=== PATIENT | female | born 1980 | race Caucasian/White ===

== ENCOUNTER 2016-11-19 23:00 | Emergency (ER) | payer OTHER ==
[2016-11-19 23:06] VITALS: RESP 18
[2016-11-19] MEDS ORDERED: SODIUM CHLORIDE 0.9% 1,000 ML IV ONE (23:25)
[2016-11-19] MEDS ORDERED: HYDROmorphone 1 MG/ML 1 ML SYRINGE IVP STA ×2 (23:25→23:51)
[2016-11-19 23:37] LABS: Basophils # (A) 0.1 k/uL (0-0.2); Basophils % (A) 1 %; CH 33.2; CHCM 34.2; Eosinophils # (A) 0.2 k/uL (0-0.7); Eosinophils % (A) 2 %; HCT 47.1 % (34.0-46.0); HDW 2.49; HGB 15.7 gm/dL (11.4-16.0); Luc # (Auto) 0.12; Luc % (Auto) 2; Lymphocytes # (A) 1.4 k/uL (1.0-4.8); Lymphocytes % (A) 19 %; MCH 32.5 pg (25.0-35.0); MCHC 33.4 g/dL (31.0-37.0); MCV 97.4 fL (80.0-100.0); Mean Platelet Volume 6.5; Monocytes # (A) 0.3 k/uL (0-1.0); Monocytes % (A) 4 %; Neutrophils # (A) 5.5 k/uL (1.3-7.7); Neutrophils % (A) 72 %; RBC 4.83 m/uL (3.80-5.40); RDW 13.8 % (11.5-15.5); WBC 7.6 k/uL (3.8-10.6); WBC (Perox) 7.41
--- NOTE | 2016-11-19 23:38 | ED ---
General Adult HPI - General Chief complaint: Abdominal Pain Stated complaint: Abd Pain Time Seen by Provider: 11/19/16 23:18 Source: patient, RN notes reviewed Mode of arrival: ambulatory Limitations: no limitations - History of Present Illness Initial comments: This is a 36-year-old female presents with abdominal pain and diarrhea that started last night. Patient states she noticed the pain last night but it went away. Patient states the pain returned this morning and has been constant. Patient states she has taken Percocet for the pain that she has for chronic back pain. Patient denies any nausea or vomiting but admits to some diarrhea that started last night. Patient denies any hematemesis, hematuria, dysuria or hematochezia. Patient denies any fever/chills. Patient states she has a history of cholecystectomy, appendectomy and a small bowel resection. Patient denies any recent travel or recent antibiotic use. Patient denies any recent fever, chills, shortness breath, chest pain, back pain, numbness, tingling, headache, or visual changes, or any other complaints. - Related Data Home Medications Medication Instructions Recorded Confirmed ALPRAZolam [Xanax] 1 mg PO BID PRN 06/17/14 11/19/16 ARIPiprazole [Abilify] 10 mg PO DAILY 06/17/14 11/19/16 Levothyroxine Sodium [Synthroid] 200 mcg PO DAILY 06/17/14 11/19/16 Sertraline [Zoloft] 100 mg PO DAILY 06/17/14 11/19/16 oxyCODONE HCL/ACETAMINOPHEN 1 tab PO QID 01/11/16 11/19/16 [Oxycodone-Acetaminophen 10-325] Previous Rx's Medication Instructions Recorded Ibuprofen [Motrin] 800 mg PO Q6HR PRN #30 tab 01/11/16 Dicyclomine [Bentyl] 20 mg PO QID 3 Days 11/20/16 Allergies Allergy/AdvReac Type Severity Reaction Status Date / Time cephalexin monohydrate Allergy Swelling Verified 11/19/16 23:06 [From Keflex] clindamycin Allergy Swelling Verified 11/19/16 23:06 levofloxacin [From Levaquin] Allergy Swelling Verified 11/19/16 23:06 Penicillins Allergy Itching Verified 11/19/16 23:06 prochlorperazine edisylate Allergy IRRITABLE Verified 11/19/16 23:06 [From Compazine] prochlorperazine maleate Allergy IRRITABLE Verified 11/19/16 23:06 [From Compazine] Review of Systems ROS Statement: Those systems with pertinent positive or pertinent negative responses have been documented in the HPI. ROS Other: All systems not noted in ROS Statement are negative. Past Medical History Past Medical History: Asthma, Thyroid Disorder Additional Past Medical History / Comment(s): crohns ibs anxiety depression, History of Any Multi-Drug Resistant Organisms: MRSA Date of last positivie culture/infection: 2011 MDRO Source:: breast Past Surgical History: Appendectomy, Bowel Resection, Section, Cholecystectomy Additional Past Surgical History / Comment(s): thyroid, cyst removal/abscess, right ovary and fallopian tube Past Psychological History: Anxiety, Depression Smoking Status: Current every day smoker Past Alcohol Use History: None Reported Past Drug Use History: None Reported General Exam - General Exam Comments Initial Comments: General: The patient is awake and alert, in no distress, and does not appear acutely ill. Eye: Pupils are equal, round and reactive to light, extra-ocular movements are intact. No nystagmus. There is normal conjunctiva bilaterally. No signs of icterus. Ears: TMs pink and pearly with intact cone of light bilaterally. Normal external ear canals Nose: Nasal turbinates pink and moist Mouth and throat: There are moist mucous membranes and no oral lesions. Neck: The neck is supple, there is no tenderness or JVD. Cardiovascular: There is a regular rate and rhythm. No murmur, rub or gallop is appreciated. Respiratory: Lungs are clear to auscultation, respirations are non-labored, breath sounds are equal. No wheezes, stridor, rales, or rhonchi. Gastrointestinal: There is mild tenderness to palpation of the patient's right upper quadrant and epigastric area. Abdomen is soft, non-distended without masses or organomegaly noted. There is no rebound or guarding present. No CVA tenderness. Bowel sounds are unremarkable. Musculoskeletal: Normal ROM, no tenderness. Strength 5/5. Sensation intact. Radial pulses equal bilaterally 2+. Neurological: A&O x 3. CN II-XII intact, There are no obvious motor or sensory deficits. Coordination appears grossly intact. Speech is normal. Skin: Skin is warm and dry and no rashes or lesions are noted. Psychiatric: Cooperative, appropriate mood & affect, normal judgment. Limitations: no limitations Course Vital Signs 11/19/16 23:04 Temperature 98.4 F Pulse Rate 120 H Respiratory 18 Rate Blood Pressure 141/89 O2 Sat by Pulse 97 Oximetry Medical Decision Making - Medical Decision Making This is a 36-year-old female who presents with abdominal pain and diarrhea that started yesterday. On physical exam patient is afebrile in the EC. There is mild tenderness to palpation of the patient's right upper quadrant and epigastric area. Abdomen is soft, non-distended without masses or organomegaly noted. There is no rebound or guarding present. No CVA tenderness. Bowel sounds are unremarkable. A KUB was done and reviewed showing: Nonspecific bowel gas pattern. No evidence of bowel obstruction or pneumoperitoneum. Reported by Dr. Baldwin. Basic labs were drawn and reviewed. Small amount of blood noted in the urine and patient admits that she is on her menstrual cycle. Patient was feeling much better after fluids and pain medication and patient is agreeable to discharge. I discussed viral gastroenteritis. Discussed the patient to drink plenty fluids. Patient given a dose of Bentyl before discharge. Patient will be sent home with a prescription for Bentyl. I discussed return parameters. Discussed that patient should follow up with PCP in one to 2 days or return to the EC for any worsening symptoms or for any further concerns. Patient was receptive to this plan and patient will be discharged home. I discussed this case with attending physician Dr. Chin who agrees the plan as stated above. - Lab Data Result diagrams: 11/19/16 23:20 11/19/16 23:20 Lab Results 11/19/16 11/19/16 11/19/16 Range/Units 23:20 23:20 23:20 WBC 7.6 (3.8-10.6) k/uL RBC 4.83 (3.80-5.40) m/uL Hgb 15.7 (11.4-16.0) gm/dL Hct 47.1 H (34.0-46.0) % MCV 97.4 (80.0-100.0) fL MCH 32.5 (25.0-35.0) pg MCHC 33.4 (31.0-37.0) g/dL RDW 13.8 (11.5-15.5) % Plt Count 323 (150-450) k/uL Neutrophils % 72 % Lymphocytes % 19 % Monocytes % 4 % Eosinophils % 2 % Basophils % 1 % Neutrophils # 5.5 (1.3-7.7) k/uL Lymphocytes # 1.4 (1.0-4.8) k/uL Monocytes # 0.3 (0-1.0) k/uL Eosinophils # 0.2 (0-0.7) k/uL Basophils # 0.1 (0-0.2) k/uL PT (9.0-12.0) sec INR (<1.1) APTT (22.0-30.0) sec Sodium 141 (137-145) mmol/L Potassium 4.3 (3.5-5.1) mmol/L Chloride 105 (98-107) mmol/L Carbon Dioxide 23 (22-30) mmol/L Anion Gap 13 mmol/L BUN 12 (7-17) mg/dL Creatinine 1.10 H (0.52-1.04) mg/dL Est GFR (MDRD) Af Amer >60 (>60 ml/min/1.73 sqM) Est GFR (MDRD) Non-Af 57 (>60 ml/min/1.73 sqM) Glucose 117 H (74-99) mg/dL Calcium 8.8 (8.4-10.2) mg/dL Total Bilirubin 0.5 (0.2-1.3) mg/dL AST 42 H (14-36) U/L ALT 87 H (9-52) U/L Alkaline Phosphatase 88 (38-126) U/L Total Protein 8.3 H (6.3-8.2) g/dL Albumin 4.6 (3.5-5.0) g/dL Amylase 62 (30-110) U/L Lipase 240 (23-300) U/L Urine Color Urine Appearance (Clear) Urine pH (5.0-8.0) Ur Specific Yeoman (1.001-1.035) Urine Protein (Negative) Urine Glucose (UA) (Negative) Urine Ketones (Negative) Urine Blood (Negative) Urine Nitrite (Negative) Urine Bilirubin (Negative) Urine Urobilinogen (<2.0) mg/dL Ur Leukocyte Esterase (Negative) Urine RBC (0-5) /hpf Urine WBC (0-5) /hpf Ur Squamous Epith Cells (0-4) /hpf Urine Bacteria (None) /hpf Urine Mucus (None) /hpf 11/19/16 11/19/16 Range/Units 23:20 23:20 WBC (3.8-10.6) k/uL RBC (3.80-5.40) m/uL Hgb (11.4-16.0) gm/dL Hct (34.0-46.0) % MCV (80.0-100.0) fL MCH (25.0-35.0) pg MCHC (31.0-37.0) g/dL RDW (11.5-15.5) % Plt Count (150-450) k/uL Neutrophils % % Lymphocytes % % Monocytes % % Eosinophils % % Basophils % % Neutrophils # (1.3-7.7) k/uL Lymphocytes # (1.0-4.8) k/uL Monocytes # (0-1.0) k/uL Eosinophils # (0-0.7) k/uL Basophils # (0-0.2) k/uL PT 10.1 (9.0-12.0) sec INR 1.0 (<1.1) APTT 26.3 (22.0-30.0) sec Sodium (137-145) mmol/L Potassium (3.5-5.1) mmol/L Chloride (98-107) mmol/L Carbon Dioxide (22-30) mmol/L Anion Gap mmol/L BUN (7-17) mg/dL Creatinine (0.52-1.04) mg/dL Est GFR (MDRD) Af Amer (>60 ml/min/1.73 sqM) Est GFR (MDRD) Non-Af (>60 ml/min/1.73 sqM) Glucose (74-99) mg/dL Calcium (8.4-10.2) mg/dL Total Bilirubin (0.2-1.3) mg/dL AST (14-36) U/L ALT (9-52) U/L Alkaline Phosphatase (38-126) U/L Total Protein (6.3-8.2) g/dL Albumin (3.5-5.0) g/dL Amylase (30-110) U/L Lipase (23-300) U/L Urine Color Yellow Urine Appearance Cloudy H (Clear) Urine pH 6.5 (5.0-8.0) Ur Specific Yeoman 1.012 (1.001-1.035) Urine Protein Negative (Negative) Urine Glucose (UA) Negative (Negative) Urine Ketones Negative (Negative) Urine Blood Moderate H (Negative) Urine Nitrite Negative (Negative) Urine Bilirubin Negative (Negative) Urine Urobilinogen <2.0 (<2.0) mg/dL Ur Leukocyte Esterase Negative (Negative) Urine RBC 2 (0-5) /hpf Urine WBC 7 H (0-5) /hpf Ur Squamous Epith Cells 6 H (0-4) /hpf Urine Bacteria Occasional H (None) /hpf Urine Mucus Rare H (None) /hpf Disposition Clinical Impression: Gastroenteritis, Diarrhea Disposition: HOME SELF-CARE Condition: Good Instructions: Acute Diarrhea (ED) Additional Instructions: Please continue to drink plenty of fluids. Please use Bentyl as prescribed. Please follow-up with your primary care physician tomorrow or return to the EC for any worsening symptoms or for any further concerns. Prescriptions: Dicyclomine [Bentyl] 20 mg PO QID 3 Days Referrals: Reji Diaz MD [Primary Care Provider] - 1-2 days Time of Disposition: 01:18
[2016-11-19 23:45] LABS: Amylase 62 U/L (30-110)
[2016-11-19 23:46] LABS: ALT 87 U/L (9-52); AST 42 U/L (14-36); Alkaline Phosphatase 88 U/L (38-126); Anion Gap 13 mmol/L; Appearance,Urine Cloudy (Clear); Bacteria,Urine Occasional /hpf; Bilirubin,Urine Negative (Negative); Blood Urea Nitrogen 12 mg/dL (7-17); Calcium 8.8 mg/dL (8.4-10.2); Carbon Dioxide 23 mmol/L (22-30); Chloride 105 mmol/L (98-107); Glucose 117 mg/dL (74-99); Glucose,Urine (UA) Negative (Negative); Ketones,Urine Negative (Negative); Leukocyte Esterase,Urine Negative (Negative); Mucus,Urine Rare /hpf; Nitrite,Urine Negative (Negative); Non-African American GFR(MDRD) 57 (>60 ml/min/1.73 sqM); PH, Urine 6.5 (5.0-8.0); Particle Count 6609; Potassium 4.3 mmol/L (3.5-5.1); Protein,Urine Negative (Negative); RBC,Urine 2 /hpf (0-5); Sodium 141 mmol/L (137-145); Specific Gravity,Urine 1.012 (1.001-1.035); Squamous Epithelial Cell,Urine 6 /hpf (0-4); Total Bilirubin 0.5 mg/dL (0.2-1.3); Total Protein 8.3 g/dL (6.3-8.2); UA Billing (MACRO vs. MICRO) MICRO; Urobilinogen,Urine <2.0 mg/dL (<2.0); WBC,Urine 7 /hpf (0-5)
[2016-11-19 23:50] LABS: Partial Thromboplastin Time 26.3 sec (22.0-30.0); Prothrombin Time 10.1 sec (9.0-12.0)
--- NOTE | 2016-11-20 00:32 | XR ---
EXAM: XR Abdomen, 1 View. CLINICAL HISTORY: Reason: Pain TECHNIQUE: Frontal supine view of the abdomen/pelvis. COMPARISON: No relevant prior studies available. FINDINGS: Intraperitoneal space: Bowel gas pattern is nonspecific with scattered fluid levels in nondilated small and large bowel. No evidence of bowel obstruction or pneumoperitoneum. Gastrointestinal tract: Multiple surgical clips identified in the rectal quadrant and right mid abdomen.. There are also surgical clips in the pelvis bilaterally. Bones/joints: Unremarkable. Other findings: No abnormal calcifications identified. IMPRESSION: Nonspecific bowel gas pattern. No evidence of bowel obstruction or pneumoperitoneum.
[2016-11-20] MEDS ORDERED: DICYCLOMINE 10 MG CAP PO STA (01:13)
[2016-11-20 01:27] VITALS: BP 123/61; PULSE 92; TEMP 98.6
== END 2016-11-20 01:27 | disposition home or self-care (01) ==
LOC: EC 23:00
DX: K52.9 Noninfective gastroenteritis and colitis, unspecified (principal); E07.9 Disorder of thyroid, unspecified; F41.9 Anxiety disorder, unspecified; F32.9 Major depressive disorder, single episode, unspecified; F17.200 Nicotine dependence, unspecified, uncomplicated; Z79.891 Long term (current) use of opiate analgesic; Z79.899 Other long term (current) drug therapy; Z88.1 Allergy status to other antibiotic agents; Z88.0 Allergy status to penicillin; Z88.8 Allergy status to other drugs, medicaments and biological substances; Z90.49 Acquired absence of other specified parts of digestive tract; Z98.890 Other specified postprocedural states
CPT/HCPCS: 99284; 96374; 96361; 36415; 80053; 82150; 83690; 85025; 85610; 85730; 81001; 87086; 87077; 87186; 74000; J1170

== ENCOUNTER 2016-11-30 23:46 | Observation (INO) | payer OTHER ==
[2016-12-01] MEDS ORDERED: SODIUM CHLORIDE 0.9% 1,000 ML IV STA (01:07)
[2016-12-01] MEDS ORDERED: MORPHINE SULFATE 4 MG/ML SYRINGE IVP STA (01:33)
[2016-12-01 01:43] LABS: Basophils # (A) 0.1 k/uL (0-0.2); Basophils % (A) 1 %; CH 33.1; CHCM 35.3; Eosinophils # (A) 0.3 k/uL (0-0.7); Eosinophils % (A) 4 %; HCT 40.9 % (34.0-46.0); HDW 2.69; HGB 14.2 gm/dL (11.4-16.0); Luc # (Auto) 0.23; Luc % (Auto) 3; Lymphocytes # (A) 2.2 k/uL (1.0-4.8); Lymphocytes % (A) 31 %; MCH 32.8 pg (25.0-35.0); MCHC 34.8 g/dL (31.0-37.0); MCV 94.3 fL (80.0-100.0); Mean Platelet Volume 7.1; Monocytes # (A) 0.4 k/uL (0-1.0); Monocytes % (A) 5 %; Neutrophils % (A) 56 %; RBC 4.34 m/uL (3.80-5.40); RDW 13.8 % (11.5-15.5); WBC 7.2 k/uL (3.8-10.6); WBC (Perox) 7.16
--- NOTE | 2016-12-01 01:46 | ED ---
Chest Pain HPI - General Source: patient, family, RN notes reviewed Mode of arrival: ambulatory Limitations: no limitations <Barby Borjas - Last Filed: 12/01/16 03:41> <Noam Rahman - Last Filed: 12/01/16 03:55> - General Chief Complaint: Chest Pain Stated Complaint: chest pain,SOB Time Seen by Provider: 12/01/16 01:06 - History of Present Illness Initial Comments: Patient is a 36-year-old female with chief complaint of 4 hours of chest pain and shortness of breath. She reports the chest pain radiates down her left arm. Patient reports that she has no history of heart disease. She has a mild smoker. Patient states that she is increasingly short of breath with exertion. Patient states that she has no cough but did present with fever emergency department. She denies any abdominal pain or vomiting or nausea. She denies any diaphoresis.Patient denies any recent fever, chills, back pain, abdominal pain, nausea vomiting, numbness or tingling, dysuria or hematuria, constipation or diarrhea, headaches or visual changes, or any other current symptoms ( Barby Borjas) - Related Data Home Medications Medication Instructions Recorded Confirmed ALPRAZolam [Xanax] 1 mg PO BID PRN 06/17/14 11/30/16 ARIPiprazole [Abilify] 10 mg PO DAILY 06/17/14 11/30/16 Levothyroxine Sodium [Synthroid] 200 mcg PO DAILY 06/17/14 11/30/16 Sertraline [Zoloft] 100 mg PO DAILY 06/17/14 11/30/16 oxyCODONE HCL/ACETAMINOPHEN 1 tab PO QID 01/11/16 11/30/16 [Oxycodone-Acetaminophen 10-325] Previous Rx's Medication Instructions Recorded Ibuprofen [Motrin] 800 mg PO Q6HR PRN #30 tab 01/11/16 Dicyclomine [Bentyl] 20 mg PO QID 3 Days 11/20/16 Allergies Allergy/AdvReac Type Severity Reaction Status Date / Time cephalexin monohydrate Allergy Swelling Verified 11/30/16 23:54 [From Keflex] clindamycin Allergy Swelling Verified 11/30/16 23:54 levofloxacin [From Levaquin] Allergy Swelling Verified 11/30/16 23:54 Penicillins Allergy Itching Verified 11/30/16 23:54 prochlorperazine edisylate Allergy IRRITABLE Verified 11/30/16 23:54 [From Compazine] prochlorperazine maleate Allergy IRRITABLE Verified 11/30/16 23:54 [From Compazine] Review of Systems ROS Other: All systems not noted in ROS Statement are negative. <Barby Borjas - Last Filed: 12/01/16 03:41> ROS Other: All systems not noted in ROS Statement are negative. <Noam Rahman - Last Filed: 12/01/16 03:55> ROS Statement: Those systems with pertinent positive or pertinent negative responses have been documented in the HPI. EKG Findings - EKG Comments: EKG Findings:: EKG shows normal sinus rhythm. No evidence of ST elevation or T- wave inversion. Ventricular 89 bpm. NC interval 160 ms. QRS duration 90 ms. qt/qtc is 382/464 ms. <Barby Borjas - Last Filed: 12/01/16 03:41> Past Medical History Past Medical History: Asthma, Thyroid Disorder Additional Past Medical History / Comment(s): crohns ibs anxiety depression, History of Any Multi-Drug Resistant Organisms: MRSA Date of last positivie culture/infection: 2011 MDRO Source:: breast Past Surgical History: Appendectomy, Bowel Resection, Section, Cholecystectomy Additional Past Surgical History / Comment(s): thyroid, cyst removal/abscess, right ovary and fallopian tube Past Psychological History: Anxiety, Depression Smoking Status: Current every day smoker Past Alcohol Use History: None Reported Past Drug Use History: None Reported <IndioBarby - Last Filed: 12/01/16 03:41> General Exam Limitations: no limitations General appearance: alert, in no apparent distress Head exam: Present: atraumatic, normocephalic, normal inspection Eye exam: Present: normal appearance, PERRL, EOMI. Absent: scleral icterus, conjunctival injection, periorbital swelling ENT exam: Present: normal exam, mucous membranes moist Neck exam: Present: normal inspection. Absent: tenderness, meningismus, lymphadenopathy Respiratory exam: Present: normal lung sounds bilaterally. Absent: respiratory distress, wheezes, rales, rhonchi, stridor Cardiovascular Exam: Present: regular rate, normal rhythm, normal heart sounds. Absent: systolic murmur, diastolic murmur, rubs, gallop, clicks GI/Abdominal exam: Present: soft, normal bowel sounds. Absent: distended, tenderness, guarding, rebound, rigid Extremities exam: Present: normal inspection, full ROM, normal capillary refill. Absent: tenderness, pedal edema, joint swelling, calf tenderness Back exam: Present: normal inspection Neurological exam: Present: alert, oriented X3, CN II-XII intact Psychiatric exam: Present: normal affect, normal mood Skin exam: Present: warm, dry, intact, normal color. Absent: rash <Barby Borjas - Last Filed: 12/01/16 03:41> General appearance: alert, in no apparent distress Head exam: Present: atraumatic, normocephalic, normal inspection Eye exam: Present: normal appearance, PERRL, EOMI. Absent: scleral icterus, conjunctival injection, periorbital swelling ENT exam: Present: normal exam, mucous membranes moist Neck exam: Present: normal inspection. Absent: tenderness, meningismus, lymphadenopathy Respiratory exam: Present: normal lung sounds bilaterally. Absent: respiratory distress, wheezes, rales, rhonchi, stridor Cardiovascular Exam: Present: regular rate, normal rhythm, normal heart sounds. Absent: systolic murmur, diastolic murmur, rubs, gallop, clicks GI/Abdominal exam: Present: soft, normal bowel sounds. Absent: distended, tenderness, guarding, rebound, rigid Extremities exam: Present: normal inspection, full ROM, normal capillary refill. Absent: tenderness, pedal edema, joint swelling, calf tenderness Back exam: Present: normal inspection Neurological exam: Present: alert, oriented X3, CN II-XII intact Psychiatric exam: Present: normal affect, normal mood Skin exam: Present: warm, dry, intact, normal color. Absent: rash <Noam Rahman - Last Filed: 12/01/16 03:55> - General Exam Comments Initial Comments: Patient is morbidly obese 36-year-old FEMA. No acute distress. (Barby Borjas ) Course <Barby Borjas - Last Filed: 12/01/16 03:41> <Noam Rahman - Last Filed: 12/01/16 03:55> Vital Signs 03/12/01/16 12/01/16 23:51 01:40 03:08 Temperature 100.2 F H 99 F Pulse Rate 97 99 90 Respiratory 20 20 20 Rate Blood Pressure 145/71 151/89 116/63 O2 Sat by Pulse 100 98 99 Oximetry - Reevaluation(s) Reevaluation #1: 12/01/16 03:54 Patient still remaining with sore minimal chest pain (Noam Rahman) Chest Pain MDM <Barby Borjas - Last Filed: 12/01/16 03:41> <Noam Rahman - Last Filed: 12/01/16 03:55> - [facility] Patient is a 36-year-old female 4 hours of chest pain and shortness of breath. Patient does not appear to be in acute distress at this time. Patient currently requesting pain medications, suspicious for drug-seeking. Patient states that she has no known history of heart disease. She states that it feels like a heaviness on her chest. EKG was reviewed and shows no acute changes. Patient's initial troponins are also negative. Patient did have a mildly elevated d-dimer 0.67. CT AGARWAL chest was obtained. CT AGARWAL chest. Very limited contrast opacification of the pulmonary arteries with no evidence of central PE. No evidence for any acute cardio pulmonary disease. Patient will be admitted to observation at this time for serial cardiac enzymes. An IV hydration. (Barby Borjas) 36 female year with significant cardiac risk including morbid obesity and history of smoking. Patient be admitted for cardiac evaluation, EKG and troponin and CTA are negative for PE and acute other acute time. Patient will be placed on anticoagulation, she'll troponins and telemetry (Noam Rahman) Disposition Time of Disposition: 03:30 <Barby Borjas - Last Filed: 12/01/16 03:41> <Noam Rahman - Last Filed: 12/01/16 03:55> Clinical Impression: Chest pain Disposition: ADMITTED IP TO THIS HOSP Condition: Stable Referrals: Reji Diaz MD [Primary Care Provider] - 1-2 days
[2016-12-01 01:56] LABS: ALT 83 U/L (9-52); AST 46 U/L (14-36); Alkaline Phosphatase 74 U/L (38-126); Anion Gap 11 mmol/L; Blood Urea Nitrogen 9 mg/dL (7-17); Calcium 8.9 mg/dL (8.4-10.2); Carbon Dioxide 22 mmol/L (22-30); Chloride 109 mmol/L (98-107); Glucose 123 mg/dL (74-99); Non-African American GFR(MDRD) >60 (>60 ml/min/1.73 sqM); Potassium 3.9 mmol/L (3.5-5.1); Sodium 142 mmol/L (137-145); Total Bilirubin 0.4 mg/dL (0.2-1.3); Total Protein 7.4 g/dL (6.3-8.2)
[2016-12-01 01:57] LABS: Partial Thromboplastin Time 26.6 sec (22.0-30.0)
[2016-12-01 02:09] LABS: Creatine Kinase 292 U/L (30-135)
--- NOTE | 2016-12-01 02:09 | XR ---
EXAM: XR Chest, 2 Views. CLINICAL HISTORY: Reason: Chest Pain TECHNIQUE: Frontal and lateral views of the chest. COMPARISON: No relevant prior studies available. FINDINGS: Lungs: Unremarkable. No consolidation. Pleural space: Unremarkable. No pneumothorax. Heart: Unremarkable. No cardiomegaly. Mediastinum: Unremarkable. Bones/joints: Unremarkable. IMPRESSION: Normal chest
[2016-12-01 02:22] LABS: Creatine Kinase MB 0.7 ng/mL (0.0-2.4); Troponin I <0.012 ng/mL (0.000-0.034)
[2016-12-01] MEDS ORDERED: RX INFO: IV CONTRAST WAS GIVEN 1 EACH MISC MISCELLANE PRN (02:28)
[2016-12-01] MEDS ORDERED: KETOROLAC 30 MG/ML 1 ML VIAL IVP STA (02:53)
--- NOTE | 2016-12-01 03:27 | CT ---
EXAM: CT Chest With Intravenous Contrast. CLINICAL HISTORY: Reason: Pain TECHNIQUE: Axial computed tomography images of the chest with intravenous contrast during the pulmonary arterial phase of enhancement. No immediate complications. Coronal and sagittal reformats were performed. CTDI is 104.10 mGy and DLP is 819.50 mGy-cm This CT exam was performed using one or more of the following dose reduction techniques: automated exposure control, adjustment of the mA and/or kV according to patient size, and/or use of iterative reconstruction technique. COMPARISON: No relevant prior studies available. FINDINGS: Pulmonary arteries: Very limited contrast opacification of the pulmonary arteries. No central PE. The more peripheral pulmonary arteries are difficult to assess for PE. Aorta: No acute findings. No thoracic aortic aneurysm. Lungs: Unremarkable. No mass. No consolidation. Pleural space: Unremarkable. No significant effusion. No pneumothorax. Heart: Unremarkable. No cardiomegaly. No significant pericardial effusion. No evidence of RV dysfunction. Bones/joints: No acute fracture. No dislocation. Soft tissues: Unremarkable. Lymph nodes: Unremarkable. No enlarged lymph nodes. Liver: Hepatic steatosis. Gallbladder and bile ducts: Cholecystectomy. IMPRESSION: Very limited contrast opacification of the pulmonary arteries with no evidence for central PE. No other evidence for acute cardiopulmonary disease.
[2016-12-01] MEDS ORDERED: Acetaminophen-Codeine 300-30mg TAB PO PRN (03:34)
[2016-12-01] MEDS ORDERED: ONDANSETRON 4 MG/2 ML VIAL IVP PRN (03:34)
[2016-12-01] MEDS ORDERED: ACETAMINOPHEN TAB 325 MG TAB PO PRN (03:34)
[2016-12-01] MEDS ORDERED: NALOXONE 0.4 MG/ML 1 ML VIAL IV PRN (03:34)
[2016-12-01] MEDS ORDERED: IBUPROFEN 400 MG TAB PO PRN (03:34)
[2016-12-01] MEDS ORDERED: SODIUM CHLORIDE 0.9% 1,000 ML IV SCH (03:45)
[2016-12-01] MEDS ORDERED: ALPRAZolam 0.5 MG TAB PO PRN (04:06)
[2016-12-01] MEDS ORDERED: ASPIRIN 81 MG CHEW PO STA (04:06)
[2016-12-01 04:17] VITALS: RESP 18
[2016-12-01] MEDS: HYDROmorphone 1 MG/ML 1 ML SYRINGE IV PRN ×2 (05:13→10:04)
[2016-12-01 07:31] LABS: Creatine Kinase 292 U/L (30-135)
[2016-12-01 07:44] LABS: Creatine Kinase MB 0.5 ng/mL (0.0-2.4); Troponin I <0.012 ng/mL (0.000-0.034)
[2016-12-01] MEDS ORDERED: SERTRALINE 100 MG TAB PO SCH (09:00)
[2016-12-01] MEDS ORDERED: DICYCLOMINE 20 MG TAB PO SCH (09:00)
[2016-12-01] MEDS ORDERED: ARIPiprazole 10 MG TAB PO SCH (09:00)
[2016-12-01] MEDS ORDERED: PANTOPRAZOLE 40 MG/10 ML VIAL IV SCH (09:00)
[2016-12-01] MEDS ORDERED: LEVOTHYROXINE 100 MCG TAB PO SCH (09:00)
--- NOTE | 2016-12-01 09:02 | CONS ---
DATE OF CONSULTATION: CHIEF COMPLAINT: Chest pain. Marilee is a 36-year-old lady who comes in to hospital complaining of chest discomfort and shortness of breath. Chest discomfort is mild to moderate intensity, precordial, at times radiated to her left arm. She also had shortness of breath related to it. She does not have any diaphoresis, dizziness, or syncope. She denies abdominal pain. She tells me that she has had similar symptoms and was treated at [facility] a year ago and apparently had cardiac workup that was negative. I do not have these records with me at this time. Her D-dimer was elevated on her initial presentation, went on to have a CTA that was negative for pulmonary embolism. At the time of my evaluation this morning, she is pain free, hemodynamically stable and appears comfortable at rest. She has had 2 sets of cardiac enzymes that are negative. EKG does not reveal ischemic changes. Past medical history is significant for hypertension and hypothyroidism. Current medications include Norvasc 5 q. daily, Zoloft 100 q. daily, Synthroid, Bentyl, Abilify, Motrin and Xanax. She has multiple drug allergies including KEFLEX, CLINDAMYCIN, LEVAQUIN, PENICILLIN, COMPAZINE. Family history is negative for premature coronary artery disease. Social history is negative for current smoking, EtOH abuse, or drug abuse. REVIEW OF SYSTEMS: HEENT: Unremarkable. CARDIAC: As described above. RESPIRATORY: Negative. GI: Negative. GENITOURINARY: Negative. ALLERGY/IMMUNOLOGY: Negative. SKIN: Negative. MUSCULOSKELETAL: Negative. ENDOCRINE: Negative. DERMATOLOGY: Negative. CONSTITUTIONAL: Negative. ONCOLOGICAL: Negative. The rest of the system review is not relevant . On exam, comfortable at rest. Vital signs are stable. There is no jugular venous distention. Chest exam reveals good air entry bilaterally. Heart exam reveals first and second heart sounds. No gallop. No murmur, no rub. Abdomen is soft, nontender. Exam of the extremities did not reveal any edema. Peripheral pulses are felt. QUALITY [employer]OL ASSESSOR exam did not reveal focal neurological deficits. Labs show a hemoglobin of 14.2, platelet count is 260. Creatinine is 0.9. Two sets of tropes are negative. ASSESSMENT: 1. Atypical chest pain. 2. Morbid obesity. 3. History of hypertension. PLAN: I am going to review outpatient records on her from [facility] and see if we need to do another stress test or not at this time. Her symptoms are very atypical. Pulmonary embolism is ruled out.
--- NOTE | 2016-12-01 10:40 | ECHOF ---
Referral Reason:cp/sob MEASUREMENTS -------- HEIGHT: 167.6 cm WEIGHT: 149.7 kg BP: 104/70 RVIDd: 3.3 cm (< 3.3) IVSd: 1.3 cm (0.6 - 1.1) LVIDd: 4.6 cm (3.9 - 5.3) LVPWd: 1.3 cm (0.6 - 1.1) IVSs: 1.7 cm LVIDs: 3.1 cm LVPWs: 1.9 cm LA Diam: 2.9 cm (2.7 - 3.8) Ao Diam: 3.1 cm (2.0 - 3.7) AV Cusp: 2.1 cm (1.5 - 2.6) MV EXCURSION: 17.007 mm (> 18.000) MV EF SLOPE: 85 mm/s (70 - 150) EPSS: 0.7 cm MV E Usman: 1.18 m/s MV DecT: 194 ms MV A Usman: 0.78 m/s MV E/A Ratio: 1.52 FINDINGS -------- Sinus rhythm. This was a technically adequate study. The left ventricular size is normal. There is mild concentric left ventricular hypertrophy. Overall left ventricular systolic function is normal with, an EF between 55 - 60 %. The right ventricle is normal in size. The left atrial size is normal. The right atrium is normal in size. The aortic valve was not well visualized. The mitral valve is normal. The tricuspid valve was not well visualized. The pulmonic valve was not well visualized. The aortic root size is normal. IVC Not well visulized. There is no pericardial effusion. CONCLUSIONS -------- 1. Sinus rhythm. 2. The aortic root size is normal. 3. IVC Not well visulized. 4. There is no pericardial effusion. 5. This was a technically adequate study. 6. There is mild concentric left ventricular hypertrophy. 7. Overall left ventricular systolic function is normal with, an EF between 55 - 60 %. 8. The left atrial size is normal. 9. The aortic valve was not well visualized. 10. The mitral valve is normal. 11. The tricuspid valve was not well visualized. 12. The pulmonic valve was not well visualized. [employer] SAL[employer] PROFESSIONAL: Zoe Avendaño [facility]
[2016-12-01 11:50] VITALS: BP 117/70; PULSE 89; TEMP 98.5
--- NOTE | 2016-12-01 13:16 | P.HPIM ---
History of Present Illness H&P Date: 12/01/16 Chief Complaint: Shortness of breath, chest pain HISTORY AND PHYSICAL AND DISCHARGE SUMMARY: This is a 36-year-old female patient of Dr. Diaz. She has a past medical history for asthma, hypertension, obstructive sleep apnea compliant with CPAP, hypothyroidism, Crohn's disease, irritable bowel syndrome, anxiety, depression. Patient states that she has had shortness of breath for a while and yesterday she developed chest pain when she was going upstairs to bed. She states the chest pain was on the left side of her chest and she had radiation to her left neck and arm. She denies any cough, palpitations. No lightheadedness or dizziness. She states she was weak. No nausea or vomiting. Patient came into [facility] emergency center for evaluation and was subsequently placed on the observation unit. She has been seen in consultation by breast splitter and cleared for discharge home. She had a stress test apparently 2 years ago which was reviewed by cardiology. Troponins have been negative. D-dimer was slightly elevated and CTA of the chest was negative for pulmonary embolism. Liver enzymes are noted be slightly elevated and blood sugar was 123. Influenza testing was negative. Patient time of evaluation states that she is feeling quite a bit better. Patient will be discharged home today in stable condition. Echocardiogram reveals EF 55-60% with mild concentric left ventricular hypertrophy. Review of Systems All systems: negative Constitutional: Reports weakness, Denies anorexia, Denies chills, Denies fever Eyes: denies blurred vision, denies pain Ears, nose, mouth and throat: Denies headache, Denies nasal congestion, Denies sore throat Cardiovascular: Reports chest pain, Reports dyspnea on exertion, Reports shortness of breath, Denies leg edema, Denies lightheadedness, Denies syncope Respiratory: Reports dyspnea, Denies cough, Denies cough with sputum, Denies hemoptysis, Denies home oxygen Gastrointestinal: Denies abdominal pain, Denies diarrhea, Denies nausea, Denies vomiting Genitourinary: Denies dysuria, Denies hematuria Musculoskeletal: Denies myalgias Integumentary: Denies pruritus, Denies rash Neurological: Denies numbness, Denies weakness Psychiatric: Denies anxiety, Denies depression Endocrine: Denies fatigue, Denies weight change Past Medical History Past Medical History: Asthma, Hypertension, Sleep Apnea/CPAP/BIPAP, Thyroid Disorder Additional Past Medical History / Comment(s): crohns ibs, obstructive sleep apnea compliant with CPAP, borderline diabetic History of Any Multi-Drug Resistant Organisms: MRSA Date of last positivie culture/infection: 2011 MDRO Source:: breast Past Surgical History: Appendectomy, Bowel Resection, Section, Cholecystectomy Additional Past Surgical History / Comment(s): thyroid, cyst removal/abscess small intestines, right ovary and fallopian tube cyst removal Past Anesthesia/Blood Transfusion Reactions: No Reported Reaction Past Psychological History: Anxiety, Depression Smoking Status: Current every day smoker Past Alcohol Use History: None Reported Additional Past Alcohol Use History / Comment(s): Patient is a smoker one pack per day for more than 10 years. She denies any medical marijuana, marijuana, street drug or alcohol use. She lives at home with her . She has 4 children with no major medical problems. Past Drug Use History: None Reported - Past Family History Father Family Medical History: Coronary Artery Disease (CAD), Hypertension Additional Family Medical History / Comment(s): Father is alive at age 65 with history of coronary artery disease. Mother Family Medical History: COPD, Coronary Artery Disease (CAD), Hypertension, Sleep Apnea/CPAP/BIPAP Additional Family Medical History / Comment(s): Mother is alive at age 58 with history of coronary artery disease and asthma. Brother(s) Family Medical History: No Reported History Additional Family Medical History / Comment(s): Patient has 1 brother with no major medical problems. Sister(s) Family Medical History: No Reported History Additional Family Medical History / Comment(s): Patient has 1 sister with no major medical problems. Daughter(s) Family Medical History: Asthma, Sleep Apnea/CPAP/BIPAP Son(s) Family Medical History: Asthma, Sleep Apnea/CPAP/BIPAP Medications and Allergies Home Medications Medication Instructions Recorded Confirmed Type ALPRAZolam [Xanax] 1 mg PO BID PRN 06/17/14 12/01/16 History ARIPiprazole [Abilify] 10 mg PO HS 06/17/14 12/01/16 History Levothyroxine Sodium [Synthroid] 200 mcg PO HS 06/17/14 12/01/16 History Sertraline [Zoloft] 100 mg PO HS 06/17/14 12/01/16 History oxyCODONE HCL/ACETAMINOPHEN 1 tab PO QID 01/11/16 12/01/16 History [Oxycodone-Acetaminophen 10-325] amLODIPine [Norvasc] 5 mg PO DAILY 12/01/16 12/01/16 History Allergies Allergy/AdvReac Type Severity Reaction Status Date / Time cephalexin monohydrate Allergy Swelling Verified 12/01/16 07:42 [From Keflex] clindamycin Allergy Swelling Verified 12/01/16 07:42 levofloxacin [From Levaquin] Allergy Swelling Verified 12/01/16 07:42 Penicillins Allergy Itching Verified 12/01/16 07:42 prochlorperazine edisylate Allergy IRRITABLE Verified 12/01/16 07:42 [From Compazine] prochlorperazine maleate Allergy IRRITABLE Verified 12/01/16 07:42 [From Compazine] Physical Exam Vitals: Vital Signs Temp Pulse Pulse Pulse Resp BP BP 12/01/16 11:49 98.5 F 89 18 117/70 12/01/16 07:48 98.1 F 76 18 104/79 12/01/16 04:56 18 12/01/16 04:20 98.7 F 80 16 12/01/16 04:16 89 18 109/59 12/01/16 04:00 98.5 F 72 16 BP Pulse Ox 12/01/16 11:49 98 12/01/16 07:48 97 12/01/16 04:56 12/01/16 04:20 113/82 98 12/01/16 04:16 98 12/01/16 04:00 90/59 95 Intake and Output 11/30/16 12/01/16 12/01/16 22:59 06:59 14:59 Intake Total 200 Balance 200 Intake: IV 200 Sodium Chloride 0.9% 1, 200 000 ml @ 100 mls/hr IV . Q10H GLENYS Rx#:[id number] Oral 0 Other: Voiding Method Toilet Toilet # Voids 1 Gen: This is a morbidly obese 36-year-old female. She is resting in bed and appears to be in no acute distress. HEENT: Head is atraumatic, normocephalic. Pupils equal, round. Sclerae is anicteric. NECK: Supple. No JVD. No lymphadenopathy. No thyromegaly. LUNGS: Clear to auscultation. No wheezes or rhonchi. No intercostal retractions. HEART: Regular rate and rhythm. No murmur. ABDOMEN: Soft. Bowel sounds are present. No masses. No tenderness. EXTREMITIES: No pedal edema. No calf tenderness. Dorsalis pedis +2 bilaterally. NEUROLOGICAL: Patient is awake, alert and oriented x3. Cranial nerves 2 through 12 are grossly intact. Results CBC & Chem 7: 12/01/16 01:20 12/01/16 01:20 Labs: Abnormal Lab Results - Last 24 Hours (Table) 12/01/16 Range/Units 06:49 Total Creatine Kinase 292 H (30-135) U/L Thrombosis Risk Factor Assmnt - Choose All That Apply Any of the Below Risk Factors Present?: Yes Each Factor Represents 1 point: Hx of IBD, Obesity (BMI >25), Varicose veins Other Risk Factors: No Thrombosis Risk Factor Assessment Total Risk Factor Score: 3 Thrombosis Risk Factor Assessment Level: Moderate Risk Assessment and Plan Plan: 1. Atypical chest pain. Patient has been seen by cardiology and cleared for discharge home. Troponins have been negative. Echocardiogram as above. Patient has had a negative stress test done 2 years ago. 2. Borderline diabetic with elevated fasting glucose. Patient to be monitored as an outpatient. 3. History of irritable bowel syndrome. Continue Bentyl 4. Hypothyroidism. Continue levothyroxine. 5. Hypertension. Continue Norvasc. 6. Generalized anxiety disorder and recurrent depression. Continue Xanax, Abilify and Zoloft. 7. History of asthma, not currently on any medication. Patient placed on the observation unit. Discharge plan: Return home Impression and plan of care have been directed as dictated by the signing physician. Roma Ramon nurse practitioner acting as scribe for signing physician. Time with Patient: Greater than 30
== END 2016-12-01 13:16 | disposition home or self-care (01) ==
LOC: EC 23:46 → 3OBS 12-01 03:54
PROVIDERS: ADMIT Internal Medicine Geriatric Medicine; ATTEND Internal Medicine Geriatric Medicine
DX: R07.89 Other chest pain (principal); F17.200 Nicotine dependence, unspecified, uncomplicated; E03.9 Hypothyroidism, unspecified; K50.90 Crohn's disease, unspecified, without complications; K58.9 Irritable bowel syndrome, unspecified; G47.33 Obstructive sleep apnea (adult) (pediatric); Z82.49 Family history of ischemic heart disease and other diseases of the circulatory system; Z82.5 Family history of asthma and other chronic lower respiratory diseases; F33.9 Major depressive disorder, recurrent, unspecified; F41.1 Generalized anxiety disorder; Z88.0 Allergy status to penicillin; Z88.3 Allergy status to other anti-infective agents; Z79.899 Other long term (current) drug therapy; Z88.8 Allergy status to other drugs, medicaments and biological substances; Z86.14 Personal history of Methicillin resistant Staphylococcus aureus infection; I10 Essential (primary) hypertension; R73.03 Prediabetes
CPT/HCPCS: 96374 ×2; 96375 ×2; 96361 ×2; 99285 ×2; 36415; 93005; 93306; 85379; 80053; 82550; 82553; 83735; 84484; 85025; 85610; 85730; 87502; 71020; 71275; G0378; J2270; Q9967; J1885; J1170; C9113

== ENCOUNTER 2017-04-30 20:31 | Emergency (ER) | payer OTHER ==
[2017-04-30] MEDS ORDERED: IPRATROPIUM-ALBUTEROL 3 ML NEB INHALATION STA (20:43)
[2017-04-30] MEDS ORDERED: ASPIRIN 81 MG CHEW PO STA (20:43)
--- NOTE | 2017-04-30 20:46 | ED ---
Chest Pain HPI - General Chief Complaint: Chest Pain Stated Complaint: SOB/Chest pain Time Seen by Provider: 04/30/17 20:40 Source: patient, RN notes reviewed Mode of arrival: wheelchair Limitations: no limitations - History of Present Illness Initial Comments: 37-year-old female presents emergency Department chief complaint of chest pain, shortness of breath. Patient states symptoms started yesterday. She states that symptoms get worse when she is up and moving states that she feels that she has some exertional shortness of breath. Patient has no history of pulmonary embolus or, DVT. Patient states she has no cardiac history though she does have a history of hypertension, hyperlipidemia. She has a daily smoker but denies any history of diabetes. Patient does have asthma but no history of COPD. Patient denies fever, chills, cold like symptoms. She states the pain in her chest seemed to subside yesterday but returned again today. Patient has no pain with deep inspiration denies any nausea, vomiting diarrhea, diaphoretic episodes. - Related Data Home Medications Medication Instructions Recorded Confirmed Levothyroxine Sodium [Synthroid] 200 mcg PO HS 06/17/14 04/30/17 Sertraline [Zoloft] 200 mg PO HS 06/17/14 04/30/17 oxyCODONE HCL/ACETAMINOPHEN 1 tab PO QID 01/11/16 04/30/17 [Oxycodone-Acetaminophen 10-325] amLODIPine [Norvasc] 5 mg PO DAILY 12/01/16 04/30/17 ARIPiprazole [Abilify] 15 mg PO HS 04/30/17 04/30/17 Albuterol Inhaler [Ventolin Hfa 1 - 2 puff INHALATION RT-Q6H PRN 04/30/17 Inhaler] Allergies Allergy/AdvReac Type Severity Reaction Status Date / Time cephalexin monohydrate Allergy Swelling Verified 04/30/17 20:51 [From Keflex] clindamycin Allergy Swelling Verified 04/30/17 20:51 levofloxacin [From Levaquin] Allergy Swelling Verified 04/30/17 20:51 Penicillins Allergy Itching Verified 04/30/17 20:51 prochlorperazine edisylate Allergy IRRITABLE Verified 04/30/17 20:51 [From Compazine] prochlorperazine maleate Allergy IRRITABLE Verified 04/30/17 20:51 [From Compazine] Review of Systems ROS Statement: Those systems with pertinent positive or pertinent negative responses have been documented in the HPI. ROS Other: All systems not noted in ROS Statement are negative. EKG Findings - EKG Comments: EKG Findings:: EKG performed at 20:47 normal sinus rhythm with a rate of 87 AR interval 152 QRS duration 80 QT/QTC 380/457 Past Medical History Past Medical History: Asthma, Hypertension, Sleep Apnea/CPAP/BIPAP, Thyroid Disorder Additional Past Medical History / Comment(s): crohns ibs, obstructive sleep apnea compliant with CPAP, borderline diabetic History of Any Multi-Drug Resistant Organisms: MRSA Date of last positivie culture/infection: 2011 MDRO Source:: breast Past Surgical History: Appendectomy, Bowel Resection, Section, Cholecystectomy Additional Past Surgical History / Comment(s): thyroid, cyst removal/abscess small intestines, right ovary and fallopian tube cyst removal Past Anesthesia/Blood Transfusion Reactions: No Reported Reaction Past Psychological History: Anxiety, Depression Smoking Status: Current every day smoker Past Alcohol Use History: None Reported Past Drug Use History: None Reported - Past Family History Father Family Medical History: Coronary Artery Disease (CAD), Hypertension Additional Family Medical History / Comment(s): Father is alive at age 65 with history of coronary artery disease. Mother Family Medical History: COPD, Coronary Artery Disease (CAD), Hypertension, Sleep Apnea/CPAP/BIPAP Additional Family Medical History / Comment(s): Mother is alive at age 58 with history of coronary artery disease and asthma. Brother(s) Family Medical History: No Reported History Additional Family Medical History / Comment(s): Patient has 1 brother with no major medical problems. Sister(s) Family Medical History: No Reported History Additional Family Medical History / Comment(s): Patient has 1 sister with no major medical problems. Daughter(s) Family Medical History: Asthma, Sleep Apnea/CPAP/BIPAP Son(s) Family Medical History: Asthma, Sleep Apnea/CPAP/BIPAP General Exam Limitations: no limitations General appearance: alert, in no apparent distress Head exam: Present: atraumatic, normocephalic, normal inspection Neck exam: Present: normal inspection. Absent: tenderness, meningismus, lymphadenopathy Respiratory exam: Present: normal lung sounds bilaterally, chest wall tenderness (Moderate anterior lateral left-sided). Absent: respiratory distress , wheezes, rales, rhonchi, stridor Cardiovascular Exam: Present: regular rate, normal rhythm, normal heart sounds. Absent: systolic murmur, diastolic murmur, rubs, gallop, clicks GI/Abdominal exam: Present: soft, normal bowel sounds. Absent: distended, tenderness, guarding, rebound, rigid Neurological exam: Present: alert, oriented X3, CN II-XII intact Skin exam: Present: warm, dry, intact, normal color. Absent: rash Course Vital Signs 04/30/17 04/30/17 04/30/17 20:37 21:07 21:16 Temperature 98.4 F Pulse Rate 105 H 92 92 Respiratory 20 Rate Blood Pressure 144/73 O2 Sat by Pulse 97 Oximetry 04/30/17 04/30/17 21:22 22:26 Temperature Pulse Rate 94 Respiratory 22 20 Rate Blood Pressure 101/52 O2 Sat by Pulse 99 Oximetry Chest Pain MDM - [facility] 37-year-old female presented for chest discomfort. Patient troponin is negative at this time EKG shows no acute changes. Patient chest x-ray shows no acute changes patient's d-dimer is minimally elevated CT was performed showed no large pulmonary wasn't though is a suboptimal study. This a low likelihood that she had a PE has she had a recent study in November. Patient also was kept in the hospital in November for chest pain had evaluation for cardiology diagnosed with atypical chest pain and echocardiogram was reviewed showed no acute abnormality. Patient's pain is very loose but this time was most likely is chest wall pain. Patient has a history of asthma and continues to smoke. Patient's shortness of breath related to her asthma. Patient is advised that she is follow-up tomorrow she was counseled in detail greater than 3 minutes that she needs to stop smoking. Disposition Clinical Impression: Atypical chest pain Disposition: HOME SELF-CARE Condition: Stable Instructions: Costochondritis (ED), Chest Pain (ED) Additional Instructions: Please return to the Emergency Department if symptoms worsen or any other concerns. Referrals: Reji Diaz MD [Primary Care Provider] - 1-2 days
[2017-04-30 21:22] LABS: Basophils # (A) 0.1 k/uL (0-0.2); Basophils % (A) 1 %; CHCM 34.8; Eosinophils # (A) 0.3 k/uL (0-0.7); Eosinophils % (A) 4 %; HGB 14.5 gm/dL (11.4-16.0); Luc % (Auto) 1; Lymphocytes # (A) 1.9 k/uL (1.0-4.8); Lymphocytes % (A) 23 %; MCHC 33.6 g/dL (31.0-37.0); MCV 98.1 fL (80.0-100.0); Mean Platelet Volume 7.4; Monocytes # (A) 0.4 k/uL (0-1.0); Monocytes % (A) 5 %; Neutrophils # (A) 5.7 k/uL (1.3-7.7); Neutrophils % (A) 67 %; RBC 4.38 m/uL (3.80-5.40); RDW 13.9 % (11.5-15.5); WBC 8.4 k/uL (3.8-10.6); WBC (Perox) 8.39
--- NOTE | 2017-04-30 21:31 | XR ---
EXAMINATION TYPE: XR chest 2V DATE OF EXAM: 04/30/2017 COMPARISON: 12/01/2016 HISTORY: Chest pain, asthma, hypertension TECHNIQUE: Frontal and lateral views of the chest are obtained. FINDINGS: There is no focal air space opacity, pleural effusion, or pneumothorax seen. The cardiac silhouette size is within normal limits. The osseous structures are intact. IMPRESSION: No acute cardiopulmonary process, unchanged from the prior.
[2017-04-30 21:33] LABS: ALT 125 U/L (9-52); AST 64 U/L (14-36); Alkaline Phosphatase 85 U/L (38-126); Anion Gap 12 mmol/L; Blood Urea Nitrogen 11 mg/dL (7-17); Calcium 8.5 mg/dL (8.4-10.2); Carbon Dioxide 21 mmol/L (22-30); Chloride 107 mmol/L (98-107); Glucose 134 mg/dL (74-99); Magnesium 1.8 mg/dL (1.6-2.3); Non-African American GFR(MDRD) 57 (>60 ml/min/1.73 sqM); Potassium 4.3 mmol/L (3.5-5.1); Sodium 140 mmol/L (137-145); Total Bilirubin 0.3 mg/dL (0.2-1.3); Total Protein 7.3 g/dL (6.3-8.2)
[2017-04-30 21:48] LABS: Creatine Kinase 252 U/L (30-135)
[2017-04-30] MEDS ORDERED: RX INFO: IV CONTRAST WAS GIVEN 1 EACH MISC MISCELLANE PRN (21:48)
[2017-04-30 22:01] LABS: Creatine Kinase MB 0.7 ng/mL (0.0-2.4); Troponin I <0.012 ng/mL (0.000-0.034)
[2017-04-30] MEDS ORDERED: SODIUM CHLORIDE 0.9% 500 ML IV ONE (22:04)
--- NOTE | 2017-04-30 22:43 | CT ---
EXAM: CT Angiography Chest With Intravenous Contrast CLINICAL HISTORY: Reason: Pain TECHNIQUE: Axial computed tomographic angiography images of the chest with intravenous contrast using pulmonary embolism protocol. DLP is 863.90 mGy-cm. This CT exam was performed using one or more of the following dose reduction techniques: automated exposure control, adjustment of the mA and/or kV according to patient size, and/or use of iterative reconstruction technique. MIP reconstructed images were created and reviewed. CONTRAST: 50 mL of Visi 320 administered intravenously. COMPARISON: No relevant prior studies available. FINDINGS: Pulmonary arteries: Exam limited by suboptimal bolus timing. No evidence of PE in the main and central pulmonary arteries. Distal subsegmental PE cannot be excluded. Aorta: No acute findings. No thoracic aortic aneurysm. Lungs: Unremarkable. No mass. No consolidation. Pleural space: Unremarkable. No significant effusion. No pneumothorax. Heart: Unremarkable. No cardiomegaly. No significant pericardial effusion. No evidence of RV dysfunction. Bones/joints: No acute fracture. No dislocation. Soft tissues: Focal hypodensity in the left hepatic lobe. Lymph nodes: Unremarkable. No enlarged lymph nodes. IMPRESSION: 1. Exam limited by suboptimal bolus timing. No evidence of large PE in the main or central pulmonary arteries. Small distal subsegmental PE not excluded. 2. Incidental focal hypodensity in the left hepatic lobe. This may represent focal fatty infiltration. This may be further characterized by nonemergent ultrasound or dedicated CT abdomen with liver mass protocol.
[2017-04-30] MEDS ORDERED: MORPHINE SULFATE 2 MG/ML SYRINGE IVP ONE (23:01)
[2017-04-30 23:42] VITALS: BP 109/63; PULSE 88; RESP 18; TEMP 98
== END 2017-04-30 23:41 | disposition home or self-care (01) ==
LOC: EC 20:31
DX: R07.89 Other chest pain (principal); R06.02 Shortness of breath; E07.9 Disorder of thyroid, unspecified; I10 Essential (primary) hypertension; K58.9 Irritable bowel syndrome, unspecified; F32.9 Major depressive disorder, single episode, unspecified; F41.9 Anxiety disorder, unspecified; F17.200 Nicotine dependence, unspecified, uncomplicated; Z79.891 Long term (current) use of opiate analgesic; Z79.899 Other long term (current) drug therapy; Z88.0 Allergy status to penicillin; Z88.1 Allergy status to other antibiotic agents; Z88.8 Allergy status to other drugs, medicaments and biological substances
CPT/HCPCS: 36415; 94640; 93005; 85379; 80053; 82550; 82553; 83690; 83735; 84484; 85025; 85610; 85730; 71020; 71275; 99285; 96374; 96361; Q9967; J2270

== ENCOUNTER 2017-05-26 22:31 | Emergency (ER) | payer OTHER ==
--- NOTE | 2017-05-26 22:53 | ED ---
Chest Pain HPI - General Chief Complaint: Chest Pain Stated Complaint: Chest Pain Time Seen by Provider: 05/26/17 22:47 Source: patient Mode of arrival: wheelchair Limitations: no limitations - History of Present Illness Initial Comments: This patient is a 37-year-old woman presenting with left-sided chest pain that she states started about 5-6 hours ago while she was just sitting relaxing. The patient describes it as sharp, constant, severe. She has not noted any worsening or relieving factors. MD Complaint: chest pain Onset/Timin -: hour(s) Onset: during rest Pain Location: left chest Pain Radiation: none Severity: severe Quality: sharp Consistency: constant Improves With: nothing Worsens With: nothing - Related Data Home Medications Medication Instructions Recorded Confirmed Sertraline [Zoloft] 200 mg PO HS 06/17/14 05/26/17 oxyCODONE HCL/ACETAMINOPHEN 1 tab PO QID 01/11/16 05/26/17 [Oxycodone-Acetaminophen 10-325] amLODIPine [Norvasc] 5 mg PO DAILY 12/01/16 05/26/17 ALPRAZolam [Xanax] 1 mg PO TID PRN 05/26/17 05/26/17 ARIPiprazole [Abilify] 15 mg PO DAILY 05/26/17 05/26/17 Levothyroxine Sodium [Synthroid] 200 mcg PO DAILY 05/26/17 05/26/17 Allergies Allergy/AdvReac Type Severity Reaction Status Date / Time cephalexin monohydrate Allergy Swelling Verified 05/26/17 23:05 [From Keflex] clindamycin Allergy Swelling Verified 05/26/17 23:05 levofloxacin [From Levaquin] Allergy Swelling Verified 05/26/17 23:05 Penicillins Allergy Itching Verified 05/26/17 23:05 prochlorperazine edisylate AdvReac IRRITABLE Verified 05/26/17 23:05 [From Compazine] prochlorperazine maleate AdvReac IRRITABLE Verified 05/26/17 23:05 [From Compazine] Review of Systems ROS Statement: Those systems with pertinent positive or pertinent negative responses have been documented in the HPI. ROS Other: All systems not noted in ROS Statement are negative. EKG Findings - EKG Results: EKG: interpreted by SEGUN, WNL, sinus rhythm (Rate approximately 88 bpm), normal axis, normal QRS, normal ST/T, no acute changes - NE, Pacemaker, Normal: Normal tracing: normal tracing Past Medical History Past Medical History: Asthma, Hypertension, Sleep Apnea/CPAP/BIPAP, Thyroid Disorder Additional Past Medical History / Comment(s): crohns ibs, obstructive sleep apnea compliant with CPAP, borderline diabetic History of Any Multi-Drug Resistant Organisms: MRSA Date of last positivie culture/infection: 2011 MDRO Source:: breast Past Surgical History: Appendectomy, Bowel Resection, Section, Cholecystectomy Additional Past Surgical History / Comment(s): thyroid, cyst removal/abscess small intestines, right ovary and fallopian tube cyst removal Past Anesthesia/Blood Transfusion Reactions: No Reported Reaction Past Psychological History: Anxiety, Depression Smoking Status: Current every day smoker Past Alcohol Use History: None Reported Past Drug Use History: None Reported - Past Family History Father Family Medical History: Coronary Artery Disease (CAD), Hypertension Additional Family Medical History / Comment(s): Father is alive at age 65 with history of coronary artery disease. Mother Family Medical History: COPD, Coronary Artery Disease (CAD), Hypertension, Sleep Apnea/CPAP/BIPAP Additional Family Medical History / Comment(s): Mother is alive at age 58 with history of coronary artery disease and asthma. Brother(s) Family Medical History: No Reported History Additional Family Medical History / Comment(s): Patient has 1 brother with no major medical problems. Sister(s) Family Medical History: No Reported History Additional Family Medical History / Comment(s): Patient has 1 sister with no major medical problems. Daughter(s) Family Medical History: Asthma, Sleep Apnea/CPAP/BIPAP Son(s) Family Medical History: Asthma, Sleep Apnea/CPAP/BIPAP General Exam Limitations: no limitations General appearance: alert, in no apparent distress, obese Head exam: Present: atraumatic, normocephalic Eye exam: Present: normal appearance. Absent: scleral icterus, conjunctival injection ENT exam: Present: normal oropharynx Respiratory exam: Present: normal lung sounds bilaterally. Absent: respiratory distress, wheezes, rales, rhonchi, stridor, chest wall tenderness Cardiovascular Exam: Present: regular rate, normal rhythm, normal heart sounds. Absent: systolic murmur, diastolic murmur, rubs, gallop GI/Abdominal exam: Present: soft. Absent: distended, tenderness, guarding, rebound, mass Extremities exam: Present: normal inspection, normal capillary refill. Absent: pedal edema, calf tenderness Back exam: Present: normal inspection. Absent: CVA tenderness (R), CVA tenderness (L) Neurological exam: Present: alert Skin exam: Present: warm, dry, intact, normal color. Absent: rash Course Vital Signs 05/26/17 05/26/17 05/27/17 22:33 23:30 00:39 Temperature 98.8 F Pulse Rate 94 84 97 Respiratory 20 18 17 Rate Blood Pressure 167/85 132/65 126/60 O2 Sat by Pulse 96 99 99 Oximetry 05/27/17 05/27/17 01:36 02:44 Temperature 98.8 F Pulse Rate 81 87 Respiratory 16 17 Rate Blood Pressure 110/61 113/68 O2 Sat by Pulse 98 99 Oximetry Disposition Clinical Impression: Atypical chest pain, Elevated transaminase level Disposition: HOME SELF-CARE Condition: Fair Instructions: Chest Pain (ED) Additional Instructions: As we discussed, follow-up with your physician to have the transaminase levels rechecked. Referrals: Reji Diaz MD [Primary Care Provider] - 1-2 days
[2017-05-26] MEDS ORDERED: ASPIRIN 81 MG PO STA (22:58)
[2017-05-26 23:09] LABS: Basophils # (A) 0.1 k/uL (0-0.2); Basophils % (A) 1 %; CHCM 34.3; Eosinophils # (A) 0.4 k/uL (0-0.7); Eosinophils % (A) 4 %; HDW 2.44; HGB 15.1 gm/dL (11.4-16.0); Luc # (Auto) 0.12; Luc % (Auto) 1; Lymphocytes % (A) 33 %; MCH 32.7 pg (25.0-35.0); MCHC 32.9 g/dL (31.0-37.0); MCV 99.6 fL (80.0-100.0); Mean Platelet Volume 7.5; Monocytes # (A) 0.5 k/uL (0-1.0); Monocytes % (A) 5 %; Neutrophils % (A) 55 %; RBC 4.62 m/uL (3.80-5.40); RDW 14.2 % (11.5-15.5); WBC (Perox) 8.74
[2017-05-26 23:17] LABS: ALT 117 U/L (9-52); AST 54 U/L (14-36); Alkaline Phosphatase 82 U/L (38-126); Amylase 61 U/L (30-110); Anion Gap 11 mmol/L; Blood Urea Nitrogen 15 mg/dL (7-17); Calcium 9.1 mg/dL (8.4-10.2); Carbon Dioxide 24 mmol/L (22-30); Chloride 106 mmol/L (98-107); Glucose 97 mg/dL (74-99); Magnesium 2.1 mg/dL (1.6-2.3); Non-African American GFR(MDRD) 57 (>60 ml/min/1.73 sqM); Potassium 4.2 mmol/L (3.5-5.1); Sodium 141 mmol/L (137-145); Total Bilirubin 0.4 mg/dL (0.2-1.3); Total Protein 7.5 g/dL (6.3-8.2)
[2017-05-26 23:22] LABS: Partial Thromboplastin Time 25.7 sec (22.0-30.0)
--- NOTE | 2017-05-26 23:48 | XR ---
EXAM: XR Chest, 1 View CLINICAL HISTORY: Reason: chest pain TECHNIQUE: Frontal view of the chest. COMPARISON: 04/30/2017. FINDINGS: Lungs: No evidence of significant interval change. No consolidation. Pleural space: Unremarkable. No pneumothorax. Heart: Unremarkable. No cardiomegaly. Mediastinum: Unremarkable. Bones/joints: Unchanged. IMPRESSION: No radiographic evidence of acute findings. No significant interval change.
[2017-05-27 00:05] LABS: Creatine Kinase 184 U/L (30-135)
[2017-05-27 00:18] LABS: Creatine Kinase MB 0.5 ng/mL (0.0-2.4); Troponin I <0.012 ng/mL (0.000-0.034)
[2017-05-27] MEDS ORDERED: MORPHINE SULFATE 4 MG/ML SYRINGE IV STA (00:36)
[2017-05-27] MEDS ORDERED: RX INFO: IV CONTRAST WAS GIVEN 1 EACH MISC MISCELLANE PRN (00:47)
--- NOTE | 2017-05-27 02:35 | CT ---
EXAM: CT Angiography Chest With Intravenous Contrast CLINICAL HISTORY: Chest pain TECHNIQUE: Axial computed tomographic angiography images of the chest with intravenous contrast using pulmonary embolism protocol. DLP is 1130.50 mGy-cm. This CT exam was performed using one or more of the following dose reduction techniques: automated exposure control, adjustment of the mA and/or kV according to patient size, and/or use of iterative reconstruction technique. MIP reconstructed images were created and reviewed. COMPARISON: 04/30/2017 FINDINGS: Pulmonary arteries: Suboptimal opacification of the pulmonary vasculature is seen secondary to bolus timing. Within this limitation, no definitive evidence of a central pulmonary embolism. Aorta: No acute findings. No thoracic aortic aneurysm. Lungs: Unremarkable. No mass. No consolidation. Pleural space: Unremarkable. No significant effusion. No pneumothorax. Heart: Unremarkable. No cardiomegaly. No significant pericardial effusion. No evidence of RV dysfunction. Bones/joints: No acute fracture. No dislocation. Soft tissues: Unchanged. Lymph nodes: Unremarkable. No significantly enlarged lymph nodes. Liver: Geographic area of decreased attenuation is again seen in the left hepatic lobe, essentially unchanged. This again may represent focal fatty infiltration. Status post cholecystectomy. IMPRESSION: 1. Exam limited by suboptimal bolus timing. No definitive evidence of a central pulmonary embolism. Small distal subsegmental PE not excluded. 2. Geographic area of decreased attenuation is again seen in the left hepatic lobe, essentially unchanged. This again may represent focal fatty infiltration. Nonemergent ultrasound versus CT liver mass protocol is again recommended for further evaluation.
[2017-05-27 04:02] VITALS: BP 135/73; PULSE 89; RESP 18; TEMP 97.8
== END 2017-05-27 04:01 | disposition home or self-care (01) ==
LOC: EC 22:31
DX: R07.89 Other chest pain (principal); R74.0 Nonspecific elevation of levels of transaminase and lactic acid dehydrogenase [LDH]; I10 Essential (primary) hypertension; E07.9 Disorder of thyroid, unspecified; F32.9 Major depressive disorder, single episode, unspecified; F41.9 Anxiety disorder, unspecified; E66.9 Obesity, unspecified; F17.200 Nicotine dependence, unspecified, uncomplicated; Z79.891 Long term (current) use of opiate analgesic; Z79.899 Other long term (current) drug therapy; Z88.0 Allergy status to penicillin; Z88.1 Allergy status to other antibiotic agents; Z88.8 Allergy status to other drugs, medicaments and biological substances; Z68.43 Body mass index [BMI] 50.0-59.9, adult
CPT/HCPCS: 99285; 96374; 36415 ×2; 93005; 85379; 80053; 82150; 82550; 82553; 83690; 83735; 84484 ×2; 85025; 85610; 85730; 71010; 71275; J2270; Q9967

== ENCOUNTER 2017-07-16 22:36 | Emergency (ER) | payer OTHER ==
[2017-07-16 22:49] VITALS: TEMP 98.9
[2017-07-16] MEDS ORDERED: ONDANSETRON 4 MG/2 ML VIAL IVP STA (23:16)
[2017-07-16] MEDS ORDERED: MAG HYDROX/AL HYDROX/SIMETH 30 ML, HYOSCYAMINE ELIXIR 10 ML, CIMETIDINE HCL 300 MG, LID... PO STA ×4 (23:17)
--- NOTE | 2017-07-16 23:49 | XR ---
EXAM: XR Abdomen, 1 View CLINICAL HISTORY: Reason: abdominal pain TECHNIQUE: Frontal supine view of the abdomen/pelvis. COMPARISON: 11/19/16 FINDINGS: Gastrointestinal tract: 7.5 cm dilatation of the proximal colon in the region of hepatic flexure, suggest focal ileus. Small bowel is poorly visualized. Surgical clips over right upper quadrant Bones/joints: Mild degenerative changes in the visualized osseous structures IMPRESSION: 7.5 cm dilatation of the proximal colon in the region of hepatic flexure, suggest focal ileus.
[2017-07-17 00:17] LABS: Basophils # (A) 0.1 k/uL (0-0.2); Basophils % (A) 1 %; CH 32.2; CHCM 33.2; Eosinophils # (A) 0.2 k/uL (0-0.7); Eosinophils % (A) 3 %; HCT 43.7 % (34.0-46.0); HDW 2.36; HGB 14.3 gm/dL (11.4-16.0); Luc % (Auto) 1; Lymphocytes # (A) 2.2 k/uL (1.0-4.8); Lymphocytes % (A) 23 %; MCH 31.8 pg (25.0-35.0); MCHC 32.7 g/dL (31.0-37.0); MCV 97.4 fL (80.0-100.0); Mean Platelet Volume 7.5; Monocytes # (A) 0.5 k/uL (0-1.0); Monocytes % (A) 5 %; Neutrophils # (A) 6.6 k/uL (1.3-7.7); Neutrophils % (A) 68 %; RBC 4.49 m/uL (3.80-5.40); RDW 14.4 % (11.5-15.5); WBC 9.7 k/uL (3.8-10.6); WBC (Perox) 9.07
[2017-07-17] MEDS ORDERED: KETOROLAC 30 MG/ML 1 ML VIAL IVP STA (00:26)
[2017-07-17 00:27] LABS: ALT 50 U/L (9-52); AST 29 U/L (14-36); Alkaline Phosphatase 72 U/L (38-126); Amylase 46 U/L (30-110); Anion Gap 9 mmol/L; Blood Urea Nitrogen 13 mg/dL (7-17); Calcium 9.2 mg/dL (8.4-10.2); Carbon Dioxide 24 mmol/L (22-30); Chloride 107 mmol/L (98-107); Glucose 126 mg/dL (74-99); Non-African American GFR(MDRD) >60 (>60 ml/min/1.73 sqM); Potassium 4.2 mmol/L (3.5-5.1); Sodium 140 mmol/L (137-145); Total Bilirubin 0.4 mg/dL (0.2-1.3); Total Protein 7.2 g/dL (6.3-8.2)
[2017-07-17 00:41] LABS: Appearance,Urine Cloudy (Clear); Bacteria,Urine Occasional /hpf; Bilirubin,Urine Negative (Negative); Glucose,Urine (UA) Negative (Negative); Ketones,Urine Negative (Negative); Leukocyte Esterase,Urine Small (Negative); Mucus,Urine Rare /hpf; Nitrite,Urine Positive (Negative); Particle Count 24974; Protein,Urine Negative (Negative); Specific Gravity,Urine 1.013 (1.001-1.035); Squamous Epithelial Cell,Urine 2 /hpf (0-4); UA Billing (MACRO vs. MICRO) MICRO; Urobilinogen,Urine <2.0 mg/dL (<2.0); WBC,Urine 13 /hpf (0-5)
[2017-07-17] MEDS ORDERED: HYDROmorphone 1 MG/ML 1 ML SYRINGE IVP STA (00:55)
[2017-07-17] MEDS ORDERED: RX INFO: IV CONTRAST WAS GIVEN 1 EACH MISC MISCELLANE PRN (00:55)
[2017-07-17] MEDS ORDERED: methylPREDNISolone SOD SUCCI 125 MG/2 ML VIAL IV STA (00:56)
[2017-07-17 01:21] VITALS: BP 108/62; PULSE 66; RESP 17
--- NOTE | 2017-07-17 01:37 | CT ---
EXAM: CT Abdomen and Pelvis With Intravenous Contrast CLINICAL HISTORY: Reason: Pain TECHNIQUE: Axial computed tomography images of the abdomen and pelvis with intravenous contrast. CTDI is 88.7 mGy and DLP is 3946.10 mGy-cm. This CT exam was performed using one or more of the following dose reduction techniques: automated exposure control, adjustment of the mA and/or kV according to patient size, and/or use of iterative reconstruction technique. COMPARISON: CT chest from 05/27/17 FINDINGS: Lower thorax: Lungs are clear. Heart is normal. ABDOMEN: Liver: Mild enlarged fatty liver Gallbladder and bile ducts: Cholecystectomy. No duct dilation Pancreas: Pancreas is normal. No duct dilation Spleen: Spleen is normal. Adrenals: Adrenals are normal. Kidneys and ureters: Kidneys enhance and excrete symmetrically. No hydronephrosis or renal calculi Stomach and bowel: No bowel obstruction or inflammation No mucosal thickening. Appendix: Presumed appendectomy due to surgical suture line PELVIS: Bladder: Bladder is noninflamed. Reproductive: Uterus is normal. Tubal ligation clips bilaterally ABDOMEN and PELVIS: Intraperitoneal space: Unremarkable. No free air. No significant fluid collection. Bones/joints: Mild degenerative changes in the visualized osseous structures. Prominent posterior disc bulge/osteophyte complex at L1-2. Soft tissues: No hernia. Vasculature: Unremarkable. No abdominal aortic aneurysm. Lymph nodes: No lymphadenopathy IMPRESSION: No acute or obstructive pathology in the abdomen and pelvis.
[2017-07-17] MEDS ORDERED: NITROFURANTOIN MONOHYD/M-CRYST 100 MG CAP PO STA (01:51)
--- NOTE | 2017-07-17 01:51 | ED ---
Abdominal Pain HPI - General Chief Complaint: Abdominal Pain Stated Complaint: Abd Pain Time Seen by Provider: 07/16/17 23:11 Source: patient Mode of arrival: ambulatory Limitations: no limitations - History of Present Illness Initial Comments: 37-year-old female patient with past medical history significant for irritable bowel syndrome, Crohn's, presents to the emergency department today with complaints of upper abdominal pain. Patient states that symptoms started approximately 7:30 this evening. She states that the pain is constant, but occasionally becomes more sharp and more severe. She states she has been nauseated, but denies any vomiting. States that she was able to eat and drink throughout the day. States that she had spaghetti for dinner just prior to her symptoms starting. She denies any constipation or diarrhea. Denies any hematochezia or melena. Patient denies any recent rash, fever, chills, shortness breath, chest pain, back pain, numbness, tingling, dizziness, weakness , hematuria, dysuria, urinary urgency, urinary frequency, headache, visual changes, or any other complaints. - Related Data Home Medications Medication Instructions Recorded Confirmed Sertraline [Zoloft] 200 mg PO HS 06/17/14 05/26/17 oxyCODONE HCL/ACETAMINOPHEN 1 tab PO QID 01/11/16 05/26/17 [Oxycodone-Acetaminophen 10-325] amLODIPine [Norvasc] 5 mg PO DAILY 12/01/16 05/26/17 ALPRAZolam [Xanax] 1 mg PO TID PRN 05/26/17 05/26/17 ARIPiprazole [Abilify] 15 mg PO DAILY 05/26/17 05/26/17 Levothyroxine Sodium [Synthroid] 200 mcg PO DAILY 05/26/17 05/26/17 Previous Rx's Medication Instructions Recorded Nitrofurantoin Monohyd/M-Cryst 100 mg PO Q12HR #14 cap 07/17/17 [Macrobid] Allergies Allergy/AdvReac Type Severity Reaction Status Date / Time cephalexin monohydrate Allergy Swelling Verified 07/16/17 22:48 [From Keflex] clindamycin Allergy Swelling Verified 07/16/17 22:48 levofloxacin [From Levaquin] Allergy Swelling Verified 07/16/17 22:48 Penicillins Allergy Itching Verified 07/16/17 22:48 prochlorperazine edisylate AdvReac IRRITABLE Verified 07/16/17 22:48 [From Compazine] prochlorperazine maleate AdvReac IRRITABLE Verified 07/16/17 22:48 [From Compazine] Review of Systems ROS Statement: Those systems with pertinent positive or pertinent negative responses have been documented in the HPI. ROS Other: All systems not noted in ROS Statement are negative. Past Medical History Past Medical History: Asthma, Hypertension, Sleep Apnea/CPAP/BIPAP, Thyroid Disorder Additional Past Medical History / Comment(s): crohns ibs, obstructive sleep apnea compliant with CPAP, borderline diabetic History of Any Multi-Drug Resistant Organisms: MRSA Date of last positivie culture/infection: 2011 MDRO Source:: breast Past Surgical History: Appendectomy, Bowel Resection, Section, Cholecystectomy Additional Past Surgical History / Comment(s): thyroid, cyst removal/abscess small intestines, right ovary and fallopian tube cyst removal Past Anesthesia/Blood Transfusion Reactions: No Reported Reaction Past Psychological History: Anxiety, Depression Smoking Status: Current every day smoker Past Alcohol Use History: None Reported Past Drug Use History: None Reported - Past Family History Father Family Medical History: Coronary Artery Disease (CAD), Hypertension Additional Family Medical History / Comment(s): Father is alive at age 65 with history of coronary artery disease. Mother Family Medical History: COPD, Coronary Artery Disease (CAD), Hypertension, Sleep Apnea/CPAP/BIPAP Additional Family Medical History / Comment(s): Mother is alive at age 58 with history of coronary artery disease and asthma. Brother(s) Family Medical History: No Reported History Additional Family Medical History / Comment(s): Patient has 1 brother with no major medical problems. Sister(s) Family Medical History: No Reported History Additional Family Medical History / Comment(s): Patient has 1 sister with no major medical problems. Daughter(s) Family Medical History: Asthma, Sleep Apnea/CPAP/BIPAP Son(s) Family Medical History: Asthma, Sleep Apnea/CPAP/BIPAP General Exam Limitations: no limitations General appearance: alert, in no apparent distress, other (This is a well- developed, well-nourished adult female patient in no acute distress. Vital signs upon presentation were temperature 98.9F, pulse 121, respirations 20, blood pressure 140/76, pulse ox 97% on room air.) Eye exam: Present: normal appearance, PERRL, EOMI. Absent: scleral icterus, conjunctival injection, periorbital swelling ENT exam: Present: normal exam, normal oropharynx, mucous membranes moist Respiratory exam: Present: normal lung sounds bilaterally. Absent: respiratory distress, wheezes, rales, rhonchi, stridor Cardiovascular Exam: Present: regular rate, normal rhythm, normal heart sounds. Absent: systolic murmur, diastolic murmur, rubs, gallop, clicks GI/Abdominal exam: Present: soft, tenderness (Upper abdominal tenderness), normal bowel sounds. Absent: distended, guarding, rebound, rigid Back exam: Present: normal inspection. Absent: CVA tenderness (R), CVA tenderness (L) Neurological exam: Present: alert, oriented X3, CN II-XII intact Psychiatric exam: Present: normal affect, normal mood Skin exam: Present: warm, dry, intact, normal color. Absent: rash Course Vital Signs 07/16/17 07/17/17 07/17/17 22:46 00:05 01:21 Temperature 98.9 F Pulse Rate 121 H 93 66 Respiratory 20 18 17 Rate Blood Pressure 140/76 115/65 108/62 O2 Sat by Pulse 97 100 96 Oximetry Medical Decision Making - Medical Decision Making 37-year-old female patient presented to the emergency department today for evaluation of upper abdominal pain and nausea for the last couple of hours. Patient does have a past medical history significant for Crohn's colitis, bowel obstruction, bowel abscess status post bowel resection. Physical examination did reveal some mild upper abdominal tenderness, but was otherwise unremarkable. Labs are reviewed, white blood cell count within normal range. Electrolytes are stable. Urinalysis did show cloudy appearance with positive nitrates, small leukocyte esterase, 13 white blood cells in the urine, few white blood cell comes, occasional bacteria, and rare urine mucus. This has been sent for culture. The x-ray of the abdomen did show an dilated colonic bowel loop measuring 7.3 cm. With patient's history of Crohn's, bowel abscess, and the distended bowel loop on x-ray we did order a computed tomography scan with contrast which was negative for any acute intra-abdominal process. Vital signs upon arrival did reveal some tachycardia at 121 bpm. With IV fluids and pain medication administration vital signs were improved prior to discharge. Patient will be discharged home at this time to follow-up with her GI specialist as well as her primary care physician. She will be treated for urinary tract infection with Macrobid. Urine has been sent for culture, patient was informed we will inform her of this medication needs to be changed. She is instructed to return here immediately for any new, worsening, or concerning symptoms. She verbalizes understanding and agrees with this plan. - Lab Data Result diagrams: 07/17/17 00:02 07/17/17 00:02 Lab Results 07/17/17 07/17/17 07/17/17 Range/Units 00:02 00:02 00:02 WBC 9.7 (3.8-10.6) k/uL RBC 4.49 (3.80-5.40) m/uL Hgb 14.3 (11.4-16.0) gm/dL Hct 43.7 (34.0-46.0) % MCV 97.4 (80.0-100.0) fL MCH 31.8 (25.0-35.0) pg MCHC 32.7 (31.0-37.0) g/dL RDW 14.4 (11.5-15.5) % Plt Count 301 (150-450) k/uL Neutrophils % 68 % Lymphocytes % 23 % Monocytes % 5 % Eosinophils % 3 % Basophils % 1 % Neutrophils # 6.6 (1.3-7.7) k/uL Lymphocytes # 2.2 (1.0-4.8) k/uL Monocytes # 0.5 (0-1.0) k/uL Eosinophils # 0.2 (0-0.7) k/uL Basophils # 0.1 (0-0.2) k/uL Sodium 140 (137-145) mmol/L Potassium 4.2 (3.5-5.1) mmol/L Chloride 107 (98-107) mmol/L Carbon Dioxide 24 (22-30) mmol/L Anion Gap 9 mmol/L BUN 13 (7-17) mg/dL Creatinine 1.00 (0.52-1.04) mg/dL Est GFR (MDRD) Af Amer >60 (>60 ml/min/1.73 sqM) Est GFR (MDRD) Non-Af >60 (>60 ml/min/1.73 sqM) Glucose 126 H (74-99) mg/dL Calcium 9.2 (8.4-10.2) mg/dL Total Bilirubin 0.4 (0.2-1.3) mg/dL AST 29 (14-36) U/L ALT 50 (9-52) U/L Alkaline Phosphatase 72 (38-126) U/L Total Protein 7.2 (6.3-8.2) g/dL Albumin 4.0 (3.5-5.0) g/dL Amylase 46 (30-110) U/L Lipase 224 (23-300) U/L Urine Color Yellow Urine Appearance Cloudy H (Clear) Urine pH 8.0 (5.0-8.0) Ur Specific [place] 1.013 (1.001-1.035) Urine Protein Negative (Negative) Urine Glucose (UA) Negative (Negative) Urine Ketones Negative (Negative) Urine Blood Negative (Negative) Urine Nitrite Positive H (Negative) Urine Bilirubin Negative (Negative) Urine Urobilinogen <2.0 (<2.0) mg/dL Ur Leukocyte Esterase Small H (Negative) Urine WBC 13 H (0-5) /hpf Urine WBC Clumps Few H (None) /hpf Ur Squamous Epith Cells 2 (0-4) /hpf Urine Bacteria Occasional H (None) /hpf Urine Mucus Rare H (None) /hpf - Radiology Data Radiology results: report reviewed, image reviewed KUB x-ray of the abdomen was obtained and showed a 7.5 cm dilatation of the proximal colon in the region of the hepatic flexure, suggest focal ileus. Small bowel is poorly visualized. Surgical clips over the right upper quadrant are noted. Bones and joints show mild degenerative changes in the visualized osseous structures. By Dr. Trinh shows 7.5 cm dilatation of the proximal: The region of the hepatic flexure, suggest focal ileus. CT of the abdomen and pelvis with contrast was obtained, the report was reviewed in its entirety, impression by shows no acute or obstructive pathology in the abdomen and pelvis. Disposition Clinical Impression: Abdominal pain, Urinary tract infection Disposition: HOME SELF-CARE Condition: Good Instructions: Urinary Tract Infection in Women (ED), Abdominal Pain (ED) Additional Instructions: Increase fluids. Complete antibiotic prescription in full. Continue home pain medications as directed. Follow-up with your primary care physician for recheck in 1-2 days. Follow-up with her GI specialist for further evaluation. Return here immediately for any new, worsening, or concerning symptoms. Prescriptions: Nitrofurantoin Monohyd/M-Cryst [Macrobid] 100 mg PO Q12HR #14 cap Referrals: Reji Diaz MD [Primary Care Provider] - 1-2 days Time of Disposition: 01:51
== END 2017-07-17 02:13 | disposition home or self-care (01) ==
LOC: EC 22:36
DX: N39.0 Urinary tract infection, site not specified (principal); R10.10 Upper abdominal pain, unspecified; R11.0 Nausea; I10 Essential (primary) hypertension; G47.30 Sleep apnea, unspecified; Z99.89 Dependence on other enabling machines and devices; E07.9 Disorder of thyroid, unspecified; Z86.14 Personal history of Methicillin resistant Staphylococcus aureus infection; F32.9 Major depressive disorder, single episode, unspecified; F41.9 Anxiety disorder, unspecified; F17.200 Nicotine dependence, unspecified, uncomplicated; Z87.19 Personal history of other diseases of the digestive system; Z79.899 Other long term (current) drug therapy; Z88.8 Allergy status to other drugs, medicaments and biological substances; Z88.0 Allergy status to penicillin; Z88.1 Allergy status to other antibiotic agents; Z90.49 Acquired absence of other specified parts of digestive tract; Z98.890 Other specified postprocedural states
CPT/HCPCS: 36415; 80053; 82150; 83690; 85025; 81001; 87086; 74000; 74177; 99284; 96374; 96375 ×2; J2930; J2405; J1170; Q9967; 87077; 87186

== ENCOUNTER 2017-09-13 02:34 | Emergency (ER) | payer OTHER ==
[2017-09-13 02:40] VITALS: BP 170/87; PULSE 96; RESP 20; TEMP 97.6
[2017-09-13] MEDS ORDERED: HYDROmorphone 2 MG/ML 1 ML SYRINGE IVP STA (03:05)
[2017-09-13] MEDS ORDERED: ONDANSETRON 4 MG/2 ML VIAL IVP STA (03:05)
[2017-09-13] MEDS ORDERED: SODIUM CHLORIDE 0.9% 1,000 ML IV STA (03:05)
[2017-09-13] MEDS ORDERED: KETOROLAC 30 MG/ML 1 ML VIAL IVP STA (03:05)
[2017-09-13 03:32] LABS: Appearance,Urine Clear (Clear); Bilirubin,Urine Negative (Negative); Blood,Urine Negative (Negative); Color,Urine Light Yellow; Glucose,Urine (UA) Negative (Negative); Ketones,Urine Negative (Negative); Leukocyte Esterase,Urine Negative (Negative); Nitrite,Urine Negative (Negative); PH, Urine 6.5 (5.0-8.0); Protein,Urine Negative (Negative); Specific Gravity,Urine 1.006 (1.001-1.035); Urobilinogen,Urine <2.0 mg/dL (<2.0)
--- NOTE | 2017-09-13 03:48 | ED ---
Abdominal Pain HPI - General Chief Complaint: Abdominal Pain Stated Complaint: back pain Time Seen by Provider: 09/13/17 02:42 Source: patient Mode of arrival: ambulatory Limitations: no limitations - History of Present Illness Initial Comments: 37-year-old female patient presents to the emergency department today for complaints of left flank pain. Patient states that symptoms started yesterday. States this persisted throughout the day today. She states that the pain is sharp and stabbing in nature. States it is constant but does wax and wane. She denies any difficulty urinating. Denies any fever or chills this. States she has been nauseated however has not vomited. She states that she has been taking her usual pain medications at home without any relief of symptoms. She denies ever having similar pain to this. Patient denies any recent rash, shortness breath, chest pain, diarrhea, constipation, numbness, tingling, dizziness, weakness, hematuria, dysuria, urinary urgency, urinary frequency, headache, visual changes, or any other complaints. - Related Data Home Medications Medication Instructions Recorded Confirmed Sertraline [Zoloft] 200 mg PO HS 06/17/14 09/13/17 oxyCODONE HCL/ACETAMINOPHEN 1 tab PO QID 01/11/16 09/13/17 [Oxycodone-Acetaminophen 10-325] amLODIPine [Norvasc] 5 mg PO DAILY 12/01/16 09/13/17 ALPRAZolam [Xanax] 1 mg PO TID PRN 05/26/17 09/13/17 ARIPiprazole [Abilify] 15 mg PO DAILY 05/26/17 09/13/17 Levothyroxine Sodium [Synthroid] 200 mcg PO DAILY 05/26/17 09/13/17 Previous Rx's Medication Instructions Recorded Ibuprofen [Motrin] 600 mg PO Q8HR PRN #30 tab 09/13/17 Allergies Allergy/AdvReac Type Severity Reaction Status Date / Time cephalexin monohydrate Allergy Swelling Verified 07/16/17 22:48 [From Keflex] clindamycin Allergy Swelling Verified 07/16/17 22:48 levofloxacin [From Levaquin] Allergy Swelling Verified 07/16/17 22:48 Penicillins Allergy Itching Verified 07/16/17 22:48 prochlorperazine edisylate AdvReac IRRITABLE Verified 07/16/17 22:48 [From Compazine] prochlorperazine maleate AdvReac IRRITABLE Verified 07/16/17 22:48 [From Compazine] Review of Systems ROS Statement: Those systems with pertinent positive or pertinent negative responses have been documented in the HPI. ROS Other: All systems not noted in ROS Statement are negative. Past Medical History Past Medical History: Asthma, Hypertension, Sleep Apnea/CPAP/BIPAP, Thyroid Disorder Additional Past Medical History / Comment(s): crohns ibs, obstructive sleep apnea compliant with CPAP, borderline diabetic History of Any Multi-Drug Resistant Organisms: MRSA Date of last positivie culture/infection: 2011 MDRO Source:: breast Past Surgical History: Appendectomy, Bowel Resection, Section, Cholecystectomy Additional Past Surgical History / Comment(s): thyroid, cyst removal/abscess small intestines, right ovary and fallopian tube cyst removal Past Anesthesia/Blood Transfusion Reactions: No Reported Reaction Past Psychological History: Anxiety, Depression Smoking Status: Current every day smoker Past Alcohol Use History: None Reported Past Drug Use History: None Reported - Past Family History Father Family Medical History: Coronary Artery Disease (CAD), Hypertension Additional Family Medical History / Comment(s): Father is alive at age 65 with history of coronary artery disease. Mother Family Medical History: COPD, Coronary Artery Disease (CAD), Hypertension, Sleep Apnea/CPAP/BIPAP Additional Family Medical History / Comment(s): Mother is alive at age 58 with history of coronary artery disease and asthma. Brother(s) Family Medical History: No Reported History Additional Family Medical History / Comment(s): Patient has 1 brother with no major medical problems. Sister(s) Family Medical History: No Reported History Additional Family Medical History / Comment(s): Patient has 1 sister with no major medical problems. Daughter(s) Family Medical History: Asthma, Sleep Apnea/CPAP/BIPAP Son(s) Family Medical History: Asthma, Sleep Apnea/CPAP/BIPAP General Exam Limitations: no limitations General appearance: alert, in no apparent distress, other (This is a well- developed, obese female patient in no acute distress. Vital signs upon presentation are temperature 97.6F, pulse 96, respirations 20, blood pressure 170/87, pulse ox 99% on room air.) Eye exam: Present: normal appearance, PERRL, EOMI. Absent: scleral icterus, conjunctival injection, periorbital swelling ENT exam: Present: normal exam, normal oropharynx, mucous membranes moist Respiratory exam: Present: normal lung sounds bilaterally. Absent: respiratory distress, wheezes, rales, rhonchi, stridor Cardiovascular Exam: Present: regular rate, normal rhythm, normal heart sounds. Absent: systolic murmur, diastolic murmur, rubs, gallop, clicks GI/Abdominal exam: Present: soft, normal bowel sounds. Absent: distended, tenderness, guarding, rebound, rigid Back exam: Present: normal inspection, CVA tenderness (L). Absent: CVA tenderness (R) Neurological exam: Present: alert, oriented X3, CN II-XII intact Psychiatric exam: Present: normal affect, normal mood Skin exam: Present: warm, dry, intact, normal color. Absent: rash Course Vital Signs 09/13/17 02:37 Temperature 97.6 F Pulse Rate 96 Respiratory 20 Rate Blood Pressure 170/87 O2 Sat by Pulse 99 Oximetry Medical Decision Making - Medical Decision Making 37-year-old female patient presented to the emergency department today with complaints of left flank pain. Physical examination is unremarkable. She did have some mild left CVA tenderness. Labs reviewed and were unremarkable. Did show very mild elevation in her lipase level but this is not new for the patient. Urinalysis was completely clear. KUB x-ray of the abdomen showed overall nonobstructive bowel gas pattern. I did review computed tomography scan patient had in July did should not show any evidence of renal calculi. The patient does have chronic abdominal pain. She will be discharged home at this time to continue taking her home pain medications per she is instructed to follow-up with her primary care physician if her symptoms continue. She is instructed to return here immediate for any new, worsening, or concerning symptoms. She verbalizes understanding and agrees with this plan. - Lab Data Result diagrams: 09/13/17 03:44 09/13/17 03:44 Lab Results 09/13/17 09/13/17 09/13/17 Range/Units 03:12 03:44 03:44 WBC 7.7 (3.8-10.6) k/uL RBC 4.48 (3.80-5.40) m/uL Hgb 14.5 (11.4-16.0) gm/dL Hct 42.0 (34.0-46.0) % MCV 93.9 (80.0-100.0) fL MCH 32.3 (25.0-35.0) pg MCHC 34.4 (31.0-37.0) g/dL RDW 13.6 (11.5-15.5) % Plt Count 280 (150-450) k/uL Neutrophils % 67 % Lymphocytes % 24 % Monocytes % 5 % Eosinophils % 3 % Basophils % 1 % Neutrophils # 5.2 (1.3-7.7) k/uL Lymphocytes # 1.8 (1.0-4.8) k/uL Monocytes # 0.4 (0-1.0) k/uL Eosinophils # 0.2 (0-0.7) k/uL Basophils # 0.1 (0-0.2) k/uL Sodium 142 (137-145) mmol/L Potassium 4.3 (3.5-5.1) mmol/L Chloride 107 (98-107) mmol/L Carbon Dioxide 25 (22-30) mmol/L Anion Gap 10 mmol/L BUN 12 (7-17) mg/dL Creatinine 1.01 (0.52-1.04) mg/dL Est GFR (MDRD) Af Amer >60 (>60 ml/min/1.73 sqM) Est GFR (MDRD) Non-Af >60 (>60 ml/min/1.73 sqM) Glucose 183 H (74-99) mg/dL Calcium 9.1 (8.4-10.2) mg/dL Total Bilirubin 0.4 (0.2-1.3) mg/dL AST 25 (14-36) U/L ALT 48 (9-52) U/L Alkaline Phosphatase 81 (38-126) U/L Total Protein 7.0 (6.3-8.2) g/dL Albumin 4.0 (3.5-5.0) g/dL Amylase 59 (30-110) U/L Lipase 312 H (23-300) U/L Urine Color Light Yellow Urine Appearance Clear (Clear) Urine pH 6.5 (5.0-8.0) Ur Specific [place] 1.006 (1.001-1.035) Urine Protein Negative (Negative) Urine Glucose (UA) Negative (Negative) Urine Ketones Negative (Negative) Urine Blood Negative (Negative) Urine Nitrite Negative (Negative) Urine Bilirubin Negative (Negative) Urine Urobilinogen <2.0 (<2.0) mg/dL Ur Leukocyte Esterase Negative (Negative) - Radiology Data Radiology results: report reviewed, image reviewed KUB x-ray of the abdomen shows no free air and intraperitoneal space, gastrointestinal tract is unremarkable no dilation. Organs show postsurgical cholecystectomy clips. Bones and joints are unremarkable. Soft tissues a tubal ligation clips. Impression by Dr. Martinez shows nonspecific, nonobstructive bowel gas pattern. Disposition Clinical Impression: Left flank pain Disposition: HOME SELF-CARE Condition: Good Instructions: Abdominal Pain (ED), Flank Pain (ED) Additional Instructions: Take home pain medications as directed. Add ibuprofen to this. Increase fluids. Follow-up with your primary care physician for recheck in 1-2 days. Return here immediately for any new, worsening, or concerning symptoms. Prescriptions: Ibuprofen [Motrin] 600 mg PO Q8HR PRN #30 tab PRN Reason: Pain Referrals: Reji Diaz MD [Primary Care Provider] - 1-2 days Time of Disposition: 04:58
[2017-09-13 04:01] LABS: Basophils # (A) 0.1 k/uL (0-0.2); Basophils % (A) 1 %; Eosinophils # (A) 0.2 k/uL (0-0.7); Eosinophils % (A) 3 %; HGB 14.5 gm/dL (11.4-16.0); Lymphocytes # (A) 1.8 k/uL (1.0-4.8); Lymphocytes % (A) 24 %; MCH 32.3 pg (25.0-35.0); MCHC 34.4 g/dL (31.0-37.0); MCV 93.9 fL (80.0-100.0); Mean Platelet Volume 6.9; Monocytes # (A) 0.4 k/uL (0-1.0); Monocytes % (A) 5 %; Neutrophils # (A) 5.2 k/uL (1.3-7.7); Neutrophils % (A) 67 %; Platelet Count 280 k/uL (150-450); RBC 4.48 m/uL (3.80-5.40); RDW 13.6 % (11.5-15.5); WBC 7.7 k/uL (3.8-10.6)
[2017-09-13 04:16] LABS: ALT 48 U/L (9-52); AST 25 U/L (14-36); Alkaline Phosphatase 81 U/L (38-126); Amylase 59 U/L (30-110); Anion Gap 10 mmol/L; Blood Urea Nitrogen 12 mg/dL (7-17); Calcium 9.1 mg/dL (8.4-10.2); Carbon Dioxide 25 mmol/L (22-30); Chloride 107 mmol/L (98-107); Glucose 183 mg/dL (74-99); Lipase 312 U/L (23-300); Potassium 4.3 mmol/L (3.5-5.1); Sodium 142 mmol/L (137-145); Total Bilirubin 0.4 mg/dL (0.2-1.3)
--- NOTE | 2017-09-13 04:30 | XR ---
EXAM: XR Abdomen, 2 Views CLINICAL HISTORY: Reason: abdominal pain TECHNIQUE: Frontal view of the abdomen/pelvis with upright view of the abdomen. COMPARISON: No relevant prior studies available. FINDINGS: Intraperitoneal space: No free air. Gastrointestinal tract: Unremarkable. No dilation. Organs: Postsurgical cholecystectomy clips. Bones/joints: Unremarkable. Soft tissues: Tubal ligation clips. IMPRESSION: Nonspecific, Nonobstructive bowel gas pattern..
[2017-09-13] MEDS ORDERED: HYDROmorphone 1 MG/ML 1 ML SYRINGE IVP STA (05:02)
== END 2017-09-13 05:55 | disposition home or self-care (01) ==
LOC: EC 02:34
DX: R10.9 Unspecified abdominal pain (principal); G89.29 Other chronic pain; R74.8 Abnormal levels of other serum enzymes; M54.9 Dorsalgia, unspecified; R11.0 Nausea; I10 Essential (primary) hypertension; E07.9 Disorder of thyroid, unspecified; G47.33 Obstructive sleep apnea (adult) (pediatric); F32.9 Major depressive disorder, single episode, unspecified; F41.9 Anxiety disorder, unspecified; F17.200 Nicotine dependence, unspecified, uncomplicated; Z79.891 Long term (current) use of opiate analgesic; Z79.899 Other long term (current) drug therapy; Z88.0 Allergy status to penicillin; Z88.1 Allergy status to other antibiotic agents; Z88.8 Allergy status to other drugs, medicaments and biological substances; Z86.14 Personal history of Methicillin resistant Staphylococcus aureus infection; Z90.49 Acquired absence of other specified parts of digestive tract; Z98.51 Tubal ligation status; Z99.89 Dependence on other enabling machines and devices
CPT/HCPCS: 36415; 80053; 82150; 83690; 85025; 81003; 74018; 99284; 96374; 96375 ×2; 96376; 96361; J1170 ×2; J2405; J1885

== ENCOUNTER 2017-12-11 01:35 | Emergency (ER) | payer OTHER ==
[2017-12-11] MEDS ORDERED: KETOROLAC 30 MG/ML 1 ML VIAL IVP STA (02:13)
[2017-12-11 02:14] LABS: Basophils % (A) 0 %; Eosinophils # (A) 0.3 k/uL (0-0.7); Eosinophils % (A) 2 %; HCT 41.3 % (34.0-46.0); HGB 13.9 gm/dL (11.4-16.0); Lymphocytes # (A) 2.8 k/uL (1.0-4.8); Lymphocytes % (A) 24 %; MCH 31.8 pg (25.0-35.0); MCHC 33.8 g/dL (31.0-37.0); MCV 94.1 fL (80.0-100.0); Mean Platelet Volume 7.4; Monocytes # (A) 0.5 k/uL (0-1.0); Monocytes % (A) 5 %; Neutrophils # (A) 7.9 k/uL (1.3-7.7); Neutrophils % (A) 68 %; Platelet Count 320 k/uL (150-450); RBC 4.39 m/uL (3.80-5.40); RDW 13.1 % (11.5-15.5); WBC 11.6 k/uL (3.8-10.6)
--- NOTE | 2017-12-11 02:20 | ED ---
Chest Pain HPI - General Chief Complaint: Chest Pain Stated Complaint: Chest Pain Source: patient, RN notes reviewed Mode of arrival: ambulatory Limitations: no limitations - History of Present Illness Initial Comments: 37-year-old female presents emergency from chief complaint chest pain. Patient states it's/chest pain with no other associated symptoms. Denies any shortness breath, headache, dizziness, nausea, diaphoresis, vomiting. Patient states she is a daily smoker has a history of hypertension. She has no history of hyperlipidemia. Patient states that she feels workup now because this chest pain. Patient states that she did not try taking anything for this. Denies any acid reflux. Patient had recent hospitalization for chest pain and had echocardiogram. - Related Data Home Medications Medication Instructions Recorded Confirmed Sertraline [Zoloft] 200 mg PO HS 06/17/14 12/11/17 amLODIPine [Norvasc] 5 mg PO DAILY 12/01/16 12/11/17 ALPRAZolam [Xanax] 1 mg PO TID PRN 05/26/17 12/11/17 ARIPiprazole [Abilify] 15 mg PO DAILY 05/26/17 12/11/17 Levothyroxine Sodium [Synthroid] 200 mcg PO DAILY 05/26/17 12/11/17 Previous Rx's Medication Instructions Recorded Ibuprofen [Motrin] 600 mg PO Q8HR PRN #30 tab 09/13/17 Allergies Allergy/AdvReac Type Severity Reaction Status Date / Time cephalexin monohydrate Allergy Swelling Verified 07/16/17 22:48 [From Keflex] clindamycin Allergy Swelling Verified 07/16/17 22:48 levofloxacin [From Levaquin] Allergy Swelling Verified 07/16/17 22:48 Penicillins Allergy Itching Verified 07/16/17 22:48 prochlorperazine edisylate AdvReac IRRITABLE Verified 07/16/17 22:48 [From Compazine] prochlorperazine maleate AdvReac IRRITABLE Verified 07/16/17 22:48 [From Compazine] Review of Systems ROS Statement: Those systems with pertinent positive or pertinent negative responses have been documented in the HPI. ROS Other: All systems not noted in ROS Statement are negative. EKG Findings - EKG Comments: EKG Findings:: EKG performed at 1:48 sinus tachycardia with a rate of 111. pR 150 QRS 82 QT/QTC 346/470 Past Medical History Past Medical History: Asthma, Hypertension, Sleep Apnea/CPAP/BIPAP, Thyroid Disorder Additional Past Medical History / Comment(s): crohns ibs, obstructive sleep apnea compliant with CPAP, borderline diabetic History of Any Multi-Drug Resistant Organisms: MRSA Date of last positivie culture/infection: 2011 MDRO Source:: breast Past Surgical History: Appendectomy, Bowel Resection, Section, Cholecystectomy Additional Past Surgical History / Comment(s): thyroid, cyst removal/abscess small intestines, right ovary and fallopian tube cyst removal Past Anesthesia/Blood Transfusion Reactions: No Reported Reaction Past Psychological History: Anxiety, Depression Smoking Status: Current every day smoker Past Alcohol Use History: None Reported Past Drug Use History: None Reported - Past Family History Father Family Medical History: Coronary Artery Disease (CAD), Hypertension Additional Family Medical History / Comment(s): Father is alive at age 65 with history of coronary artery disease. Mother Family Medical History: COPD, Coronary Artery Disease (CAD), Hypertension, Sleep Apnea/CPAP/BIPAP Additional Family Medical History / Comment(s): Mother is alive at age 58 with history of coronary artery disease and asthma. Brother(s) Family Medical History: No Reported History Additional Family Medical History / Comment(s): Patient has 1 brother with no major medical problems. Sister(s) Family Medical History: No Reported History Additional Family Medical History / Comment(s): Patient has 1 sister with no major medical problems. Daughter(s) Family Medical History: Asthma, Sleep Apnea/CPAP/BIPAP Son(s) Family Medical History: Asthma, Sleep Apnea/CPAP/BIPAP General Exam Limitations: no limitations General appearance: alert, in no apparent distress, anxious, obese Head exam: Present: atraumatic, normocephalic, normal inspection Eye exam: Present: normal appearance, PERRL, EOMI. Absent: scleral icterus, conjunctival injection, periorbital swelling ENT exam: Present: normal exam, normal oropharynx, mucous membranes moist Neck exam: Present: normal inspection, full ROM. Absent: tenderness, meningismus, lymphadenopathy Respiratory exam: Present: normal lung sounds bilaterally. Absent: respiratory distress, wheezes, rales, rhonchi, stridor Cardiovascular Exam: Present: normal rhythm, tachycardia, normal heart sounds. Absent: systolic murmur, diastolic murmur, rubs, gallop, clicks Back exam: Absent: CVA tenderness (R), CVA tenderness (L) Neurological exam: Present: alert, oriented X3, CN II-XII intact Psychiatric exam: Present: anxious Skin exam: Present: warm, dry, intact, normal color. Absent: rash Course Vital Signs 12/11/17 12/11/17 12/11/17 01:37 02:00 02:03 Temperature 99.0 F Pulse Rate 112 H 96 Pulse Rate [ 108 H [employer] ] Respiratory 20 17 Rate Blood Pressure 134/80 161/63 O2 Sat by Pulse 99 98 Oximetry 12/11/17 02:49 Temperature Pulse Rate 99 Pulse Rate [ [employer] ] Respiratory 18 Rate Blood Pressure 141/63 O2 Sat by Pulse 98 Oximetry Chest Pain MDM - MDM 37-year-old female presented with primary for was a chest pain. Patient had prior workup for this. Patient's symptoms started prior arrival while she is trying to sleep but she was worrying about things. Patient was given Ativan symptoms have improved. Patient be discharged at this time return parameters were discussed. Disposition Clinical Impression: Atypical chest pain Disposition: HOME SELF-CARE Condition: Stable Instructions: Chest Pain (ED) Additional Instructions: Please return to the Emergency Department if symptoms worsen or any other concerns. Referrals: Reji Diaz MD [Primary Care Provider] - 1-2 days Time of Disposition: 02:59
[2017-12-11 02:24] LABS: Albumin 3.7 g/dL (3.5-5.0); Calcium 8.6 mg/dL (8.4-10.2); Magnesium 2.2 mg/dL (1.6-2.3); Potassium 3.8 mmol/L (3.5-5.1); Prothrombin Time 9.9 sec (9.0-12.0); Total Bilirubin 0.3 mg/dL (0.2-1.3); Total Protein 6.8 g/dL (6.3-8.2)
[2017-12-11 02:36] LABS: Creatine Kinase 139 U/L (30-135)
[2017-12-11 02:49] VITALS: BP 141/63; PULSE 99; RESP 18
[2017-12-11 02:49] LABS: Creatine Kinase MB 0.4 ng/mL (0.0-2.4); Troponin I <0.012 ng/mL (0.000-0.034)
[2017-12-11] MEDS ORDERED: LORazepam 2 MG/ML INJ IV STA (02:58)
--- NOTE | 2017-12-11 03:01 | XR ---
EXAM: XR Chest, 2 Views CLINICAL HISTORY: ITS.REASON XR Reason: Chest Pain TECHNIQUE: Frontal and lateral views of the chest. COMPARISON: 05/26/17. FINDINGS: Lungs: Mild lower lung opacities may represent atelectasis. Pleural space: Unremarkable. No pneumothorax. Heart: Unremarkable. Mediastinum: Unremarkable. Bones/joints: Unremarkable. IMPRESSION: Mild lower lung opacities may represent atelectasis.
[2017-12-11 03:14] VITALS: TEMP 98.1
== END 2017-12-11 03:14 | disposition home or self-care (01) ==
LOC: EC 01:35
DX: R07.89 Other chest pain (principal); I10 Essential (primary) hypertension; E07.9 Disorder of thyroid, unspecified; G47.33 Obstructive sleep apnea (adult) (pediatric); Z99.89 Dependence on other enabling machines and devices; F32.9 Major depressive disorder, single episode, unspecified; F41.9 Anxiety disorder, unspecified; F17.200 Nicotine dependence, unspecified, uncomplicated; Z86.14 Personal history of Methicillin resistant Staphylococcus aureus infection; Z79.899 Other long term (current) drug therapy; Z88.0 Allergy status to penicillin; Z88.1 Allergy status to other antibiotic agents; Z88.8 Allergy status to other drugs, medicaments and biological substances
CPT/HCPCS: 36415; 93005; 80053; 82550; 82553; 83690; 83735; 84484; 85025; 85610; 85730; 71046; 99285; 96374; 96375; J2060; J1885

== ENCOUNTER 2017-12-25 20:03 | Emergency (ER) | payer OTHER ==
[2017-12-25] MEDS ORDERED: MORPHINE SULFATE 4 MG/0.8 ML SYRINGE (INJ) IV STA (20:28)
[2017-12-25] MEDS ORDERED: KETOROLAC 30 MG/ML 1 ML VIAL IVP STA (20:28)
[2017-12-25] MEDS ORDERED: ONDANSETRON 4 MG/2 ML VIAL IVP STA (20:28)
[2017-12-25] MEDS ORDERED: SODIUM CHLORIDE 0.9% 1,000 ML IV STA ×2 (20:28)
[2017-12-25 20:58] LABS: Basophils % (A) 1 %; Eosinophils # (A) 0.2 k/uL (0-0.7); Eosinophils % (A) 2 %; HCT 45.6 % (34.0-46.0); HGB 15.3 gm/dL (11.4-16.0); Lymphocytes # (A) 1.2 k/uL (1.0-4.8); Lymphocytes % (A) 18 %; MCH 31.4 pg (25.0-35.0); MCHC 33.5 g/dL (31.0-37.0); MCV 93.9 fL (80.0-100.0); Mean Platelet Volume 7.7; Monocytes # (A) 0.5 k/uL (0-1.0); Monocytes % (A) 8 %; Neutrophils # (A) 4.5 k/uL (1.3-7.7); Neutrophils % (A) 70 %; Platelet Count 296 k/uL (150-450); RBC 4.86 m/uL (3.80-5.40); RDW 13.2 % (11.5-15.5); WBC 6.5 k/uL (3.8-10.6)
--- NOTE | 2017-12-25 21:04 | ED ---
Abdominal Pain HPI - General Chief Complaint: Abdominal Pain Stated Complaint: rt flank pain Time Seen by Provider: 12/25/17 20:10 Source: patient, RN notes reviewed, old records reviewed Mode of arrival: ambulatory Limitations: no limitations - History of Present Illness Initial Comments: This is a 37-year-old female presents research and plan of right flank pain. She reports that she had an episode yesterday by one way. He returns today and has been persistent for the last 4 hours. She reports her urine and frequent. Denies any nausea or vomiting or abdominal pain. She states the pain radiates down the back. No history of kidney stones. Patient denies any recent fever, chills, shortness of breath, chest pain, nausea vomiting, numbness or tingling , dysuria or hematuria, constipation or diarrhea, headaches or visual changes, or any other current symptoms MD Complaint: abdominal pain - Related Data Home Medications Medication Instructions Recorded Confirmed Sertraline [Zoloft] 200 mg PO HS 06/17/14 12/25/17 amLODIPine [Norvasc] 5 mg PO HS 12/01/16 12/25/17 ALPRAZolam [Xanax] 1 mg PO TID PRN 05/26/17 12/25/17 ARIPiprazole [Abilify] 15 mg PO HS 05/26/17 12/25/17 Levothyroxine Sodium [Synthroid] 200 mcg PO HS 05/26/17 12/25/17 Previous Rx's Medication Instructions Recorded Ibuprofen [Motrin] 600 mg PO Q8HR PRN #30 tab 09/13/17 Allergies Allergy/AdvReac Type Severity Reaction Status Date / Time cephalexin monohydrate Allergy Swelling Verified 12/25/17 20:25 [From Keflex] clindamycin Allergy Swelling Verified 12/25/17 20:25 levofloxacin [From Levaquin] Allergy Swelling Verified 12/25/17 20:25 Penicillins Allergy Itching Verified 12/25/17 20:25 prochlorperazine edisylate AdvReac IRRITABLE Verified 12/25/17 20:25 [From Compazine] prochlorperazine maleate AdvReac IRRITABLE Verified 12/25/17 20:25 [From Compazine] Review of Systems ROS Statement: Those systems with pertinent positive or pertinent negative responses have been documented in the HPI. ROS Other: All systems not noted in ROS Statement are negative. Past Medical History Past Medical History: Asthma, Hypertension, Sleep Apnea/CPAP/BIPAP, Thyroid Disorder Additional Past Medical History / Comment(s): crohns ibs, obstructive sleep apnea compliant with CPAP, borderline diabetic History of Any Multi-Drug Resistant Organisms: MRSA Date of last positivie culture/infection: 2011 MDRO Source:: breast Past Surgical History: Appendectomy, Bowel Resection, Section, Cholecystectomy Additional Past Surgical History / Comment(s): thyroid, cyst removal/abscess small intestines, right ovary and fallopian tube cyst removal Past Anesthesia/Blood Transfusion Reactions: No Reported Reaction Past Psychological History: Anxiety, Depression Smoking Status: Current every day smoker Past Alcohol Use History: None Reported Past Drug Use History: None Reported - Past Family History Father Family Medical History: Coronary Artery Disease (CAD), Hypertension Additional Family Medical History / Comment(s): Father is alive at age 65 with history of coronary artery disease. Mother Family Medical History: COPD, Coronary Artery Disease (CAD), Hypertension, Sleep Apnea/CPAP/BIPAP Additional Family Medical History / Comment(s): Mother is alive at age 58 with history of coronary artery disease and asthma. Brother(s) Family Medical History: No Reported History Additional Family Medical History / Comment(s): Patient has 1 brother with no major medical problems. Sister(s) Family Medical History: No Reported History Additional Family Medical History / Comment(s): Patient has 1 sister with no major medical problems. Daughter(s) Family Medical History: Asthma, Sleep Apnea/CPAP/BIPAP Son(s) Family Medical History: Asthma, Sleep Apnea/CPAP/BIPAP General Exam - General Exam Comments Initial Comments: Morbidly obese 37-year-old female. Does in moderate discomfort. Limitations: no limitations General appearance: alert, in no apparent distress Head exam: Present: atraumatic, normocephalic, normal inspection Eye exam: Present: normal appearance, PERRL, EOMI. Absent: scleral icterus, conjunctival injection, periorbital swelling ENT exam: Present: normal exam, mucous membranes moist Neck exam: Present: normal inspection. Absent: tenderness, meningismus, lymphadenopathy Respiratory exam: Present: normal lung sounds bilaterally. Absent: respiratory distress, wheezes, rales, rhonchi, stridor Cardiovascular Exam: Present: regular rate, normal rhythm, normal heart sounds. Absent: systolic murmur, diastolic murmur, rubs, gallop, clicks GI/Abdominal exam: Present: soft, tenderness (Right CVA tenderness.), normal bowel sounds. Absent: distended, guarding, rebound, rigid Extremities exam: Present: normal inspection, full ROM, normal capillary refill. Absent: tenderness, pedal edema, joint swelling, calf tenderness Back exam: Present: normal inspection Neurological exam: Present: alert, oriented X3, CN II-XII intact Psychiatric exam: Present: normal affect, normal mood Course Vital Signs 12/25/17 12/25/17 20:05 21:35 Temperature 98.3 F Pulse Rate 115 H 92 Respiratory 18 14 Rate Blood Pressure 157/91 108/53 O2 Sat by Pulse 99 96 Oximetry Medical Decision Making - Medical Decision Making 37-year-old female presents with 1 day of right flank pain. Patient reports she 's been feeling somewhat nauseated. Patient labwork was reviewed and unremarkable. No signs of UTI. White count is normal. Chest is her Crohn's. She is no significant abdominal pain noted with this. However with patient continued to play of pain and to do further studies and a CT abdomen and pelvis. CT abdomen and pelvis negative for any acute process. EKG was reviewed and unremarkable as well as a negative troponin. At this time and discussed the patient's pain is like most likely muscle skeletal, and no etiology for the right flank pain at this time. Patient will be discharged and follow-up with PCP. - Lab Data Result diagrams: 12/25/17 20:42 12/25/17 20:42 Lab Results 12/25/17 12/25/17 12/25/17 Range/Units 20:30 20:42 20:42 WBC 6.5 (3.8-10.6) k/uL RBC 4.86 (3.80-5.40) m/uL Hgb 15.3 (11.4-16.0) gm/dL Hct 45.6 (34.0-46.0) % MCV 93.9 (80.0-100.0) fL MCH 31.4 (25.0-35.0) pg MCHC 33.5 (31.0-37.0) g/dL RDW 13.2 (11.5-15.5) % Plt Count 296 (150-450) k/uL Neutrophils % 70 % Lymphocytes % 18 % Monocytes % 8 % Eosinophils % 2 % Basophils % 1 % Neutrophils # 4.5 (1.3-7.7) k/uL Lymphocytes # 1.2 (1.0-4.8) k/uL Monocytes # 0.5 (0-1.0) k/uL Eosinophils # 0.2 (0-0.7) k/uL Basophils # 0.0 (0-0.2) k/uL PT (9.0-12.0) sec INR (<1.2) APTT (22.0-30.0) sec Sodium 143 (137-145) mmol/L Potassium 4.2 (3.5-5.1) mmol/L Chloride 103 (98-107) mmol/L Carbon Dioxide 25 (22-30) mmol/L Anion Gap 15 mmol/L BUN 12 (7-17) mg/dL Creatinine 1.03 (0.52-1.04) mg/dL Est GFR (CKD-EPI)AfAm 81 (>60 ml/min/1.73 sqM) Est GFR (CKD-EPI)NonAf 71 (>60 ml/min/1.73 sqM) Glucose 96 (74-99) mg/dL Calcium 8.9 (8.4-10.2) mg/dL Total Bilirubin 0.5 (0.2-1.3) mg/dL AST 35 (14-36) U/L ALT 56 H (9-52) U/L Alkaline Phosphatase 78 (38-126) U/L Troponin I (0.000-0.034) ng/mL Total Protein 7.8 (6.3-8.2) g/dL Albumin 4.6 (3.5-5.0) g/dL Amylase 58 (30-110) U/L Lipase 256 (23-300) U/L Urine Color Yellow Urine Appearance Cloudy H (Clear) Urine pH 6.5 (5.0-8.0) Ur Specific [place] 1.018 (1.001-1.035) Urine Protein Negative (Negative) Urine Glucose (UA) Negative (Negative) Urine Ketones Negative (Negative) Urine Blood Negative (Negative) Urine Nitrite Negative (Negative) Urine Bilirubin Negative (Negative) Urine Urobilinogen <2.0 (<2.0) mg/dL Ur Leukocyte Esterase Negative (Negative) Urine RBC 1 (0-5) /hpf Urine WBC 3 (0-5) /hpf Ur Squamous Epith Cells 8 H (0-4) /hpf Urine Mucus Rare H (None) /hpf 12/25/17 12/25/17 Range/Units 20:42 20:42 WBC (3.8-10.6) k/uL RBC (3.80-5.40) m/uL Hgb (11.4-16.0) gm/dL Hct (34.0-46.0) % MCV (80.0-100.0) fL MCH (25.0-35.0) pg MCHC (31.0-37.0) g/dL RDW (11.5-15.5) % Plt Count (150-450) k/uL Neutrophils % % Lymphocytes % % Monocytes % % Eosinophils % % Basophils % % Neutrophils # (1.3-7.7) k/uL Lymphocytes # (1.0-4.8) k/uL Monocytes # (0-1.0) k/uL Eosinophils # (0-0.7) k/uL Basophils # (0-0.2) k/uL PT 10.1 (9.0-12.0) sec INR 1.0 (<1.2) APTT 24.3 (22.0-30.0) sec Sodium (137-145) mmol/L Potassium (3.5-5.1) mmol/L Chloride (98-107) mmol/L Carbon Dioxide (22-30) mmol/L Anion Gap mmol/L BUN (7-17) mg/dL Creatinine (0.52-1.04) mg/dL Est GFR (CKD-EPI)AfAm (>60 ml/min/1.73 sqM) Est GFR (CKD-EPI)NonAf (>60 ml/min/1.73 sqM) Glucose (74-99) mg/dL Calcium (8.4-10.2) mg/dL Total Bilirubin (0.2-1.3) mg/dL AST (14-36) U/L ALT (9-52) U/L Alkaline Phosphatase (38-126) U/L Troponin I <0.012 (0.000-0.034) ng/mL Total Protein (6.3-8.2) g/dL Albumin (3.5-5.0) g/dL Amylase (30-110) U/L Lipase (23-300) U/L Urine Color Urine Appearance (Clear) Urine pH (5.0-8.0) Ur Specific [place] (1.001-1.035) Urine Protein (Negative) Urine Glucose (UA) (Negative) Urine Ketones (Negative) Urine Blood (Negative) Urine Nitrite (Negative) Urine Bilirubin (Negative) Urine Urobilinogen (<2.0) mg/dL Ur Leukocyte Esterase (Negative) Urine RBC (0-5) /hpf Urine WBC (0-5) /hpf Ur Squamous Epith Cells (0-4) /hpf Urine Mucus (None) /hpf 12/25/17 21:11 EKG shows sinus tachycardia, ventricular rate of 102 bpm. LA interval is 148 ms. QRS ration 82 ms. QT QTc is 360/469. - Radiology Data Radiology results: report reviewed CT shows previous surgeries. Probably some fatty infiltration of liver. No sign of acute abdomen and pelvis. No sign changes. Old exam. Chest x-ray shows no acute process. KUB is negative for any obstructive bowel gas pattern. Disposition Clinical Impression: Right flank pain Disposition: HOME SELF-CARE Condition: Good Additional Instructions: Patient advised to apply heat and ice to the area of pain. Follow-up with primary care provider. Return to the emergency department if any alarming signs or symptoms occur. Is patient prescribed a controlled substance at d/c from ED?: No If prescribed controlled substance>3 days was MAPS reviewed?: No When asked, does pt state using other controlled substances?: No Referrals: Reji Diaz MD [Primary Care Provider] - 1-2 days Time of Disposition: 23:01
[2017-12-25 21:08] LABS: Albumin 4.6 g/dL (3.5-5.0); Calcium 8.9 mg/dL (8.4-10.2); Total Bilirubin 0.5 mg/dL (0.2-1.3); Total Protein 7.8 g/dL (6.3-8.2)
[2017-12-25 21:09] LABS: Potassium 4.2 mmol/L (3.5-5.1)
[2017-12-25 21:14] LABS: Appearance,Urine Cloudy (Clear); Bilirubin,Urine Negative (Negative); Blood,Urine Negative (Negative); Color,Urine Yellow; Glucose,Urine (UA) Negative (Negative); Ketones,Urine Negative (Negative); Leukocyte Esterase,Urine Negative (Negative); Mucus,Urine Rare /hpf; Nitrite,Urine Negative (Negative); PH, Urine 6.5 (5.0-8.0); Protein,Urine Negative (Negative); RBC,Urine 1 /hpf (0-5); Specific Gravity,Urine 1.018 (1.001-1.035); Squamous Epithelial Cell,Urine 8 /hpf (0-4); Urobilinogen,Urine <2.0 mg/dL (<2.0); WBC,Urine 3 /hpf (0-5)
[2017-12-25 21:21] LABS: Partial Thromboplastin Time 24.3 sec (22.0-30.0); Prothrombin Time 10.1 sec (9.0-12.0)
--- NOTE | 2017-12-25 21:41 | XR ---
EXAMINATION TYPE: XR chest 2V DATE OF EXAM: 12/25/2017 COMPARISON: 05/26/2017 HISTORY: Abdominal pain TECHNIQUE: Frontal and lateral views of the chest are obtained. FINDINGS: Heart and mediastinum are normal. Lungs are clear. Diaphragm is normal. Bony thorax is int act. IMPRESSION: Normal chest. No change.
--- NOTE | 2017-12-25 21:42 | XR ---
EXAMINATION TYPE: XR KUB DATE OF EXAM: 12/25/2017 COMPARISON: 09/13/2017 HISTORY: Left flank pain TECHNIQUE: 2 views FINDINGS: There are clips from cholecystectomy. There is no sign of intestinal obstruction or pneumop eritoneum. Fecal pattern is normal. Lung bases are clear. There are no pathologic calcifications over the kidneys. IMPRESSION: Nonacute abdomen. No change.
[2017-12-25] MEDS ORDERED: RX INFO: IV CONTRAST WAS GIVEN 1 EACH MISC MISCELLANE PRN (21:45)
--- NOTE | 2017-12-25 22:16 | CT ---
EXAMINATION TYPE: CT abdomen pelvis w con DATE OF EXAM: 12/25/2017 COMPARISON: 07/17/2017 HISTORY: Left flank pain. Hx of crohns CT DLP: 3486.6 mGycm Automated exposure control for dose reduction was used. TECHNIQUE: Helical acquisition of images was performed from the lung bases through the pelvis. CONTRAST: Performed without Oral Contrast and with IV Contrast, patient injected with 100 mL of Isovue 300. FINDINGS: The lung bases are clear. There is no pleural effusion. There is no pericardial effusion. Liver shows no focal defect. There is decreased density in the liver consistent with mild fatty infiltration. Sp horacio appears normal. There is no pancreatic mass. There are clips from cholecystectomy. Bile ducts ar e not dilated. There is no adrenal mass. Kidneys show satisfactory contrast opacification. There is no hydronephrosi s. There is no retroperitoneal adenopathy. Bladder distends smoothly. Uterus is anteverted. Lumbar sp ine is intact. There is no ascites. There is no sign of free air. I see no intestinal wall thickening . There are no dilated loops. There is no sign of a bowel obstruction. There are surgical clips in th e right side of the abdomen. IMPRESSION: PREVIOUS SURGERY. THERE IS PROBABLY SOME FATTY INFILTRATION OF THE LIVER. NO SIGN OF ACUTE ABDOMEN AN D PELVIS. NO SIGNIFICANT CHANGE COMPARED TO OLD EXAM.
[2017-12-25] MEDS ORDERED: ORPHENADRINE 30 MG/ML 2 ML VIAL IVP STA (23:05)
[2017-12-25 23:26] VITALS: BP 133/77; PULSE 99; RESP 16; TEMP 97.6
== END 2017-12-25 23:26 | disposition home or self-care (01) ==
LOC: EC 20:03
DX: R10.9 Unspecified abdominal pain (principal); R11.0 Nausea; I10 Essential (primary) hypertension; E07.9 Disorder of thyroid, unspecified; F32.9 Major depressive disorder, single episode, unspecified; F41.9 Anxiety disorder, unspecified; F17.200 Nicotine dependence, unspecified, uncomplicated; Z86.14 Personal history of Methicillin resistant Staphylococcus aureus infection; Z90.49 Acquired absence of other specified parts of digestive tract; Z88.0 Allergy status to penicillin; Z88.1 Allergy status to other antibiotic agents; Z88.8 Allergy status to other drugs, medicaments and biological substances; Z79.899 Other long term (current) drug therapy
CPT/HCPCS: 99285; 96374; 96375 ×3; 96361 ×3; 36415; 93005; 80053; 82150; 83690; 84484; 85025; 85610; 85730; 81001; 87040; 71046; 74018; 74177; J2360; J2405; J1885; Q9967; J2270

== ENCOUNTER → 2018-01-04 | Outpatient (CLI) | payer OTHER ==
[2018-01-03 12:49] VITALS: BMI 54.8
[2018-01-04 11:55] VITALS: BP 119/78; PULSE 104; RESP 16
--- NOTE | 2018-01-04 12:13 | P.PAINPG ---
Subjective Progress Note Date: 01/04/18 This is a pleasant 37-year-old woman who presents today with chief complaint intractable low back pain. She's had this problem for quite some time. She was recently admitted to the emergency room for kidney stones however this was a different pain presentation it has since resolved. She underwent previous diagnostic medial branch nerve blocks greater than 2 years ago with subsequent follow-up radio frequency ablation. She found this to be extremely helpful in reducing her pain. Her symptoms have returned in the previous character and distribution she presents today for help with this problem. She denies bowel or bladder dysfunction. She denies any weakness in her legs. She has previous attended physical therapy and found that this was not helpful. Objective - Vital Signs Vital signs: Intake & Output 01/03/18 01/04/18 01/04/18 18:59 06:59 18:59 Weight 154.221 kg - Exam Physical Examinations : 1-Constitutional : Cooperative , not in acute distress . She is not sedated. She is morbidly obese. 2-HEENT : No obvious masses. Normocephalic. 3- Respiratory : Chest clear to auscultation. 4- Cardiovascular : regular rate and rhythm. 5- Gastrointestinal: abdomen soft no tenderness , bowel sounds positive all four quadrants, no organomegaly . 6- Genitourinary : Deferred . 7-Integumentary : No cellulitis , no ulcers, normal skin turgor, no cyanotic. 8- neurologic : No focal motor deficits no focal sensory deficits 9-psychatric : alert, oriented, appropriate affect , intact judgment and insight . Affect congruent with situation. 10-Lymphatic : no Lymphadenopathy . 11- musculoskeltal: normal gait , facet loading maneuvers are floridly positive bilaterally. Tender to palpation of the Achilles tendons bilaterally. Assessment and Plan Plan: Follow-up plan: * Medications: Patient will continue with her current medications. I would advise against using opiates in this patient. She has significant morbid obesity as well as sleep apnea and I believe it would be dangerous to prescribe them to her. * Procedures: The patient has had a previous bilateral lumbar radio frequency ablation which she reports afforded her substantial relief of her pain. It is been greater than 2 years that she had this procedure done. I believe we could repeat the radio frequency ablation and achieve good pain control for her. * Referrals: None * Additional tests ordered: None * Next follow-up visit: Unilateral radiofrequency ablation. The choice of side will depend on the patient's severity. PQRS Measure Charge Sheet Measure #130: Documentation of Current Meds in Medical Chart: Patient's medications documented in chart Measure #226: Tobacco Use: Screen & Cessation Intervention: Pt screened for tobacco use AND intervention given Measure #111: Pneumonia Vaccination: Pneumococcal vaccine NOT administered or previously given Measure #47: Advance Care Plan: Advance care planning discussed & documented, pt chose/unable to give Measure #412: Opioid Treatment Agreement: No documentation of signed opioid treatment agreement Measure #408: Opioid Therapy Follow-up Evaluation: Patient had NO f/u eval minimum every 3 months during opioid therapy Measure #317: Preventitive Care & Scrn High Bld Press & F/U: Normal blood pressure, f/u not required Measure #128: Body Mass Index (BMI) Screening & Follow-up: BMI documented ABOVE normal parameters - f/u documented Measure #131: Pain Assessment & Follow-up: Pain positive & plan documented Measure #431: Unhealthy Alcohol Use Preventative Care & Scrn: Patient not identified as an unhealthy alcohol user PQRS Narrative: Smoking Status Current every day smoker Home Medications: Ambulatory Orders Sertraline [Zoloft] 200 mg PO HS 06/17/14 amLODIPine [Norvasc] 5 mg PO HS 12/01/16 ALPRAZolam [Xanax] 1 mg PO TID PRN 05/26/17 ARIPiprazole [Abilify] 15 mg PO HS 05/26/17 Levothyroxine Sodium [Synthroid] 200 mcg PO HS 05/26/17 Ibuprofen [Motrin] 600 mg PO Q8HR PRN #30 tab 09/13/17 Losartan [Cozaar] 50 mg PO DAILY 01/03/18 Medroxyprogesterone Acetate [Depo-Provera] 150 mg IM ONCE 01/03/18 Metoprolol Tartrate [Lopressor] 12.5 mg PO BID 01/03/18 Methocarbamol [Robaxin] 1,000 mg PO QID PRN 01/04/18 Controlled Substance Measures - Controlled Substance Measures Is patient prescribed a controlled substance at discharge?: No If prescribed controlled substance>3 days was MAPS reviewed?: No When asked, does pt state using other controlled substances?: No
== END | disposition home or self-care (01) ==
LOC: PNWHC3 11:25
PROVIDERS: ATTEND Pain Medicine Pain Medicine
DX: M54.5 Low back pain (principal); Z79.899 Other long term (current) drug therapy; Z98.890 Other specified postprocedural states
CPT/HCPCS: 99211

== ENCOUNTER 2018-01-25 08:29 | Day surgery (SDC) | payer OTHER ==
[2018-01-16 10:30] VITALS: BMI 54.1
[2018-01-25 09:08] VITALS: RESP 16; TEMP 97.7
[2018-01-25] MEDS ORDERED: LACTATED RINGERS 1,000 ML IV ONE (09:12)
[2018-01-25] MEDS ORDERED: LIDOCAINE 1% 20 ML VIAL (10MG/ML) FOR IV START IV ONE (09:12)
[2018-01-25] MEDS ORDERED: IV FLUID CONTINUATION 1,000 ML IV ONE (10:24)
[2018-01-25 10:41] VITALS: BP 141/71; PULSE 84
--- NOTE | 2018-01-25 12:05 | P.PCN ---
Date of Procedure: 01/25/18 Surgeon: Landen Dubois Description of Procedure: Date of Procedure: 01/25/18 Surgeon: Landen Dubois Description of Procedure: Procedure(s) Performed: PREOPERATIVE DIAGNOSIS: 1. Lumbar Spondylosis with Facet Arthropathy without myelopathy. 2-. Lumber degenerative disc disease POSTOPERATIVE DIAGNOSIS: 1. Lumbar Spondylosis with Facet Arthropathy without myelopathy. 2-. Lumber degenerative disc disease PROCEDURES: Left Radiofrequency thermocoagulation, L4,L5, Sacral Ala medial branch, with fluoroscopic guidance SURGEON: Landen Dubois MD. ANESTHESIA: Moderate sedation with intravenous versed 2 mg and fentanyl 100 mcg and local infiltration with lidocaine 1% 10 mL EBL: Minimal PROCEDURE INDICATION: The patient with low back pain secondary to lumbar facet arthropathy who had more than 50% relief of pain with previous diagnostic lumbar medial branch block with bupivacaine. She has had these procedures performed in the past and reported excellent relief for low back pain from them. PROCEDURE DESCRIPTION / TECHNIQUE: The patient was seen and identified in the preoperative area. Risks, benefits, complications, including but not limited to risk of infection ,bleeding , allergic reactions to the medications and no complete pain releife , and alternatives were discussed with the patient, the patient agreed to proceed with the procedure and signed the consent. IV was started. The operative site was marked. Patient was taken to the OR and time out was completed. The patient was placed in the prone position on the procedure table. The lumber area was prepped and draped in the usual sterile fashion. . Vital signs were closely monitored during the procedure .IV sedation was used during the procedure to decrease patients anxiety. Using AP and then oblique fluoroscopy, the ``eye of the Félix dog corresponding to the connection between the superior and transverse articular processes of the above-mentioned levels were identified, marked, and localized with 1% lidocaine. Subsequently, a [id number] radiofrequency cannula with a 10-mm active tip was advanced guided by fluoroscopy to each of the ``eyes of the Félix dog at each site then underwent sensory testing at 50 Hz and 0 to 1 volt and motor testing at 2.5 Hz and 0 to 3 volt with local stimulation, but no radicular symptoms down the legs. Then the sites underwent radiofrequency thermocoagulation at 80 degrees celsius for 90 seconds after injecting 0.5 ml of PF lidocaine 1%. then After the thermocoagulation done , 1 ml of the block solution containing depomedrol 40 mg and 4 ml of maraine 0.5 % was injected at each levels after negative aspiration of CSF and blood and with no paresthesias. Cannulas were retracted while injecting lidocaine 1% until the needle is out.. At the end of the procedure, the skin was cleansed and bandages were applied.
--- NOTE | 2018-01-25 13:07 | FL ---
Fluoroscopy HISTORY: Pain 5 seconds fluoroscopy time supplied to the referring clinician. 2 intraoperative C-arm images docume nt the procedure. See dictated report from anesthesia.
== END 2018-01-25 10:53 | disposition home or self-care (01) ==
LOC: ORPAIN 08:29
PROVIDERS: ATTEND Pain Medicine Pain Medicine
DX: M47.816 Spondylosis without myelopathy or radiculopathy, lumbar region (principal); M51.36 Other intervertebral disc degeneration, lumbar region; E66.9 Obesity, unspecified; Z68.43 Body mass index [BMI] 50.0-59.9, adult; Z88.1 Allergy status to other antibiotic agents; Z88.0 Allergy status to penicillin; Z88.8 Allergy status to other drugs, medicaments and biological substances
CPT/HCPCS: 81025; 64635; 64636; J2250; J3301; J2001; J3010; 99152

== ENCOUNTER 2018-02-21 09:54 | Day surgery (SDC) | payer OTHER ==
[2018-02-16 14:56] VITALS: BMI 53.2
[~2018-02-21 09:54] MED LIST: LACTATED RINGERS 1,000 ML IV SCH
[2018-02-21 10:17] VITALS: RESP 18; TEMP 98.1
[2018-02-21] MEDS ORDERED: LACTATED RINGERS 1,000 ML IV ONE (10:18)
[2018-02-21] MEDS ORDERED: LIDOCAINE 1% 20 ML VIAL (10MG/ML) FOR IV START INTRADERMA ONE (10:18)
--- NOTE | 2018-02-21 10:46 | P.OP ---
Date of Procedure: 02/21/18 Surgeon: Landen Dubois Description of Procedure: Procedure(s) Performed: PREOPERATIVE DIAGNOSIS: 1. Lumbar Spondylosis with Facet Arthropathy without myelopathy. 2-. Lumber degenerative disc disease POSTOPERATIVE DIAGNOSIS: 1. Lumbar Spondylosis with Facet Arthropathy without myelopathy. 2-. Lumber degenerative disc disease PROCEDURES: Right Radiofrequency thermocoagulation, L4,L5, Sacral Ala medial branch, with fluoroscopic guidance SURGEON: Landen Dubois MD. ANESTHESIA: Moderate sedation with intravenous versed 2 mg and fentanyl 100 mcg and local infiltration with lidocaine 1% 4 ml EBL: Minimal PROCEDURE INDICATION: The patient with low back pain secondary to lumbar facet arthropathy who had more than 50% relief of pain with previous diagnostic lumbar medial branch block with bupivacaine. She has recently undergone radio frequency ablation of the left-sided lumbar medial branch nerves. She reports that this is helped her pain significantly on the left side. She is looking forward obtaining additional relief from the right-sided procedure. PROCEDURE DESCRIPTION / TECHNIQUE: The patient was seen and identified in the preoperative area. Risks, benefits, complications, including but not limited to risk of infection ,bleeding , allergic reactions to the medications and no complete pain releife , and alternatives were discussed with the patient, the patient agreed to proceed with the procedure and signed the consent. IV was started. The operative site was marked. Patient was taken to the OR and time out was completed. The patient was placed in the prone position on the procedure table. The lumber area was prepped and draped in the usual sterile fashion. . Vital signs were closely monitored during the procedure .IV sedation was used during the procedure to decrease patients anxiety. Using AP and then oblique fluoroscopy, the ``eye of the Félix dog corresponding to the connection between the superior and transverse articular processes of the above-mentioned levels were identified, marked, and localized with 1% lidocaine. Subsequently, a 18 -xk radiofrequency cannula with a 10-mm active tip was advanced guided by fluoroscopy to each of the ``eyes of the Félix dog at each site then underwent sensory testing at 50 Hz and 0 to 1 volt and motor testing at 2.5 Hz and 0 to 3 volt with local stimulation, but no radicular symptoms down the legs. Then the sites underwent radiofrequency thermocoagulation at 80 degrees celsius for 90 seconds after injecting 0.5 ml of PF lidocaine 1%. then After the thermocoagulation done , 1 ml of the block solution containing depomedrol 40 mg and 4 ml of maraine 0.5 % was injected at each levels after negative aspiration of CSF and blood and with no paresthesias. Cannulas were retracted while injecting lidocaine 1% until the needle is out. At the end of the procedure, the skin was cleansed and bandages were applied. COMPLICATIONS: No acute complications. DISPOSITION / PLANS: The patient was placed in a supine position and transferred to the recovery area in a stable condition for observation and was discharged from the recovery room after meeting discharge criteria. Home discharge instructions given to the patient by the staff. The patient was reexamined prior to discharge. She will follow-up in the clinic on an as- needed basis..
--- NOTE | 2018-02-21 11:37 | FL ---
EXAMINATION TYPE: FL guided pain mgmt statistic DATE OF EXAM: 02/21/2018 HISTORY: Flouroscopy time 9 seconds of fluoroscopy provided. IMPRESSION: 1. Fluoroscopy time.
[2018-02-21 11:54] VITALS: BP 133/81; PULSE 82
== END 2018-02-21 11:58 | disposition home or self-care (01) ==
LOC: ORPAIN 09:54
PROVIDERS: ATTEND Pain Medicine Pain Medicine
DX: M47.816 Spondylosis without myelopathy or radiculopathy, lumbar region (principal); M51.36 Other intervertebral disc degeneration, lumbar region; Z88.0 Allergy status to penicillin; Z88.1 Allergy status to other antibiotic agents; Z88.8 Allergy status to other drugs, medicaments and biological substances; Z88.3 Allergy status to other anti-infective agents
CPT/HCPCS: 81025; 64635; 64636; J1030; J2001

== ENCOUNTER 2018-02-25 00:34 | Emergency (ER) | payer OTHER ==
[2018-02-25 00:43] VITALS: BP 161/100; PULSE 99; RESP 24; TEMP 98.6
[2018-02-25] MEDS ORDERED: ACETAMINOPHEN TAB 500 MG TAB PO STA (01:23)
--- NOTE | 2018-02-25 01:28 | ED ---
Fall HPI - General Chief Complaint: Fall Stated Complaint: Fall, back and wrist pain Time Seen by Provider: 02/25/18 01:18 Source: patient, RN notes reviewed Mode of arrival: ambulatory - History of Present Illness Initial Comments: This is a 38-year-old female who presents to the emergency department with chief complaint of fall injury. Patient states that at 1:30 this afternoon she was walking down a set of stairs. She states that the last step broke and she fell hitting the left side of her back and landing on an outstretched right hand. Patient complains of pain to the radial aspect of the right wrist. She complains of left sided low back pain. She complains of left knee pain with flexion and when she takes a step. She states she has been bearing weight and ambulating normally. Denies any other injury or trauma. Denies head or neck pain. Denies recent fevers or chills, chest pain or shortness of breath, abdominal pain, nausea or vomiting. Denies saddle paresthesias or loss of bladder or bowel function. Denies numbness or tingling. - Related Data Home Medications Medication Instructions Recorded Confirmed Sertraline [Zoloft] 200 mg PO HS 06/17/14 02/16/18 amLODIPine [Norvasc] 5 mg PO HS 12/01/16 02/16/18 ALPRAZolam [Xanax] 1 mg PO TID PRN 05/26/17 02/16/18 ARIPiprazole [Abilify] 15 mg PO HS 05/26/17 02/16/18 Levothyroxine Sodium [Synthroid] 200 mcg PO HS 05/26/17 02/16/18 Losartan [Cozaar] 50 mg PO DAILY 01/03/18 02/16/18 Medroxyprogesterone Acetate 150 mg IM DIRECTED 01/03/18 02/16/18 [Depo-Provera] Metoprolol Tartrate [Lopressor] 12.5 mg PO BID 01/03/18 02/16/18 Methocarbamol [Robaxin] 1,000 mg PO QID PRN 01/04/18 02/16/18 Previous Rx's Medication Instructions Recorded Ibuprofen [Motrin] 600 mg PO Q8HR PRN #30 tab 09/13/17 Allergies Allergy/AdvReac Type Severity Reaction Status Date / Time cephalexin monohydrate Allergy Swelling Verified 02/25/18 00:43 [From Keflex] clindamycin Allergy Swelling Verified 02/25/18 00:43 levofloxacin [From Levaquin] Allergy Swelling Verified 02/25/18 00:43 Penicillins Allergy Itching Verified 02/25/18 00:43 prochlorperazine edisylate AdvReac IRRITABLE Verified 02/25/18 00:43 [From Compazine] prochlorperazine maleate AdvReac IRRITABLE Verified 02/25/18 00:43 [From Compazine] Review of Systems ROS Statement: Those systems with pertinent positive or pertinent negative responses have been documented in the HPI. ROS Other: All systems not noted in ROS Statement are negative. Past Medical History Past Medical History: Asthma, GERD/Reflux, Hypertension, Pneumonia, Sleep Apnea/ CPAP/BIPAP, Thyroid Disorder Additional Past Medical History / Comment(s): Crohns, IBS, degenerative disc disease, episode of chest pain and rapid heart rate CPAP use. History of Any Multi-Drug Resistant Organisms: MRSA Date of last positivie culture/infection: 2013 MDRO Source:: rt side of chest Past Surgical History: Bowel Resection, Breast Surgery, Section, Cholecystectomy Additional Past Surgical History / Comment(s): LEFT BREAST BENIGN CYST REMOVED. Cyst removal/abscess small intestines, right oophorectomy and salpingectomy Past Anesthesia/Blood Transfusion Reactions: No Reported Reaction Past Psychological History: Anxiety, Bipolar, Depression Smoking Status: Current every day smoker - Past Family History Father Family Medical History: Coronary Artery Disease (CAD), Hypertension Additional Family Medical History / Comment(s): Father is alive at age 65 with history of coronary artery disease. Mother Family Medical History: No Reported History Additional Family Medical History / Comment(s): Mother is alive at age 58 with history of coronary artery disease and asthma. Brother(s) Family Medical History: No Reported History Additional Family Medical History / Comment(s): Patient has 1 brother with no major medical problems. Sister(s) Family Medical History: No Reported History Additional Family Medical History / Comment(s): Patient has 1 sister with no major medical problems. Daughter(s) Family Medical History: Asthma, Sleep Apnea/CPAP/BIPAP Son(s) Family Medical History: Asthma, Sleep Apnea/CPAP/BIPAP General Exam - General Exam Comments Initial Comments: General: Awake and alert, morbidly obese; in no apparent distress. Lying on ED stretcher. HEENT: Head atraumatic, normocephalic. Pupils are equal, round and reactive to light. Extraocular movements intact. Oropharynx moist without erythema or exudate. Neck: Supple. Normal ROM. Cardiovascular: Regular rate and rhythm. No murmurs, rubs or gallops. Chest symmetrical. Respiratory: Lungs clear to auscultation bilaterally. No wheezes, rales or rhonchi. Normal respiratory effort with no use of accessory muscles. Musculoskeletal: Normal range of motion of bilateral upper and lower extremities. There is tenderness on palpation of radial aspect of the right wrist. No swelling or erythema noted. No obvious gross deformities. Tenderness on palpation superior to the left patella. No swelling, erythema or contusions noted. No laxity noted. Sensation is intact. Radial pulses are 2+ equal and palpable bilaterally. Pedal pulses are 2+ equal and palpable bilaterally. Skin: Stiles, warm and dry. Neurological: Alert and oriented x3. CN II-XII grossly intact. Speech is fluent and answers are appropriate. No focal neuro deficits. Psychiatric: Normal mood and affect. No overt signs of depression or anxiety noted. Limitations: no limitations Back exam: Present: normal inspection, full ROM, tenderness (left lumbar region) . Absent: CVA tenderness (R), CVA tenderness (L), vertebral tenderness Course Vital Signs 02/25/18 00:39 Temperature 98.6 F Pulse Rate 99 Respiratory 24 Rate Blood Pressure 161/100 O2 Sat by Pulse 100 Oximetry Medical Decision Making - Medical Decision Making This is a 38-year-old female who presents to the emergency department with chief complaint of fall injury. The last step on the staircase broke as she was descending. Patient states she landed by hitting the left side of her back and on an outstretched right hand. On physical examination, there is mild tenderness to palpation of the radial aspect of the right wrist. Tenderness on palpation superior to the left patella. Tenderness on palpation of left lumbar region. No obvious gross deformities. Neurovascularly intact. X-rays were obtained. X-ray of the lumbar spine reveal no acute abnormalities. X-ray of the right wrist revealed no acute fractures or dislocations. X-ray of the left knee revealed no acute fractures or dislocations. Patient's vital signs are stable and she is in no acute distress. She will be discharged home at this time. All questions answered. Recommend rest, ice and ibuprofen or Tylenol as needed. - Radiology Data Radiology results: report reviewed, image reviewed X-ray right wrist impression: Negative right wrist exam X-ray lumbar spine impression: Negative lumbar spine exam. No change. Stable mild spurring noted at L1 and L2. X-ray left knee impression: Negative left knee exam. Disposition Clinical Impression: Fall, Strain of right wrist, Contusion of lower back Disposition: HOME SELF-CARE Condition: Good Instructions: Wrist Injury (ED), Acute Low Back Pain (ED) Additional Instructions: Please rest, ice and take ibuprofen or Tylenol as needed for pain. Please follow up with primary care provider within 1-2 days. Return to emergency department if symptoms should worsen or any concerns arise. Is patient prescribed a controlled substance at d/c from ED?: No Referrals: Reji Diaz MD [Primary Care Provider] - 1-2 days Time of Disposition: 02:32
--- NOTE | 2018-02-25 02:04 | XR ---
EXAMINATION TYPE: XR knee complete LT DATE OF EXAM: 02/25/2018 COMPARISON: NONE HISTORY: Left knee pain TECHNIQUE: 3 views FINDINGS: I see no fracture nor dislocation. Joint spaces are normal. There is no sign of knee joint effusion. IMPRESSION: Negative left knee exam.
--- NOTE | 2018-02-25 02:06 | XR ---
Lumbar spine 3 views. History low back pain. Fall. Comparison 01/30/2013. FINDINGS: Vertebra have normal alignment. Disc spaces are fairly normal. There is no compression fracture. Sacr oiliac joints are normal. Posterior elements are intact. IMPRESSION: Negative lumbar spine exam. No change. Stable mild spurring noted at L1-2.
--- NOTE | 2018-02-25 02:07 | XR ---
EXAMINATION TYPE: XR wrist complete RT DATE OF EXAM: 02/25/2018 COMPARISON: NONE HISTORY: Fall and wrist pain TECHNIQUE: 4 views FINDINGS: There is no sign of fracture nor dislocation. Joint spaces are normal. Carpal bones are int act. IMPRESSION: Negative right wrist exam
== END 2018-02-25 03:00 | disposition home or self-care (01) ==
LOC: EC 00:34
DX: S66.911A Strain of unspecified muscle, fascia and tendon at wrist and hand level, right hand, initial encounter (principal); S30.0XXA Contusion of lower back and pelvis, initial encounter; M25.562 Pain in left knee; I10 Essential (primary) hypertension; G47.30 Sleep apnea, unspecified; Z99.89 Dependence on other enabling machines and devices; E07.9 Disorder of thyroid, unspecified; F31.9 Bipolar disorder, unspecified; F41.9 Anxiety disorder, unspecified; F17.200 Nicotine dependence, unspecified, uncomplicated; Z86.14 Personal history of Methicillin resistant Staphylococcus aureus infection; Z79.899 Other long term (current) drug therapy; Z88.1 Allergy status to other antibiotic agents; Z88.0 Allergy status to penicillin; Z88.8 Allergy status to other drugs, medicaments and biological substances; W10.9XXA Fall (on) (from) unspecified stairs and steps, initial encounter
CPT/HCPCS: 72100; 99283

== ENCOUNTER 2018-04-15 23:37 | Emergency (ER) | payer SELFPAY ==
[2018-04-15 23:47] VITALS: RESP 18
[2018-04-16] MEDS ORDERED: SODIUM CHLORIDE 0.9% 1,000 ML IV STA (00:22)
[2018-04-16] MEDS ORDERED: ONDANSETRON 4 MG/2 ML VIAL IVP STA (00:22)
[2018-04-16] MEDS ORDERED: ASPIRIN 81 MG PO STA (00:22)
[2018-04-16] MEDS ORDERED: MORPHINE SULFATE 4 MG/ML SYRINGE IV STA (00:22)
[2018-04-16 01:18] LABS: Basophils # (A) 0.1 k/uL (0-0.2); Basophils % (A) 1 %; Eosinophils # (A) 0.2 k/uL (0-0.7); Eosinophils % (A) 2 %; HCT 44.2 % (34.0-46.0); HGB 15.2 gm/dL (11.4-16.0); Lymphocytes # (A) 2.3 k/uL (1.0-4.8); Lymphocytes % (A) 23 %; MCH 31.6 pg (25.0-35.0); MCHC 34.3 g/dL (31.0-37.0); MCV 92.2 fL (80.0-100.0); Mean Platelet Volume 7.4; Monocytes # (A) 0.5 k/uL (0-1.0); Monocytes % (A) 5 %; Neutrophils # (A) 6.9 k/uL (1.3-7.7); Neutrophils % (A) 69 %; Platelet Count 304 k/uL (150-450); RDW 13.1 % (11.5-15.5); WBC 10.1 k/uL (3.8-10.6)
--- NOTE | 2018-04-16 01:29 | XR ---
EXAMINATION TYPE: XR chest 2V DATE OF EXAM: 04/16/2018 COMPARISON: 12/25/2017 HISTORY: Chest pain TECHNIQUE: Frontal and lateral views of the chest are obtained. FINDINGS: Heart and mediastinum are normal. Lungs are clear. Diaphragm is normal. Bony thorax appear s normal. IMPRESSION: Normal chest. No change.
[2018-04-16 01:31] LABS: ALT 38 U/L (9-52); AST 24 U/L (14-36); Albumin 3.9 g/dL (3.5-5.0); Alkaline Phosphatase 62 U/L (38-126); Anion Gap 9 mmol/L; Blood Urea Nitrogen 8 mg/dL (7-17); Calcium 9.1 mg/dL (8.4-10.2); Carbon Dioxide 21 mmol/L (22-30); Chloride 112 mmol/L (98-107); Glucose 101 mg/dL (74-99); Sodium 142 mmol/L (137-145); Total Bilirubin 0.4 mg/dL (0.2-1.3); Total Protein 7.1 g/dL (6.3-8.2)
[2018-04-16 01:33] LABS: Partial Thromboplastin Time 24.1 sec (22.0-30.0); Prothrombin Time 9.6 sec (9.0-12.0)
[2018-04-16 01:37] LABS: Creatine Kinase 114 U/L (30-135)
[2018-04-16 01:39] LABS: D-Dimer 0.95 mg/L FEU (<0.60); Potassium 4.5 mmol/L (3.5-5.1)
[2018-04-16 01:50] LABS: Creatine Kinase MB 0.2 ng/mL (0.0-2.4); Troponin I <0.012 ng/mL (0.000-0.034)
--- NOTE | 2018-04-16 01:53 | ED ---
Chest Pain HPI - General Chief Complaint: Chest Pain Stated Complaint: Chest pain Time Seen by Provider: 04/16/18 00:04 Source: patient Mode of arrival: wheelchair Limitations: no limitations - History of Present Illness Initial Comments: 38-year-old female patient presents to the emergency department today for evaluation of left-sided chest pain. Patient states the pain is sharp and stabbing and does radiate through to her back. Patient states that the pain increases when she takes a deep breath. Patient states that she had a similar episode of pain yesterday however it resolved only after a few minutes. Patient states that the pain started approximately 2 hours ago has not let up since. Patient states that she is short of breath, nauseated, and has been dizzy. She denies any sweats or vomiting. Patient states that she does have a family history of myocardial infarction and cardiac disease. Patient states she personally has a history of hypertension and is a smoker. Patient denies any abdominal pain, fever, or chills. Denies any cough or congestion. Patient denies any recent rash, fever, chills, diarrhea, constipation, back pain, numbness, tingling, weakness, hematuria, dysuria, urinary urgency, urinary frequency, headache, visual changes, or any other complaints. - Related Data Home Medications Medication Instructions Recorded Confirmed Sertraline [Zoloft] 200 mg PO HS 06/17/14 02/16/18 amLODIPine [Norvasc] 5 mg PO HS 12/01/16 02/16/18 ALPRAZolam [Xanax] 1 mg PO TID PRN 05/26/17 02/16/18 ARIPiprazole [Abilify] 15 mg PO HS 05/26/17 02/16/18 Levothyroxine Sodium [Synthroid] 200 mcg PO HS 05/26/17 02/16/18 Losartan [Cozaar] 50 mg PO DAILY 01/03/18 02/16/18 Medroxyprogesterone Acetate 150 mg IM DIRECTED 01/03/18 02/16/18 [Depo-Provera] Metoprolol Tartrate [Lopressor] 12.5 mg PO BID 01/03/18 02/16/18 Methocarbamol [Robaxin] 1,000 mg PO QID PRN 01/04/18 02/16/18 Previous Rx's Medication Instructions Recorded Ibuprofen [Motrin] 600 mg PO Q8HR PRN #30 tab 09/13/17 Allergies Allergy/AdvReac Type Severity Reaction Status Date / Time cephalexin monohydrate Allergy Swelling Verified 04/15/18 23:46 [From Keflex] clindamycin Allergy Swelling Verified 04/15/18 23:46 levofloxacin [From Levaquin] Allergy Swelling Verified 04/15/18 23:46 Penicillins Allergy Itching Verified 04/15/18 23:46 prochlorperazine edisylate AdvReac IRRITABLE Verified 04/15/18 23:46 [From Compazine] prochlorperazine maleate AdvReac IRRITABLE Verified 04/15/18 23:46 [From Compazine] Review of Systems ROS Statement: Those systems with pertinent positive or pertinent negative responses have been documented in the HPI. ROS Other: All systems not noted in ROS Statement are negative. EKG Findings - EKG Comments: EKG Findings:: EKG obtained at 2353 shows sinus tachycardia with a ventricular rate of 104. UT interval is 140, QRS duration 76, QT 364, QTC 478. No evidence of ST elevation or depression. Past Medical History Past Medical History: Asthma, GERD/Reflux, Hypertension, Pneumonia, Sleep Apnea/ CPAP/BIPAP, Thyroid Disorder Additional Past Medical History / Comment(s): Crohns, IBS, degenerative disc disease, episode of chest pain and rapid heart rate CPAP use. History of Any Multi-Drug Resistant Organisms: MRSA Date of last positivie culture/infection: 2013 MDRO Source:: rt side of chest Past Surgical History: Bowel Resection, Breast Surgery, Section, Cholecystectomy Additional Past Surgical History / Comment(s): LEFT BREAST BENIGN CYST REMOVED. Cyst removal/abscess small intestines, right oophorectomy and salpingectomy Past Anesthesia/Blood Transfusion Reactions: No Reported Reaction Past Psychological History: Anxiety, Bipolar, Depression Smoking Status: Current every day smoker Past Alcohol Use History: None Reported Past Drug Use History: None Reported - Past Family History Father Family Medical History: Coronary Artery Disease (CAD), Hypertension Additional Family Medical History / Comment(s): Father is alive at age 65 with history of coronary artery disease. Mother Family Medical History: No Reported History Additional Family Medical History / Comment(s): Mother is alive at age 58 with history of coronary artery disease and asthma. Brother(s) Family Medical History: No Reported History Additional Family Medical History / Comment(s): Patient has 1 brother with no major medical problems. Sister(s) Family Medical History: No Reported History Additional Family Medical History / Comment(s): Patient has 1 sister with no major medical problems. Daughter(s) Family Medical History: Asthma, Sleep Apnea/CPAP/BIPAP Son(s) Family Medical History: Asthma, Sleep Apnea/CPAP/BIPAP General Exam Limitations: no limitations General appearance: alert, in no apparent distress, other (This is a well- developed, obese adult female patient in no acute distress. Vital signs upon presentation are temperature 99.3F, pulse 107, respirations 18, blood pressure 109/73, pulse ox 97% on room air.) Eye exam: Present: normal appearance, PERRL, EOMI. Absent: scleral icterus, conjunctival injection, periorbital swelling ENT exam: Present: normal exam, normal oropharynx, mucous membranes moist Respiratory exam: Present: normal lung sounds bilaterally. Absent: respiratory distress, wheezes, rales, rhonchi, stridor, chest wall tenderness Cardiovascular Exam: Present: normal rhythm, tachycardia, normal heart sounds. Absent: systolic murmur, diastolic murmur, rubs, gallop, clicks GI/Abdominal exam: Present: soft, normal bowel sounds. Absent: distended, tenderness, guarding, rebound, rigid Neurological exam: Present: alert, oriented X3, CN II-XII intact Psychiatric exam: Present: normal affect, normal mood Skin exam: Present: warm, dry, intact, normal color. Absent: rash Course Vital Signs 04/15/18 04/16/18 23:44 02:57 Temperature 99.3 F 99 F Pulse Rate 107 H 95 Respiratory 18 18 Rate Blood Pressure 109/73 124/66 O2 Sat by Pulse 97 95 Oximetry Chest Pain MDM - MDM RADIOLOGY: Two-view x-ray of the chest is obtained. Heart media's enema normal. Lungs are clear. Diaphragm is normal. Bony thorax appears normal. Impression by Dr. Pearl shows normal chest with no change CT a of the chest was performed with contrast. Report was reviewed in its entirety. Impression by Dr. Pearl shows some fatty infiltration of the liver. No evidence of pulmonary embolus him. No change compared to old exam. MDM: 38 year-old female patient presented to the emergency department today for evaluation of chest pain. Physical exam is relatively unremarkable. Lungs are clear to auscultation with good air movement. Patient did not appear to be in any distress. Labs reviewed and did reveal an elevated d-dimer at 0.95. CT of the chest was negative for any evidence of pulmonary embolism. Upon reevaluation patient is feeling better. She'll be discharged home to follow-up with her primary care physician for recheck in 1-2 days. Return parameters discussed in detail. Patient verbalizes understanding and agrees with this plan. She is discharged in stable condition. Disposition Clinical Impression: Chest pain Disposition: HOME SELF-CARE Condition: Good Instructions: Chest Pain (ED) Additional Instructions: Follow-up with your primary care physician for recheck in 1-2 days. Return here immediately for any new, worsening, or concerning symptoms. Is patient prescribed a controlled substance at d/c from ED?: No Referrals: Reji Diaz MD [Primary Care Provider] - 1-2 days Time of Disposition: 03:07
[2018-04-16 02:57] VITALS: BP 124/66; PULSE 95; TEMP 99
--- NOTE | 2018-04-16 02:58 | CT ---
EXAMINATION TYPE: CT angio chest DATE OF EXAM: 04/16/2018 2:23 AM COMPARISON: 05/27/2017 HISTORY: chest pain;elevated D-dimer CT DLP: 910.30 mGycm Automated exposure control for dose reduction was used. CONTRAST: CTA scan of the thorax is performed with IV Contrast, patient injected with 90 mL of Isovue 370, pulm onary embolism protocol. There are 3-D post processed images.. FINDINGS: The lungs are clear of consolidation. There is no pleural effusion. There is no pericardial effusion. There is probably some fatty infiltration of the liver. There is normal contrast opacification of the thoracic aorta. There is no evidence of aneurysm or dis section. There is normal contrast opacification of the pulmonary arteries. I see no filling defect. T he bony thorax is intact. There are no hilar masses. There is no mediastinal adenopathy. IMPRESSION: THERE IS SOME FATTY INFILTRATION OF THE LIVER. NO EVIDENCE OF PULMONARY EMBOLISM. NO CHANGE COMPARED TO OLD EXAM.
== END 2018-04-16 03:17 | disposition home or self-care (01) ==
LOC: EC 23:37
DX: R07.1 Chest pain on breathing (principal); R06.02 Shortness of breath; R11.0 Nausea; R42 Dizziness and giddiness; J45.909 Unspecified asthma, uncomplicated; K21.9 Gastro-esophageal reflux disease without esophagitis; I10 Essential (primary) hypertension; F41.9 Anxiety disorder, unspecified; F32.9 Major depressive disorder, single episode, unspecified; F17.200 Nicotine dependence, unspecified, uncomplicated; E07.9 Disorder of thyroid, unspecified; G47.30 Sleep apnea, unspecified; Z99.89 Dependence on other enabling machines and devices; Z86.14 Personal history of Methicillin resistant Staphylococcus aureus infection; Z82.49 Family history of ischemic heart disease and other diseases of the circulatory system; Z79.3 Long term (current) use of hormonal contraceptives; Z79.899 Other long term (current) drug therapy; Z88.1 Allergy status to other antibiotic agents; Z88.0 Allergy status to penicillin; Z88.8 Allergy status to other drugs, medicaments and biological substances
CPT/HCPCS: 36415; 93005; 85379; 80053; 82550; 82553; 83735; 84484; 85025; 85610; 85730; 71046; 71275; 99285; 96374; 96375; 96361; J2270; J2405; Q9967

== ENCOUNTER → 2018-04-18 | Outpatient (CLI) | payer OTHER ==
--- NOTE | 2018-04-18 14:23 | US ---
EXAMINATION TYPE: US venous doppler duplex LE BI DATE OF EXAM: 04/18/2018 1:58 PM COMPARISON: NONE CLINICAL HISTORY: M79.661,M79.662 PAIN IN LT AND RT LOWER LEG. Large body habitus SIDE PERFORMED: boris TECHNIQUE: The lower extremity deep venous system is examined utilizing real time linear array sonog gemma with graded compression, doppler sonography and color-flow sonography. VESSELS IMAGED: External Iliac Vein (EIV) Common Femoral Vein Deep Femoral Vein Greater Saphenous Vein * Femoral Vein Popliteal Vein Small Saphenous Vein * Right Leg: Negative for DVT Left Leg: Negative for DVT Grayscale, color doppler, spectral doppler imaging performed of the deep veins of the bilateral lower extremities. There is normal flow, compressibility, vascular waveforms. IMPRESSION: No ultrasound evidence for acute DVT in either lower extremity.
--- NOTE | 2018-04-18 15:07 | XR ---
EXAMINATION TYPE: XR ankle complete bilateral DATE OF EXAM: 04/18/2018 COMPARISON: NONE HISTORY: Pain and swelling FINDINGS: Three views of the ankle demonstrate the ankle mortise to be intact and symmetric. The joint spaces are preserved. The osseous structures are intact. Soft tissue swelling laterally. Tiny spur near th e Achilles insertion of the calcaneus. IMPRESSION: 1. No definite acute fracture or dislocation, if symptoms persist follow-up study in 7 to 10 days wou ld be suggested. 2. Soft tissue swelling.
== END | disposition home or self-care (01) ==
LOC: RADUSWWP 13:29
PROVIDERS: ATTEND Internal Medicine
DX: M25.473 Effusion, unspecified ankle (principal); M79.661 Pain in right lower leg; M79.662 Pain in left lower leg; M25.572 Pain in left ankle and joints of left foot; M25.571 Pain in right ankle and joints of right foot
CPT/HCPCS: 93970

== ENCOUNTER 2018-07-27 21:41 | Observation (INO) | payer OTHER ==
[2018-07-27] MEDS ORDERED: KETOROLAC 30 MG/ML 1 ML VIAL IVP STA (22:18)
[2018-07-27] MEDS ORDERED: SODIUM CHLORIDE 0.9% 1,000 ML IV ONE (22:18)
--- NOTE | 2018-07-27 22:24 | ED ---
Chest Pain HPI - General Chief Complaint: Chest Pain Stated Complaint: Chest pain Time Seen by Provider: 07/27/18 22:11 Source: patient Mode of arrival: wheelchair Limitations: no limitations - History of Present Illness Initial Comments: This is a 38-year-old female with a history of hypertension and hyperlipidemia who presents emergency department for chest pain. She states that she noticed some chest pain or shortness of breath a few days ago which spontaneously resolved however today it returned and has been constant since this morning. She states the shortness of breath is worse with exertion and better with rest. She states that the chest pain is unchanged with any movements or exercise. She states it is not worse with palpation. She states it is not worse with deep breathing or coughing. She denies any recent travel or surgeries. No history of DVT or PE in the past. She denies any fever or chills. She does admit to an intermittent cough that is dry and nonproductive. She states that she does have a history of asthma however has not tried her inhalers for relief. She denies any wheezing at home. She denies any other acute complaints. - Related Data Home Medications Medication Instructions Recorded Confirmed Sertraline [Zoloft] 200 mg PO HS 06/17/14 02/16/18 amLODIPine [Norvasc] 5 mg PO HS 12/01/16 02/16/18 ALPRAZolam [Xanax] 1 mg PO TID PRN 05/26/17 02/16/18 ARIPiprazole [Abilify] 15 mg PO HS 05/26/17 02/16/18 Levothyroxine Sodium [Synthroid] 200 mcg PO HS 05/26/17 02/16/18 Losartan [Cozaar] 50 mg PO DAILY 01/03/18 02/16/18 Medroxyprogesterone Acetate 150 mg IM DIRECTED 01/03/18 02/16/18 [Depo-Provera] Metoprolol Tartrate [Lopressor] 12.5 mg PO BID 01/03/18 02/16/18 Methocarbamol [Robaxin] 1,000 mg PO QID PRN 01/04/18 02/16/18 Previous Rx's Medication Instructions Recorded Ibuprofen [Motrin] 600 mg PO Q8HR PRN #30 tab 09/13/17 Allergies Allergy/AdvReac Type Severity Reaction Status Date / Time cephalexin monohydrate Allergy Swelling Verified 07/27/18 21:50 [From Keflex] clindamycin Allergy Swelling Verified 07/27/18 21:50 levofloxacin [From Levaquin] Allergy Swelling Verified 07/27/18 21:50 Penicillins Allergy Itching Verified 07/27/18 21:50 prochlorperazine edisylate AdvReac IRRITABLE Verified 07/27/18 21:50 [From Compazine] prochlorperazine maleate AdvReac IRRITABLE Verified 07/27/18 21:50 [From Compazine] Review of Systems ROS Statement: Those systems with pertinent positive or pertinent negative responses have been documented in the HPI. ROS Other: All systems not noted in ROS Statement are negative. EKG Findings - EKG Comments: EKG Findings:: EKG showing sinus tachycardia with a rate of 101. There is no abnormal ST segment changes or T-wave inversions. QTC is 466. Other intervals normal. No ectopy. Past Medical History Past Medical History: Asthma, GERD/Reflux, Hypertension, Pneumonia, Sleep Apnea/ CPAP/BIPAP, Thyroid Disorder Additional Past Medical History / Comment(s): Crohns, IBS, degenerative disc disease, episode of chest pain and rapid heart rate CPAP use. History of Any Multi-Drug Resistant Organisms: MRSA Date of last positivie culture/infection: 2013 MDRO Source:: rt side of chest Past Surgical History: Bowel Resection, Breast Surgery, Section, Cholecystectomy Additional Past Surgical History / Comment(s): LEFT BREAST BENIGN CYST REMOVED. Cyst removal/abscess small intestines, right oophorectomy and salpingectomy Past Anesthesia/Blood Transfusion Reactions: No Reported Reaction Past Psychological History: Anxiety, Bipolar, Depression Smoking Status: Current every day smoker Past Alcohol Use History: None Reported Past Drug Use History: None Reported - Past Family History Father Family Medical History: Coronary Artery Disease (CAD), Hypertension Additional Family Medical History / Comment(s): Father is alive at age 65 with history of coronary artery disease. Mother Family Medical History: No Reported History Additional Family Medical History / Comment(s): Mother is alive at age 58 with history of coronary artery disease and asthma. Brother(s) Family Medical History: No Reported History Additional Family Medical History / Comment(s): Patient has 1 brother with no major medical problems. Sister(s) Family Medical History: No Reported History Additional Family Medical History / Comment(s): Patient has 1 sister with no major medical problems. Daughter(s) Family Medical History: Asthma, Sleep Apnea/CPAP/BIPAP Son(s) Family Medical History: Asthma, Sleep Apnea/CPAP/BIPAP General Exam - General Exam Comments Initial Comments: Constitutional: Awake alert Appears comfortable Head: Normocephalic atraumatic Eyes: no conjunctival injection No scleral icterus EOMI Neck: No JVD Supple Heart: Regular rate rhythm normal S1-S2 no murmurs Lungs: Clear to auscultation bilaterally No wheezing No rales, chest wall is nontender to palpation Abdomen: Soft nondistended nontender Extremities: Non edematous DP pulses intact Radial pulses intact Neuro: A&Ox3 No focal neurologic deficits Psych: Appropriate mood and affect Limitations: no limitations Course Vital Signs 07/27/18 07/27/18 07/28/18 21:48 23:11 00:31 Temperature 99.8 F H Pulse Rate 107 H 93 80 Respiratory 20 18 16 Rate Blood Pressure 142/96 143/80 156/71 O2 Sat by Pulse 98 98 98 Oximetry 07/28/18 07/28/18 07/28/18 00:35 00:40 00:50 Temperature Pulse Rate 92 93 87 Respiratory 16 16 16 Rate Blood Pressure 142/66 112/63 122/78 O2 Sat by Pulse 98 97 98 Oximetry Chest Pain MDM - MDM This is a 38-year-old female with a history of hypertension and hyperlipidemia who presented for chest pain. The patient had a normal troponin and EKG. Toradol did not seem to improve her symptoms and thus she was given a nitroglycerin which did improve her pain. She currently states her pain is improved. Due to her risk factors she will be admitted for further cardiac workup. Dr. Gray accepts the admission. The patient was updated and agrees. Disposition Clinical Impression: Unstable angina pectoris Disposition: ADMITTED IP TO THIS HOSP Condition: Stable Referrals: Reji Diaz MD [Primary Care Provider] - 1-2 days
[2018-07-27 23:12] LABS: Basophils # (A) 0.1 k/uL (0-0.2); Basophils % (A) 1 %; Eosinophils # (A) 0.2 k/uL (0-0.7); Eosinophils % (A) 2 %; HCT 43.8 % (34.0-46.0); HGB 14.9 gm/dL (11.4-16.0); Lymphocytes # (A) 2.6 k/uL (1.0-4.8); Lymphocytes % (A) 29 %; MCH 32.4 pg (25.0-35.0); MCV 95.2 fL (80.0-100.0); Mean Platelet Volume 7.7; Monocytes # (A) 0.5 k/uL (0-1.0); Monocytes % (A) 6 %; Neutrophils # (A) 5.3 k/uL (1.3-7.7); Neutrophils % (A) 60 %; Platelet Count 324 k/uL (150-450); RDW 13.5 % (11.5-15.5); WBC 8.8 k/uL (3.8-10.6)
--- NOTE | 2018-07-27 23:18 | XR ---
EXAMINATION TYPE: XR chest 2V DATE OF EXAM: 07/27/2018 COMPARISON: 04/16/2008 HISTORY: Chest pain TECHNIQUE: Frontal and lateral views of the chest are obtained. FINDINGS: Heart and mediastinum are normal. Lungs are clear. Diaphragm is normal. Bony thorax is int act. Pulmonary vascularity is normal. There are chest leads. IMPRESSION: Normal chest. No change.
[2018-07-27 23:22] LABS: Albumin 3.8 g/dL (3.5-5.0); Potassium 4.1 mmol/L (3.5-5.1); Total Bilirubin 0.2 mg/dL (0.2-1.3)
[2018-07-27 23:29] LABS: D-Dimer 0.52 mg/L FEU (<0.60); Partial Thromboplastin Time 24.6 sec (22.0-30.0); Prothrombin Time 9.5 sec (9.0-12.0)
[2018-07-27 23:42] LABS: Creatine Kinase MB 0.4 ng/mL (0.0-2.4); Troponin I <0.012 ng/mL (0.000-0.034)
[2018-07-28] MEDS: NITROGLYCERIN SL TABS 0.4 MG TAB SUBLINGUAL PRN ×2 (00:32→00:36)
[2018-07-28] MEDS ORDERED: HEPARIN SODIUM,PORCINE 5,000 UNIT/ML 1 ML VIAL IV ONE (01:22)
[2018-07-28] MEDS ORDERED: ASPIRIN 81 MG PO STA (01:22)
[2018-07-28] MEDS ORDERED: NITROGLYCERIN SL TABS 0.4 MG TAB SUBLINGUAL PRN (01:22)
[2018-07-28] MEDS ORDERED: ALPRAZolam 1 MG TAB PO STA (01:25)
[2018-07-28] MEDS ORDERED: HEPARIN SOD,PORK IN 0.45% NACL 25,000 UNIT in 0.45% NACL 1 500ML.BAG IV SCH (01:30)
[2018-07-28 02:28] VITALS: BMI 54.8
[2018-07-28] MEDS: MORPHINE SULFATE 2 MG/ML SYRINGE IVP PRN ×3 (03:12→14:46)
[2018-07-28] MEDS: NICOTINE 21MG/24HR PATCH TRANSDERM SCH ×2 (03:12→10:11)
[2018-07-28 06:20] LABS: Creatine Kinase 93 U/L (30-135)
[2018-07-28 06:33] LABS: Creatine Kinase MB 0.4 ng/mL (0.0-2.4); Troponin I <0.012 ng/mL (0.000-0.034)
[2018-07-28] MEDS ORDERED: INFLUENZA VACCINE (6 MOS+) 60 MCG/0.5 ML SYRINGE IM ONE (06:53)
[2018-07-28 07:24] VITALS: RESP 16
--- NOTE | 2018-07-28 09:37 | P.CRDCN ---
History of Present Illness Consult date: 07/28/18 Requesting physician: Paul Gray Consult reason: chest pain Chief complaint: Chest pain History of present illness: This is a 38-year-old female with history of hypertension, nicotine dependence, hypothyroidism, obesity, asthma, family history of premature coronary artery disease and sleep apnea presents to the hospital with symptoms of chest discomfort. According to the patient, on Monday of this week she was shopping at [employer] and states that she became quite short of breath and noticed a chest pressure and heaviness. On , patient states she again developed symptoms which felt like a pressure sensation with associated sharp pains in her chest, positive shortness of breath. She states that the symptoms did not worsen with deep breathing or with movement of the extremities, pain came with or without exertion, she states that they have been persistent since . According to the patient, she has had a stress test performed in the past, which has reported to be normal. An echocardiogram with Doppler study was performed in November 2016 which revealed a normal left ventricular systolic function. At the time of my examination, she still complains of persistent pain in the chest she is rating at about a 2 this morning. Blood pressure 134/ 80, heart rate in the 70s to 90s, 97% on room air. White blood cell count 8.8, hemoglobin 14.9, hematocrit 43.8, platelet count 324. D-dimer 0.52. Sodium 140 , potassium 4.1, BUN 15, creatinine 1.0. Magnesium 2.0, troponins 0.012, 0.012. EKG on presentation here shows a sinus tachycardia with no acute changes. Chest x-ray normal. Past Medical History Past Medical History: Asthma, GERD/Reflux, Hypertension, Pneumonia, Sleep Apnea/ CPAP/BIPAP, Thyroid Disorder Additional Past Medical History / Comment(s): Crohns, IBS, degenerative disc disease, episode of chest pain and rapid heart rate CPAP use. History of Any Multi-Drug Resistant Organisms: MRSA Date of last positivie culture/infection: 2013 MDRO Source:: rt side of chest Past Surgical History: Bowel Resection, Breast Surgery, Section, Cholecystectomy Additional Past Surgical History / Comment(s): LEFT BREAST BENIGN CYST REMOVED. Cyst removal/abscess small intestines, right oophorectomy and salpingectomy Past Anesthesia/Blood Transfusion Reactions: No Reported Reaction Past Psychological History: Anxiety, Bipolar, Depression Smoking Status: Current every day smoker Past Alcohol Use History: None Reported Additional Past Alcohol Use History / Comment(s): Patient is a smoker 1PPD Past Drug Use History: None Reported - Past Family History Father Family Medical History: Coronary Artery Disease (CAD), Hypertension Additional Family Medical History / Comment(s): Father is alive at age 65 with history of coronary artery disease. Mother Family Medical History: No Reported History Additional Family Medical History / Comment(s): Mother is alive at age 58 with history of coronary artery disease and asthma. Brother(s) Family Medical History: No Reported History Additional Family Medical History / Comment(s): Patient has 1 brother with no major medical problems. Sister(s) Family Medical History: No Reported History Additional Family Medical History / Comment(s): Patient has 1 sister with no major medical problems. Daughter(s) Family Medical History: Asthma, Sleep Apnea/CPAP/BIPAP Son(s) Family Medical History: Asthma, Sleep Apnea/CPAP/BIPAP Medications and Allergies Home Medications Medication Instructions Recorded Confirmed Type Sertraline [Zoloft] 200 mg PO HS 06/17/14 02/16/18 History amLODIPine [Norvasc] 5 mg PO HS 12/01/16 02/16/18 History ALPRAZolam [Xanax] 1 mg PO TID PRN 05/26/17 02/16/18 History ARIPiprazole [Abilify] 15 mg PO HS 05/26/17 02/16/18 History Levothyroxine Sodium [Synthroid] 200 mcg PO HS 05/26/17 02/16/18 History Ibuprofen [Motrin] 600 mg PO Q8HR PRN #30 tab 09/13/17 02/16/18 Rx Losartan [Cozaar] 50 mg PO DAILY 01/03/18 02/16/18 History Medroxyprogesterone Acetate 150 mg IM DIRECTED 01/03/18 02/16/18 History [Depo-Provera] Metoprolol Tartrate [Lopressor] 12.5 mg PO BID 01/03/18 02/16/18 History Methocarbamol [Robaxin] 1,000 mg PO QID PRN 01/04/18 02/16/18 History Allergies Allergy/AdvReac Type Severity Reaction Status Date / Time cephalexin monohydrate Allergy Swelling Verified 07/27/18 21:50 [From Keflex] clindamycin Allergy Swelling Verified 07/27/18 21:50 levofloxacin [From Levaquin] Allergy Swelling Verified 07/27/18 21:50 Penicillins Allergy Itching Verified 07/27/18 21:50 prochlorperazine edisylate AdvReac IRRITABLE Verified 07/27/18 21:50 [From Compazine] prochlorperazine maleate AdvReac IRRITABLE Verified 07/27/18 21:50 [From Compazine] Physical Exam Vitals: Vital Signs Temp Pulse Pulse Resp BP BP Pulse Ox 07/28/18 08:00 96 16 07/28/18 07:23 98.2 F 96 16 149/77 97 07/28/18 04:00 97.8 F 79 18 134/82 97 07/28/18 03:23 16 07/28/18 02:10 97.7 F 91 16 115/71 97 07/28/18 01:57 98.6 F 82 16 133/70 98 07/28/18 00:50 87 16 122/78 98 07/28/18 00:40 93 16 112/63 97 07/28/18 00:35 92 16 142/66 98 07/28/18 00:31 80 16 156/71 98 07/27/18 23:11 93 18 143/80 98 07/27/18 21:48 99.8 F H 107 H 20 142/96 98 Intake and Output 07/27/18 07/28/18 07/28/18 22:59 06:59 14:59 Other: Voiding Method Toilet Toilet Weight 154.221 kg 110.6 kg 110.6 kg PHYSICAL EXAMINATION: GENERAL: 38-year-old female in no acute distress at the time of my examination HEENT: Head is atraumatic, normocephalic. Pupils equal, round. Sclera anicteric. Conjunctiva are clear. Mucous membranes of the mouth are moist. Neck is supple. There is no elevated jugular venous pressure. No Carotid bruit is heard. HEART EXAMINATION: Heart S1, S2 normal. No murmur or gallop heard. CHEST EXAMINATION: Lungs are clear to auscultation and precussion. No chest wall tenderness is noted on palpation or with deep breathing. ABDOMEN: Soft, obese, nontender. Bowel sounds are heard. No organomegaly noted. EXTREMITIES: 2+ peripheral pulses with evidence of peripheral edema and no calf tenderness noted. NEUROLOGIC patient is awake, alert and oriented 3 . Results 07/27/18 22:48 07/27/18 22:48 Cardiac Enzymes 07/27/18 07/27/18 07/28/18 Range/Units 22:48 22:48 05:50 AST 18 (14-36) U/L CK-MB (CK-2) 0.4 0.4 (0.0-2.4) ng/mL Troponin I <0.012 <0.012 (0.000-0.034) ng/mL Coagulation 07/27/18 07/28/18 Range/Units 22:48 07:58 PT 9.5 (9.0-12.0) sec APTT 24.6 28.5 (22.0-30.0) sec CBC 07/27/18 Range/Units 22:48 WBC 8.8 (3.8-10.6) k/uL RBC 4.60 (3.80-5.40) m/uL Hgb 14.9 (11.4-16.0) gm/dL Hct 43.8 (34.0-46.0) % Plt Count 324 (150-450) k/uL Comprehensive Metabolic Panel 07/27/18 Range/Units 22:48 Sodium 140 (137-145) mmol/L Potassium 4.1 (3.5-5.1) mmol/L Chloride 110 H (98-107) mmol/L Carbon Dioxide 23 (22-30) mmol/L BUN 15 (7-17) mg/dL Creatinine 1.00 (0.52-1.04) mg/dL Glucose 134 H (74-99) mg/dL Calcium 9.0 (8.4-10.2) mg/dL AST 18 (14-36) U/L ALT 42 (9-52) U/L Alkaline Phosphatase 73 (38-126) U/L Total Protein 7.0 (6.3-8.2) g/dL Albumin 3.8 (3.5-5.0) g/dL Current Medications Generic Name Dose Route Start Last Admin Trade Name Freq PRN Reason Stop Dose Admin Aspirin 325 mg 07/29/18 09:00 Aspirin PO DAILY GLENYS Heparin Sodium/Sodium Chloride 500 mls @ 18.5 mls/hr 07/28/18 01:30 07/28/18 01:54 25,000 unit/ Sodium Chloride IV 6 units/kg/hr .Q24H GLENYS 18.5 mls/hr Administration Protocol 6 UNITS/KG/HR Morphine Sulfate 2 mg 07/28/18 03:02 07/28/18 08:48 Morphine Sulfate (Inj) IVP 2 mg Q6H PRN Administration Pain/Discomfort Nicotine 1 patch 07/28/18 03:05 07/28/18 03:12 Habitrol 21mg/24hr Patch TRANSDERM 1 patch DAILY GLENYS Administration Nitroglycerin 0.4 mg 07/28/18 00:13 07/28/18 00:36 Nitrostat SUBLINGUAL 0.4 mg Q5M PRN Administration Chest Pain Nitroglycerin 0.4 mg 07/28/18 01:22 Nitrostat SUBLINGUAL Q5M PRN Chest Pain Intake and Output 07/27/18 07/28/18 07/28/18 22:59 06:59 14:59 Other: Voiding Method Toilet Toilet Weight 154.221 kg 110.6 kg 110.6 kg Patient Weight 07/29/18 06:59 Weight 110.6 kg 07/27/18 22:48 07/27/18 22:48 EKG Interpretations (text) EKG shows a sinus tachycardia with no acute changes. Assessment and Plan Plan: Assessment and plan #1 chest pain, with atypical features for acute coronary syndrome. Troponins negative 2. EKG shows a sinus tachycardia with no acute changes. D-dimer normal. #2 hypertension #3 morbid obesity #4 hypothyroidism #5 asthma #6 nicotine dependence #7 family history of premature coronary artery disease in her mother who has had stent placements #8 sleep apnea Plan We'll obtain a third troponin value. We will also repeat an echocardiogram with Doppler study. If her third troponin is negative we can discontinue the IV heparin. Decrease aspirin 81 mg daily. We'll also resume her home medications which include Norvasc, losartan, and Lopressor. Check fasting lipid profile. Possible stress test on Monday. Further recommendations to follow. DNP note has been reviewed, I agree with a documented findings and plan of care. Patient was seen and examined.
--- NOTE | 2018-07-28 10:14 | P.PN ---
Progress Note - Text Progress Note Date: 07/28/18 This is an addendum to the cardiology consultation dictated. If the patient's third troponin comes back negative, we'll discontinue the heparin. She then may be able to be discharged home today and we will schedule her for a dobutamine echocardiographic study as an outpatient on Monday. DNP note has been reviewed, I agree with a documented findings and plan of care. Patient was seen and examined.
[2018-07-28 11:31] VITALS: TEMP 98.3
[2018-07-28 12:09] LABS: Creatine Kinase 82 U/L (30-135)
[2018-07-28 12:22] LABS: Creatine Kinase MB 0.2 ng/mL (0.0-2.4); Troponin I <0.012 ng/mL (0.000-0.034)
[2018-07-28] MEDS ORDERED: ALPRAZolam 1 MG TAB PO PRN (16:10)
[2018-07-28 16:24] VITALS: BP 164/84; PULSE 102
--- NOTE | 2018-07-28 16:26 | P.HPIM ---
History of Present Illness H&P Date: 07/28/18 (This document is of both his H&P and discharge summary) Chief Complaint: chest pain 38 years old female with past medical history of asthma, hypertension , sleep apnea, hypothyroidism, tobacco abuse comes in to the hospital at 9:30 last night with acute substernal chest pain. Patient stated was nonexertional and located in the left anterior chest nonradiating and not associated with shortness of breath or cough reduction. Patient states she had on and off shortness of breath since last week and describes it as a chest pressure and heaviness. She denies any setting any nocturnal orthopnea. Patient also had an echocardiogram in November 2016 which was normal. Labs were obtained in the ER with a hemoglobin of 14.9, d-dimer 0.52, potassium 4.1, creatinine 1, troponin 3 was negative. EKG suggested sinus tachycardia with no ST or T-wave changes chest x-ray was negative for pneumonia. Cardiology had evaluated the patient. Echocardiogram ordered with a possibility of stress test on Monday Review of Systems Constitutional: Denies chills, Denies fever, Denies lethargy, Denies malaise, Denies poor appetite, Denies weakness, Denies weight loss Eyes: denies decreased vision, denies diplopia, denies discharge, denies pain Ears: deny: decreased hearing Ears, nose, mouth and throat: Denies dental pain, Denies headache, Denies nasal discharge, Denies nose pain Cardiovascular: endorses chest pain, Denies decreased exercise tolerance, Denies edema, Denies high blood pressure, Denies irregular heart beat, Denies palpitations, Denies paroxysmal nocturnal dyspnea, Denies rapid heart beat, Denies shortness of breath Respiratory: Denies congestion, Denies cough, Denies cough with sputum, Denies dyspnea, Denies home oxygen, Denies wheezing Gastrointestinal: Denies abdominal pain, Denies change in bowel habits, Denies coffee ground emesis, Denies early satiety, Denies excessive gas, Denies heartburn, Denies hematemesis, Denies hematochezia, Denies loss of appetite, Denies nausea, Denies vomiting endorses reflux Genitourinary: Denies dysuria, Denies flank pain, Denies kidney stones, Denies menorrhagia, Denies urgency, Denies urinary frequency Musculoskeletal: Denies gait dysfunction, Denies limitation of motion, Denies morning stiffness, Denies muscle cramps Integumentary: Denies rash, Denies wounds, Denies brittle nails, Denies change in hair/nails, Denies darkening of skin Neurological: Denies balance difficulties, Denies change in speech, Denies double vision, Denies gait dysfunction, Denies loss of vision, Denies motor disturbance, Denies numbness, Denies paralysis, Denies paresthesias, Denies seizures Psychiatric: Denies anxiety, Denies depression Endocrine: Denies excessive sweating, Denies excessive thirst, Denies high blood sugars, Denies palpitations Hematologic/Lymphatic: Denies easy bruising, Denies lymphadenopathy Past Medical History Past Medical History: Asthma, GERD/Reflux, Hypertension, Pneumonia, Sleep Apnea/ CPAP/BIPAP, Thyroid Disorder Additional Past Medical History / Comment(s): Crohns, IBS, degenerative disc disease, episode of chest pain and rapid heart rate CPAP use. History of Any Multi-Drug Resistant Organisms: MRSA Date of last positivie culture/infection: 2013 MDRO Source:: rt side of chest Past Surgical History: Bowel Resection, Breast Surgery, Section, Cholecystectomy Additional Past Surgical History / Comment(s): LEFT BREAST BENIGN CYST REMOVED. Cyst removal/abscess small intestines, right oophorectomy and salpingectomy Past Anesthesia/Blood Transfusion Reactions: No Reported Reaction Past Psychological History: Anxiety, Bipolar, Depression Smoking Status: Current every day smoker Past Alcohol Use History: None Reported Additional Past Alcohol Use History / Comment(s): Patient is a smoker 1PPD Past Drug Use History: None Reported - Past Family History Father Family Medical History: Coronary Artery Disease (CAD), Hypertension Additional Family Medical History / Comment(s): Father is alive at age 65 with history of coronary artery disease. Mother Family Medical History: No Reported History Additional Family Medical History / Comment(s): Mother is alive at age 58 with history of coronary artery disease and asthma. Brother(s) Family Medical History: No Reported History Additional Family Medical History / Comment(s): Patient has 1 brother with no major medical problems. Sister(s) Family Medical History: No Reported History Additional Family Medical History / Comment(s): Patient has 1 sister with no major medical problems. Daughter(s) Family Medical History: Asthma, Sleep Apnea/CPAP/BIPAP Son(s) Family Medical History: Asthma, Sleep Apnea/CPAP/BIPAP Medications and Allergies Home Medications Medication Instructions Recorded Confirmed Type Sertraline [Zoloft] 200 mg PO HS 06/17/14 07/28/18 History amLODIPine [Norvasc] 5 mg PO HS 12/01/16 07/28/18 History ALPRAZolam [Xanax] 1 mg PO TID PRN 05/26/17 07/28/18 History ARIPiprazole [Abilify] 15 mg PO HS 05/26/17 07/28/18 History Losartan [Cozaar] 50 mg PO HS 01/03/18 07/28/18 History Medroxyprogesterone Acetate 150 mg IM Q90D 01/03/18 07/28/18 History [Depo-Provera] Methocarbamol [Robaxin] 1,000 mg PO QID PRN 01/04/18 07/28/18 History Levothyroxine Sodium [Synthroid] 224 mcg PO HS 07/28/18 07/28/18 History Metoprolol Tartrate [Lopressor] 12.5 mg PO BID #60 tab 07/28/18 Rx Omeprazole [PriLOSEC] 20 mg PO AC-BRKFST #30 cap 07/28/18 Rx Allergies Allergy/AdvReac Type Severity Reaction Status Date / Time cephalexin monohydrate Allergy Swelling Verified 07/28/18 12:02 [From Keflex] clindamycin Allergy Swelling Verified 07/28/18 12:02 levofloxacin [From Levaquin] Allergy Swelling Verified 07/28/18 12:02 Penicillins Allergy Itching Verified 07/28/18 12:02 prochlorperazine edisylate AdvReac IRRITABLE Verified 07/28/18 12:02 [From Compazine] prochlorperazine maleate AdvReac IRRITABLE Verified 07/28/18 12:02 [From Compazine] Physical Exam Vitals: Vital Signs Temp Pulse Pulse Resp BP BP Pulse Ox 07/28/18 12:00 104 H 16 07/28/18 11:31 98.3 F 104 H 16 107/63 95 07/28/18 08:00 96 16 07/28/18 07:23 98.2 F 96 16 149/77 97 07/28/18 04:00 97.8 F 79 18 134/82 97 07/28/18 03:23 16 07/28/18 02:10 97.7 F 91 16 115/71 97 07/28/18 01:57 98.6 F 82 16 133/70 98 07/28/18 00:50 87 16 122/78 98 07/28/18 00:40 93 16 112/63 97 07/28/18 00:35 92 16 142/66 98 07/28/18 00:31 80 16 156/71 98 07/27/18 23:11 93 18 143/80 98 07/27/18 21:48 99.8 F H 107 H 20 142/96 98 Intake and Output 07/28/18 07/28/18 07/28/18 06:59 14:59 22:59 Other: Voiding Method Toilet Toilet # Voids 2 Weight 110.6 kg 110.6 kg - Constitutional General appearance: cooperative, no acute distress, obese - EENT Eyes: anicteric sclerae, PERRLA, normal appearance ENT: hearing grossly normal - Neck Neck: no lymphadenopathy, normal ROM, no other, no rigidity, no stridor, no thyromegaly - Respiratory Respiratory: bilateral: CTA, negative: diminished, dullness, rales, rhonchi - Cardiovascular Rhythm: regular Heart sounds: normal: S1, S2 Abnormal Heart Sounds: no systolic murmur, no diastolic murmur, no rub, no S3 Gallop, no S4 Gallop - Gastrointestinal General gastrointestinal: normal bowel sounds, soft - Integumentary Integumentary: no rash - Neurologic Neurologic: CNII-XII intact - Musculoskeletal Musculoskeletal: gait normal, strength equal bilaterally - Psychiatric Psychiatric: A&O x's 3, appropriate affect Results CBC & Chem 7: 07/27/18 22:48 07/27/18 22:48 Labs: Abnormal Lab Results - Last 24 Hours (Table) 07/27/18 Range/Units 22:48 Chloride 110 H (98-107) mmol/L Glucose 134 H (74-99) mg/dL Thrombosis Risk Factor Assmnt - DVT/VTE Prophylaxis DVT/VTE Prophylaxis: Mechanical Prophylaxis ordered - Choose All That Apply Each Factor Represents 1 point: Obesity (BMI >25) Thrombosis Risk Factor Assessment Total Risk Factor Score: 1 Thrombosis Risk Factor Assessment Level: Low Risk Assessment and Plan Plan: #1 acute substernal chest pain likely noncardiac source. Echocardiogram pending. Continue aspirin, Lopressor, Cozaar and Norvasc at the current doses. Prilosec increased to 40 mg by mouth daily in a.m. before breakfast. Symptoms are likely secondary to GERD. #2 history of hypertension continue Norvasc, losartan. Lopressor initiated at 12.5 mg twice a day. #3 hypothyroidism continue levothyroxine to 24 g daily at bedtime #4 history of depression continue Zoloft and Abilify #5 DVT prophylaxis with SCDs CC a copy of discharge to Dr. Diaz
--- NOTE | 2018-07-28 16:53 | ECHOF ---
Referral Reason:chest pain MEASUREMENTS -------- HEIGHT: 152.4 cm WEIGHT: 110.2 kg BP: IVSd: 1.7 cm (0.6 - 1.1) LVIDd: 4.5 cm (3.9 - 5.3) LVPWd: 1.5 cm (0.6 - 1.1) IVSs: 1.8 cm LVIDs: 3.4 cm LVPWs: 2.0 cm LA Diam: 3.3 cm (2.7 - 3.8) Ao Diam: 2.7 cm (2.0 - 3.7) AV Cusp: 2.0 cm (1.5 - 2.6) LA Diam: 3.0 cm (2.7 - 3.8) MV EXCURSION: 13.015 mm (> 18.000) MV EF SLOPE: 86 mm/s (70 - 150) EPSS: 0.6 cm MV E Usman: 0.44 m/s MV DecT: 213 ms MV A Usman: 0.63 m/s MV E/A Ratio: 0.71 RAP: 5.00 mmHg RVSP: 11.91 mmHg FINDINGS -------- Sinus rhythm. This was a technically difficult study with suboptimal views. Morbid Obesity The left ventricular size is normal. There is severe concentric left ventricular hypertrophy. Ove rall left ventricular systolic function is normal with, an EF between 55 - 60 %. The right ventricle is normal in size. The left atrial size is normal. The right atrial size is normal. The aortic valve is trileaflet, and appears structurally normal. No aortic stenosis or regurgitation. There is trace mitral regurgitation. Mild tricuspid regurgitation present. There is no evidence of pulmonary hypertension. The right v entricular systolic pressure, as measured by Doppler, is 11.91mmHg. The pulmonic valve was not well visualized. There is no pulmonic regurgitation present. The aortic root size is normal. Echo free space represents a pericardial fat pad. CONCLUSIONS -------- 1. Sinus rhythm. 2. This was a technically difficult study with suboptimal views. 3. Morbid Obesity 4. The left ventricular size is normal. 5. There is severe concentric left ventricular hypertrophy. 6. Overall left ventricular systolic function is normal with, an EF between 55 - 60 %. 7. The left atrial size is normal. 8. The aortic valve is trileaflet, and appears structurally normal. No aortic stenosis or regurgitati on. 9. There is trace mitral regurgitation. 10. Mild tricuspid regurgitation present. 11. There is no evidence of pulmonary hypertension. 12. There is no pulmonic regurgitation present. 13. The aortic root size is normal. 14. Echo free space represents a pericardial fat pad. HIDE INSPECTOR: Holly Garay RDCS
[2018-07-28] MEDS ORDERED: amLODIPine 5 MG TAB PO SCH (21:00)
[2018-07-28] MEDS ORDERED: METOPROLOL TARTRATE 12.5 MG TAB PO SCH (21:00)
[2018-07-29] MEDS ORDERED: ASPIRIN 325 MG TAB PO SCH (09:00)
[2018-07-29] MEDS ORDERED: LOSARTAN 50 MG TAB PO SCH (09:00)
[2018-07-30] MEDS ORDERED: DOBUTamine DRIP for NUC MED 500 MG in DEXTROSE/WATER 1 250ML.BAG IV ONE (09:00)
== END 2018-07-28 17:31 | disposition home or self-care (01) ==
LOC: EC 21:41 → 1SOBS 07-28 01:27
PROVIDERS: ADMIT Internal Medicine; ATTEND Internal Medicine
DX: R07.89 Other chest pain (principal); J45.909 Unspecified asthma, uncomplicated; I10 Essential (primary) hypertension; E03.9 Hypothyroidism, unspecified; F17.210 Nicotine dependence, cigarettes, uncomplicated; K50.90 Crohn's disease, unspecified, without complications; E66.01 Morbid (severe) obesity due to excess calories; Z68.39 Body mass index [BMI] 39.0-39.9, adult; E78.5 Hyperlipidemia, unspecified; F31.9 Bipolar disorder, unspecified; F41.9 Anxiety disorder, unspecified; Z86.14 Personal history of Methicillin resistant Staphylococcus aureus infection; G47.30 Sleep apnea, unspecified; K21.9 Gastro-esophageal reflux disease without esophagitis; Z90.721 Acquired absence of ovaries, unilateral; Z79.899 Other long term (current) drug therapy; Z79.890 Hormone replacement therapy; Z99.89 Dependence on other enabling machines and devices; Z90.49 Acquired absence of other specified parts of digestive tract; Z88.1 Allergy status to other antibiotic agents; Z88.0 Allergy status to penicillin; Z88.8 Allergy status to other drugs, medicaments and biological substances; Z82.49 Family history of ischemic heart disease and other diseases of the circulatory system; Z82.5 Family history of asthma and other chronic lower respiratory diseases
CPT/HCPCS: 96361 ×2; 96375 ×2; 96376; 96374; 99285; 36415; 93005; 93306; 85379; 83880; 80053; 82550; 82553 ×2; 83735; 84484 ×2; 85025; 85610; 85730 ×2; 71046; G0378; S4990; J1644 ×2; J1885; J2270

== ENCOUNTER 2018-11-07 08:29 | Emergency (ER) | payer OTHER ==
[2018-11-07 08:58] VITALS: TEMP 98.9
[2018-11-07] MEDS ORDERED: SODIUM CHLORIDE 0.9% 1,000 ML IV STA (08:58)
[2018-11-07] MEDS ORDERED: IPRATROPIUM-ALBUTEROL 3 ML NEB INHALATION STA (08:58)
[2018-11-07] MEDS ORDERED: methylPREDNISolone SOD SUCCI 125 MG/2 ML VIAL IV STA (08:58)
--- NOTE | 2018-11-07 09:03 | ED ---
SOB HPI - General Chief Complaint: Shortness of Breath Stated Complaint: Sob Time Seen by Provider: 11/07/18 08:41 Source: patient, RN notes reviewed, old records reviewed Mode of arrival: ambulatory Limitations: no limitations - History of Present Illness Initial Comments: Patient is a 38-year-old female presents to return today with cough congestion for the past 3 days. She's had a productive cough. She is a smoker. Patient states that she has used her inhalers. She states she's been out of her medication for her nebulizer and tubing. Patient states she has had a low- grade temperature. She denies any nausea or vomiting. She denies chest pain. - Related Data Home Medications Medication Instructions Recorded Confirmed Sertraline [Zoloft] 200 mg PO HS 06/17/14 11/07/18 ALPRAZolam [Xanax] 1 mg PO BID PRN 05/26/17 11/07/18 ARIPiprazole [Abilify] 15 mg PO HS 05/26/17 11/07/18 Medroxyprogesterone Acetate 150 mg IM Q90D 01/03/18 11/07/18 [Depo-Provera] Levothyroxine Sodium [Synthroid] 224 mcg PO HS 07/28/18 11/07/18 Albuterol Inhaler [Ventolin Hfa 1 - 2 puff INHALATION RT-Q6H PRN 11/07/18 Inhaler] Previous Rx's Medication Instructions Recorded Metoprolol Tartrate [Lopressor] 12.5 mg PO BID #60 tab 07/28/18 Doxycycline [Vibramycin] 100 mg PO BID 10 Days 11/07/18 Ipratropium-Albuterol Nebulize 3 ml INHALATION QID #30 neb 11/07/18 [Duoneb 0.5 mg-3 mg/3 ml Soln] predniSONE 50 mg PO DAILY #5 tab 11/07/18 Allergies Allergy/AdvReac Type Severity Reaction Status Date / Time cephalexin monohydrate Allergy Swelling Verified 11/07/18 09:03 [From Keflex] clindamycin Allergy Swelling Verified 11/07/18 09:03 levofloxacin [From Levaquin] Allergy Swelling Verified 11/07/18 09:03 Penicillins Allergy Itching Verified 11/07/18 09:03 prochlorperazine edisylate AdvReac IRRITABLE Verified 11/07/18 09:03 [From Compazine] prochlorperazine maleate AdvReac IRRITABLE Verified 11/07/18 09:03 [From Compazine] Review of Systems ROS Statement: Those systems with pertinent positive or pertinent negative responses have been documented in the HPI. ROS Other: All systems not noted in ROS Statement are negative. Past Medical History Past Medical History: Asthma, GERD/Reflux, Hypertension, Pneumonia, Sleep Apnea/ CPAP/BIPAP, Thyroid Disorder Additional Past Medical History / Comment(s): Crohns, IBS, degenerative disc disease, episode of chest pain and rapid heart rate CPAP use. History of Any Multi-Drug Resistant Organisms: MRSA Date of last positivie culture/infection: 2013 MDRO Source:: rt side of chest Past Surgical History: Bowel Resection, Breast Surgery, Section, Cholecystectomy Additional Past Surgical History / Comment(s): LEFT BREAST BENIGN CYST REMOVED. Cyst removal/abscess small intestines, right oophorectomy and salpingectomy Past Anesthesia/Blood Transfusion Reactions: No Reported Reaction Past Psychological History: Anxiety, Bipolar, Depression Smoking Status: Current every day smoker Past Alcohol Use History: None Reported Past Drug Use History: None Reported - Past Family History Father Family Medical History: Coronary Artery Disease (CAD), Hypertension Additional Family Medical History / Comment(s): Father is alive at age 65 with history of coronary artery disease. Mother Family Medical History: No Reported History Additional Family Medical History / Comment(s): Mother is alive at age 58 with history of coronary artery disease and asthma. Brother(s) Family Medical History: No Reported History Additional Family Medical History / Comment(s): Patient has 1 brother with no major medical problems. Sister(s) Family Medical History: No Reported History Additional Family Medical History / Comment(s): Patient has 1 sister with no major medical problems. Daughter(s) Family Medical History: Asthma, Sleep Apnea/CPAP/BIPAP Son(s) Family Medical History: Asthma, Sleep Apnea/CPAP/BIPAP General Exam - General Exam Comments Initial Comments: This is a 38-year-old female. Alert and oriented 3. No significant distress. Limitations: no limitations General appearance: alert, in no apparent distress Head exam: Present: atraumatic, normocephalic, normal inspection Eye exam: Present: normal appearance, PERRL, EOMI. Absent: scleral icterus, conjunctival injection, periorbital swelling ENT exam: Present: normal exam, mucous membranes moist Neck exam: Present: normal inspection. Absent: tenderness, meningismus, lymphadenopathy Respiratory exam: Present: wheezes, rhonchi. Absent: normal lung sounds bilaterally, respiratory distress, rales, stridor Cardiovascular Exam: Present: regular rate, normal rhythm, normal heart sounds. Absent: systolic murmur, diastolic murmur, rubs, gallop, clicks GI/Abdominal exam: Present: soft, normal bowel sounds. Absent: distended, tenderness, guarding, rebound, rigid Extremities exam: Present: normal inspection, full ROM, normal capillary refill. Absent: tenderness, pedal edema, joint swelling, calf tenderness Back exam: Present: normal inspection Neurological exam: Present: alert, oriented X3, CN II-XII intact Psychiatric exam: Present: normal affect, normal mood Skin exam: Present: warm, dry, intact, normal color. Absent: rash Course Vital Signs 11/07/18 11/07/18 11/07/18 08:37 08:53 08:56 Temperature 97.8 F 98.9 F Pulse Rate 115 H 113 H Respiratory 22 24 24 Rate Blood Pressure 140/86 125/85 O2 Sat by Pulse 98 97 Oximetry 11/07/18 11/07/18 11/07/18 09:00 09:13 09:22 Temperature Pulse Rate 100 111 H Respiratory Rate Blood Pressure 125/85 O2 Sat by Pulse 98 Oximetry 11/07/18 11/07/18 11/07/18 09:30 10:00 10:30 Temperature Pulse Rate 107 H 101 H Respiratory 22 19 Rate Blood Pressure 109/65 135/85 138/81 O2 Sat by Pulse 97 96 Oximetry Medical Decision Making - Medical Decision Making Patient is a 38-year-old female presents returns to 3 days of cough congestion shortness breath. Patient has rhonchus lung sounds and wheezing noted. Patient was given a double DuoNeb treatment with significant improvement. She is given IM Solu-Medrol. Lab work was obtained. White blood cell count is within normal limits per chest x-rays negative for any acute process. The Patient being a smoker which read for his COPD exacerbation with steroids antibiotic. Patient has multiple ALLERGIES to antibiotics. Started the Patient on doxycycline. Discussed close follow-up with primary care physician. All questions were answered and return parameters were discussed. - Lab Data Result diagrams: 11/07/18 09:15 11/07/18 09:15 Lab Results 11/07/18 11/07/18 Range/Units 09:15 09:15 WBC 5.5 (3.8-10.6) k/uL RBC 4.80 (3.80-5.40) m/uL Hgb 15.2 (11.4-16.0) gm/dL Hct 46.7 H (34.0-46.0) % MCV 97.5 (80.0-100.0) fL MCH 31.6 (25.0-35.0) pg MCHC 32.4 (31.0-37.0) g/dL RDW 13.7 (11.5-15.5) % Plt Count 267 (150-450) k/uL Neutrophils % 62 % Lymphocytes % 26 % Monocytes % 4 % Eosinophils % 6 % Basophils % 1 % Neutrophils # 3.4 (1.3-7.7) k/uL Lymphocytes # 1.4 (1.0-4.8) k/uL Monocytes # 0.2 (0-1.0) k/uL Eosinophils # 0.3 (0-0.7) k/uL Basophils # 0.0 (0-0.2) k/uL Sodium 138 (137-145) mmol/L Potassium 4.8 (3.5-5.1) mmol/L Chloride 109 H (98-107) mmol/L Carbon Dioxide 20 L (22-30) mmol/L Anion Gap 9 mmol/L BUN 11 (7-17) mg/dL Creatinine 0.74 (0.52-1.04) mg/dL Est GFR (CKD-EPI)AfAm >90 (>60 ml/min/1.73 sqM) Est GFR (CKD-EPI)NonAf >90 (>60 ml/min/1.73 sqM) Glucose 211 H (74-99) mg/dL Calcium 8.5 (8.4-10.2) mg/dL Total Bilirubin 0.5 (0.2-1.3) mg/dL AST 29 (14-36) U/L ALT 48 (9-52) U/L Alkaline Phosphatase 66 (38-126) U/L Total Protein 7.3 (6.3-8.2) g/dL Albumin 4.0 (3.5-5.0) g/dL - Radiology Data Radiology results: report reviewed Chest x-rays negative for any acute pulmonary process. Chest x-ray shows no acute cardio pulmonary process. No significant change from prior. Disposition Clinical Impression: Bronchitis Disposition: HOME SELF-CARE Condition: Good Instructions (If sedation given, give patient instructions): Acute Bronchitis ( ED) Additional Instructions: Patient has a rest. Take the medication as prescribed. Breathing treatments every 4 hours. Have close follow-up with your primary care physician. Return to the emergency department if any alarming signs or symptoms occur. Prescriptions: Doxycycline [Vibramycin] 100 mg PO BID 10 Days Ipratropium-Albuterol Nebulize [Duoneb 0.5 mg-3 mg/3 ml Soln] 3 ml INHALATION QID #30 neb predniSONE 50 mg PO DAILY #5 tab Is patient prescribed a controlled substance at d/c from ED?: No Referrals: Reji Diaz MD [Primary Care Provider] - 1-2 days Time of Disposition: 10:58
[2018-11-07 09:38] LABS: Basophils % (A) 1 %; Eosinophils # (A) 0.3 k/uL (0-0.7); Eosinophils % (A) 6 %; HCT 46.7 % (34.0-46.0); HGB 15.2 gm/dL (11.4-16.0); Lymphocytes # (A) 1.4 k/uL (1.0-4.8); Lymphocytes % (A) 26 %; MCH 31.6 pg (25.0-35.0); MCHC 32.4 g/dL (31.0-37.0); MCV 97.5 fL (80.0-100.0); Mean Platelet Volume 8.1; Monocytes # (A) 0.2 k/uL (0-1.0); Monocytes % (A) 4 %; Neutrophils # (A) 3.4 k/uL (1.3-7.7); Neutrophils % (A) 62 %; Platelet Count 267 k/uL (150-450); RDW 13.7 % (11.5-15.5); WBC 5.5 k/uL (3.8-10.6)
[2018-11-07 09:43] LABS: ALT 48 U/L (9-52); AST 29 U/L (14-36); Alkaline Phosphatase 66 U/L (38-126); Anion Gap 9 mmol/L; Blood Urea Nitrogen 11 mg/dL (7-17); Calcium 8.5 mg/dL (8.4-10.2); Carbon Dioxide 20 mmol/L (22-30); Chloride 109 mmol/L (98-107); Glucose 211 mg/dL (74-99); Sodium 138 mmol/L (137-145); Total Bilirubin 0.5 mg/dL (0.2-1.3); Total Protein 7.3 g/dL (6.3-8.2)
[2018-11-07 09:45] LABS: Potassium 4.8 mmol/L (3.5-5.1)
[2018-11-07] MEDS ORDERED: methylPREDNISolone SOD SUCCI 125 MG/2 ML VIAL IM ONE (10:01)
--- NOTE | 2018-11-07 10:08 | XR ---
EXAMINATION TYPE: XR chest 2V DATE OF EXAM: 11/07/2018 COMPARISON: Most recent chest x-ray July 27, 2018 HISTORY: Cough, congestion, and worsening shortness of breath TECHNIQUE: Frontal and lateral views of the chest are obtained. FINDINGS: Overlying EKG leads are noted. Exam slightly suboptimal secondary to patient's large body h abitus. There is no focal air space opacity, pleural effusion, or pneumothorax seen. The cardiac randi houette size is within normal limits. Cholecystectomy clips are noted on lateral view. The osseous s tructures are intact. IMPRESSION: No acute cardiopulmonary process. No significant change from prior.
[2018-11-07] MEDS ORDERED: cefTRIAXone 1,000 MG VIAL (IM USE) IM STA (10:55)
[2018-11-07 11:10] VITALS: BP 129/77; PULSE 99; RESP 18
== END 2018-11-07 11:19 | disposition home or self-care (01) ==
LOC: EC 08:29
DX: J44.1 Chronic obstructive pulmonary disease with (acute) exacerbation (principal); E07.9 Disorder of thyroid, unspecified; F41.9 Anxiety disorder, unspecified; F32.9 Major depressive disorder, single episode, unspecified; F17.200 Nicotine dependence, unspecified, uncomplicated; G47.30 Sleep apnea, unspecified; Z99.89 Dependence on other enabling machines and devices; Z87.01 Personal history of pneumonia (recurrent); Z86.14 Personal history of Methicillin resistant Staphylococcus aureus infection; Z82.5 Family history of asthma and other chronic lower respiratory diseases; Z82.49 Family history of ischemic heart disease and other diseases of the circulatory system; Z53.8 Procedure and treatment not carried out for other reasons; Z79.3 Long term (current) use of hormonal contraceptives; Z79.890 Hormone replacement therapy; Z79.899 Other long term (current) drug therapy; Z88.1 Allergy status to other antibiotic agents; Z88.0 Allergy status to penicillin; Z88.8 Allergy status to other drugs, medicaments and biological substances
CPT/HCPCS: 36415; 71046; 80053; 85025; 94640; 96372; 99285

== ENCOUNTER 2018-12-27 20:22 | Emergency (ER) | payer OTHER ==
[2018-12-27] MEDS ORDERED: SODIUM CHLORIDE 0.9% 500 ML 500 ML IV STA ×2 (21:36→23:28)
[2018-12-27 22:03] LABS: Basophils # (A) 0.1 k/uL (0-0.2); Basophils % (A) 1 %; Eosinophils # (A) 0.3 k/uL (0-0.7); Eosinophils % (A) 4 %; HCT 45.4 % (34.0-46.0); HGB 15.1 gm/dL (11.4-16.0); Lymphocytes # (A) 2.3 k/uL (1.0-4.8); Lymphocytes % (A) 27 %; MCH 32.5 pg (25.0-35.0); MCHC 33.2 g/dL (31.0-37.0); MCV 97.9 fL (80.0-100.0); Mean Platelet Volume 7.4; Monocytes # (A) 0.5 k/uL (0-1.0); Monocytes % (A) 6 %; Neutrophils # (A) 5.2 k/uL (1.3-7.7); Neutrophils % (A) 61 %; Platelet Count 328 k/uL (150-450); RBC 4.64 m/uL (3.80-5.40); RDW 13.6 % (11.5-15.5); WBC 8.5 k/uL (3.8-10.6)
[2018-12-27 22:13] LABS: Albumin 4.1 g/dL (3.5-5.0); Calcium 8.6 mg/dL (8.4-10.2); Magnesium 1.9 mg/dL (1.6-2.3); Potassium 3.9 mmol/L (3.5-5.1); Total Bilirubin 0.3 mg/dL (0.2-1.3); Total Protein 7.3 g/dL (6.3-8.2)
[2018-12-27 22:21] LABS: INR 0.9 (<1.2); Partial Thromboplastin Time 25.3 sec (22.0-30.0); Prothrombin Time 9.5 sec (9.0-12.0)
[2018-12-27] MEDS ORDERED: ACETAMINOPHEN TAB 325 MG TAB PO STA ×2 (22:53→23:16)
[2018-12-27] MEDS ORDERED: ONDANSETRON ODT 4 MG TAB PO STA (22:54)
[2018-12-27] MEDS ORDERED: ONDANSETRON 4 MG/2 ML VIAL IVP STA (22:54)
--- NOTE | 2018-12-27 22:55 | XR ---
EXAM: XR Chest, 2 Views CLINICAL HISTORY: Chest Pain TECHNIQUE: Frontal and lateral views of the chest. COMPARISON: 11/07/18 FINDINGS: Lungs: Unremarkable. No consolidation. Pleural space: Unremarkable. No pneumothorax. Heart: Unremarkable. No cardiomegaly. Mediastinum: Unremarkable. Bones/joints: Unremarkable. IMPRESSION: No acute abdomen the lungs. No real change compared to prior study
[2018-12-27] MEDS ORDERED: LORazepam 1 MG TAB PO STA (23:24)
--- NOTE | 2018-12-27 23:25 | CT ---
EXAM: CT Head Without Intravenous Contrast CLINICAL HISTORY: Pain TECHNIQUE: Axial computed tomography images of the head/brain without intravenous contrast. CTDI is 45.2 mGy and DLP is 1094 mGy-cm. This CT exam was performed using one or more of the following dose reduction techniques: automated exposure control, adjustment of the mA and/or kV according to patient size, and/or use of iterative reconstruction technique. COMPARISON: No relevant prior studies available. FINDINGS: Brain: Unremarkable. No hemorrhage. No significant white matter disease. No edema. Ventricles: Unremarkable. No ventriculomegaly. Bones/joints: Unremarkable. No acute fracture. Soft tissues: Unremarkable. Sinuses: Unremarkable as visualized. No acute sinusitis. Mastoid air cells: Unremarkable as visualized. No mastoid effusion. IMPRESSION: Normal head/brain CT. EXAM: CT Cervical Spine Without Intravenous Contrast CLINICAL HISTORY: : Pain TECHNIQUE: Axial computed tomography images of the cervical spine without intravenous contrast. CTDI is 31.8 mGy and DLP is a 2.7 mGy-cm. This CT exam was performed using one or more of the following dose reduction techniques: automated exposure control, adjustment of the mA and/or kV according to patient size, and/or use of iterative reconstruction technique. Coronal and sagittal reformatted images were created and reviewed. COMPARISON: No relevant prior studies available. FINDINGS: Vertebrae: Unremarkable. No acute fracture. Discs/spinal canal/neural foramina: No acute findings. No spinal canal stenosis. Soft tissues: Unremarkable. IMPRESSION: No evidence for fracture or malalignment of the cervical spine
[2018-12-27] MEDS ORDERED: MORPHINE SULFATE 4 MG/ML SYRINGE IV STA (23:27)
--- NOTE | 2018-12-28 00:11 | ED ---
General Adult HPI - General Chief complaint: Neck Pain/Injury Stated complaint: left side neck pain & facial tingling Time Seen by Provider: 12/27/18 21:11 Source: patient Mode of arrival: ambulatory Limitations: no limitations - History of Present Illness Initial comments: 38 old female patient past medical history of gastric soft reflux disease, hypertension, sleep apnea, Crohn's presents to ED with 2 complaints. Patient primary complaint is approximately 2 days of left paracervical neck pain as well as some mild waxing and waning left paresthesias and face. Patient has a secondary complaint of approximately 2 days of waxing and waning chest pain. Patient states the chest pain is located in her left breast region and comes and goes. Patient does state that feels similar to anxiety that she has had in the past. Patient denies any current shortness of breath. Patient denies any headache or changes in vision. Patient had no recent falls or trauma. Patient denies any other complaints. Systemic: Pt denies fatigue, myalgia, fever/chills, rash. Pt denies weakness, night sweats, weight loss. Neuro: Pt denies headache, visual disturbances, syncope or pre-syncope. HEENT: Pt denies ocular discharge or irritation, otalgia, rhinorrhea, pha ryngitis or notable lymphadenopathy. Cardiopulmonary: Pt denies SOB, heart palpitations, dyspnea on exertion. Abdominal/GI: Pt denies abdominal pain, n/v/d. : Pt denies dysuria, burning w/ urination, frequency/urgency. Denies new onset urinary or bowel incontinence. MSK: Pt denies myalgia, loss of strength or function in extremities. Neuro: Pt denies new onset weakness, paresthesias. - Related Data Home Medications Medication Instructions Recorded Confirmed Sertraline [Zoloft] 200 mg PO HS 06/17/14 12/27/18 ALPRAZolam [Xanax] 1 mg PO BID PRN 05/26/17 12/27/18 ARIPiprazole [Abilify] 15 mg PO HS 05/26/17 12/27/18 Medroxyprogesterone Acetate 150 mg IM Q90D 01/03/18 12/27/18 [Depo-Provera] Levothyroxine Sodium [Synthroid] 224 mcg PO HS 07/28/18 12/27/18 Aspirin [[place] Aspirin EC] 81 mg PO DAILY 12/27/18 12/27/18 Ibuprofen [Motrin] 600 mg PO Q8HR PRN 12/27/18 12/27/18 Previous Rx's Medication Instructions Recorded Metoprolol Tartrate [Lopressor] 12.5 mg PO BID #60 tab 07/28/18 Cyclobenzaprine [Flexeril] 10 mg PO TID #20 tab 12/28/18 predniSONE 50 mg PO DAILY #5 tab 12/28/18 Allergies Allergy/AdvReac Type Severity Reaction Status Date / Time cephalexin monohydrate Allergy Swelling Verified 12/27/18 22:38 [From Keflex] clindamycin Allergy Swelling Verified 12/27/18 22:38 levofloxacin [From Levaquin] Allergy Swelling Verified 12/27/18 22:38 Penicillins Allergy Itching Verified 12/27/18 22:38 prochlorperazine edisylate AdvReac IRRITABLE Verified 12/27/18 22:38 [From Compazine] prochlorperazine maleate AdvReac IRRITABLE Verified 12/27/18 22:38 [From Compazine] Review of Systems ROS Statement: Those systems with pertinent positive or pertinent negative responses have been documented in the HPI. ROS Other: All systems not noted in ROS Statement are negative. Past Medical History Past Medical History: Asthma, GERD/Reflux, Hypertension, Pneumonia, Sleep Apnea/CPAP/BIPAP, Thyroid Disorder Additional Past Medical History / Comment(s): Crohns, IBS, degenerative disc disease, episode of chest pain and rapid heart rate CPAP use. History of Any Multi-Drug Resistant Organisms: MRSA Date of last positivie culture/infection: 2013 MDRO Source:: rt side of chest Past Surgical History: Bowel Resection, Breast Surgery, Section, Cholecystectomy Additional Past Surgical History / Comment(s): LEFT BREAST BENIGN CYST REMOVED. Cyst removal/abscess small intestines, right oophorectomy and salpingectomy Past Anesthesia/Blood Transfusion Reactions: No Reported Reaction Past Psychological History: Anxiety, Bipolar, Depression Smoking Status: Current every day smoker Past Alcohol Use History: None Reported Past Drug Use History: None Reported - Past Family History Father Family Medical History: Coronary Artery Disease (CAD), Hypertension Additional Family Medical History / Comment(s): Father is alive at age 65 with history of coronary artery disease. Mother Family Medical History: No Reported History Additional Family Medical History / Comment(s): Mother is alive at age 58 with history of coronary artery disease and asthma. Brother(s) Family Medical History: No Reported History Additional Family Medical History / Comment(s): Patient has 1 brother with no major medical problems. Sister(s) Family Medical History: No Reported History Additional Family Medical History / Comment(s): Patient has 1 sister with no major medical problems. Daughter(s) Family Medical History: Asthma, Sleep Apnea/CPAP/BIPAP Son(s) Family Medical History: Asthma, Sleep Apnea/CPAP/BIPAP General Exam - General Exam Comments Initial Comments: Constitutional: NAD, AOX3, Pt has pleasant affect. HEENT: NC/AT, trachea midline, neck supple, no lymphadenopathy. Posterior pharynx non erythematous, without exudates. External ears appear normal, without discharge. Mucous membranes moist. Eyes PERRLA, EOM intact. There is no scleral icterus. No pallor noted. Cardiopulmonary: RRR, no murmurs, rubs or gallops, no JVD noted. Lungs CTAB in anterior and posterior newman. No peripheral edema. Abdominal exam: Abdomen soft and non-distended. Abdomen non-tender to palpation in all 4 quadrants. Bowel sounds active in LLQ. No hepatosplenomegaly. No ecchymosis Neuro: CN II-XII intact. No nuchal rigidity. No focal deficit. Full active r abe of motion of cervical spine. No cervical spinal tenderness. Kernigs and brudzinskis negative. MSK: No posterior calf tenderness bilaterally, homans sign negative bilaterally. Posterior tibialis and radial pulse +2 bilaterally. Sensation intact in upper and lower extremities. Full active ROM in upper and lower extremities, 5/5 stregnth. Limitations: no limitations Course Vital Signs 12/27/18 12/27/18 12/28/18 20:32 23:11 01:50 Temperature 98.1 F 98 F Pulse Rate 119 H 101 H 98 Respiratory 20 20 18 Rate Blood Pressure 132/81 119/72 115/57 O2 Sat by Pulse 99 99 97 Oximetry Medical Decision Making - Medical Decision Making 38 old female patient past medical history of gastric soft reflux disease, hypertension, sleep apnea, Crohn's presents to ED with 2 complaints. Patient primary complaint is approximately 2 days of left paracervical neck pain as well as some mild waxing and waning left paresthesias and face. Patient has a secondary complaint of approximately 2 days of waxing and waning chest pain. Patient states the chest pain is located in her left breast region and comes and goes. Patient does state that feels similar to anxiety that she has had in the past. Patient denies any current shortness of breath. Patient denies any headache or changes in vision. Patient had no recent falls or trauma. Patient denies any other complaints. Patient vital signs stable, afebrile. Physical exam displayed: CN II-XII intact. No nuchal rigidity. No focal deficit. Full active range of motion of cervical spine. No cervical spinal tenderness. Kernigs and brudzinskis negative. Laboratory investigations revealed nonc ompressive CBC, CMP. Troponin negative. BNP negative. Coagulation studies noncompressive. D-dimer mildly elevated. EKG not concerning for acute ischemia. CT of brain and cervical spine without contrast did not display acute pathology. Chest x-ray did not display acute pathology. CTA negative. Patient asymptomatic in the ER upon reevaluation, denies any chest pain. Patient will follow-up with her primary care provider as well as her investment specialist in 1-2 days. Patient will return to ER if condition worsens in any way. Case discussed in depth with Dr. Almanzar. - Lab Data Result diagrams: 12/27/18 21:46 12/27/18 21:46 Lab Results 12/27/18 12/27/18 12/27/18 Range/Units 21:46 21:46 21:46 WBC 8.5 (3.8-10.6) k/uL RBC 4.64 (3.80-5.40) m/uL Hgb 15.1 (11.4-16.0) gm/dL Hct 45.4 (34.0-46.0) % MCV 97.9 (80.0-100.0) fL MCH 32.5 (25.0-35.0) pg MCHC 33.2 (31.0-37.0) g/dL RDW 13.6 (11.5-15.5) % Plt Count 328 (150-450) k/uL Neutrophils % 61 % Lymphocytes % 27 % Monocytes % 6 % Eosinophils % 4 % Basophils % 1 % Neutrophils # 5.2 (1.3-7.7) k/uL Lymphocytes # 2.3 (1.0-4.8) k/uL Monocytes # 0.5 (0-1.0) k/uL Eosinophils # 0.3 (0-0.7) k/uL Basophils # 0.1 (0-0.2) k/uL PT (9.0-12.0) sec INR (<1.2) APTT (22.0-30.0) sec D-Dimer (<0.60) mg/L FEU Sodium 140 (137-145) mmol/L Potassium 3.9 (3.5-5.1) mmol/L Chloride 105 (98-107) mmol/L Carbon Dioxide 24 (22-30) mmol/L Anion Gap 11 mmol/L BUN 13 (7-17) mg/dL Creatinine 1.03 (0.52-1.04) mg/dL Est GFR (CKD-EPI)AfAm 81 (>60 ml/min/1.73 sqM) Est GFR (CKD-EPI)NonAf 70 (>60 ml/min/1.73 sqM) Glucose 179 H (74-99) mg/dL Calcium 8.6 (8.4-10.2) mg/dL Magnesium 1.9 (1.6-2.3) mg/dL Total Bilirubin 0.3 (0.2-1.3) mg/dL AST 24 (14-36) U/L ALT 56 H (9-52) U/L Alkaline Phosphatase 97 (38-126) U/L Troponin I (0.000-0.034) ng/mL NT-Pro-B Natriuret Pep <11 pg/mL Total Protein 7.3 (6.3-8.2) g/dL Albumin 4.1 (3.5-5.0) g/dL 12/27/18 12/27/18 12/27/18 Range/Units 21:46 21:46 21:46 WBC (3.8-10.6) k/uL RBC (3.80-5.40) m/uL Hgb (11.4-16.0) gm/dL Hct (34.0-46.0) % MCV (80.0-100.0) fL MCH (25.0-35.0) pg MCHC (31.0-37.0) g/dL RDW (11.5-15.5) % Plt Count (150-450) k/uL Neutrophils % % Lymphocytes % % Monocytes % % Eosinophils % % Basophils % % Neutrophils # (1.3-7.7) k/uL Lymphocytes # (1.0-4.8) k/uL Monocytes # (0-1.0) k/uL Eosinophils # (0-0.7) k/uL Basophils # (0-0.2) k/uL PT 9.5 (9.0-12.0) sec INR 0.9 (<1.2) APTT 25.3 (22.0-30.0) sec D-Dimer 1.00 H (<0.60) mg/L FEU Sodium (137-145) mmol/L Potassium (3.5-5.1) mmol/L Chloride (98-107) mmol/L Carbon Dioxide (22-30) mmol/L Anion Gap mmol/L BUN (7-17) mg/dL Creatinine (0.52-1.04) mg/dL Est GFR (CKD-EPI)AfAm (>60 ml/min/1.73 sqM) Est GFR (CKD-EPI)NonAf (>60 ml/min/1.73 sqM) Glucose (74-99) mg/dL Calcium (8.4-10.2) mg/dL Magnesium (1.6-2.3) mg/dL Total Bilirubin (0.2-1.3) mg/dL AST (14-36) U/L ALT (9-52) U/L Alkaline Phosphatase (38-126) U/L Troponin I <0.012 (0.000-0.034) ng/mL NT-Pro-B Natriuret Pep pg/mL Total Protein (6.3-8.2) g/dL Albumin (3.5-5.0) g/dL - EKG Data -: EKG Interpreted by Me (and dr almanzar) EKG Comments: Treatment rate 112,. 146, QRS 70, QT/QTc. Case is 48. Sinus tachycardia. No concern for acute ischemia. Disposition Clinical Impression: Radiculopathy, Cervical strain Disposition: HOME SELF-CARE Condition: Stable Instructions (If sedation given, give patient instructions): Cervical Strain (ED) Additional Instructions: Patient to adhere to previously discussed treatment plan and will take medication(s) as directed. Patient to follow up with PCP in 1-2 days. Patient to return to ED if symptoms do not improve. Follow-up with primary care provider tomorrow. Return to ER physician worsens anyway. Prescriptions: Cyclobenzaprine [Flexeril] 10 mg PO TID #20 tab predniSONE 50 mg PO DAILY #5 tab Is patient prescribed a controlled substance at d/c from ED?: No Referrals: Reji Diaz MD [Primary Care Provider] - 1-2 days
--- NOTE | 2018-12-28 01:07 | CT ---
EXAM: CT Angiography Chest With Intravenous Contrast CLINICAL HISTORY: Reason: Pain TECHNIQUE: Axial computed tomographic angiography images of the chest with 80 mL of Isovue-370 intravenous contrast using pulmonary embolism protocol. DLP is 1158 mGy-cm. This CT exam was performed using one or more of the following dose reduction techniques: automated exposure control, adjustment of the mA and/or kV according to patient size, and/or use of iterative reconstruction technique. MIP reconstructed images were created and reviewed. Coronal and sagittal reformatted images were created and reviewed. COMPARISON: 04/16/18 FINDINGS: Pulmonary arteries: Unremarkable. No pulmonary embolism. Aorta: No acute findings. No thoracic aortic aneurysm. Lungs: Unremarkable. No mass. No consolidation. Pleural space: Unremarkable. No significant effusion. No pneumothorax. Heart: Unremarkable. No cardiomegaly. No significant pericardial effusion. No evidence of RV dysfunction. Bones/joints: No acute fracture. No dislocation. Soft tissues: Unremarkable. Lymph nodes: Unremarkable. No enlarged lymph nodes. IMPRESSION: Normal chest CTA. No pulmonary embolism.
[2018-12-28 01:52] VITALS: BP 115/57; PULSE 98; RESP 18; TEMP 98
== END 2018-12-28 01:52 | disposition home or self-care (01) ==
LOC: EC 20:22
DX: S16.1XXA Strain of muscle, fascia and tendon at neck level, initial encounter (principal); M54.12 Radiculopathy, cervical region; I10 Essential (primary) hypertension; G47.30 Sleep apnea, unspecified; E07.9 Disorder of thyroid, unspecified; F41.9 Anxiety disorder, unspecified; F31.9 Bipolar disorder, unspecified; F17.200 Nicotine dependence, unspecified, uncomplicated; Z79.82 Long term (current) use of aspirin; Z79.890 Hormone replacement therapy; Z79.899 Other long term (current) drug therapy; Z88.1 Allergy status to other antibiotic agents; Z88.0 Allergy status to penicillin; Z88.8 Allergy status to other drugs, medicaments and biological substances; X58.XXXA Exposure to other specified factors, initial encounter
CPT/HCPCS: 36415; 93005; 85379; 83880; 80053; 83735; 84484; 85025; 85610; 85730; 71046; 72125; 70450; 71275; 99284; 96374; 96375; 96361 ×2; J2270; J2405; Q9967

== ENCOUNTER 2019-04-09 11:20 | Observation (INO) | payer OTHER ==
[2019-04-09] MEDS ORDERED: NITROGLYCERIN OINT 1 INCH/GM PACKET TOPICAL STA (11:47)
[2019-04-09] MEDS ORDERED: ASPIRIN 81 MG PO STA (11:47)
[2019-04-09] MEDS ORDERED: NITROGLYCERIN SL TABS 0.4 MG TAB SUBLINGUAL STA (11:47)
--- NOTE | 2019-04-09 11:50 | ED ---
General Adult HPI - General Chief complaint: Chest Pain Stated complaint: chest pain since 3am Time Seen by Provider: 04/09/19 11:30 Source: patient, RN notes reviewed Mode of arrival: wheelchair Limitations: no limitations - History of Present Illness Initial comments: This is a 39-year-old female presents emergency Department with a past medical history significant for hypertension and smoking. Patient also has a positive family history of heart disease in both her mother and father who have both had stents. Patient comes in today stating about 3:00 this morning she started having chest pain on the left side of her chest radiating to her back and arm. Patient also complains of shortness of breath with a little exertion. Patient denies any diaphoretic episodes. Patient denies any nausea. Patient denies lightheadedness dizziness or near syncopal episode. Patient denies headache patient denies numbness weakness. Patient denies abdominal pain patient denies any vomiting or diarrhea. Patient denies any recent fever chills or cough. Patient denies any calf pain or leg swelling. - Related Data Home Medications Medication Instructions Recorded Confirmed Sertraline [Zoloft] 200 mg PO HS 06/17/14 04/09/19 ALPRAZolam [Xanax] 1 mg PO BID PRN 05/26/17 04/09/19 ARIPiprazole [Abilify] 15 mg PO HS 05/26/17 04/09/19 Levothyroxine Sodium [Synthroid] 224 mcg PO HS 07/28/18 04/09/19 Aspirin EC [Ecotrin Low Dose] 81 mg PO HS 04/09/19 04/09/19 Allergies Allergy/AdvReac Type Severity Reaction Status Date / Time cephalexin monohydrate Allergy Swelling Verified 04/09/19 11:45 [From Keflex] clindamycin Allergy Swelling Verified 04/09/19 11:45 levofloxacin [From Levaquin] Allergy Swelling Verified 04/09/19 11:45 Penicillins AdvReac Itching Verified 04/09/19 11:45 prochlorperazine edisylate AdvReac IRRITABLE Verified 04/09/19 11:45 [From Compazine] prochlorperazine maleate AdvReac IRRITABLE Verified 04/09/19 11:45 [From Compazine] Review of Systems ROS Statement: Those systems with pertinent positive or pertinent negative responses have been documented in the HPI. ROS Other: All systems not noted in ROS Statement are negative. Past Medical History Past Medical History: Asthma, GERD/Reflux, Hypertension, Pneumonia, Sleep Apnea/CPAP/BIPAP, Thyroid Disorder Additional Past Medical History / Comment(s): Crohns, IBS, degenerative disc disease, episode of chest pain and rapid heart rate CPAP use. History of Any Multi-Drug Resistant Organisms: MRSA Date of last positivie culture/infection: 2013 MDRO Source:: rt side of chest Past Surgical History: Bowel Resection, Breast Surgery, Section, Cholecystectomy Additional Past Surgical History / Comment(s): LEFT BREAST BENIGN CYST REMOVED. Cyst removal/abscess small intestines, right oophorectomy and salpingectomy Past Anesthesia/Blood Transfusion Reactions: No Reported Reaction Past Psychological History: Anxiety, Bipolar, Depression Smoking Status: Current every day smoker Past Alcohol Use History: None Reported Past Drug Use History: None Reported - Past Family History Father Family Medical History: Coronary Artery Disease (CAD), Hypertension Additional Family Medical History / Comment(s): Father is alive at age 65 with history of coronary artery disease. Mother Family Medical History: No Reported History Additional Family Medical History / Comment(s): Mother is alive at age 58 with history of coronary artery disease and asthma. Brother(s) Family Medical History: No Reported History Additional Family Medical History / Comment(s): Patient has 1 brother with no major medical problems. Sister(s) Family Medical History: No Reported History Additional Family Medical History / Comment(s): Patient has 1 sister with no major medical problems. Daughter(s) Family Medical History: Asthma, Sleep Apnea/CPAP/BIPAP Son(s) Family Medical History: Asthma, Sleep Apnea/CPAP/BIPAP General Exam - General Exam Comments Initial Comments: GENERAL: Patient is well-developed and well-nourished. Patient is nontoxic and well- hydrated and is in mild distress. ENT: Neck is soft and supple. No significant lymphadenopathy is noted. Oropharynx is clear. Moist mucous membranes. Neck has full range of motion without eliciting any pain. EYES: The sclera were anicteric and conjunctiva were pink and moist. Extraocular movements were intact and pupils were equal round and reactive to light. Ey elids were unremarkable. PULMONARY: Unlabored respirations. Good breath sounds bilaterally. No audible rales rhonchi or wheezing was noted. CARDIOVASCULAR: There is a regular rate and rhythm without any murmurs gallops or rubs. ABDOMEN: Soft and nontender with normal bowel sounds. Patient is morbidly obese SKIN: Skin is clear with no lesions or rashes and otherwise unremarkable. NEUROLOGIC: Patient is alert and oriented x3. Cranial nerves II through XII are grossly intact. Motor and sensory are also intact. Normal speech, volume and content. Symmetrical smile. MUSCULOSKELETAL: Normal extremities with adequate strength and full range of motion. LYMPHATICS: No significant lymphadenopathy is noted PSYCHIATRIC: Normal psychiatric evaluation. 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 Patient's EKG shows no ST segment elevation or depression or T wave abnormalities are noted. I started heparin on the patient because of her unstable angina. Chest x-ray showed no acute normalities. I gave the patient I listened sublingual and it did relieve her pain but she still had some small residual pain. I spoke with because she agreed to admit the patient I admitted the patient I wrote admitting orders to continue the heparin and aspirin and Nitropaste on the floor. I consult to cardiology. - Lab Data Result diagrams: 04/09/19 12:04 04/09/19 12:04 Lab Results 04/09/19 04/09/19 04/09/19 Range/Units 12:04 12:04 12:04 WBC 7.2 (3.8-10.6) k/uL RBC 4.54 (3.80-5.40) m/uL Hgb 14.5 (11.4-16.0) gm/dL Hct 43.0 (34.0-46.0) % MCV 94.8 (80.0-100.0) fL MCH 31.9 (25.0-35.0) pg MCHC 33.6 (31.0-37.0) g/dL RDW 13.5 (11.5-15.5) % Plt Count 317 (150-450) k/uL Neutrophils % 67 % Lymphocytes % 23 % Monocytes % 5 % Eosinophils % 4 % Basophils % 1 % Neutrophils # 4.8 (1.3-7.7) k/uL Lymphocytes # 1.7 (1.0-4.8) k/uL Monocytes # 0.3 (0-1.0) k/uL Eosinophils # 0.3 (0-0.7) k/uL Basophils # 0.1 (0-0.2) k/uL PT (9.0-12.0) sec INR (<1.2) APTT (22.0-30.0) sec Sodium 140 (137-145) mmol/L Potassium 4.8 (3.5-5.1) mmol/L Chloride 107 (98-107) mmol/L Carbon Dioxide 24 (22-30) mmol/L Anion Gap 9 mmol/L BUN 15 (7-17) mg/dL Creatinine 0.96 (0.52-1.04) mg/dL Est GFR (CKD-EPI)AfAm 87 (>60 ml/min/1.73 sqM) Est GFR (CKD-EPI)NonAf 76 (>60 ml/min/1.73 sqM) Glucose 120 H (74-99) mg/dL Calcium 8.1 L (8.4-10.2) mg/dL Magnesium 2.0 (1.6-2.3) mg/dL Total Bilirubin 0.4 (0.2-1.3) mg/dL AST 30 (14-36) U/L ALT 61 H (9-52) U/L Alkaline Phosphatase 82 (38-126) U/L Troponin I (0.000-0.034) ng/mL NT-Pro-B Natriuret Pep 21 pg/mL Total Protein 7.3 (6.3-8.2) g/dL Albumin 3.8 (3.5-5.0) g/dL 04/09/19 04/09/19 Range/Units 12:04 12:04 WBC (3.8-10.6) k/uL RBC (3.80-5.40) m/uL Hgb (11.4-16.0) gm/dL Hct (34.0-46.0) % MCV (80.0-100.0) fL MCH (25.0-35.0) pg MCHC (31.0-37.0) g/dL RDW (11.5-15.5) % Plt Count (150-450) k/uL Neutrophils % % Lymphocytes % % Monocytes % % Eosinophils % % Basophils % % Neutrophils # (1.3-7.7) k/uL Lymphocytes # (1.0-4.8) k/uL Monocytes # (0-1.0) k/uL Eosinophils # (0-0.7) k/uL Basophils # (0-0.2) k/uL PT 9.6 (9.0-12.0) sec INR 0.9 (<1.2) APTT 25.3 (22.0-30.0) sec Sodium (137-145) mmol/L Potassium (3.5-5.1) mmol/L Chloride (98-107) mmol/L Carbon Dioxide (22-30) mmol/L Anion Gap mmol/L BUN (7-17) mg/dL Creatinine (0.52-1.04) mg/dL Est GFR (CKD-EPI)AfAm (>60 ml/min/1.73 sqM) Est GFR (CKD-EPI)NonAf (>60 ml/min/1.73 sqM) Glucose (74-99) mg/dL Calcium (8.4-10.2) mg/dL Magnesium (1.6-2.3) mg/dL Total Bilirubin (0.2-1.3) mg/dL AST (14-36) U/L ALT (9-52) U/L Alkaline Phosphatase (38-126) U/L Troponin I <0.012 (0.000-0.034) ng/mL NT-Pro-B Natriuret Pep pg/mL Total Protein (6.3-8.2) g/dL Albumin (3.5-5.0) g/dL Critical Care Time Critical Care Time: Yes Total Critical Care Time: 35 Disposition Clinical Impression: Unstable angina pectoris Disposition: ADMITTED IP TO THIS [facility] Referrals: Reji Diaz MD [Primary Care Provider] - 1-2 days Time of Disposition: 13:58
[2019-04-09 12:20] LABS: Basophils # (A) 0.1 k/uL (0-0.2); Basophils % (A) 1 %; Eosinophils # (A) 0.3 k/uL (0-0.7); Eosinophils % (A) 4 %; HGB 14.5 gm/dL (11.4-16.0); Lymphocytes # (A) 1.7 k/uL (1.0-4.8); Lymphocytes % (A) 23 %; MCH 31.9 pg (25.0-35.0); MCHC 33.6 g/dL (31.0-37.0); MCV 94.8 fL (80.0-100.0); Mean Platelet Volume 7.6; Monocytes # (A) 0.3 k/uL (0-1.0); Monocytes % (A) 5 %; Neutrophils # (A) 4.8 k/uL (1.3-7.7); Neutrophils % (A) 67 %; Platelet Count 317 k/uL (150-450); RBC 4.54 m/uL (3.80-5.40); RDW 13.5 % (11.5-15.5); WBC 7.2 k/uL (3.8-10.6)
[2019-04-09 12:32] LABS: Albumin 3.8 g/dL (3.5-5.0); Calcium 8.1 mg/dL (8.4-10.2); Total Bilirubin 0.4 mg/dL (0.2-1.3); Total Protein 7.3 g/dL (6.3-8.2)
[2019-04-09 12:33] LABS: INR 0.9 (<1.2); Partial Thromboplastin Time 25.3 sec (22.0-30.0); Prothrombin Time 9.6 sec (9.0-12.0)
[2019-04-09 12:34] LABS: Potassium 4.8 mmol/L (3.5-5.1)
--- NOTE | 2019-04-09 12:43 | XR ---
EXAMINATION TYPE: XR chest 2V DATE OF EXAM: 04/09/2019 COMPARISON: 12/27/2018 TECHNIQUE: PA and lateral views submitted. HISTORY: Chest pain FINDINGS: The lungs are clear and there is no pneumothorax, pleural effusion, or focal pneumonia. Biapical pl eural thickening. Hypertrophic change of the spine. No overt failure. IMPRESSION: 1. No acute process.
[2019-04-09] MEDS ORDERED: MORPHINE SULFATE 2 MG/ML SYRINGE IVP STA ×2 (12:58→16:07)
[2019-04-09] MEDS ORDERED: ONDANSETRON 4 MG/2 ML VIAL IVP STA (12:58)
[2019-04-09] MEDS ORDERED: HEPARIN SODIUM,PORCINE 5,000 UNIT/ML 1 ML VIAL IV ONE (13:25)
[2019-04-09] MEDS ORDERED: HEPARIN SOD,PORK IN 0.45% NACL 25,000 UNIT in 0.45% NACL 1 250ML.BAG IV SCH (13:30)
[2019-04-09] MEDS ORDERED: NITROGLYCERIN SL TABS 0.4 MG TAB SUBLINGUAL PRN (13:58)
[2019-04-09] MEDS ORDERED: ALPRAZolam 0.5 MG TAB PO PRN (15:47)
[2019-04-09] MEDS: NICOTINE 21MG/24HR PATCH TRANSDERM SCH (16:23)
--- NOTE | 2019-04-09 16:23 | P.HPIM ---
History of Present Illness H&P Date: 04/09/19 39 years old female with past medical history of hypothyroidism, GERD, hypertension, obstructive sleep apnea comes in with chest pain that started at rest while patient was sleeping at 3 AM in the morning persistent since the arrival of patient in the ER radiating in character to the back and arm associated with shortness of breath for the past 2 days patient denies any sweating, abdominal pain, epigastric pain, change in bowel habits black stools. Troponin 1 is negative. EKG negative for ST or T-wave changes normal sinus rhythm. Patient is initiated on heparin drip cardiology evaluation. Patient has strong family history of coronary artery disease in both her parents and is an active smoker for the past 10 years. Review of Systems Constitutional: Reports fatigue, Denies chronic headaches, Denies chronic pain, Denies daytime sleepiness, Denies fever, Denies lethargy, Denies night sweats, Denies poor appetite Eyes: denies blurred vision, denies decreased vision, denies dry eye, denies irritation, denies itching Ears: deny: decreased hearing, ear discharge, earache, tinnitus Ears, nose, mouth and throat: Denies bleeding gums, Denies dysphagia, Denies epi staxis, Denies headache, Denies hoarseness, Denies nasal congestion, Denies nasal discharge, Denies neck lump, Denies nose pain, Denies odynophagia, Denies post-nasal drip Cardiovascular: Reports chest pain, Reports decreased exercise tolerance, Reports dyspnea on exertion, Reports high blood pressure, Reports shortness of breath, Denies claudication, Denies edema, Denies irregular heart beat, Denies lightheadedness, Denies orthopnea, Denies palpitations, Denies paroxysmal nocturnal dyspnea, Denies rapid heart beat Respiratory: Reports dyspnea, Reports sleep apnea, Denies congestion, Denies cough, Denies cough with sputum, Denies excessive sputum, Denies home oxygen, Denies pain, Denies pleurisy, Denies wheezing Gastrointestinal: Denies abdominal pain, Denies belching, Denies bloating, Denies BRBPR, Denies change in bowel habits, Denies coffee ground emesis, Denies constipation, Denies excessive gas, Denies heartburn, Denies hematemesis, Denies hematochezia, Denies nausea, Denies vomiting Genitourinary: Denies difficulty voiding, Denies post void dribbling, Denies urinary frequency, Denies vaginal dryness, Denies vaginal itching Musculoskeletal: Denies arm numbness/tingling, Denies leg numbness/tingling, Denies limitation of motion, Denies loss of height, Denies low back pain Neurological: Denies aphasia, Denies balance difficulties, Denies change in mentation, Denies change in smell/taste, Denies change in speech, Denies conv ulsions, Denies double vision, Denies gait dysfunction Psychiatric: Reports anxiety, Reports depression Endocrine: Denies excessive sweating, Denies excessive thirst, Denies fatigue Past Medical History Past Medical History: Asthma, GERD/Reflux, Hypertension, Pneumonia, Sleep Apnea/CPAP/BIPAP, Thyroid Disorder Additional Past Medical History / Comment(s): Crohns, IBS, degenerative disc disease, episode of chest pain and rapid heart rate CPAP use. History of Any Multi-Drug Resistant Organisms: MRSA Date of last positivie culture/infection: 2013 MDRO Source:: rt side of chest Past Surgical History: Bowel Resection, Breast Surgery, Section, Cholecystectomy Additional Past Surgical History / Comment(s): LEFT BREAST BENIGN CYST REMOVED. Cyst removal/abscess small intestines, right oophorectomy and salpingectomy Past Anesthesia/Blood Transfusion Reactions: No Reported Reaction Past Psychological History: Anxiety, Bipolar, Depression Smoking Status: Current every day smoker Past Alcohol Use History: None Reported Past Drug Use History: None Reported - Past Family History Father Family Medical History: Coronary Artery Disease (CAD), Hypertension Additional Family Medical History / Comment(s): Father is alive at age 65 with history of coronary artery disease. Mother Family Medical History: No Reported History Additional Family Medical History / Comment(s): Mother is alive at age 58 with history of coronary artery disease and asthma. Brother(s) Family Medical History: No Reported History Additional Family Medical History / Comment(s): Patient has 1 brother with no major medical problems. Sister(s) Family Medical History: No Reported History Additional Family Medical History / Comment(s): Patient has 1 sister with no major medical problems. Daughter(s) Family Medical History: Asthma, Sleep Apnea/CPAP/BIPAP Son(s) Family Medical History: Asthma, Sleep Apnea/CPAP/BIPAP Medications and Allergies Home Medications Medication Instructions Recorded Confirmed Type Sertraline [Zoloft] 200 mg PO HS 06/17/14 04/09/19 History ALPRAZolam [Xanax] 1 mg PO BID PRN 05/26/17 04/09/19 History ARIPiprazole [Abilify] 15 mg PO HS 05/26/17 04/09/19 History Levothyroxine Sodium [Synthroid] 224 mcg PO HS 07/28/18 04/09/19 History Aspirin EC [Ecotrin Low Dose] 81 mg PO HS 04/09/19 04/09/19 History Allergies Allergy/AdvReac Type Severity Reaction Status Date / Time cephalexin monohydrate Allergy Swelling Verified 04/09/19 11:45 [From Keflex] clindamycin Allergy Swelling Verified 04/09/19 11:45 levofloxacin [From Levaquin] Allergy Swelling Verified 04/09/19 11:45 Penicillins AdvReac Itching Verified 04/09/19 11:45 prochlorperazine edisylate AdvReac IRRITABLE Verified 04/09/19 11:45 [From Compazine] prochlorperazine maleate AdvReac IRRITABLE Verified 04/09/19 11:45 [From Compazine] Physical Exam Vitals: Vital Signs Temp Pulse Pulse Resp BP Pulse Ox 04/09/19 15:40 75 18 120/67 99 04/09/19 12:48 85 20 135/85 97 04/09/19 12:20 87 04/09/19 11:28 99.1 F 103 H 18 128/87 97 Intake and Output 04/09/19 04/09/19 04/09/19 06:59 14:59 22:59 Other: Weight 154.221 kg - Constitutional General appearance: cooperative, no acute distress, morbidly obese - EENT Eyes: anicteric sclerae, PERRLA, normal appearance ENT: hearing grossly normal - Neck Neck: no lymphadenopathy, normal ROM, no other, no rigidity, no stridor, no thyromegaly - Respiratory Respiratory: bilateral: CTA, negative: diminished, dullness, rales, rhonchi - Cardiovascular Rhythm: regular Heart sounds: normal: S1, S2 Abnormal Heart Sounds: no systolic murmur, no diastolic murmur, no rub, no S3 Gallop, no S4 Gallop, no click, no other - Gastrointestinal General gastrointestinal: normal bowel sounds, soft - Integumentary Integumentary: no rash - Neurologic Neurologic: CNII-XII intact - Musculoskeletal Musculoskeletal: gait normal, strength equal bilaterally - Psychiatric Psychiatric: A&O x's 3, appropriate affect Results CBC & Chem 7: 04/09/19 12:04 04/09/19 12:04 Labs: Abnormal Lab Results - Last 24 Hours (Table) 04/09/19 Range/Units 12:04 Glucose 120 H (74-99) mg/dL Calcium 8.1 L (8.4-10.2) mg/dL ALT 61 H (9-52) U/L Thrombosis Risk Factor Assmnt - DVT/VTE Prophylaxis DVT/VTE Prophylaxis: Pharmacologic Prophylaxis ordered Assessment and Plan Plan: #1 acute chest pain , atypical in character initiated on heparin drip cardiology consult. EKG normal sinus rhythm no ST-T wave changes troponin negative. Patient has strong family history of coronary artery disease and is active smoker. #2 asthma stable #3 hypertension not on any antihypertensive medication maintain a low-salt diet patient was on multiple antihypertensive medication the last admission #4 hypothyroidism continue Synthyroid at 224 g by mouth at bedtime. Patient is supposed to take Synthyroid in the morning empty stomach's TSH ordered #5 Crohn disease no diarrhea stable #6 obstructive sleep apnea wears CPAP at night #7 depression on Zoloft and Abilify #8 CODE STATUS full code #9 disposition likely discharge tomorrow #10 tobacco use nicotine patch ordered
[2019-04-09 18:05] LABS: T4, Free (Free Thyroxine) 0.84 ng/dL (0.78-2.19)
[2019-04-09] MEDS: NITROGLYCERIN OINT 1 INCH/GM PACKET TOPICAL SCH (18:19)
[2019-04-09] MEDS ORDERED: SERTRALINE 100 MG TAB PO SCH (21:00)
[2019-04-09] MEDS ORDERED: ASPIRIN 81 MG PO SCH (21:00)
[2019-04-09] MEDS ORDERED: ARIPiprazole 15 MG TAB PO SCH (21:00)
[2019-04-09] MEDS ORDERED: LEVOTHYROXINE 112 MCG TAB PO SCH (21:00)
[2019-04-10] MEDS: NITROGLYCERIN OINT 1 INCH/GM PACKET TOPICAL SCH ×2 (00:02→06:00)
[2019-04-10 02:05] LABS: Hemoglobin A1C 6.1 % (4.0-6.0)
[2019-04-10] MEDS: MORPHINE SULFATE 4 MG/ML SYRINGE IVP PRN ×2 (02:23→11:42)
[2019-04-10 08:18] VITALS: RESP 17
[2019-04-10 08:21] LABS: Cholesterol 152 mg/dL (<200); HDL Cholesterol 40 mg/dL (40-60); LDL Cholesterol,Calculated 74 mg/dL (0-99); Triglycerides 192 mg/dL (<150)
[2019-04-10] MEDS ORDERED: ASPIRIN 325 MG TAB PO SCH (09:00)
[2019-04-10] MEDS ORDERED: DOBUTamine DRIP for NUC MED 500 MG in DEXTROSE/WATER 1 250ML.BAG IV ONE (09:07)
[2019-04-10] MEDS: NICOTINE 21MG/24HR PATCH TRANSDERM SCH (11:42)
--- NOTE | 2019-04-10 11:47 | P.CRDCN ---
History of Present Illness History of present illness: This is Kirstie Cleaning PA-C dictating a consult on this patient The patient was interviewed and examined by me as well as by Dr. Sanchez Case discussed with Dr. Sanchez and he agrees with the plan of care Update: Dobutamine stress echo normal, may go home from a cardiac standpoint and follow up with follow up with Dr. Sanchez/Kirstie Cleaning/Eusebia Pedersen in the office IMPRESSION / ASSESSMENT: Atypical chest discomfort, troponins negative Elevated TSH, has been started on levothyroxine by primary team Current smoker Prediabetic, hemoglobin A1c 6.1 PLAN: Discontinue heparin drip and nitro Dobutamine stress echo Check a d-dimer Start atorvastatin 20 mg daily Smoking cessation advised Recommend outpatient sleep apnea study Appears prediabetic but her blood pressure has been normal so we will hold off on Farrukh inhibitors for now HPI Patient is a 39-year-old female with a past medical history of smoking who presented with complaints of chest discomfort. She had a sudden onset of chest discomfort at 3 in the morning. She described it as a "sharp pressure" on the left side of her chest radiating to her arm and back with associated shortness of breath. Her shortness of breath is worse with exertion. She also feels nauseated. Denies dizziness lightheadedness or syncope. Denies any lower extremity edema. Denies any cough or fevers. Upon presentation to the emergency department her vital signs were stable. Troponins were negative 3. Chest x-ray showed no acute process. EKG showed nonspecific T-wave changes. Seen and examined resting in bed, appears comfortable. Still complaining of shortness of breath and some chest discomfort but it has improved. ROS: No fevers, chills or rigors, no cough, phlegm or expectoration, no nausea, vomiting or diarrhea, no hematuria, dysuria, no musculoskeletal complaints, no strokes or seizures, no skin lesions. EXAMINATION: Temperature 98.3F, pulse 95, respirations 17, blood pressure 128/85, oxygen saturation 98% on 2 L nasal cannula Patient seen and examined resting in bed, no acute distress Lungs clear to auscultation bilaterally Heart is regular, normal S1-S2, no murmurs appreciated No lower extremity edema noted REVIEW OF LABS, ECG & MEDICAL DATA WBC 7.2, hemoglobin 14.5, potassium 4.8, BUN 15, creatinine 0.96, magnesium 2.0 Hemoglobin A1c 6.1 Troponin negative 3 Triglycerides 192, total cholesterol 152, LDL 74, HDL 40 TSH 7.91 Chest x-ray showed no acute process EKG showed sinus mechanism with nonspecific T-wave flattening in the inferior leads. Past Medical History Past Medical History: Asthma, GERD/Reflux, Hypertension, Pneumonia, Sleep Apnea/CPAP/BIPAP, Thyroid Disorder Additional Past Medical History / Comment(s): Crohns, IBS, degenerative disc disease, episode of chest pain and rapid heart rate CPAP use. History of Any Multi-Drug Resistant Organisms: MRSA Date of last positivie culture/infection: 2013 MDRO Source:: rt side of chest Past Surgical History: Bowel Resection, Breast Surgery, Section, Cholecystectomy Additional Past Surgical History / Comment(s): LEFT BREAST BENIGN CYST REMOVED. Cyst removal/abscess small intestines, right oophorectomy and salpingectomy Past Anesthesia/Blood Transfusion Reactions: No Reported Reaction Smoking Status: Current every day smoker - Past Family History Father Family Medical History: Coronary Artery Disease (CAD), Hypertension Additional Family Medical History / Comment(s): Father is alive at age 65 with history of coronary artery disease. Mother Family Medical History: No Reported History Additional Family Medical History / Comment(s): Mother is alive at age 58 with history of coronary artery disease and asthma. Brother(s) Family Medical History: No Reported History Additional Family Medical History / Comment(s): Patient has 1 brother with no major medical problems. Sister(s) Family Medical History: No Reported History Additional Family Medical History / Comment(s): Patient has 1 sister with no major medical problems. Daughter(s) Family Medical History: Asthma, Sleep Apnea/CPAP/BIPAP Son(s) Family Medical History: Asthma, Sleep Apnea/CPAP/BIPAP Medications and Allergies Home Medications Medication Instructions Recorded Confirmed Type Sertraline [Zoloft] 200 mg PO HS 06/17/14 04/09/19 History ALPRAZolam [Xanax] 1 mg PO BID PRN 05/26/17 04/09/19 History ARIPiprazole [Abilify] 15 mg PO HS 05/26/17 04/09/19 History Levothyroxine Sodium [Synthroid] 224 mcg PO HS 07/28/18 04/09/19 History Acetaminophen-Codeine 300-30mg 1 tab PO TID PRN 04/09/19 04/09/19 History [Tylenol w/codeine #3] Aspirin EC [Ecotrin Low Dose] 81 mg PO HS 04/09/19 04/09/19 History Allergies Allergy/AdvReac Type Severity Reaction Status Date / Time cephalexin monohydrate Allergy Swelling Verified 04/09/19 20:42 [From Keflex] clindamycin Allergy Swelling Verified 04/09/19 20:42 levofloxacin [From Levaquin] Allergy Swelling Verified 04/09/19 20:42 Penicillins AdvReac Itching Verified 04/09/19 20:42 prochlorperazine edisylate AdvReac IRRITABLE Verified 04/09/19 20:42 [From Compazine] prochlorperazine maleate AdvReac IRRITABLE Verified 04/09/19 20:42 [From Compazine] Physical Exam Vitals: Vital Signs Temp Pulse Pulse Pulse Resp BP BP 04/10/19 08:00 98.3 F 95 17 128/85 04/10/19 04:00 97.9 F 91 18 105/72 04/10/19 00:00 97.9 F 83 18 100/65 04/09/19 23:55 18 04/09/19 20:00 18 04/09/19 19:17 98.4 F 89 18 133/71 04/09/19 19:10 97.4 F L 83 20 139/80 04/09/19 18:18 89 18 127/79 04/09/19 15:40 75 18 120/67 04/09/19 12:48 85 20 135/85 04/09/19 12:20 87 04/09/19 11:28 99.1 F 103 H 18 128/87 Pulse Ox 04/10/19 08:00 98 04/10/19 04:00 98 04/10/19 00:00 98 04/09/19 23:55 04/09/19 20:00 04/09/19 19:17 95 04/09/19 19:10 96 04/09/19 18:18 95 04/09/19 15:40 99 04/09/19 12:48 97 04/09/19 12:20 04/09/19 11:28 97 Intake and Output 0804/10/19 04/10/19 22:59 06:59 14:59 Intake Total 102.833 Balance 102.833 Intake: Intake, IV Titration 102.833 Amount Heparin Sod,Pork in 0.45% 102.833 NaCl 25,000 unit In 0.45 % NaCl 1 250ml.bag @ 6. 484 UNITS/KG/HR 10 mls/hr IV .Q24H [facility] Rx#: [id number] Other: # Voids 1 1 Results 04/09/19 12:04 04/09/19 12:04 Cardiac Enzymes 04/09/19 04/09/19 04/09/19 Range/Units 12:04 12:04 18:22 AST 30 (14-36) U/L Troponin I <0.012 <0.012 (0.000-0.034) ng/mL 04/09/19 Range/Units 23:02 AST (14-36) U/L Troponin I <0.012 (0.000-0.034) ng/mL Coagulation 04/09/19 04/09/19 04/10/19 Range/Units 12:04 23:02 07:26 PT 9.6 (9.0-12.0) sec APTT 25.3 23.3 28.7 (22.0-30.0) sec Lipids 04/10/19 Range/Units 07:26 Triglycerides 192 H (<150) mg/dL Cholesterol 152 (<200) mg/dL HDL Cholesterol 40 (40-60) mg/dL CBC 04/09/19 Range/Units 12:04 WBC 7.2 (3.8-10.6) k/uL RBC 4.54 (3.80-5.40) m/uL Hgb 14.5 (11.4-16.0) gm/dL Hct 43.0 (34.0-46.0) % Plt Count 317 (150-450) k/uL Comprehensive Metabolic Panel 04/09/19 Range/Units 12:04 Sodium 140 (137-145) mmol/L Potassium 4.8 (3.5-5.1) mmol/L Chloride 107 (98-107) mmol/L Carbon Dioxide 24 (22-30) mmol/L BUN 15 (7-17) mg/dL Creatinine 0.96 (0.52-1.04) mg/dL Glucose 120 H (74-99) mg/dL Calcium 8.1 L (8.4-10.2) mg/dL AST 30 (14-36) U/L ALT 61 H (9-52) U/L Alkaline Phosphatase 82 (38-126) U/L Total Protein 7.3 (6.3-8.2) g/dL Albumin 3.8 (3.5-5.0) g/dL Current Medications Generic Name Dose Route Start Last Admin Trade Name Freq PRN Reason Stop Dose Admin Alprazolam 0.5 mg 04/09/19 15:47 04/09/19 18:21 Xanax PO 0.5 mg BID PRN Administration Anxiety Aripiprazole 15 mg 04/09/19 21:00 04/09/19 20:55 Abilify PO 15 mg HS GLENYS Administration Aspirin 81 mg 04/09/19 21:00 04/09/19 20:55 Aspirin PO 81 mg HS GL[facility] Administration Heparin Sodium/Sodium Chloride 250 mls @ 10 mls/hr 04/09/19 13:30 04/10/19 00:02 25,000 unit/ Sodium Chloride IV 9.484 units/kg/hr .Q24H [facility] 14.626 mls/hr Titration Protocol 6.484 UNITS/KG/HR Dobutamine HCl/Dextrose 500 mg 250 mls @ 46.266 mls/hr 04/10/19 09:07 / IV Solution IV 04/10/19 14:31 .Q5H25M ONE Protocol 10 MCG/KG/MIN Levothyroxine Sodium 224 mcg 04/09/19 21:00 04/09/19 20:55 Synthroid PO 224 mcg HS GLENYS Administration Morphine Sulfate 4 mg 04/09/19 15:48 04/10/19 02:23 Morphine Sulfate (Inj) IVP 4 mg Q6H PRN Administration Pain Nicotine 1 patch 04/09/19 16:00 04/09/19 16:23 Habitrol 21mg/24hr Patch TRANSDERM 1 patch DAILY GLENYS Administration Nitroglycerin 1 inch 04/09/19 18:00 04/10/19 06:00 Nitro-Bid Oint TOPICAL Not Given Q6HR [facility] Nitroglycerin 0.4 mg 04/09/19 13:58 Nitrostat SUBLINGUAL Q5M PRN Chest Pain Sertraline HCl 200 mg 04/09/19 21:00 04/09/19 20:55 Zoloft PO 200 mg HS GLENYS Administration Intake and Output 04/09/19 04/10/19 04/10/19 22:59 06:59 14:59 Intake Total 102.833 Balance 102.833 Intake: Intake, IV Titration 102.833 Amount Heparin Sod,Pork in 0.45% 102.833 NaCl 25,000 unit In 0.45 % NaCl 1 250ml.bag @ 6. 484 UNITS/KG/HR 10 mls/hr IV .Q24H [facility] Rx#: [id number] Other: # Voids 1 1 04/09/19 12:04 04/09/19 12:04
--- NOTE | 2019-04-10 11:48 | P.STRESS ---
- Stress Test Note Stress Test Results/Findings: Exam Performed: dobutamine stress echo with con Exam Date: 04/10/19 Reason for Exam: CHEST PAIN Height: 5 ft 6 in Weight: 154.221 kg Protocol: DSE Stage: 5 Duration of Exercise: 12:45 Resting Heart Rate: 87 Resting Blood Pressure: 107/78 Maximum Achieved Heart Rate: 154 Maximum Achieved Blood Pressure: 167/63 85% PMHR: 156 100% PMHR: 183 METS: NA Technologist Comment: Stress Test Results/Findings: Baseline heart rate 87 beats a minute, Baseline blood pressure 107/78 mmHg Twelve-lead ECG shows sinus rhythm with normal cardiac intervals Patient received dobutamine infusion per protocol Normal blood pressure response, peak 100 154 beats a minute T-wave inversions in the inferior leads noted Baseline 2-D echo images were suboptimal and therefore Definity contrast was used to delineate the LV endocardial borders There was a stepwise increment in overall LV contractility without development of any wall motion amenities At recovery regional global LV systolic function remained normal Impression No evidence for ischemia on dobutamine stress echo T-wave inversions during dobutamine infusion resolved into recovery no evidence for any stress-induced ischemia
--- NOTE | 2019-04-10 11:51 | P.DS ---
Providers Date of admission: 04/09/19 14:26 Attending physician: Paul Gray MD Consults: 04/09/19 13:58 Consult Physician Urgent Consulting Provider: [facility] Consult Reason/Comments: Unstable angina Do you want consulting provider notified?: Yes Primary care physician: Reji Kang [facility] Course: 39 years old female with past medical history of hypothyroidism, GERD, hypertension, obstructive sleep apnea comes in with chest pain that started at rest while patient was sleeping at 3 AM in the morning persistent since the arrival of patient in the ER radiating in character to the back and arm associated with shortness of breath for the past 2 days patient denies any sweating, abdominal pain, epigastric pain, change in bowel habits black stools. Troponin 1 is negative. EKG negative for ST or T-wave changes normal sinus rhythm. Patient is initiated on heparin drip cardiology evaluation. Patient has strong family history of coronary artery disease in both her parents and is an active smoker for the past 10 years. 8 chest pain is improved. Patient underwent stress test that was negative for any coronary artery disease. Patient has significant GERD and had an endoscopy many years ago. Would recommend outpatient endoscopy with Dr. Garnett. Would increase omeprazole to twice daily no epigastric tenderness or abdominal tenderness noticed to suggest gallbladder etiology. Patient also instructed to take Synthyroid in the morning empty stomach 30 minutes prior to having a other medications are food. Discharge diagnoses Noncardiac chest pain Hypothyroidism Hypertension Hyperlipidemia Depression GERD Tobacco use Morbid obesity Disposition home with home care CC a copy of discharge to Dr. Diaz Plan - Discharge Summary New Discharge Prescriptions: New Nicotine 21Mg/24Hr Patch [Habitrol] 1 patch TRANSDERM DAILY #30 patch Atorvastatin [Lipitor] 20 mg PO HS #30 tab Omeprazole 20 mg PO AC-BID #60 tablet.dr Continue Sertraline [Zoloft] 200 mg PO HS ARIPiprazole [Abilify] 15 mg PO HS ALPRAZolam [Xanax] 1 mg PO BID PRN PRN Reason: Anxiety Aspirin EC [Ecotrin Low Dose] 81 mg PO HS Acetaminophen-Codeine 300-30mg [Tylenol w/codeine #3] 1 tab PO TID PRN PRN Reason: Pain Changed Levothyroxine Sodium [Synthroid] 224 mcg PO AC-BRKFST #0 Discharge Medication List Sertraline [Zoloft] 200 mg PO HS 06/17/14 [History] ALPRAZolam [Xanax] 1 mg PO BID PRN 05/26/17 [History] ARIPiprazole [Abilify] 15 mg PO HS 05/26/17 [History] Acetaminophen-Codeine 300-30mg [Tylenol w/codeine #3] 1 tab PO TID PRN 04/09/19 [History] Aspirin EC [Ecotrin Low Dose] 81 mg PO HS 04/09/19 [History] Atorvastatin [Lipitor] 20 mg PO HS #30 tab 04/10/19 [Rx] Levothyroxine Sodium [Synthroid] 224 mcg PO AC-BRKFST #0 04/10/19 [Rx] Nicotine 21Mg/24Hr Patch [Habitrol] 1 patch TRANSDERM DAILY #30 patch 04/10/19 [Rx] Omeprazole 20 mg PO AC-BID #60 tablet. 04/10/19 [Rx] Follow up Appointment(s)/Referral(s): Reji Diaz MD [Primary Care Provider] - 1-2 days Discharge Disposition: HOME SELF-CARE
[2019-04-10 12:02] VITALS: BP 122/82; PULSE 94; TEMP 98.1
[2019-04-10] MEDS ORDERED: ATORVASTATIN 20 MG TAB PO SCH (21:00)
== END 2019-04-10 14:50 | disposition home or self-care (01) ==
LOC: EC 11:20 → 1SOBS 14:26
PROVIDERS: ADMIT Internal Medicine; ATTEND Internal Medicine
DX: R07.89 Other chest pain (principal); R11.0 Nausea; R06.02 Shortness of breath; E03.9 Hypothyroidism, unspecified; I10 Essential (primary) hypertension; E78.5 Hyperlipidemia, unspecified; R73.03 Prediabetes; F31.9 Bipolar disorder, unspecified; F41.9 Anxiety disorder, unspecified; K21.9 Gastro-esophageal reflux disease without esophagitis; E66.01 Morbid (severe) obesity due to excess calories; Z68.43 Body mass index [BMI] 50.0-59.9, adult; F17.200 Nicotine dependence, unspecified, uncomplicated; K50.90 Crohn's disease, unspecified, without complications; G47.33 Obstructive sleep apnea (adult) (pediatric); J45.909 Unspecified asthma, uncomplicated; Z87.01 Personal history of pneumonia (recurrent); Z99.89 Dependence on other enabling machines and devices; Z86.14 Personal history of Methicillin resistant Staphylococcus aureus infection; Z90.49 Acquired absence of other specified parts of digestive tract; Z79.890 Hormone replacement therapy; Z79.899 Other long term (current) drug therapy; Z79.82 Long term (current) use of aspirin; Z88.8 Allergy status to other drugs, medicaments and biological substances; Z88.0 Allergy status to penicillin; Z88.1 Allergy status to other antibiotic agents; Z82.5 Family history of asthma and other chronic lower respiratory diseases; Z82.49 Family history of ischemic heart disease and other diseases of the circulatory system
CPT/HCPCS: 96366 ×3; 96376 ×2; 96365; 96375; 99291; 36415; 93005; 85379; 84439; 83880; 80061; 80053; 84443; 83735; 84484; 85025; 85610; 85730 ×2; 83036; 71046; G0378 ×2; C8930; S4990 ×2; J1250; J2270 ×2; J1644 ×2; J2405; Q9950; 93351; 96372

== ENCOUNTER 2019-04-25 21:12 | Observation (INO) | payer OTHER ==
[2019-04-25] MEDS: MORPHINE SULFATE 4 MG/ML SYRINGE IV STA (23:07)
[2019-04-25 23:18] LABS: Basophils # (A) 0.1 k/uL (0-0.2); Basophils % (A) 1 %; Eosinophils # (A) 0.4 k/uL (0-0.7); Eosinophils % (A) 4 %; HCT 44.4 % (34.0-46.0); HGB 14.6 gm/dL (11.4-16.0); Lymphocytes # (A) 2.3 k/uL (1.0-4.8); Lymphocytes % (A) 25 %; MCH 31.4 pg (25.0-35.0); MCHC 32.9 g/dL (31.0-37.0); MCV 95.3 fL (80.0-100.0); Mean Platelet Volume 7.6; Monocytes # (A) 0.4 k/uL (0-1.0); Monocytes % (A) 4 %; Neutrophils % (A) 65 %; Platelet Count 345 k/uL (150-450); RBC 4.66 m/uL (3.80-5.40); RDW 13.3 % (11.5-15.5); WBC 9.2 k/uL (3.8-10.6)
[2019-04-25 23:30] LABS: ALT 28 U/L (9-52); AST 43 U/L (14-36); African American GFR (CKD) >90 (>60 ml/min/1.73 sqM); Albumin 4.3 g/dL (3.5-5.0); Alkaline Phosphatase 74 U/L (38-126); Anion Gap 10 mmol/L; Blood Urea Nitrogen 12 mg/dL (7-17); C Reactive Protein 6.1 mg/L (<10.0); Calcium 8.6 mg/dL (8.4-10.2); Carbon Dioxide 22 mmol/L (22-30); Chloride 108 mmol/L (98-107); Glucose 120 mg/dL (74-99); Sodium 140 mmol/L (137-145); Total Bilirubin 1.1 mg/dL (0.2-1.3); Total Protein 8.3 g/dL (6.3-8.2)
--- NOTE | 2019-04-25 23:46 | CT ---
EXAM: CT Abdomen and Pelvis With Intravenous Contrast CLINICAL HISTORY: left groin abscess TECHNIQUE: Axial computed tomography images of the abdomen and pelvis with intravenous contrast. CTDI is 0.242, 0.242, 37.4, 30.4 mGy and DLP is 3849 mGy-cm. This CT exam was performed using one or more of the following dose reduction techniques: automated exposure control, adjustment of the mA and/or kV according to patient size, and/or use of iterative reconstruction technique. COMPARISON: 02/26/2019 FINDINGS: Limitations: The pelvis and perineum are incompletely imaged. Lung bases: Unremarkable. ABDOMEN: Liver: The liver is enlarged and diffusely hypodense suggestive of steatosis. No focal lesions. Gallbladder and bile ducts: Gallbladder is surgically absent. Stable nonspecific biliary dilatation may be postsurgical. Pancreas: Unremarkable. Spleen: Unremarkable. Adrenals: Unremarkable. Kidneys and ureters: Unremarkable. No solid mass. No hydronephrosis. Stomach and bowel: Postsurgical changes are present in the cecum. PELVIS: Appendix: The appendix is not identified. Bladder: Unremarkable. Reproductive: Left tubal ligation clip. A clip in the right anterior pelvis may represent a malpositioned right tubal ligation clip. ABDOMEN and PELVIS: Intraperitoneal space: Unremarkable. No free air. Bones/joints: No acute osseous abnormality. Soft tissues: Incompletely imaged area of subcutaneous edema in the left inguinal region may be related to infection. A drainable fluid collection is not identified. No soft tissue gas. Small fat-containing periumbilical hernia. Vasculature: Unremarkable. No abdominal aortic aneurysm. Lymph nodes: Unremarkable. IMPRESSION: Incompletely imaged area of subcutaneous edema in the left inguinal region may be related to infection. A drainable fluid collection is not identified. No soft tissue gas.
[2019-04-25] MEDS ORDERED: VANCOMYCIN 1,000 MG in SODIUM CHLORIDE 0.9% 250 ML IVPB STA (23:47)
[2019-04-26] MEDS ORDERED: VANCOMYCIN IV PER PHARMACY 1 EACH MISC MISCELLANE PRN (00:02)
[2019-04-26 00:03] LABS: Erythrocyte Sedimentation Rate 20 mm/hr (0-20)
[2019-04-26] MEDS: MORPHINE SULFATE 4 MG/ML SYRINGE IV STA (00:34)
[2019-04-26] MEDS ORDERED: MORPHINE SULFATE 4 MG/ML SYRINGE IVP STA (00:45)
--- NOTE | 2019-04-26 00:48 | ED ---
Skin/Abscess/FB HPI - General Chief complaint: Skin/Abscess/Foreign Body Stated complaint: Abcess, female Time Seen by Provider: 04/25/19 21:44 Source: patient Mode of arrival: ambulatory Limitations: no limitations - History of Present Illness Initial comments: The patient is a 39-year-old female with past medical history of MRSA abscesses who presents to the emergency department with reported abscess in her left groin. States that it developed 2 days ago. She has had some serosanguineous drainage from the site. She also reports to a minimum amount of bleeding. She has had significant pain with difficulty ambulating. Reports to several ab scesses in the past that required incision and drainage. She is previously followed up with several surgeons, however nothing recent. She denies a history of diabetes. Denies any abnormal vaginal bleeding or discharge. No changes in her bowel or bladder habits. Denies any fevers or chills. There are no other alleviating, precipitating or modifying factors - Related Data Home Medications Medication Instructions Recorded Confirmed Sertraline [Zoloft] 200 mg PO HS 06/17/14 04/25/19 ALPRAZolam [Xanax] 1 mg PO BID PRN 05/26/17 04/25/19 ARIPiprazole [Abilify] 15 mg PO HS 05/26/17 04/25/19 Aspirin EC [Ecotrin Low Dose] 81 mg PO HS 04/09/19 04/25/19 Previous Rx's Medication Instructions Recorded Atorvastatin [Lipitor] 20 mg PO HS #30 tab 04/10/19 Levothyroxine Sodium [Synthroid] 224 mcg PO AC-BRKFST #0 04/10/19 HYDROcodone/APAP 5-325MG [[place] 1 tab PO Q6HR PRN 3 Days #12 tab 04/26/19 5-325] Sulfamethox-Tmp 800-160Mg [Bactrim 2 tab PO Q12HR #56 tab 04/26/19 DS 800-160 mg] Allergies Allergy/AdvReac Type Severity Reaction Status Date / Time cephalexin monohydrate Allergy Swelling Verified 04/25/19 22:04 [From Keflex] clindamycin Allergy Swelling Verified 04/25/19 22:04 levofloxacin [From Levaquin] Allergy Swelling Verified 04/25/19 22:04 Penicillins AdvReac Itching Verified 04/25/19 22:04 prochlorperazine edisylate AdvReac IRRITABLE Verified 04/25/19 22:04 [From Compazine] prochlorperazine maleate AdvReac IRRITABLE Verified 04/25/19 22:04 [From Compazine] Review of Systems ROS Statement: Those systems with pertinent positive or pertinent negative responses have been documented in the HPI. ROS Other: All systems not noted in ROS Statement are negative. Past Medical History Past Medical History: Asthma, GERD/Reflux, Hypertension, Pneumonia, Sleep Apnea/CPAP/BIPAP, Thyroid Disorder Additional Past Medical History / Comment(s): Crohns, IBS, degenerative disc disease, episode of chest pain and rapid heart rate CPAP use. History of Any Multi-Drug Resistant Organisms: MRSA Date of last positivie culture/infection: 2013 MDRO Source:: rt side of chest Past Surgical History: Bowel Resection, Breast Surgery, Section, Cholecystectomy Additional Past Surgical History / Comment(s): LEFT BREAST BENIGN CYST REMOVED. Cyst removal/abscess small intestines, right oophorectomy and salpingectomy Past Anesthesia/Blood Transfusion Reactions: No Reported Reaction Past Psychological History: Anxiety, Bipolar, Depression Smoking Status: Current every day smoker Past Alcohol Use History: None Reported Past Drug Use History: None Reported - Past Family History Father Family Medical History: Coronary Artery Disease (CAD), Hypertension Additional Family Medical History / Comment(s): Father is alive at age 65 with history of coronary artery disease. Mother Family Medical History: No Reported History Additional Family Medical History / Comment(s): Mother is alive at age 58 with history of coronary artery disease and asthma. Brother(s) Family Medical History: No Reported History Additional Family Medical History / Comment(s): Patient has 1 brother with no major medical problems. Sister(s) Family Medical History: No Reported History Additional Family Medical History / Comment(s): Patient has 1 sister with no major medical problems. Daughter(s) Family Medical History: Asthma, Sleep Apnea/CPAP/BIPAP Son(s) Family Medical History: Asthma, Sleep Apnea/CPAP/BIPAP General Exam Limitations: no limitations Respiratory exam: Present: normal lung sounds bilaterally. Absent: respiratory distress, wheezes, rales, rhonchi Cardiovascular Exam: Present: normal rhythm, tachycardia GI/Abdominal exam: Present: soft, normal bowel sounds. Absent: distended, tenderness, guarding, rebound, rigid Rectal exam: Present: normal inspection, normal rectal tone External exam: Present: erythema, swelling, lesions (there is a 2.0 x 2.0 x 2.0 cm open wound in the patients left groin. I am able to deeply probe the abscess. There does not appear to be a communication with the underlying vascular structures. There also appears to be no gross communication with the peritoneal cavity. There is slight bleeding from the sight. ) Speculum exam: Absent: vaginal discharge Extremities exam: Present: normal inspection, full ROM. Absent: tenderness Course Vital Signs 04/25/19 21:35 Temperature 98.7 F Pulse Rate 113 H Respiratory 20 Rate Blood Pressure 127/78 O2 Sat by Pulse 99 Oximetry Medical Decision Making - Medical Decision Making Upon arrival the patient is placed into room 3. She is hooked up to continuous pulse ox and cardiac monitoring. Peripheral IV is established. Clinical exam does demonstrate an abscess to the patient's left inguinal region which extends deep into the subcutaneous tissue. I'm able to probe the lesion to the depth of approximately 2.5 cm. Because of the extent of the lesion I did recommend laboratory studies as well as a CT of the patient's abdomen and pelvis with contrast. Patient did agree to this. She was given 4 of morphine for pain. The results of the laboratory studies and imaging are reviewed. I did discuss them with the patient. Laboratory studies are remarkable for a lactic acid of 2.1. Because of this the patient is given a liter bolus of 0.9% normal saline with 100 mL/hr to follow. Also provided the patient with 2 g of Vanco. This is per pharmacy recommendation. CT exam does not completely extend through the area of concern. I did discuss this with the patient. I did recommend admission to the hospital for continued antibiotic administration of this patient does have multiple antibiotic ALLERGIES. I also recommended evaluation by surgery. The patient did agree to this. She will receive morphine overnight for pain control. I will consult Dr. Mar. I called and discussed the case with Dr. Murphy and he did accept admission of the patient. The patient was transported to the floor in stable condition - Differential Diagnosis acute inguinal abscess, acute hyperglycemia, hx MRSA - Lab Data Result diagrams: 04/25/19 23:05 04/25/19 23:05 Lab Results 04/25/19 04/25/1919 Range/Units 23:05 23:05 23:05 WBC 9.2 (3.8-10.6) k/uL RBC 4.66 (3.80-5.40) m/uL Hgb 14.6 (11.4-16.0) gm/dL Hct 44.4 (34.0-46.0) % MCV 95.3 (80.0-100.0) fL MCH 31.4 (25.0-35.0) pg MCHC 32.9 (31.0-37.0) g/dL RDW 13.3 (11.5-15.5) % Plt Count 345 (150-450) k/uL Neutrophils % 65 % Lymphocytes % 25 % Monocytes % 4 % Eosinophils % 4 % Basophils % 1 % Neutrophils # 6.0 (1.3-7.7) k/uL Lymphocytes # 2.3 (1.0-4.8) k/uL Monocytes # 0.4 (0-1.0) k/uL Eosinophils # 0.4 (0-0.7) k/uL Basophils # 0.1 (0-0.2) k/uL ESR 20 (0-20) mm/hr Sodium 140 (137-145) mmol/L Potassium (3.5-5.1) mmol/L Chloride 108 H (98-107) mmol/L Carbon Dioxide 22 (22-30) mmol/L Anion Gap 10 mmol/L BUN 12 (7-17) mg/dL Creatinine 0.93 (0.52-1.04) mg/dL Est GFR (CKD-EPI)AfAm >90 (>60 ml/min/1.73 sqM) Est GFR (CKD-EPI)NonAf 79 (>60 ml/min/1.73 sqM) Glucose 120 H (74-99) mg/dL Lactic Ac Sepsis Rflx Plasma Lactic Acid Kaden 2.1 H* (0.7-2.0) mmol/L Calcium 8.6 (8.4-10.2) mg/dL Total Bilirubin 1.1 (0.2-1.3) mg/dL AST 43 H (14-36) U/L ALT 28 (9-52) U/L Alkaline Phosphatase 74 (38-126) U/L C-Reactive Protein 6.1 (<10.0) mg/L Total Protein 8.3 H (6.3-8.2) g/dL Albumin 4.3 (3.5-5.0) g/dL 04/25/19 Range/Units 23:32 WBC (3.8-10.6) k/uL RBC (3.80-5.40) m/uL Hgb (11.4-16.0) gm/dL Hct (34.0-46.0) % MCV (80.0-100.0) fL MCH (25.0-35.0) pg MCHC (31.0-37.0) g/dL RDW (11.5-15.5) % Plt Count (150-450) k/uL Neutrophils % % Lymphocytes % % Monocytes % % Eosinophils % % Basophils % % Neutrophils # (1.3-7.7) k/uL Lymphocytes # (1.0-4.8) k/uL Monocytes # (0-1.0) k/uL Eosinophils # (0-0.7) k/uL Basophils # (0-0.2) k/uL ESR (0-20) mm/hr Sodium (137-145) mmol/L Potassium (3.5-5.1) mmol/L Chloride (98-107) mmol/L Carbon Dioxide (22-30) mmol/L Anion Gap mmol/L BUN (7-17) mg/dL Creatinine (0.52-1.04) mg/dL Est GFR (CKD-EPI)AfAm (>60 ml/min/1.73 sqM) Est GFR (CKD-EPI)NonAf (>60 ml/min/1.73 sqM) Glucose (74-99) mg/dL Lactic Ac Sepsis Rflx Y Plasma Lactic Acid Kaden (0.7-2.0) mmol/L Calcium (8.4-10.2) mg/dL Total Bilirubin (0.2-1.3) mg/dL AST (14-36) U/L ALT (9-52) U/L Alkaline Phosphatase (38-126) U/L C-Reactive Protein (<10.0) mg/L Total Protein (6.3-8.2) g/dL Albumin (3.5-5.0) g/dL Disposition Clinical Impression: Abscess of left groin Disposition: ADMITTED IP TO THIS HOSP Condition: Stable Is patient prescribed a controlled substance at d/c from ED?: No Decision to Admit Reason: Admit from EC Decision Date: 04/26/19 Decision Time: 00:48
[2019-04-26] MEDS ORDERED: VANCOMYCIN 2,000 MG in SODIUM CHLORIDE 0.9% 500 ML 500 ML IVPB ONE (01:00)
[2019-04-26] MEDS ORDERED: NALOXONE 0.4 MG/ML 1 ML VIAL IV PRN (01:11)
[2019-04-26] MEDS ORDERED: ALPRAZolam 1 MG TAB PO PRN (01:13)
[2019-04-26] MEDS ORDERED: SODIUM CHLORIDE 0.9% 1,000 ML IV ONE (01:44)
[2019-04-26 02:11] VITALS: BMI 56.1
[2019-04-26] MEDS: SODIUM CHLORIDE 0.9% 1,000 ML IV SCH ×2 (03:00→16:59)
[2019-04-26] MEDS: MORPHINE SULFATE 4 MG/ML SYRINGE IV PRN ×2 (03:50→08:00)
[2019-04-26] MEDS ORDERED: LEVOTHYROXINE 112 MCG TAB PO SCH (07:30)
[2019-04-26] MEDS ORDERED: ACETAMINOPHEN TAB 325 MG TAB PO PRN (10:23)
[2019-04-26] MEDS ORDERED: IBUPROFEN 600 MG TAB PO PRN (10:24)
--- NOTE | 2019-04-26 11:50 | P.GSCN ---
<Hannah Garcia - Last Filed: 04/26/19 11:45> History of Present Illness Consult date: 04/26/19 Reason for Consult: left groin abscess Requesting physician: Emma Bui History of present illness: CHIEF COMPLAINT: left groin abscess HISTORY OF PRESENT ILLNESS: 39-year-old female who presents to emergency room with a chief complaint of abscess to her left groin. Patient reports she initially noticed a bump in her left groin approximately a week ago. Over the past few days it has gotten larger and more tender. She reports it "popped" yesterday and then began draining fluid. She reports history of MRSA. Has had 5-6 abscesses in the past requiring I&D including her chest, left a xilla, and thighs. She denies fever or chills. Denies nausea or vomiting. Patient received IV morphine this morning. It is noted during my examination the patient is having periods of apnea and difficulty staying awake. PAST MEDICAL HISTORY: See list. PAST SURGICAL HISTORY: See list. SOCIAL HISTORY: No illicit drug use. REVIEW OF SYSTEMS: CONSTITUTIONAL: Denies fever or chills. HEENT: Denies blurred vision, vision changes, or eye pain. Denies hemoptysis CARDIOVASCULAR: Denies chest pain or pressure. RESPIRATORY: No shortness of breath. GASTROINTESTINAL: denies abdominal pain. Denies nausea or vomiting. HEMATOLOGIC: Denies bleeding disorders. GENITOURINARY: Denies any blood in urine. SKIN: Reports abscess to left groin PHYSICAL EXAM: VITAL SIGNS: Reviewed. GENERAL: Well-developed in no acute distress. HEENT: No sclera icterus. Extraocular movements grossly intact. Moist buccal mucosa. Head is atraumatic, normocephalic. ABDOMEN: Soft. Nondistended. Nontender. NEUROLOGIC: Alert and oriented. Cranial nerves II through XII grossly intact. SKIN: Left groin with approximately 1cm in diameter open wound. Minimal surrounding erythema. No swelling. Tender to light palpation. Draining serosanguineous fluid. Foul odor noted. LABORATORY DATA: WBC 9.2. Hemoglobin 14.6. Platelet count 345. Lactic acid 2.1. IMAGING: CT abdomen and pelvis: subcutaneous edema in the left inguinal region may be related to infection. No sizable fluid collection is identified. No soft tissue gas. ASSESSMENT: 1. Left groin abscess, spontaneously draining 2. History of multiple abscesses requiring surgical I&D 3. History of MRSA PLAN: 1. Discontinue morphine as patient is having periods of apnea during examination. Tylenol, motrin, [place] PRN. 2. Continue current diet 3. Obtain wound cultures 4. Continue antibiotics 5. No surgical intervention recommended at this time. Further recommendations pending patient course. Nurse practitioner note has been reviewed by physician. Signing provider agrees with the documented findings, assessment, and plan of care. Past Medical History Past Medical History: Asthma, GERD/Reflux, Hypertension, Pneumonia, Sleep Apnea/CPAP/BIPAP, Thyroid Disorder Additional Past Medical History / Comment(s): Crohns, IBS, degenerative disc disease, episode of chest pain and rapid heart rate CPAP use. History of Any Multi-Drug Resistant Organisms: MRSA Year Discovered:: 2013 MDRO Source:: rt side of chest Past Surgical History: Appendectomy, Bowel Resection, Breast Surgery, Section, Cholecystectomy Additional Past Surgical History / Comment(s): LEFT BREAST BENIGN CYST REMOVED. Cyst removal/abscess small intestines, right oophorectomy and salpingectomy Past Anesthesia/Blood Transfusion Reactions: No Reported Reaction Past Psychological History: Anxiety, Bipolar, Depression Smoking Status: Current every day smoker Past Alcohol Use History: None Reported Additional Past Alcohol Use History / Comment(s): Patient is a smoker one pack per day for more than 10 years. She denies any medical marijuana, marijuana, street drug or alcohol use. She lives at home with her . She has 4 children with no major medical problems. Past Drug Use History: None Reported - Past Family History Father Family Medical History: Coronary Artery Disease (CAD), Hypertension Additional Family Medical History / Comment(s): Father is alive at age 65 with history of coronary artery disease. Mother Family Medical History: No Reported History Additional Family Medical History / Comment(s): Mother is alive at age 58 with history of coronary artery disease and asthma. Brother(s) Family Medical History: No Reported History Additional Family Medical History / Comment(s): Patient has 1 brother with no major medical problems. Sister(s) Family Medical History: No Reported History Additional Family Medical History / Comment(s): Patient has 1 sister with no major medical problems. Daughter(s) Family Medical History: Asthma, Sleep Apnea/CPAP/BIPAP Son(s) Family Medical History: Asthma, Sleep Apnea/CPAP/BIPAP Medications and Allergies Home Medications Medication Instructions Recorded Confirmed Type Sertraline [Zoloft] 200 mg PO HS 06/17/14 04/25/19 History ALPRAZolam [Xanax] 1 mg PO BID PRN 05/26/17 04/25/19 History ARIPiprazole [Abilify] 15 mg PO HS 05/26/17 04/25/19 History Aspirin EC [Ecotrin Low Dose] 81 mg PO HS 04/09/19 04/25/19 History Atorvastatin [Lipitor] 20 mg PO HS #30 tab 04/10/19 04/25/19 Rx Levothyroxine Sodium [Synthroid] 224 mcg PO AC-BRKFST #0 04/10/19 04/25/19 Rx Allergies Allergy/AdvReac Type Severity Reaction Status Date / Time cephalexin monohydrate Allergy Swelling Verified 04/25/19 22:04 [From Keflex] clindamycin Allergy Swelling Verified 04/25/19 22:04 levofloxacin [From Levaquin] Allergy Swelling Verified 04/25/19 22:04 Penicillins AdvReac Itching Verified 04/25/19 22:04 prochlorperazine edisylate AdvReac IRRITABLE Verified 04/25/19 22:04 [From Compazine] prochlorperazine maleate AdvReac IRRITABLE Verified 04/25/19 22:04 [From Compazine] Surgical - Exam Vital Signs Temp Pulse Resp BP Pulse Ox 98.7 F 113 H 20 127/78 99 04/25/19 21:35 04/25/19 21:35 04/25/19 21:35 04/25/19 21:35 04/25/19 21:35 Results - Labs 04/25/19 23:05 04/25/19 23:05 Abnormal Lab Results - Last 24 Hours (Table) 04/25/19 04/25/19 Range/Units 23:05 23:05 Chloride 108 H (98-107) mmol/L Glucose 120 H (74-99) mg/dL Plasma Lactic Acid Kaden 2.1 H* (0.7-2.0) mmol/L AST 43 H (14-36) U/L Total Protein 8.3 H (6.3-8.2) g/dL Diabetes panel 04/25/19 Range/Units 23:05 Sodium 140 (137-145) mmol/L Potassium (3.5-5.1) mmol/L Chloride 108 H (98-107) mmol/L Carbon Dioxide 22 (22-30) mmol/L BUN 12 (7-17) mg/dL Creatinine 0.93 (0.52-1.04) mg/dL Glucose 120 H (74-99) mg/dL Calcium 8.6 (8.4-10.2) mg/dL AST 43 H (14-36) U/L ALT 28 (9-52) U/L Alkaline Phosphatase 74 (38-126) U/L Total Protein 8.3 H (6.3-8.2) g/dL Albumin 4.3 (3.5-5.0) g/dL Calcium panel 04/25/19 Range/Units 23:05 Calcium 8.6 (8.4-10.2) mg/dL Albumin 4.3 (3.5-5.0) g/dL Pituitary panel 04/25/19 Range/Units 23:05 Sodium 140 (137-145) mmol/L Potassium (3.5-5.1) mmol/L Chloride 108 H (98-107) mmol/L Carbon Dioxide 22 (22-30) mmol/L BUN 12 (7-17) mg/dL Creatinine 0.93 (0.52-1.04) mg/dL Glucose 120 H (74-99) mg/dL Calcium 8.6 (8.4-10.2) mg/dL Adrenal panel 04/25/19 Range/Units 23:05 Sodium 140 (137-145) mmol/L Potassium (3.5-5.1) mmol/L Chloride 108 H (98-107) mmol/L Carbon Dioxide 22 (22-30) mmol/L BUN 12 (7-17) mg/dL Creatinine 0.93 (0.52-1.04) mg/dL Glucose 120 H (74-99) mg/dL Calcium 8.6 (8.4-10.2) mg/dL Total Bilirubin 1.1 (0.2-1.3) mg/dL AST 43 H (14-36) U/L ALT 28 (9-52) U/L Alkaline Phosphatase 74 (38-126) U/L Total Protein 8.3 H (6.3-8.2) g/dL Albumin 4.3 (3.5-5.0) g/dL <Larry Mar - Last Filed: 04/26/19 12:01> History of Present Illness History of present illness: As above. Patient with small spontaneously draining abscess left groin. Continue local wound care. Continue antibiotics. If discharged today follow-up in the outpatient setting. Surgical - Exam Vital Signs Temp Pulse Resp BP Pulse Ox 98.7 F 113 H 20 127/78 99 04/25/19 21:35 04/25/19 21:35 04/25/19 21:35 04/25/19 21:35 04/25/19 21:35 Results - Labs 04/25/19 23:05 04/25/19 23:05 Abnormal Lab Results - Last 24 Hours (Table) 04/25/19 04/25/19 Range/Units 23:05 23:05 Chloride 108 H (98-107) mmol/L Glucose 120 H (74-99) mg/dL Plasma Lactic Acid Kaden 2.1 H* (0.7-2.0) mmol/L AST 43 H (14-36) U/L Total Protein 8.3 H (6.3-8.2) g/dL Diabetes panel 04/25/19 Range/Units 23:05 Sodium 140 (137-145) mmol/L Potassium (3.5-5.1) mmol/L Chloride 108 H (98-107) mmol/L Carbon Dioxide 22 (22-30) mmol/L BUN 12 (7-17) mg/dL Creatinine 0.93 (0.52-1.04) mg/dL Glucose 120 H (74-99) mg/dL Calcium 8.6 (8.4-10.2) mg/dL AST 43 H (14-36) U/L ALT 28 (9-52) U/L Alkaline Phosphatase 74 (38-126) U/L Total Protein 8.3 H (6.3-8.2) g/dL Albumin 4.3 (3.5-5.0) g/dL Calcium panel 04/25/19 Range/Units 23:05 Calcium 8.6 (8.4-10.2) mg/dL Albumin 4.3 (3.5-5.0) g/dL Pituitary panel 04/25/19 Range/Units 23:05 Sodium 140 (137-145) mmol/L Potassium (3.5-5.1) mmol/L Chloride 108 H (98-107) mmol/L Carbon Dioxide 22 (22-30) mmol/L BUN 12 (7-17) mg/dL Creatinine 0.93 (0.52-1.04) mg/dL Glucose 120 H (74-99) mg/dL Calcium 8.6 (8.4-10.2) mg/dL Adrenal panel 04/25/19 Range/Units 23:05 Sodium 140 (137-145) mmol/L Potassium (3.5-5.1) mmol/L Chloride 108 H (98-107) mmol/L Carbon Dioxide 22 (22-30) mmol/L BUN 12 (7-17) mg/dL Creatinine 0.93 (0.52-1.04) mg/dL Glucose 120 H (74-99) mg/dL Calcium 8.6 (8.4-10.2) mg/dL Total Bilirubin 1.1 (0.2-1.3) mg/dL AST 43 H (14-36) U/L ALT 28 (9-52) U/L Alkaline Phosphatase 74 (38-126) U/L Total Protein 8.3 H (6.3-8.2) g/dL Albumin 4.3 (3.5-5.0) g/dL
[2019-04-26] MEDS: HYDROcodone/APAP 5-325MG 1 EACH TAB PO PRN ×2 (12:34→17:04)
[2019-04-26] MEDS ORDERED: VANCOMYCIN 2,000 MG in SODIUM CHLORIDE 0.9% 500 ML 500 ML IVPB SCH (13:00)
--- NOTE | 2019-04-26 13:32 | P.HPIM ---
History of Present Illness H&P Date: 04/26/19 Chief Complaint: Abscess left groin HISTORY AND PHYSICAL AND DISCHARGE SUMMARY: This is a 39-year-old female patient of Dr. Diaz with past medical history of hypothyroidism, GERD, hypertension, obstructive sleep apnea. Patient was recently seen in the hospital in April for noncardiac chest pain, possibly related to gastroesophageal reflux disease. Patient reports noticed a bump on Monday in the left groin. She says on Monday she could hardly walk because of swelling and pain to the groin area. On it started draining serosanguineous fluid. She denies having any fever or chills. She has had abscesses in the past that have required I&D and also history of MRSA. No fever or chills. She denies history of diabetes. Hemoglobin A1c on April 09 was 6.1. Patient presented to [facility] emergency center for evaluation. Patient was afebrile, normal white count, blood sugar 120, lactic acid 2.1. Sed rate 20 and CRP 6.1. Patient was given 1 L of IV fluid bolus and started on antibiotics in the form of vancomycin. CAT scan of the abdomen and pelvis with contrast revealed incompletely imaged area of subcutaneous edema in the left inguinal region may be related to infection. A drainable fluid collection is not identified. No soft tissue gas. The patient was seen in consultation by Dr. Mar and area did not require I&D. Patient was cleared for discharge. Wound culture was obtained this morning. Patient is agreeable for discharge home with follow-up with Dr. Diaz on Monday for results of culture and to assess wound. . Patient has been provided a prescription for Branch for 3 day course. Start talking form has been reviewed with the patient and she verbalizes understanding. Map scored 320. Review of Systems Constitutional: Denies chills, Denies fatigue, Denies fever, Denies poor appetite, Denies weakness, Denies weight loss Ears, nose, mouth and throat: Denies dental pain, Denies dysphagia, Denies nasal congestion, Denies nasal discharge, Denies vertigo Cardiovascular: Denies chest pain, Denies decreased exercise tolerance, Denies dyspnea on exertion, Denies edema, Denies leg edema, Denies lightheadedness, Denies shortness of breath, Denies syncope Respiratory: Denies cough, Denies dyspnea, Denies excessive sputum, Denies hemoptysis, Denies home oxygen, Denies wheezing Gastrointestinal: Reports abdominal pain (Left groin pain), Denies diarrhea, Denies nausea, Denies vomiting Genitourinary: Denies dysuria, Denies hematuria, Denies urgency, Denies urinary frequency Musculoskeletal: Denies frequent falls, Denies gait dysfunction, Denies myalgias Integumentary: Reports wounds, Denies pruritus, Denies rash Neurological: Denies change in mentation, Denies change in speech, Denies gait dysfunction, Denies numbness, Denies weakness Psychiatric: Denies anxiety, Denies depression Endocrine: Denies fatigue, Denies weight change Past Medical History Past Medical History: Asthma, GERD/Reflux, Hypertension, Pneumonia, Sleep Apnea/CPAP/BIPAP, Thyroid Disorder Additional Past Medical History / Comment(s): Crohns, IBS, degenerative disc disease, episode of chest pain and rapid heart rate CPAP use. History of Any Multi-Drug Resistant Organisms: MRSA Date of last positivie culture/infection: 2013 MDRO Source:: rt side of chest Past Surgical History: Appendectomy, Bowel Resection, Breast Surgery, Section, Cholecystectomy Additional Past Surgical History / Comment(s): LEFT BREAST BENIGN CYST REMOVED. Cyst removal/abscess small intestines, right oophorectomy and salpingectomy Past Anesthesia/Blood Transfusion Reactions: No Reported Reaction Past Psychological History: Anxiety, Bipolar, Depression Smoking Status: Current every day smoker Past Alcohol Use History: None Reported Additional Past Alcohol Use History / Comment(s): Patient is a smoker one pack per day for more than 10 years. She denies any medical marijuana, marijuana, street drug or alcohol use. She lives at home with her . She has 4 children with no major medical problems. Past Drug Use History: None Reported - Past Family History Father Family Medical History: Coronary Artery Disease (CAD), Hypertension Additional Family Medical History / Comment(s): Father is alive at age 65 with history of coronary artery disease. Mother Family Medical History: No Reported History Additional Family Medical History / Comment(s): Mother is alive at age 58 with history of coronary artery disease and asthma. Brother(s) Family Medical History: No Reported History Additional Family Medical History / Comment(s): Patient has 1 brother with no major medical problems. Sister(s) Family Medical History: No Reported History Additional Family Medical History / Comment(s): Patient has 1 sister with no m ajor medical problems. Daughter(s) Family Medical History: Asthma, Sleep Apnea/CPAP/BIPAP Son(s) Family Medical History: Asthma, Sleep Apnea/CPAP/BIPAP Medications and Allergies Home Medications Medication Instructions Recorded Confirmed Type Sertraline [Zoloft] 200 mg PO HS 06/17/14 04/25/19 History ALPRAZolam [Xanax] 1 mg PO BID PRN 05/26/17 04/25/19 History ARIPiprazole [Abilify] 15 mg PO HS 05/26/17 04/25/19 History Aspirin EC [Ecotrin Low Dose] 81 mg PO HS 04/09/19 04/25/19 History Atorvastatin [Lipitor] 20 mg PO HS #30 tab 04/10/19 04/25/19 Rx Levothyroxine Sodium [Synthroid] 224 mcg PO AC-BRKFST #0 04/10/19 04/25/19 Rx HYDROcodone/APAP 5-325MG [[place] 1 tab PO Q6HR PRN 3 Days #12 tab 04/26/19 Rx 5-325] Sulfamethox-Tmp 800-160Mg [Bactrim 2 tab PO Q12HR #56 tab 04/26/19 Rx DS 800-160 mg] Allergies Allergy/AdvReac Type Severity Reaction Status Date / Time cephalexin monohydrate Allergy Swelling Verified 04/25/19 22:04 [From Keflex] clindamycin Allergy Swelling Verified 04/25/19 22:04 levofloxacin [From Levaquin] Allergy Swelling Verified 04/25/19 22:04 Penicillins AdvReac Itching Verified 04/25/19 22:04 prochlorperazine edisylate AdvReac IRRITABLE Verified 04/25/19 22:04 [From Compazine] prochlorperazine maleate AdvReac IRRITABLE Verified 04/25/19 22:04 [From Compazine] Physical Exam Vitals: Vital Signs Temp Pulse Pulse Resp BP BP Pulse Ox 04/26/19 08:38 98.0 F 89 20 134/85 96 04/26/19 02:07 98.0 F 87 18 160/82 98 04/25/19 21:35 98.7 F 113 H 20 127/78 99 Intake and Output 04/25/19 04/26/19 04/26/19 22:59 06:59 14:59 Other: Voiding Method Toilet # Voids 1 Weight 154.221 kg - Constitutional General appearance: cooperative, no acute distress, morbidly obese - EENT Eyes: anicteric sclerae, PERRLA, normal appearance ENT: hearing grossly normal - Neck Neck: no lymphadenopathy, normal ROM, no other, no rigidity, no stridor, no thyromegaly - Respiratory Respiratory: bilateral: CTA, negative: diminished, dullness, rales, rhonchi - Cardiovascular Rhythm: regular Heart sounds: normal: S1, S2 Abnormal Heart Sounds: no systolic murmur, no diastolic murmur, no rub, no S3 Gallop, no S4 Gallop, no click, no other - Gastrointestinal General gastrointestinal: normal bowel sounds, soft - Integumentary Integumentary: no rash Left groin: Open wound with minimal active drainage. No significant edema. - Neurologic Neurologic: CNII-XII intact - Musculoskeletal Musculoskeletal: gait normal, strength equal bilaterally - Psychiatric Psychiatric: A&O x's 3, appropriate affect Results CBC & Chem 7: 04/25/19 23:05 04/25/19 23:05 Labs: Abnormal Lab Results - Last 24 Hours (Table) 04/25/19 04/25/19 Range/Units 23:05 23:05 Chloride 108 H (98-107) mmol/L Glucose 120 H (74-99) mg/dL Plasma Lactic Acid Kaden 2.1 H* (0.7-2.0) mmol/L AST 43 H (14-36) U/L Total Protein 8.3 H (6.3-8.2) g/dL Thrombosis Risk Factor Assmnt - DVT/VTE Prophylaxis DVT/VTE Prophylaxis: Pharmacologic Prophylaxis ordered - Choose All That Apply Any of the Below Risk Factors Present?: Yes Each Factor Represents 1 point: Obesity (BMI >25), Varicose veins Other Risk Factors: No Thrombosis Risk Factor Assessment Total Risk Factor Score: 2 Thrombosis Risk Factor Assessment Level: Low Risk Assessment and Plan Plan: 1. Left groin abscess. Consult was Dr. Isabela albarran. Patient is on van comycin with history of MRSA. Wound culture obtained 2. Hypertension. 3. Hypothyroidism. 4. Hyperlipidemia. 5. Mild intermittent asthma, stable without exacerbation. 6. Obstructive sleep apnea on CPAP. 7. Generalized anxiety disorder. 8. Recurrent depression. 9. Crohn's disease, stable 10. Morbid obesity with BMI of 54. Patient placed as an observation status. Discharge plan: home Discharge Medication List Sertraline [Zoloft] 200 mg PO HS 06/17/14 [History] ALPRAZolam [Xanax] 1 mg PO BID PRN 05/26/17 [History] ARIPiprazole [Abilify] 15 mg PO HS 05/26/17 [History] Aspirin EC [Ecotrin Low Dose] 81 mg PO HS 04/09/19 [History] Atorvastatin [Lipitor] 20 mg PO HS #30 tab 04/10/19 [Rx] Levothyroxine Sodium [Synthroid] 224 mcg PO AC-BRKFST #0 04/10/19 [Rx] HYDROcodone/APAP 5-325MG [Branch 5-325] 1 tab PO Q6HR PRN 3 Days #12 tab 04/26/19 [Rx] Sulfamethox-Tmp 800-160Mg [Bactrim DS 800-160 mg] 2 tab PO Q12HR #56 tab 04/26/19 [Rx] Impression and plan of care have been directed as dictated by the signing physician. Roma Ramon nurse practitioner acting as scribe for signing physician.
[2019-04-26 17:27] VITALS: BP 132/83; PULSE 82; RESP 20; TEMP 97.4
[2019-04-26] MEDS ORDERED: ASPIRIN 81 MG PO SCH (21:00)
[2019-04-26] MEDS ORDERED: ARIPiprazole 15 MG TAB PO SCH (21:00)
[2019-04-26] MEDS ORDERED: SERTRALINE 100 MG TAB PO SCH (21:00)
[2019-04-26] MEDS ORDERED: ATORVASTATIN 20 MG TAB PO SCH (21:00)
[2019-04-27] MEDS ORDERED: HEPARIN SODIUM,PORCINE 5,000 UNIT/ML 1 ML VIAL SQ SCH
[2019-04-27] MEDS ORDERED: FAMOTIDINE 20 MG TAB PO SCH (09:00)
== END 2019-04-26 17:35 ==
LOC: EC 21:12 → 6PED 04-26 01:14
PROVIDERS: ADMIT Internal Medicine; ATTEND Internal Medicine
DX: L02.214 Cutaneous abscess of groin (principal); I10 Essential (primary) hypertension; E03.9 Hypothyroidism, unspecified; E78.5 Hyperlipidemia, unspecified; J45.20 Mild intermittent asthma, uncomplicated; G47.33 Obstructive sleep apnea (adult) (pediatric); K50.90 Crohn's disease, unspecified, without complications; F41.1 Generalized anxiety disorder; F31.9 Bipolar disorder, unspecified; K21.9 Gastro-esophageal reflux disease without esophagitis; F17.210 Nicotine dependence, cigarettes, uncomplicated; E66.01 Morbid (severe) obesity due to excess calories; Z68.43 Body mass index [BMI] 50.0-59.9, adult; N89.8 Other specified noninflammatory disorders of vagina; I83.90 Asymptomatic varicose veins of unspecified lower extremity; Z99.89 Dependence on other enabling machines and devices; Z79.82 Long term (current) use of aspirin; Z79.890 Hormone replacement therapy; Z79.899 Other long term (current) drug therapy; Z88.0 Allergy status to penicillin; Z88.1 Allergy status to other antibiotic agents; Z88.8 Allergy status to other drugs, medicaments and biological substances; Z86.14 Personal history of Methicillin resistant Staphylococcus aureus infection; Z90.49 Acquired absence of other specified parts of digestive tract; Z90.721 Acquired absence of ovaries, unilateral; Z82.49 Family history of ischemic heart disease and other diseases of the circulatory system; Z82.5 Family history of asthma and other chronic lower respiratory diseases; Z83.6 Family history of other diseases of the respiratory system
CPT/HCPCS: 96366 ×2; 96376 ×2; 96365; 96375; 99284; 36415; 80053; 85652; 83605 ×2; 85025; 86140; 87070; 87205; 87075; 74177; G0378; J3370; J2270 ×2; Q9967

== ENCOUNTER 2019-05-02 02:54 | Emergency (ER) | payer OTHER ==
--- NOTE | 2019-05-02 03:04 | ED ---
Chest Pain HPI - General Stated Complaint: chest pain Time Seen by Provider: 05/02/19 03:02 - History of Present Illness Initial Comments: Marilee is a 39-year-old female who presents the emergency department today for evaluation of chest pain. Patient reports that a couple of weeks ago she did undergo a stress test due to frequent episodes of chest pain and was told that the stress test was normal. Patient reports that this evening she was relaxing watching TV when she began having pain in her chest. Initially she did not want to come to the emergency department because she just had the stress test but she had persistent pain cystitis to come to be evaluated. Patient is a smoker, she is not on any estrogen, she has no history of DVT or PE, no family history of DVT PE or clotting disorders that she is aware of. Both her parents developed cardiovascular disease in their 50s. - Related Data Home Medications Medication Instructions Recorded Confirmed Sertraline [Zoloft] 200 mg PO HS 06/17/14 05/02/19 ALPRAZolam [Xanax] 1 mg PO BID PRN 05/26/17 05/02/19 ARIPiprazole [Abilify] 15 mg PO HS 05/26/17 05/02/19 Aspirin EC [Ecotrin Low Dose] 81 mg PO HS 04/09/19 05/02/19 Previous Rx's Medication Instructions Recorded Atorvastatin [Lipitor] 20 mg PO HS #30 tab 04/10/19 Levothyroxine Sodium [Synthroid] 224 mcg PO AC-BRKFST #0 04/10/19 HYDROcodone/APAP 5-325MG [[place] 1 tab PO Q6HR PRN 3 Days #12 tab 04/26/19 5-325] Sulfamethox-Tmp 800-160Mg [Bactrim 2 tab PO Q12HR #56 tab 04/26/19 DS 800-160 mg] Allergies Allergy/AdvReac Type Severity Reaction Status Date / Time cephalexin monohydrate Allergy Swelling Verified 04/25/19 22:04 [From Keflex] clindamycin Allergy Swelling Verified 04/25/19 22:04 levofloxacin [From Levaquin] Allergy Swelling Verified 04/25/19 22:04 Penicillins AdvReac Itching Verified 04/25/19 22:04 prochlorperazine edisylate AdvReac IRRITABLE Verified 04/25/19 22:04 [From Compazine] prochlorperazine maleate AdvReac IRRITABLE Verified 04/25/19 22:04 [From Compazine] Review of Systems ROS Statement: Those systems with pertinent positive or pertinent negative responses have been documented in the HPI. ROS Other: All systems not noted in ROS Statement are negative. EKG Findings - EKG Comments: EKG Findings:: EKG was obtained due to his complaint of chest pain, EKG obtained at 2:50 AM, rate is 87 rhythm is sinus there is normal axis there are normal intervals, MN 138, QRS 78, QTC is 459 and there are no acute ST elevations or depressions there is no evidence of acute ischemia or infarction. There is no evidence of S1 Q3 T3 or evidence of acute right heart strain Past Medical History Past Medical History: Asthma, GERD/Reflux, Hypertension, Pneumonia, Sleep Apnea/CPAP/BIPAP, Thyroid Disorder Additional Past Medical History / Comment(s): Crohns, IBS, degenerative disc disease, episode of chest pain and rapid heart rate CPAP use. History of Any Multi-Drug Resistant Organisms: MRSA Date of last positivie culture/infection: 2013 MDRO Source:: rt side of chest Past Surgical History: Bowel Resection, Breast Surgery, Section, Cholecystectomy Additional Past Surgical History / Comment(s): LEFT BREAST BENIGN CYST REMOVED. Cyst removal/abscess small intestines, right oophorectomy and salpingectomy Past Anesthesia/Blood Transfusion Reactions: No Reported Reaction Past Psychological History: Anxiety, Bipolar, Depression Smoking Status: Current every day smoker Past Alcohol Use History: None Reported Past Drug Use History: None Reported - Past Family History Father Family Medical History: Coronary Artery Disease (CAD), Hypertension Additional Family Medical History / Comment(s): Father is alive at age 65 with history of coronary artery disease. Mother Family Medical History: No Reported History Additional Family Medical History / Comment(s): Mother is alive at age 58 with history of coronary artery disease and asthma. Brother(s) Family Medical History: No Reported History Additional Family Medical History / Comment(s): Patient has 1 brother with no major medical problems. Sister(s) Family Medical History: No Reported History Additional Family Medical History / Comment(s): Patient has 1 sister with no major medical problems. Daughter(s) Family Medical History: Asthma, Sleep Apnea/CPAP/BIPAP Son(s) Family Medical History: Asthma, Sleep Apnea/CPAP/BIPAP General Exam - General Exam Comments Initial Comments: Physical Exam GENERAL: Patient is well-developed and well-nourished. Morbidly obese HENT: Normocephalic, Atraumatic. EYES: PERRL, EOMI PULMONARY: Unlabored respirations. No audible rales rhonchi or wheezing was noted. CARDIOVASCULAR: RRR ABDOMEN: Soft and nontender with normal bowel sounds. SKIN: Skin is clear with no lesions or rashes and otherwise unremarkable. : Deferred NEUROLOGIC: Patient is alert and oriented x3. Moving all extremities spontaneously MUSCULOSKELETAL: Normal extremities with adequate strength and full range of motion. No lower extremity swelling or edema. No calf tenderness. PSYCHIATRIC: Anxious Course Vital Signs 05/02/19 05/02/19 03:08 06:21 Temperature 98.0 F 97 F L Pulse Rate 98 77 Respiratory 96 H 18 Rate Blood Pressure 142/89 144/78 O2 Sat by Pulse 96 97 Oximetry Chest Pain [facility] The patient was seen and evaluated, history is obtained from the patient and review of medical record History and physical exam are concerning for atypical chest pain however full cardiac workup was initiated. Patient is having chest pain for a number of hours, troponin was negative but d-dimer was elevated and a CT PE study was ordered which revealed no acute pathologyof PE. At this time I suspect the patient's chest pain is not cardiac in etiology given that she is young with minimal risk factors and a negative stress test earlier in the month. At this time patient states she would just like something for her anxiety and she is comfortable with plan for discharge home. All questions pertaining care were answered return parameters and the importance of follow-up were discussed patient was discharged home in stable condition. Disposition Clinical Impression: Atypical chest pain Disposition: HOME SELF-CARE Condition: Stable Instructions (If sedation given, give patient instructions): Chest Pain (ED) Is patient prescribed a controlled substance at d/c from ED?: No Referrals: Reji Diaz MD [Primary Care Provider] - 1-2 days
[2019-05-02 03:41] LABS: Basophils # (A) 0.1 k/uL (0-0.2); Basophils % (A) 1 %; Eosinophils # (A) 0.3 k/uL (0-0.7); Eosinophils % (A) 3 %; HCT 41.5 % (34.0-46.0); HGB 13.9 gm/dL (11.4-16.0); Lymphocytes # (A) 2.3 k/uL (1.0-4.8); Lymphocytes % (A) 28 %; MCHC 33.5 g/dL (31.0-37.0); MCV 95.3 fL (80.0-100.0); Mean Platelet Volume 7.3; Monocytes # (A) 0.4 k/uL (0-1.0); Monocytes % (A) 4 %; Neutrophils # (A) 5.2 k/uL (1.3-7.7); Neutrophils % (A) 62 %; Platelet Count 343 k/uL (150-450); RBC 4.35 m/uL (3.80-5.40); WBC 8.4 k/uL (3.8-10.6)
[2019-05-02 03:53] LABS: Albumin 3.6 g/dL (3.5-5.0); Calcium 8.8 mg/dL (8.4-10.2); Magnesium 1.8 mg/dL (1.6-2.3); Potassium 3.9 mmol/L (3.5-5.1); Total Bilirubin 0.2 mg/dL (0.2-1.3); Total Protein 6.7 g/dL (6.3-8.2)
[2019-05-02 04:00] LABS: INR 0.9 (<1.2); Partial Thromboplastin Time 25.3 sec (22.0-30.0); Prothrombin Time 9.7 sec (9.0-12.0)
[2019-05-02 04:17] LABS: D-Dimer 0.6 mg/L FEU (<0.60)
--- NOTE | 2019-05-02 05:39 | CT ---
EXAM: CT Angiography Chest With Intravenous Contrast CLINICAL HISTORY: ITS.REASON CT Reason: Pain TECHNIQUE: Axial computed tomographic angiography images of the chest with intravenous contrast using pulmonary embolism protocol. CTDI is 27 mGy and DLP is 1115 mGy-cm. This CT exam was performed using one or more of the following dose reduction techniques: automated exposure control, adjustment of the mA and/or kV according to patient size, and/or use of iterative reconstruction technique. MIP reconstructed images were created and reviewed. COMPARISON: 12/27/18 CT chest FINDINGS: Pulmonary arteries: No filling defects. Aorta: No thoracic aortic aneurysm. Lungs: No mass. No consolidation. Pleural space: No pneumothorax. No significant effusion. Heart: No cardiomegaly. No pericardial effusion. Bones/joints: No acute fracture or dislocation. Soft tissues: Unremarkable. Lymph nodes: No enlarged lymph nodes. IMPRESSION: No acute intrathoracic findings.
[2019-05-02] MEDS ORDERED: LORazepam 1 MG TAB PO STA ×3 (05:47→06:17)
[2019-05-02] MEDS ORDERED: KETOROLAC 30 MG/ML 1 ML VIAL IVP STA ×2 (06:07→06:17)
[2019-05-02 06:22] VITALS: BP 144/78; PULSE 77; RESP 18; TEMP 97
== END 2019-05-02 06:22 | disposition home or self-care (01) ==
LOC: EC 02:54
DX: R07.89 Other chest pain (principal); R79.89 Other specified abnormal findings of blood chemistry; F41.9 Anxiety disorder, unspecified; F32.9 Major depressive disorder, single episode, unspecified; F17.200 Nicotine dependence, unspecified, uncomplicated; Z87.09 Personal history of other diseases of the respiratory system; Z87.19 Personal history of other diseases of the digestive system; Z87.01 Personal history of pneumonia (recurrent); G47.30 Sleep apnea, unspecified; Z99.89 Dependence on other enabling machines and devices; Z86.14 Personal history of Methicillin resistant Staphylococcus aureus infection; Z82.49 Family history of ischemic heart disease and other diseases of the circulatory system; Z79.82 Long term (current) use of aspirin; Z79.899 Other long term (current) drug therapy; Z88.1 Allergy status to other antibiotic agents; Z88.0 Allergy status to penicillin; Z88.8 Allergy status to other drugs, medicaments and biological substances
CPT/HCPCS: 36415; 93005; 85379; 80053; 83735; 84484; 85025; 85610; 85730; 71275; 99285; 96374; J1885; Q9967

== ENCOUNTER 2019-05-20 23:14 | Emergency (ER) | payer OTHER ==
[2019-05-21] MEDS ORDERED: VANCOMYCIN IV PER PHARMACY 1 EACH MISC MISCELLANE PRN (01:37)
[2019-05-21] MEDS ORDERED: MORPHINE SULFATE 4 MG/ML SYRINGE IVP STA ×2 (01:52→03:52)
[2019-05-21] MEDS ORDERED: VANCOMYCIN 2,500 MG in SODIUM CHLORIDE 0.9% 500 ML 500 ML IVPB ONE (02:00)
[2019-05-21] MEDS: SODIUM CHLORIDE 0.9% 500 ML 500 ML IV SCH ×3 (02:13→04:25)
[2019-05-21 02:20] LABS: Albumin 4.1 g/dL (3.5-5.0); Calcium 9.1 mg/dL (8.4-10.2); Potassium 4.1 mmol/L (3.5-5.1); Total Bilirubin 0.2 mg/dL (0.2-1.3); Total Protein 7.6 g/dL (6.3-8.2)
[2019-05-21 02:23] LABS: Basophils # (A) 0.3 k/uL (0-0.2); Basophils % (A) 3 %; Eosinophils # (A) 0.3 k/uL (0-0.7); Eosinophils % (A) 3 %; HCT 45.1 % (34.0-46.0); HGB 15.3 gm/dL (11.4-16.0); Lymphocytes # (A) 2.5 k/uL (1.0-4.8); Lymphocytes % (A) 25 %; MCHC 33.8 g/dL (31.0-37.0); MCV 94.5 fL (80.0-100.0); Mean Platelet Volume 7.6; Monocytes # (A) 0.6 k/uL (0-1.0); Monocytes % (A) 6 %; Neutrophils # (A) 6.3 k/uL (1.3-7.7); Neutrophils % (A) 63 %; Platelet Count 358 k/uL (150-450); RBC 4.78 m/uL (3.80-5.40); RDW 15.3 % (11.5-15.5); WBC 10.1 k/uL (3.8-10.6)
[2019-05-21 02:26] LABS: INR 0.9 (<1.2); Partial Thromboplastin Time 23.6 sec (22.0-30.0); Prothrombin Time 9.7 sec (9.0-12.0)
--- NOTE | 2019-05-21 02:49 | ED ---
Skin/Abscess/FB HPI - General Chief complaint: Skin/Abscess/Foreign Body Stated complaint: Abscess Time Seen by Provider: 05/21/19 01:33 Source: patient Mode of arrival: ambulatory Limitations: no limitations - History of Present Illness Initial comments: Marilee is a morbidly obese 39-year-old female history of recurrent skin infections who presents the ER today for evaluation of right anterior chest wall abscess. Patient reports she noted this a couple days ago, initially she had some white purulent discharge however since that time is become larger and it's no longer draining, patient has had multiple I&D's in the past but she needs to come in for I&D. Patient also reported significant pain. She denies any fevers chills nausea vomiting change in bowel or bladder habits. She is not currently on any antibiotics. - Related Data Home Medications Medication Instructions Recorded Confirmed Sertraline [Zoloft] 200 mg PO HS 06/17/14 05/02/19 ALPRAZolam [Xanax] 1 mg PO BID PRN 05/26/17 05/02/19 ARIPiprazole [Abilify] 15 mg PO HS 05/26/17 05/02/19 Aspirin EC [Ecotrin Low Dose] 81 mg PO HS 04/09/19 05/02/19 Previous Rx's Medication Instructions Recorded Atorvastatin [Lipitor] 20 mg PO HS #30 tab 04/10/19 Levothyroxine Sodium [Synthroid] 224 mcg PO AC-BRKFST #0 04/10/19 HYDROcodone/APAP 5-325MG [[place] 1 tab PO Q6HR PRN 3 Days #12 tab 04/26/19 5-325] Sulfamethox-Tmp 800-160Mg [Bactrim 2 tab PO Q12HR #56 tab 04/26/19 DS 800-160 mg] Sulfamethox-Tmp 800-160Mg [Bactrim 1 tab PO Q12HR #14 tab 05/21/19 DS 800-160 mg] Allergies Allergy/AdvReac Type Severity Reaction Status Date / Time cephalexin monohydrate Allergy Swelling Verified 05/20/19 23:19 [From Keflex] clindamycin Allergy Swelling Verified 05/20/19 23:19 levofloxacin [From Levaquin] Allergy Swelling Verified 05/20/19 23:19 Penicillins AdvReac Itching Verified 05/20/19 23:19 prochlorperazine edisylate AdvReac IRRITABLE Verified 05/20/19 23:19 [From Compazine] prochlorperazine maleate AdvReac IRRITABLE Verified 05/20/19 23:19 [From Compazine] Review of Systems ROS Statement: Those systems with pertinent positive or pertinent negative responses have been documented in the HPI. ROS Other: All systems not noted in ROS Statement are negative. Past Medical History Past Medical History: Asthma, GERD/Reflux, Hypertension, Pneumonia, Sleep Apnea/CPAP/BIPAP, Thyroid Disorder Additional Past Medical History / Comment(s): Crohns, IBS, degenerative disc disease, episode of chest pain and rapid heart rate CPAP use. History of Any Multi-Drug Resistant Organisms: MRSA Date of last positivie culture/infection: 2013 MDRO Source:: rt side of chest Past Surgical History: Bowel Resection, Breast Surgery, Section, Cholecystectomy Additional Past Surgical History / Comment(s): LEFT BREAST BENIGN CYST REMOVED. Cyst removal/abscess small intestines, right oophorectomy and salpingectomy Past Anesthesia/Blood Transfusion Reactions: No Reported Reaction Past Psychological History: Anxiety, Bipolar, Depression Smoking Status: Current every day smoker Past Alcohol Use History: None Reported Past Drug Use History: None Reported - Past Family History Father Family Medical History: Coronary Artery Disease (CAD), Hypertension Additional Family Medical History / Comment(s): Father is alive at age 65 with history of coronary artery disease. Mother Family Medical History: No Reported History Additional Family Medical History / Comment(s): Mother is alive at age 58 with history of coronary artery disease and asthma. Brother(s) Family Medical History: No Reported History Additional Family Medical History / Comment(s): Patient has 1 brother with no major medical problems. Sister(s) Family Medical History: No Reported History Additional Family Medical History / Comment(s): Patient has 1 sister with no major medical problems. Daughter(s) Family Medical History: Asthma, Sleep Apnea/CPAP/BIPAP Son(s) Family Medical History: Asthma, Sleep Apnea/CPAP/BIPAP General Exam - General Exam Comments Initial Comments: Physical Exam GENERAL: Patient is well-developed and well-nourished. Patient is nontoxic and well-hydrated Appears uncomfortable HENT: Normocephalic, Atraumatic. EYES: PERRL, EOMI PULMONARY: Unlabored respirations CARDIOVASCULAR: Tachycardic, regular with warm and well perfused extremities ABDOMEN: Soft and nontender with normal bowel sounds. SKIN: Abscess on the right anterior chest wall inferior and lateral to the right breast, measuring approximately 3 x 4 cm area of fluctuant with a 6 x 6 cm surrounding erythema : Deferred NEUROLOGIC: Patient is alert and oriented x3. Moving all extremities spontaneously MUSCULOSKELETAL: Normal extremities with adequate strength and full range of motion. No lower e xtremity swelling or edema. No calf tenderness. PSYCHIATRIC: Normal psychiatric evaluation. Limitations: no limitations Course Vital Signs 05/20/19 05/21/19 23:17 03:22 Temperature 98.0 F 98.6 F Pulse Rate 128 H 106 H Respiratory 22 18 Rate Blood Pressure 158/98 129/89 O2 Sat by Pulse 97 96 Oximetry Medical Decision Making - Medical Decision Making The patient was seen and evaluated history is obtained from patient Patient is tachycardic but afebrile a septic workup was initiated and initial dose of vancomycin was given Abscess was incised and drained, copious amounts of purulent fluid were drained Labs were relatively unremarkable leukocytosis no elevation of lactic acid This time patient is stable for discharge home and comfortable with plan for discharge home on oral antibiotics per patient will see her primary care physician by the end of the week for reevaluation. Patient was encouraged to take photos of the abscess and surrounding cellulitis daily to track any changes. - Lab Data Result diagrams: 05/21/19 02:00 05/21/19 02:00 Lab Results 05/21/19 05/21/19 05/21/19 Range/Units 02:00 02:00 02:00 WBC 10.1 (3.8-10.6) k/uL RBC 4.78 (3.80-5.40) m/uL Hgb 15.3 (11.4-16.0) gm/dL Hct 45.1 (34.0-46.0) % MCV 94.5 (80.0-100.0) fL MCH 32.0 (25.0-35.0) pg MCHC 33.8 (31.0-37.0) g/dL RDW 15.3 (11.5-15.5) % Plt Count 358 (150-450) k/uL Neutrophils % 63 % Lymphocytes % 25 % Monocytes % 6 % Eosinophils % 3 % Basophils % 3 % Neutrophils # 6.3 (1.3-7.7) k/uL Lymphocytes # 2.5 (1.0-4.8) k/uL Monocytes # 0.6 (0-1.0) k/uL Eosinophils # 0.3 (0-0.7) k/uL Basophils # 0.3 H (0-0.2) k/uL PT (9.0-12.0) sec INR (<1.2) APTT (22.0-30.0) sec Sodium 143 (137-145) mmol/L Potassium 4.1 (3.5-5.1) mmol/L Chloride 106 (98-107) mmol/L Carbon Dioxide 26 (22-30) mmol/L Anion Gap 11 mmol/L BUN 12 (7-17) mg/dL Creatinine 1.17 H (0.52-1.04) mg/dL Est GFR (CKD-EPI)AfAm 69 (>60 ml/min/1.73 sqM) Est GFR (CKD-EPI)NonAf 60 (>60 ml/min/1.73 sqM) Glucose 102 H (74-99) mg/dL Plasma Lactic Acid Kaden 1.5 (0.7-2.0) mmol/L Calcium 9.1 (8.4-10.2) mg/dL Total Bilirubin 0.2 (0.2-1.3) mg/dL AST 27 (14-36) U/L ALT 50 (9-52) U/L Alkaline Phosphatase 87 (38-126) U/L Total Protein 7.6 (6.3-8.2) g/dL Albumin 4.1 (3.5-5.0) g/dL 05/21/19 Range/Units 02:00 WBC (3.8-10.6) k/uL RBC (3.80-5.40) m/uL Hgb (11.4-16.0) gm/dL Hct (34.0-46.0) % MCV (80.0-100.0) fL MCH (25.0-35.0) pg MCHC (31.0-37.0) g/dL RDW (11.5-15.5) % Plt Count (150-450) k/uL Neutrophils % % Lymphocytes % % Monocytes % % Eosinophils % % Basophils % % Neutrophils # (1.3-7.7) k/uL Lymphocytes # (1.0-4.8) k/uL Monocytes # (0-1.0) k/uL Eosinophils # (0-0.7) k/uL Basophils # (0-0.2) k/uL PT 9.7 (9.0-12.0) sec INR 0.9 (<1.2) APTT 23.6 (22.0-30.0) sec Sodium (137-145) mmol/L Potassium (3.5-5.1) mmol/L Chloride (98-107) mmol/L Carbon Dioxide (22-30) mmol/L Anion Gap mmol/L BUN (7-17) mg/dL Creatinine (0.52-1.04) mg/dL Est GFR (CKD-EPI)AfAm (>60 ml/min/1.73 sqM) Est GFR (CKD-EPI)NonAf (>60 ml/min/1.73 sqM) Glucose (74-99) mg/dL Plasma Lactic Acid Kaden (0.7-2.0) mmol/L Calcium (8.4-10.2) mg/dL Total Bilirubin (0.2-1.3) mg/dL AST (14-36) U/L ALT (9-52) U/L Alkaline Phosphatase (38-126) U/L Total Protein (6.3-8.2) g/dL Albumin (3.5-5.0) g/dL Disposition Clinical Impression: Abscess Disposition: HOME SELF-CARE Condition: Stable Instructions (If sedation given, give patient instructions): Abscess (ED) Prescriptions: Sulfamethox-Tmp 800-160Mg [Bactrim DS 800-160 mg] 1 tab PO Q12HR #14 tab Is patient prescribed a controlled substance at d/c from ED?: No Referrals: Reji Diaz MD [Primary Care Provider] - 1-2 days
[2019-05-21 03:23] VITALS: RESP 18; TEMP 98.6
[2019-05-21] MEDS ORDERED: ACET/COD 300 MG/30 MG STARTER PACK 6 TAB BTL PO STA (03:52)
[2019-05-21 03:57] LABS: Appearance,Urine Cloudy (Clear); Bilirubin,Urine Negative (Negative); Blood,Urine Negative (Negative); Color,Urine Yellow; Glucose,Urine (UA) Negative (Negative); Ketones,Urine Negative (Negative); Leukocyte Esterase,Urine Trace (Negative); Mucus,Urine Moderate /hpf; Nitrite,Urine Negative (Negative); Protein,Urine Trace (Negative); RBC,Urine 5 /hpf (0-5); Specific Gravity,Urine 1.023 (1.001-1.035); Squamous Epithelial Cell,Urine 10 /hpf (0-4); Urobilinogen,Urine <2.0 mg/dL (<2.0)
[2019-05-21 05:43] VITALS: BP 132/72; PULSE 100
[2019-05-21] MEDS ORDERED: VANCOMYCIN 2,000 MG in SODIUM CHLORIDE 0.9% 500 ML 500 ML IVPB SCH (18:00)
== END 2019-05-21 05:40 | disposition home or self-care (01) ==
LOC: EC 23:14
DX: L02.213 Cutaneous abscess of chest wall (principal); R00.0 Tachycardia, unspecified; G47.30 Sleep apnea, unspecified; F31.9 Bipolar disorder, unspecified; F41.9 Anxiety disorder, unspecified; F17.200 Nicotine dependence, unspecified, uncomplicated; Z88.0 Allergy status to penicillin; Z88.1 Allergy status to other antibiotic agents; Z88.8 Allergy status to other drugs, medicaments and biological substances; Z79.82 Long term (current) use of aspirin; Z79.899 Other long term (current) drug therapy; Z86.14 Personal history of Methicillin resistant Staphylococcus aureus infection; Z87.39 Personal history of other diseases of the musculoskeletal system and connective tissue; Z99.89 Dependence on other enabling machines and devices
CPT/HCPCS: 99284; 10060; 96365; 96366 ×2; 96375; 96376; 36415; 93005; 80053; 83605; 85025; 85610; 85730; 81001; 87040; J3370; J2270

== ENCOUNTER 2019-07-01 20:36 | Emergency (ER) | payer OTHER ==
[2019-07-01 20:48] VITALS: BP 131/85; PULSE 103; RESP 20; TEMP 98.1
[2019-07-01] MEDS ORDERED: HYDROcodone/APAP 5-325MG 1 EACH TAB PO STA (21:04)
[2019-07-01] MEDS ORDERED: IBUPROFEN 600 MG TAB PO STA (21:04)
[2019-07-01] MEDS ORDERED: DIAZEPAM 5 MG TAB PO STA (21:04)
--- NOTE | 2019-07-01 21:16 | ED ---
Extremity Problem HPI - General Chief complaint: Extremity Problem,Nontraumatic Stated complaint: R Neck/Arm Pain Time Seen by Provider: 07/01/19 20:56 Source: patient, RN notes reviewed Mode of arrival: ambulatory Limitations: no limitations - History of Present Illness Initial comments: 39-year-old female presents emergency Department chief complaint of right arm pain, right-sided neck pain. Patient states started a few days ago. Patient states that she's been sleeping in a recliner does not feel like she slept on it wrong. Patient's symptoms are worse when she turns to the right. She has pain that radiates on her right arm denies any chest pain or shortness of breath. Patient symptoms are worse with movement better at rest. Patient states that she takes Tylenol codeine currently and states that it's not helping. Patient denies any focal weakness. - Related Data Home Medications Medication Instructions Recorded Confirmed Sertraline [Zoloft] 200 mg PO HS 06/17/14 05/02/19 ALPRAZolam [Xanax] 1 mg PO BID PRN 05/26/17 05/02/19 ARIPiprazole [Abilify] 15 mg PO HS 05/26/17 05/02/19 Aspirin EC [Ecotrin Low Dose] 81 mg PO HS 04/09/19 05/02/19 Previous Rx's Medication Instructions Recorded Atorvastatin [Lipitor] 20 mg PO HS #30 tab 04/10/19 Levothyroxine Sodium [Synthroid] 224 mcg PO AC-BRKFST #0 04/10/19 HYDROcodone/APAP 5-325MG [[employer] 1 tab PO Q6HR PRN 3 Days #12 tab 04/26/19 5-325] Sulfamethox-Tmp 800-160Mg [Bactrim 2 tab PO Q12HR #56 tab 04/26/19 DS 800-160 mg] Sulfamethox-Tmp 800-160Mg [Bactrim 1 tab PO Q12HR #14 tab 05/21/19 DS 800-160 mg] Cyclobenzaprine [Flexeril] 10 mg PO TID PRN #15 tab 07/01/19 Ibuprofen [Motrin] 600 mg PO Q8HR PRN #30 tab 07/01/19 predniSONE 50 mg PO DAILY #5 tab 07/01/19 Allergies Allergy/AdvReac Type Severity Reaction Status Date / Time cephalexin monohydrate Allergy Swelling Verified 05/20/19 23:19 [From Keflex] clindamycin Allergy Swelling Verified 05/20/19 23:19 levofloxacin [From Levaquin] Allergy Swelling Verified 05/20/19 23:19 Penicillins AdvReac Itching Verified 05/20/19 23:19 prochlorperazine edisylate AdvReac IRRITABLE Verified 05/20/19 23:19 [From Compazine] prochlorperazine maleate AdvReac IRRITABLE Verified 05/20/19 23:19 [From Compazine] Review of Systems ROS Statement: Those systems with pertinent positive or pertinent negative responses have been documented in the HPI. ROS Other: All systems not noted in ROS Statement are negative. Past Medical History Past Medical History: Asthma, GERD/Reflux, Hypertension, Pneumonia, Sleep Apnea/CPAP/BIPAP, Thyroid Disorder Additional Past Medical History / Comment(s): Crohns, IBS, degenerative disc disease, episode of chest pain and rapid heart rate CPAP use. History of Any Multi-Drug Resistant Organisms: MRSA Date of last positivie culture/infection: 2013 MDRO Source:: rt side of chest Past Surgical History: Bowel Resection, Breast Surgery, Section, Cholecystectomy Additional Past Surgical History / Comment(s): LEFT BREAST BENIGN CYST REMOVED. Cyst removal/abscess small intestines, right oophorectomy and salpingectomy Past Anesthesia/Blood Transfusion Reactions: No Reported Reaction Past Psychological History: Anxiety, Bipolar, Depression Smoking Status: Current every day smoker Past Alcohol Use History: None Reported Past Drug Use History: None Reported - Past Family History Father Family Medical History: Coronary Artery Disease (CAD), Hypertension Additional Family Medical History / Comment(s): Father is alive at age 65 with history of coronary artery disease. Mother Family Medical History: No Reported History Additional Family Medical History / Comment(s): Mother is alive at age 58 with history of coronary artery disease and asthma. Brother(s) Family Medical History: No Reported History Additional Family Medical History / Comment(s): Patient has 1 brother with no major medical problems. Sister(s) Family Medical History: No Reported History Additional Family Medical History / Comment(s): Patient has 1 sister with no major medical problems. Daughter(s) Family Medical History: Asthma, Sleep Apnea/CPAP/BIPAP Son(s) Family Medical History: Asthma, Sleep Apnea/CPAP/BIPAP General Exam Limitations: no limitations General appearance: alert, in no apparent distress Head exam: Present: atraumatic, normocephalic, normal inspection Eye exam: Present: normal appearance, PERRL, EOMI. Absent: scleral icterus, conjunctival injection, periorbital swelling ENT exam: Present: normal exam, normal oropharynx, mucous membranes moist Neck exam: Present: normal inspection, tenderness (Right cervical paraspinal), full ROM. Absent: meningismus, lymphadenopathy Respiratory exam: Present: normal lung sounds bilaterally. Absent: respiratory distress, wheezes, rales, rhonchi, stridor Cardiovascular Exam: Present: regular rate, normal rhythm, normal heart sounds. Absent: systolic murmur, diastolic murmur, rubs, gallop, clicks Extremities exam: Present: other (Upper extremity neurovascular intact bilaterally, full range of motion full-strength) Back exam: Present: full ROM. Absent: tenderness Neurological exam: Present: alert, oriented X3, CN II-XII intact, reflexes normal. Absent: motor sensory deficit Skin exam: Present: warm, dry, intact, normal color. Absent: rash Course Vital Signs 07/01/19 20:45 Temperature 98.1 F Pulse Rate 103 H Respiratory 20 Rate Blood Pressure 131/85 O2 Sat by Pulse 97 Oximetry Medical Decision Making - Medical Decision Making X-rays are negative the cervical spine. Patient does have cervical radiculopathy symptoms. She has neurovascular intact. Patient will be discharged with muscle relaxers, anti-inflammatories. Patient will be advised to do daily stretching, heat and ice. Disposition Clinical Impression: Cervical radiculopathy, acute Disposition: HOME SELF-CARE Condition: Stable Instructions (If sedation given, give patient instructions): Cervical Radiculopathy (ED) Additional Instructions: Please return to the Emergency Department if symptoms worsen or any other concerns. Prescriptions: Cyclobenzaprine [Flexeril] 10 mg PO TID PRN #15 tab PRN Reason: Muscle Spasm Ibuprofen [Motrin] 600 mg PO Q8HR PRN #30 tab PRN Reason: Pain predniSONE 50 mg PO DAILY #5 tab Is patient prescribed a controlled substance at d/c from ED?: No Referrals: Reji Diaz MD [Primary Care Provider] - 1-2 days Time of Disposition: 21:26
--- NOTE | 2019-07-01 21:18 | XR ---
EXAMINATION TYPE: XR cervical spine comp DATE OF EXAM: 07/01/2019 COMPARISON: NONE HISTORY: Neck pain TECHNIQUE: 5 views FINDINGS: There is fairly normal spacing and alignment of the vertebra. Posterior elements are intact . Neural foramina are widely patent. Atlantoaxial facet joint is normal. There are no cervical ribs. IMPRESSION: Negative cervical spine exam.
== END 2019-07-01 21:45 | disposition home or self-care (01) ==
LOC: EC 20:36
DX: M54.12 Radiculopathy, cervical region (principal); G47.30 Sleep apnea, unspecified; F31.9 Bipolar disorder, unspecified; F41.9 Anxiety disorder, unspecified; F17.200 Nicotine dependence, unspecified, uncomplicated; Z88.0 Allergy status to penicillin; Z88.1 Allergy status to other antibiotic agents; Z88.8 Allergy status to other drugs, medicaments and biological substances; Z79.82 Long term (current) use of aspirin; Z79.899 Other long term (current) drug therapy; Z86.14 Personal history of Methicillin resistant Staphylococcus aureus infection; Z87.39 Personal history of other diseases of the musculoskeletal system and connective tissue; Z99.89 Dependence on other enabling machines and devices
CPT/HCPCS: 72050; 99283

== ENCOUNTER 2019-07-17 18:45 | Emergency (ER) | payer OTHER ==
[2019-07-17] MEDS ORDERED: PANTOPRAZOLE 40 MG/10 ML VIAL IVP STA (19:13)
[2019-07-17] MEDS ORDERED: ONDANSETRON 4 MG/2 ML VIAL IVP STA (19:13)
[2019-07-17] MEDS ORDERED: SODIUM CHLORIDE 0.9% 1,000 ML IV STA (19:13)
--- NOTE | 2019-07-17 19:34 | ED ---
General Adult HPI - General Chief complaint: Abdominal Pain Stated complaint: Abd pain, blood in urine Time Seen by Provider: 07/17/19 18:59 Source: patient, RN notes reviewed, old records reviewed Mode of arrival: ambulatory Limitations: no limitations - History of Present Illness Initial comments: 39-year-old female patient presents with history of Crohn's, irritable bowel syndrome Printy chief complaint epigastric abdominal pain, blood in stool with w iping. Patient reports this occurred 2 times today. Patient reports that the abdominal pain going on for the same time. Still complains of nausea, denies any other complaints. Systemic: Pt denies fatigue, fever/chills, rash. Pt denies weakness, night sweats, weight loss. Neuro: Pt denies headache, visual disturbances, syncope or pre-syncope. HEENT: Pt denies ocular discharge or irritation, otalgia, rhinorrhea, pharyngitis or notable lymphadenopathy. Cardiopulmonary: Pt denies chest pain, SOB, heart palpitations, dyspnea on exertion. Abdominal/GI: Pt denies emesis and diarrhea. : Pt denies dysuria, burning w/ urination, frequency/urgency. Denies new onset urinary or bowel incontinence. MSK: Pt denies myalgia, loss of strength or function in extremities. Neuro: Pt denies new onset weakness, paresthesias. - Related Data Home Medications Medication Instructions Recorded Confirmed Sertraline [Zoloft] 200 mg PO HS 06/17/14 07/01/19 ALPRAZolam [Xanax] 1 mg PO BID PRN 05/26/17 07/01/19 ARIPiprazole [Abilify] 15 mg PO HS 05/26/17 07/01/19 Aspirin EC [Ecotrin Low Dose] 81 mg PO HS 04/09/19 07/01/19 Previous Rx's Medication Instructions Recorded Atorvastatin [Lipitor] 20 mg PO HS #30 tab 04/10/19 Levothyroxine Sodium [Synthroid] 224 mcg PO AC-BRKFST #0 04/10/19 HYDROcodone/APAP 5-325MG [[place] 1 tab PO Q6HR PRN 3 Days #12 tab 04/26/19 5-325] Cyclobenzaprine [Flexeril] 10 mg PO TID PRN #15 tab 07/01/19 Ibuprofen [Motrin] 600 mg PO Q8HR PRN #30 tab 07/01/19 predniSONE 50 mg PO DAILY #5 tab 07/01/19 Pantoprazole Sodium [Protonix] 20 mg PO Q24HR 10 Days #10 07/17/19 tablet. Allergies Allergy/AdvReac Type Severity Reaction Status Date / Time cephalexin monohydrate Allergy Swelling Verified 07/17/19 18:55 [From Keflex] clindamycin Allergy Swelling Verified 07/17/19 18:55 levofloxacin [From Levaquin] Allergy Swelling Verified 07/17/19 18:55 Penicillins AdvReac Itching Verified 07/17/19 18:55 prochlorperazine edisylate AdvReac IRRITABLE Verified 07/17/19 18:55 [From Compazine] prochlorperazine maleate AdvReac IRRITABLE Verified 07/17/19 18:55 [From Compazine] Review of Systems ROS Statement: Those systems with pertinent positive or pertinent negative responses have been documented in the HPI. ROS Other: All systems not noted in ROS Statement are negative. Past Medical History Past Medical History: Asthma, GERD/Reflux, Hypertension, Pneumonia, Sleep Apnea/CPAP/BIPAP, Thyroid Disorder Additional Past Medical History / Comment(s): Crohns, IBS, degenerative disc disease, episode of chest pain and rapid heart rate CPAP use. History of Any Multi-Drug Resistant Organisms: MRSA Date of last positivie culture/infection: 2013 MDRO Source:: rt side of chest Past Surgical History: Bowel Resection, Breast Surgery, Section, Cholecystectomy Additional Past Surgical History / Comment(s): LEFT BREAST BENIGN CYST REMOVED. Cyst removal/abscess small intestines, right oophorectomy and salpingectomy Past Anesthesia/Blood Transfusion Reactions: No Reported Reaction Past Psychological History: Anxiety, Bipolar, Depression Smoking Status: Current every day smoker Past Alcohol Use History: None Reported Past Drug Use History: None Reported - Past Family History Father Family Medical History: Coronary Artery Disease (CAD), Hypertension Additional Family Medical History / Comment(s): Father is alive at age 65 with history of coronary artery disease. Mother Family Medical History: No Reported History Additional Family Medical History / Comment(s): Mother is alive at age 58 with history of coronary artery disease and asthma. Brother(s) Family Medical History: No Reported History Additional Family Medical History / Comment(s): Patient has 1 brother with no major medical problems. Sister(s) Family Medical History: No Reported History Additional Family Medical History / Comment(s): Patient has 1 sister with no major medical problems. Daughter(s) Family Medical History: Asthma, Sleep Apnea/CPAP/BIPAP Son(s) Family Medical History: Asthma, Sleep Apnea/CPAP/BIPAP General Exam - General Exam Comments Initial Comments: Constitutional: NAD, AOX3, Pt has pleasant affect. HEENT: NC/AT, trachea midline, neck supple, no lymphadenopathy. Posterior pharynx non erythematous, without exudates. External ears appear normal, without discharge. Mucous membranes moist. Eyes PERRLA, EOM intact. There is no scleral icterus. No pallor noted. Cardiopulmonary: RRR, no murmurs, rubs or gallops, no JVD noted. Lungs CTAB in anterior and posterior newman. No peripheral edema. Abdominal exam: Abdomen soft and non-distended. Abdomen mildly tender to palpation in epigastric region. There is no other areas of abdominal tenderness. Bowel sounds active in LLQ. No hepatosplenomegaly. No ecchymosis Neuro: CN II-XII grossly intact. No nuchal rigidity. No raccon eyes, no rowley sign, no hemotympanum. No cervical spinal tenderness. MSK: No posterior calf tenderness bilaterally, homans sign negative bilaterally. Posterior tibialis and radial pulse +2 bilaterally. Sensation intact in upper and lower extremities. Full active ROM in upper and lower extremities, 5/5 stregnth. Rectal: Occult blood exam performed, chaperogned by [employer]. Limitations: no limitations Course Vital Signs 07/17/19 07/17/19 18:52 20:46 Temperature 98.9 F 98.3 F Pulse Rate 112 H 100 Respiratory 20 18 Rate Blood Pressure 152/81 126/89 O2 Sat by Pulse 99 98 Oximetry Medical Decision Making - Medical Decision Making 39-year-old female patient presents with history of Crohn's, irritable bowel syndrome Printy chief complaint epigastric abdominal pain, blood in stool with wiping. Patient reports this occurred 2 times today. Patient reports that the abdominal pain going on for the same time. Still complains of nausea, denies any other complaints. Patient vital signs stable, afebrile. Physical exam displayed mild epigastric tenderness. No guarding or rigidity noted there other areas of abdominal tenderness. CBC, CMP non-impressive. Urine negative. Occult blood was positive. KUB is negative. Patient feeling improved with Protonix, GI cocktail. Patient states that she wants to go home. Patient states that blood was bright red. Patient was discharged with strict return precautions. Will have close patient follow-up with GI and primary care provider. Case discussed with Dr. Rudolph. - Lab Data Result diagrams: 07/17/19 19:20 07/17/19 19:20 Lab Results 07/17/19 07/17/19 07/17/19 Range/Units 19:20 19:20 19:20 WBC 7.8 (3.8-10.6) k/uL RBC 4.53 (3.80-5.40) m/uL Hgb 15.1 (11.4-16.0) gm/dL Hct 43.6 (34.0-46.0) % MCV 96.2 (80.0-100.0) fL MCH 33.3 (25.0-35.0) pg MCHC 34.6 (31.0-37.0) g/dL RDW 13.2 (11.5-15.5) % Plt Count 344 (150-450) k/uL Neutrophils % 67 % Lymphocytes % 23 % Monocytes % 4 % Eosinophils % 4 % Basophils % 1 % Neutrophils # 5.2 (1.3-7.7) k/uL Lymphocytes # 1.8 (1.0-4.8) k/uL Monocytes # 0.3 (0-1.0) k/uL Eosinophils # 0.3 (0-0.7) k/uL Basophils # 0.1 (0-0.2) k/uL Sodium 141 (137-145) mmol/L Potassium 4.4 (3.5-5.1) mmol/L Chloride 106 (98-107) mmol/L Carbon Dioxide 25 (22-30) mmol/L Anion Gap 10 mmol/L BUN 15 (7-17) mg/dL Creatinine 1.28 H (0.52-1.04) mg/dL Est GFR (CKD-EPI)AfAm 62 (>60 ml/min/1.73 sqM) Est GFR (CKD-EPI)NonAf 54 (>60 ml/min/1.73 sqM) Glucose 131 H (74-99) mg/dL Plasma Lactic Acid Kaden (0.7-2.0) mmol/L Calcium 8.6 (8.4-10.2) mg/dL Total Bilirubin 0.3 (0.2-1.3) mg/dL AST 30 (14-36) U/L ALT 66 H (9-52) U/L Alkaline Phosphatase 79 (38-126) U/L Total Protein 7.5 (6.3-8.2) g/dL Albumin 4.1 (3.5-5.0) g/dL Lipase 195 (23-300) U/L Urine Color Urine Appearance (Clear) Urine pH (5.0-8.0) Ur Specific [place] (1.001-1.035) Urine Protein (Negative) Urine Glucose (UA) (Negative) Urine Ketones (Negative) Urine Blood (Negative) Urine Nitrite (Negative) Urine Bilirubin (Negative) Urine Urobilinogen (<2.0) mg/dL Ur Leukocyte Esterase (Negative) Urine RBC (0-5) /hpf Urine WBC (0-5) /hpf Ur Squamous Epith Cells (0-4) /hpf Amorphous Sediment (None) /hpf Urine Bacteria (None) /hpf Urine Mucus (None) /hpf Urine HCG, Qual (Not Detectd) Stool Occult Blood Positive H (Negative) 07/17/19 07/17/19 07/17/19 Range/Units 19:20 20:00 20:00 WBC (3.8-10.6) k/uL RBC (3.80-5.40) m/uL Hgb (11.4-16.0) gm/dL Hct (34.0-46.0) % MCV (80.0-100.0) fL MCH (25.0-35.0) pg MCHC (31.0-37.0) g/dL RDW (11.5-15.5) % Plt Count (150-450) k/uL Neutrophils % % Lymphocytes % % Monocytes % % Eosinophils % % Basophils % % Neutrophils # (1.3-7.7) k/uL Lymphocytes # (1.0-4.8) k/uL Monocytes # (0-1.0) k/uL Eosinophils # (0-0.7) k/uL Basophils # (0-0.2) k/uL Sodium (137-145) mmol/L Potassium (3.5-5.1) mmol/L Chloride (98-107) mmol/L Carbon Dioxide (22-30) mmol/L Anion Gap mmol/L BUN (7-17) mg/dL Creatinine (0.52-1.04) mg/dL Est GFR (CKD-EPI)AfAm (>60 ml/min/1.73 sqM) Est GFR (CKD-EPI)NonAf (>60 ml/min/1.73 sqM) Glucose (74-99) mg/dL Plasma Lactic Acid Kaden 1.5 (0.7-2.0) mmol/L Calcium (8.4-10.2) mg/dL Total Bilirubin (0.2-1.3) mg/dL AST (14-36) U/L ALT (9-52) U/L Alkaline Phosphatase (38-126) U/L Total Protein (6.3-8.2) g/dL Albumin (3.5-5.0) g/dL Lipase (23-300) U/L Urine Color Yellow Urine Appearance Cloudy H (Clear) Urine pH 6.5 (5.0-8.0) Ur Specific [place] 1.020 (1.001-1.035) Urine Protein Negative (Negative) Urine Glucose (UA) Negative (Negative) Urine Ketones Negative (Negative) Urine Blood Negative (Negative) Urine Nitrite Negative (Negative) Urine Bilirubin Negative (Negative) Urine Urobilinogen <2.0 (<2.0) mg/dL Ur Leukocyte Esterase Negative (Negative) Urine RBC 1 (0-5) /hpf Urine WBC 3 (0-5) /hpf Ur Squamous Epith Cells 19 H (0-4) /hpf Amorphous Sediment Few H (None) /hpf Urine Bacteria Rare H (None) /hpf Urine Mucus Rare H (None) /hpf Urine HCG, Qual Not Detected (Not Detectd) Stool Occult Blood (Negative) Disposition Clinical Impression: Rectal bleeding, Gastritis Disposition: HOME SELF-CARE Condition: Stable Instructions (If sedation given, give patient instructions): Gastritis (ED), Rectal Bleeding (ED) Additional Instructions: Follow-up with principal solutions architect tomorrow. Return to ER if more bleeding develops or if condition worsens in any way. Prescriptions: Pantoprazole Sodium [Protonix] 20 mg PO Q24HR 10 Days #10 tablet.dr Is patient prescribed a controlled substance at d/c from ED?: No Referrals: Reji Diaz MD [Primary Care Provider] - 1-2 days Destinee Quinn MD [STAFF PHYSICIAN] - 1-2 days
[2019-07-17 19:46] LABS: Albumin 4.1 g/dL (3.5-5.0); Calcium 8.6 mg/dL (8.4-10.2); Potassium 4.4 mmol/L (3.5-5.1); Total Bilirubin 0.3 mg/dL (0.2-1.3); Total Protein 7.5 g/dL (6.3-8.2)
[2019-07-17 19:48] LABS: Basophils # (A) 0.1 k/uL (0-0.2); Basophils % (A) 1 %; Eosinophils # (A) 0.3 k/uL (0-0.7); Eosinophils % (A) 4 %; HCT 43.6 % (34.0-46.0); HGB 15.1 gm/dL (11.4-16.0); Lymphocytes # (A) 1.8 k/uL (1.0-4.8); Lymphocytes % (A) 23 %; MCH 33.3 pg (25.0-35.0); MCHC 34.6 g/dL (31.0-37.0); MCV 96.2 fL (80.0-100.0); Mean Platelet Volume 6.3; Monocytes # (A) 0.3 k/uL (0-1.0); Monocytes % (A) 4 %; Neutrophils # (A) 5.2 k/uL (1.3-7.7); Neutrophils % (A) 67 %; Platelet Count 344 k/uL (150-450); RBC 4.53 m/uL (3.80-5.40); RDW 13.2 % (11.5-15.5); WBC 7.8 k/uL (3.8-10.6)
--- NOTE | 2019-07-17 20:02 | XR ---
EXAMINATION TYPE: XR KUB DATE OF EXAM: 07/17/2019 COMPARISON: 12/25/2017 HISTORY: Abdominal pain and nausea TECHNIQUE: 2 views upright FINDINGS: There is no sign of intestinal obstruction or pneumoperitoneum. There is no evidence of a m ass. Lung bases are clear. There are clips from cholecystectomy. There is increased density over the abdomen that could relate to ascites. There are clips from tubal ligation. IMPRESSION: No sign of a mechanical bowel obstruction. Possible ascites.
[2019-07-17 20:25] LABS: Amorphous Sediment,Urine Few /hpf; Appearance,Urine Cloudy (Clear); Bacteria,Urine Rare /hpf; Bilirubin,Urine Negative (Negative); Blood,Urine Negative (Negative); Color,Urine Yellow; Glucose,Urine (UA) Negative (Negative); Ketones,Urine Negative (Negative); Leukocyte Esterase,Urine Negative (Negative); Mucus,Urine Rare /hpf; Nitrite,Urine Negative (Negative); PH, Urine 6.5 (5.0-8.0); Protein,Urine Negative (Negative); RBC,Urine 1 /hpf (0-5); Squamous Epithelial Cell,Urine 19 /hpf (0-4); Urobilinogen,Urine <2.0 mg/dL (<2.0)
[2019-07-17] MEDS ORDERED: MAG HYDROX/AL HYDROX/SIMETH 30 ML, HYOSCYAMINE ELIXIR 10 ML, LIDOCAINE VISCOUS 2% 10 ML PO STA ×3 (20:31)
[2019-07-17 20:47] VITALS: BP 126/89; PULSE 100; RESP 18; TEMP 98.3
== END 2019-07-17 21:26 | disposition home or self-care (01) ==
LOC: EC 18:45
DX: K29.70 Gastritis, unspecified, without bleeding (principal); K62.5 Hemorrhage of anus and rectum; F41.9 Anxiety disorder, unspecified; F31.9 Bipolar disorder, unspecified; I10 Essential (primary) hypertension; G47.30 Sleep apnea, unspecified; F17.200 Nicotine dependence, unspecified, uncomplicated; Z79.899 Other long term (current) drug therapy; Z79.82 Long term (current) use of aspirin; Z88.0 Allergy status to penicillin; Z88.1 Allergy status to other antibiotic agents; Z88.8 Allergy status to other drugs, medicaments and biological substances; Z99.89 Dependence on other enabling machines and devices
CPT/HCPCS: 36415; 80053; 83605; 83690; 85025; 82272; 81001; 81025; 74018; 99284; 96374; 96375; 96361 ×2; J2405; C9113

== ENCOUNTER → 2019-08-15 | Outpatient (CLI) | payer OTHER ==
[2019-08-15 14:15] LABS: Erythrocyte Sedimentation Rate 22 mm/hr (0-20)
[2019-08-15 14:31] LABS: ALT 50 U/L (4-34); AST 33 U/L (14-36); African American GFR (CKD) 82 (>60 ml/min/1.73 sqM); Albumin 4.2 g/dL (3.5-5.0); Albumin/Globulin Ratio 1.2; Alkaline Phosphatase 88 U/L (38-126); Anion Gap 7 mmol/L; Blood Urea Nitrogen 13 mg/dL (7-17); C Reactive Protein <5.0 mg/L (<10.0); Calcium 8.7 mg/dL (8.4-10.2); Carbon Dioxide 28 mmol/L (22-30); Chloride 105 mmol/L (98-107); Globulin 3.4 g/dL; Glucose 101 mg/dL (74-99); Non-African American GFR(CKD) 71 (>60 ml/min/1.73 sqM); Sodium 140 mmol/L (137-145); Total Bilirubin 0.4 mg/dL (0.2-1.3); Total Protein 7.6 g/dL (6.3-8.2)
[2019-08-15 15:05] LABS: HCT 42.9 % (34.0-46.0); HGB 14.5 gm/dL (11.4-16.0); MCH 32.7 pg (25.0-35.0); MCHC 33.8 g/dL (31.0-37.0); MCV 96.7 fL (80.0-100.0); Mean Platelet Volume 8.4; Platelet Count 317 k/uL (150-450); RBC 4.43 m/uL (3.80-5.40); RDW 13.1 % (11.5-15.5); WBC 8.8 k/uL (3.8-10.6)
[2019-08-15 20:13] LABS: Gliadin AB IgG, Deaminated NEGATIVE (NEGATIVE)
[2019-08-15 21:04] LABS: Gliadin AB IgA, Deaminated NEGATIVE (NEGATIVE); Gliadin AB IgA, Unit 1.8 U/mL
== END | disposition home or self-care (01) ==
LOC: LABWHC1 11:47
PROVIDERS: ATTEND Nurse Practitioner
DX: R19.7 Diarrhea, unspecified (principal)
CPT/HCPCS: 36415; 80053; 83516; 83630; 83993; 85027; 85652; 86140; 87045; 87046; 87328; 87329

== ENCOUNTER 2019-08-19 10:55 | Day surgery (SDC) | payer OTHER ==
[2019-08-15 11:11] VITALS: BMI 56.5
[~2019-08-19 10:55] MED LIST changes: +LIDOCAINE 1% 20 ML VIAL (10MG/ML) FOR IV START INTRADERMA PRN
[2019-08-19 11:21] VITALS: RESP 16; TEMP 98.1
[2019-08-19] MEDS ORDERED: ONDANSETRON 4 MG/2 ML VIAL IVP ONE (11:42)
[2019-08-19] MEDS ORDERED: PROPOFOL 10 MG/ML 20 ML VIAL IV ONE (12:28)
[2019-08-19] MEDS ORDERED: LIDOCAINE 1% INJ 10MG/ML (20 ML MDV) ONE (12:28)
--- NOTE | 2019-08-19 13:16 | P.PCN ---
Date of Procedure: 08/19/19 Description of Procedure: Brief history: Patient is a pleasant scheduled for an elective upper endoscopy as well as colonoscopy as a part of evaluation of epigastric abdominal pain and rectal bleed. Patient reports a previous diagnosis of Crohn's disease but has not followed up as not on any chronic medications. She has had multiple intra- abdominal surgeries in the past. Procedure performed: Esophagogastroduodenoscopy with biopsy Colonoscopy with biopsy Estimated blood loss: Minimal. Preoperative diagnosis: Epigastric abdominal pain, rectal bleeding Anesthesia: MAC Procedure: After informed consent was obtained from the patient was brought into the endoscopy unit and IV sedation was administered by anesthesia under continuous monitoring. Initially upper endoscopy was done. The Olympus GF 190 video endoscope was inserted into the mouth and esophagus intubated without any diffi culty and was gradually advanced into the stomach and duodenum and carefully examined. The bulb and second part of the duodenum appeared normal, with biopsies taken. The scope was then withdrawn into the stomach adequately insufflated with air and upon careful examination the antrum and body, cardia and fundus appeared normal, except for diffuse punctate erythema in the antrum and body with a few superficial erosions suggestive of mild gastritis with biopsies of the antrum and body taken. The scope was then withdrawn into the esophagus. The GE junction was located at 40 cm to the incisorsand biopsied to rule out reflux esophagitis. It appeared regular with no erythema erosions or ulcerations. Rest of the esophagus appeared normal. Patient tolerated the procedure well. At this time the patient continued to remain sedation. Initial digital rectal examination was normal. Olympus pediatric video colonoscope was then inserted into the rectum and gradually advanced to the cecum which was technically difficult given patient's morbid obesity as well as multiple intra-abdominal surgeries. Careful examination was performed as the scope was gradually being withdrawn. The prep was excellent. The cecum, ascending colon, transverse colon, descending colon, sigmoid colon and rectum appeared normal. The terminal ileum was intubated as the procedure was made difficult technically difficulty by the patient's tobacco use, and morbid obesity. Retroflexion was performed in the rectum and no lesions were noted, grade internal hemorrhoids noted. Random biopsies were taken of the right and left colon in the setting of altered bowel function. Patient tolerated the procedure well. Impression: 1. Mild gastritis of the antrum and body biopsies. Biopsies of the duodenum and GE junction. 2. Low grade internal hemorrhoids. Random biopsies of the right and left colon in the setting of altered bowel function. Recommendations: Findings of this examination were discussed with the patient as well as her daughter. Okay to resume diet. Okay to resume medications. Follow-up in gastroenterology clinic as previously scheduled.
[2019-08-19 13:44] VITALS: BP 114/71; PULSE 99
== END 2019-08-19 14:01 | disposition home or self-care (01) ==
LOC: ORWHC2ENDO 10:55
PROVIDERS: ATTEND Internal Medicine
DX: K29.81 Duodenitis with bleeding (principal); K29.51 Unspecified chronic gastritis with bleeding; K22.8 Other specified diseases of esophagus; K64.8 Other hemorrhoids; I10 Essential (primary) hypertension; G47.33 Obstructive sleep apnea (adult) (pediatric); J45.909 Unspecified asthma, uncomplicated; E07.9 Disorder of thyroid, unspecified; K50.90 Crohn's disease, unspecified, without complications; E66.01 Morbid (severe) obesity due to excess calories; Z68.43 Body mass index [BMI] 50.0-59.9, adult; Z72.0 Tobacco use; Z88.0 Allergy status to penicillin; Z88.1 Allergy status to other antibiotic agents; Z88.8 Allergy status to other drugs, medicaments and biological substances; Z79.899 Other long term (current) drug therapy; Z98.890 Other specified postprocedural states; Z90.49 Acquired absence of other specified parts of digestive tract; Z99.89 Dependence on other enabling machines and devices; Z97.2 Presence of dental prosthetic device (complete) (partial); Z90.721 Acquired absence of ovaries, unilateral; Z82.49 Family history of ischemic heart disease and other diseases of the circulatory system
CPT/HCPCS: 81025; 88305; 88313; 45380; 43239; J2405; J2001; J2704

== ENCOUNTER 2019-08-21 22:30 | Observation (INO) | payer OTHER ==
[2019-08-21] MEDS ORDERED: SODIUM CHLORIDE 0.9% 1,000 ML IV STA (22:54)
--- NOTE | 2019-08-21 23:04 | ED ---
General Adult HPI - General Chief complaint: Arrhythmia/Palpitations Stated complaint: High Heart Rate Time Seen by Provider: 08/21/19 22:41 Source: patient Mode of arrival: ambulatory Limitations: no limitations - History of Present Illness Initial comments: Dictation was produced using [employer] dictation software. please excuse any grammatical, word or spelling errors. Chief Complaint: 39-year-old obese female presents with chest pain, tachycardia and hypertension. History of Present Illness: She is 39-year-old female she presents today with chest pain, hypertension tachycardia. Patient was seen at Dr. Diaz's office. He prescribed patient Cardizem. After taking the Cardizem patient reports that she began experiencing chest pain, palpitations. She states pain is like a pressure to her chest radiates to the left upper extremity. Patient denies any cough, no constitutional symptoms. Patient has a large Eden symptoms. Patient's been evaluated for pulmonary embolus multiple occasions in the past. She's had multiple negative CT angios of the chest. The ROS documented in this emergency department record has been reviewed and confirmed by me. Those systems with pertinent positive or negative responses have been documented in the HPI. All other systems are other negative and/or noncontributory. PHYSICAL EXAM: General Impression: Alert and oriented x3, not in acute distress, morbidly obese HEENT: Normocephalic atraumatic, extra-ocular movements intact, pupils equal and reactive to light bilaterally, mucous membranes moist. Cardiovascular: Heart regular rate and rhythm, S1&S2 audible, no murmurs, rubs or gallops Chest: Lungs clear to auscultation bilaterally, no rhonchi, no wheeze, no rales Abdomen: Bowel sounds present, abdomen soft, non-tender, non-distended, no organomegaly Musculoskeletal: Pulses present and equal in all extremities, no peripheral edema Motor: no focal deficits noted Neurological: CN II-XII grossly intact, no focal motor or sensory deficits noted Skin: Intact with no visualized rashes Psych: Normal affect and mood ED course: 39-year-old female presents with chest pain, tachycardia and hypertension. Vital signs upon arrival shows heart rate of 125, blood pressure 160/117. Patient has symmetrical pulses in both extremities. She is well- appearing. She does not report that this is a sharp stabbing chest pain that radiates to her back. Clinically there is very low suspicion for aortic dissection. Patient is not hypoxic. She does have sinus tachycardia on EKG however she does not have any lower extremity symptoms to suggest bony emboli. Furthermore, patient had multiple negative CT angios to diagnose pulmonary emboli. She appears comfortable at bedside.Laboratory evaluation obtained. CBC, coag panel, metabolic is unremarkable. First troponin is negative. TSH is elevated to 16. Patient has history of thyroid disease. Unclear whether patient's tachycardia is related to thyroid disease. Patient continues to be tachycardic despite fluid administration. Patient's clinical presentation concerning for atypical chest pain with typical features. She is given aspirin. Patient be admitted observation for suture troponins and cardiology consultation. EKG interpretation: Ventricular rate 119, sinus tachycardia, VT interval 144, care is 80, QTc 475. No VT prolongation, no QTC prolongation, no ST or T-wave changes noted. Overall, this EKG is unremarkable - Related Data Home Medications Medication Instructions Recorded Confirmed Sertraline [Zoloft] 200 mg PO HS 06/17/14 08/19/19 ALPRAZolam [Xanax] 1 mg PO BID PRN 05/26/17 08/19/19 ARIPiprazole [Abilify] 15 mg PO HS 05/26/17 08/19/19 Aspirin EC [Ecotrin Low Dose] 81 mg PO HS 04/09/19 08/19/19 Previous Rx's Medication Instructions Recorded Atorvastatin [Lipitor] 20 mg PO HS #30 tab 04/10/19 Levothyroxine Sodium [Synthroid] 224 mcg PO AC-BRKFST #0 04/10/19 Allergies Allergy/AdvReac Type Severity Reaction Status Date / Time cephalexin monohydrate Allergy Swelling Verified 08/21/19 22:39 [From Keflex] clindamycin Allergy Swelling Verified 08/21/19 22:39 levofloxacin [From Levaquin] Allergy Swelling Verified 08/21/19 22:39 Penicillins AdvReac Itching Verified 08/21/19 22:39 prochlorperazine edisylate AdvReac IRRITABLE Verified 08/21/19 22:39 [From Compazine] prochlorperazine maleate AdvReac IRRITABLE Verified 08/21/19 22:39 [From Compazine] Review of Systems ROS Statement: Those systems with pertinent positive or pertinent negative responses have been documented in the HPI. ROS Other: All systems not noted in ROS Statement are negative. Past Medical History Past Medical History: Asthma, GERD/Reflux, Hypertension, Musculoskeletal Disorder, Osteoarthritis (OA), Pneumonia, Sleep Apnea/CPAP/BIPAP, Thyroid Diso rder Additional Past Medical History / Comment(s): Crohns, IBS, degenerative disc disease, episode of chest pain and rapid heart rate X1 2 months ago, CPAP use. History of Any Multi-Drug Resistant Organisms: MRSA Date of last positivie culture/infection: 2013 MDRO Source:: rt side of chest Past Surgical History: Appendectomy, Bowel Resection, Breast Surgery, Section, Cholecystectomy Additional Past Surgical History / Comment(s): LEFT BREAST BENIGN CYST REMOVED. Cyst removal/abscess small intestine, right oophorectomy and salpingectomy. Past Anesthesia/Blood Transfusion Reactions: No Reported Reaction Additional Past Anesthesia/Blood Transfusion Reaction / Comment(s): Daughter PONV. Past Psychological History: Anxiety, Bipolar, Depression Smoking Status: Current every day smoker Past Alcohol Use History: None Reported Past Drug Use History: None Reported - Past Family History Father Additional Family Medical History / Comment(s): Father is alive at age 65 with history of coronary artery disease. Mother Family Medical History: Asthma, Coronary Artery Disease (CAD) Additional Family Medical History / Comment(s): Mother is alive at age 58 with history of coronary artery disease and asthma. Brother(s) Family Medical History: No Reported History Additional Family Medical History / Comment(s): Patient has 1 brother with no major medical problems. Sister(s) Family Medical History: No Reported History Additional Family Medical History / Comment(s): Patient has 1 sister with no major medical problems. Daughter(s) Family Medical History: Asthma, Sleep Apnea/CPAP/BIPAP Son(s) Family Medical History: Asthma, Sleep Apnea/CPAP/BIPAP General Exam Limitations: no limitations Course Vital Signs 08/21/19 22:36 Temperature 97.7 F Pulse Rate 125 H Respiratory 20 Rate Blood Pressure 168/117 O2 Sat by Pulse 100 Oximetry Medical Decision Making - Lab Data Result diagrams: 08/21/19 23:00 08/21/19 23:00 Lab Results 08/21/19 08/21/19 08/21/19 Range/Units 23:00 23:00 23:00 WBC 9.7 (3.8-10.6) k/uL RBC 4.64 (3.80-5.40) m/uL Hgb 14.9 (11.4-16.0) gm/dL Hct 45.0 (34.0-46.0) % MCV 96.9 (80.0-100.0) fL MCH 32.2 (25.0-35.0) pg MCHC 33.2 (31.0-37.0) g/dL RDW 12.8 (11.5-15.5) % Plt Count 339 (150-450) k/uL Neutrophils % 70 % Lymphocytes % 20 % Monocytes % 5 % Eosinophils % 2 % Basophils % 1 % Neutrophils # 6.9 (1.3-7.7) k/uL Lymphocytes # 1.9 (1.0-4.8) k/uL Monocytes # 0.5 (0-1.0) k/uL Eosinophils # 0.2 (0-0.7) k/uL Basophils # 0.1 (0-0.2) k/uL PT 9.9 (9.0-12.0) sec INR 0.9 (<1.2) APTT 23.2 (22.0-30.0) sec Sodium 139 (137-145) mmol/L Potassium 4.5 (3.5-5.1) mmol/L Chloride 104 (98-107) mmol/L Carbon Dioxide 25 (22-30) mmol/L Anion Gap 10 mmol/L BUN 15 (7-17) mg/dL Creatinine 1.05 H (0.52-1.04) mg/dL Est GFR (CKD-EPI)AfAm 78 (>60 ml/min/1.73 sqM) Est GFR (CKD-EPI)NonAf 68 (>60 ml/min/1.73 sqM) Glucose 125 H (74-99) mg/dL Calcium 8.9 (8.4-10.2) mg/dL Troponin I (0.000-0.034) ng/mL TSH 16.100 H (0.465-4.680) mIU/L HCG, Quant <2.4 mIU/mL 08/21/ Range/Units 23:00 WBC (3.8-10.6) k/uL RBC (3.80-5.40) m/uL Hgb (11.4-16.0) gm/dL Hct (34.0-46.0) % MCV (80.0-100.0) fL MCH (25.0-35.0) pg MCHC (31.0-37.0) g/dL RDW (11.5-15.5) % Plt Count (150-450) k/uL Neutrophils % % Lymphocytes % % Monocytes % % Eosinophils % % Basophils % % Neutrophils # (1.3-7.7) k/uL Lymphocytes # (1.0-4.8) k/uL Monocytes # (0-1.0) k/uL Eosinophils # (0-0.7) k/uL Basophils # (0-0.2) k/uL PT (9.0-12.0) sec INR (<1.2) APTT (22.0-30.0) sec Sodium (137-145) mmol/L Potassium (3.5-5.1) mmol/L Chloride (98-107) mmol/L Carbon Dioxide (22-30) mmol/L Anion Gap mmol/L BUN (7-17) mg/dL Creatinine (0.52-1.04) mg/dL Est GFR (CKD-EPI)AfAm (>60 ml/min/1.73 sqM) Est GFR (CKD-EPI)NonAf (>60 ml/min/1.73 sqM) Glucose (74-99) mg/dL Calcium (8.4-10.2) mg/dL Troponin I <0.012 (0.000-0.034) ng/mL TSH (0.465-4.680) mIU/L HCG, Quant mIU/mL Disposition Clinical Impression: Chest pain Disposition: ADMITTED IP TO THIS HOSP Condition: Fair Referrals: Reji Diaz MD [Primary Care Provider] - 1-2 days Decision Time: 00:10
[2019-08-21 23:16] LABS: Basophils # (A) 0.1 k/uL (0-0.2); Basophils % (A) 1 %; Eosinophils # (A) 0.2 k/uL (0-0.7); Eosinophils % (A) 2 %; HGB 14.9 gm/dL (11.4-16.0); Lymphocytes # (A) 1.9 k/uL (1.0-4.8); Lymphocytes % (A) 20 %; MCH 32.2 pg (25.0-35.0); MCHC 33.2 g/dL (31.0-37.0); MCV 96.9 fL (80.0-100.0); Mean Platelet Volume 7.6; Monocytes # (A) 0.5 k/uL (0-1.0); Monocytes % (A) 5 %; Neutrophils # (A) 6.9 k/uL (1.3-7.7); Neutrophils % (A) 70 %; Platelet Count 339 k/uL (150-450); RBC 4.64 m/uL (3.80-5.40); RDW 12.8 % (11.5-15.5); WBC 9.7 k/uL (3.8-10.6)
[2019-08-21] MEDS ORDERED: ONDANSETRON 4 MG/2 ML VIAL IVP STA (23:20)
[2019-08-21] MEDS ORDERED: MORPHINE SULFATE 4 MG/ML SYRINGE IVP STA (23:22)
[2019-08-21 23:26] LABS: African American GFR (CKD) 78 (>60 ml/min/1.73 sqM); Anion Gap 10 mmol/L; Blood Urea Nitrogen 15 mg/dL (7-17); Calcium 8.9 mg/dL (8.4-10.2); Carbon Dioxide 25 mmol/L (22-30); Chloride 104 mmol/L (98-107); Glucose 125 mg/dL (74-99); Non-African American GFR(CKD) 68 (>60 ml/min/1.73 sqM); Potassium 4.5 mmol/L (3.5-5.1); Sodium 139 mmol/L (137-145)
[2019-08-21 23:39] LABS: INR 0.9 (<1.2); Partial Thromboplastin Time 23.2 sec (22.0-30.0); Prothrombin Time 9.9 sec (9.0-12.0)
--- NOTE | 2019-08-21 23:39 | XR ---
EXAMINATION TYPE: XR chest 2V DATE OF EXAM: 08/21/2019 COMPARISON: 04/09/2019 HISTORY: Chest pain TECHNIQUE: 2 views FINDINGS: Heart and mediastinum are normal. Lungs are clear. Diaphragm is normal. Bony thorax appears normal. IMPRESSION: Normal chest. No change.
[2019-08-21 23:42] LABS: HCG,Quantitative Serum <2.4 mIU/mL
[2019-08-22] MEDS ORDERED: ASPIRIN 81 MG PO STA (00:06)
[2019-08-22] MEDS ORDERED: NITROGLYCERIN SL TABS 0.4 MG TAB SUBLINGUAL PRN (00:06)
[2019-08-22 00:30] VITALS: RESP 18
[2019-08-22] MEDS ORDERED: MORPHINE SULFATE 2 MG/ML SYRINGE IVP PRN (06:49)
[2019-08-22] MEDS ORDERED: LEVOTHYROXINE 112 MCG TAB PO SCH (07:30)
--- NOTE | 2019-08-22 07:31 | P.CRDCN ---
History of Present Illness Consult date: 08/22/19 Chief complaint: heart racing/chest discomfort History of present illness: This is another admission for this 39-year-old female patient with obesity as well as his smoking as well as tachycardia. The patient was admitted to the hospital a few weeks ago with a chest discomfort and she was ruled out for acute coronary event. At that point she was seen by Dr. Sanchez who recommended proceeding with dobutamine stress echocardiogram. The stress test came in to be unremarkable and the patient was discharged home in stable medical condition. This time, she stated that she was in her usual state of health until yesterday when she had an appointment to see her primary care physician, Dr. Diaz who prescribe to her Cardizem CD. The patient noticed that her heart rate has been elevated. beside that she started experiencing chest discomfort, in the mid of the chest, as a sharp kind of discomfort, without any radiation to the arm or neck or shoulders, and without associated symptoms of shortness of breath, sweating, nausea, or syncope. In term of work up, everything came in to be unremarkable. The EKG showed sinus rhythm without any significant ST or T-wave abnormalities but when she presented to the hospital she was in sinus tachyca rdia. The chest x-ray did not show any acute abnormalities. The cardiac enzymes came in to be unremarkable as well. Currently the patient is chest pain-free.at this point, I am going to restart the patient back on Cardizem CD at 180 mg by mouth daily. Beside that because she was tachycardic and was having chest discomfort and she is obese, I am going to obtain a d-dimer to rule out PE. Beside that if the d-dimer came in to be unremarkable and the patient is chest pain-free with improvement in the blood pressure and heart rate, she possibly can be discharged home and follow-up with Dr. Sanchez. Past Medical History Past Medical History: Asthma, GERD/Reflux, Hypertension, Musculoskeletal Disorder, Osteoarthritis (OA), Pneumonia, Sleep Apnea/CPAP/BIPAP, Thyroid Disorder Additional Past Medical History / Comment(s): Crohns, IBS, degenerative disc disease, episode of chest pain and rapid heart rate X1 2 months ago, CPAP use. History of Any Multi-Drug Resistant Organisms: MRSA Date of last positivie culture/infection: 2013 MDRO Source:: rt side of chest Past Surgical History: Appendectomy, Bowel Resection, Breast Surgery, Section, Cholecystectomy Additional Past Surgical History / Comment(s): LEFT BREAST BENIGN CYST REMOVED. Cyst removal/abscess small intestine, right oophorectomy and salpingectomy. Past Anesthesia/Blood Transfusion Reactions: No Reported Reaction Additional Past Anesthesia/Blood Transfusion Reaction / Comment(s): Daughter PONV. Past Psychological History: Anxiety, Bipolar, Depression Smoking Status: Current every day smoker Past Alcohol Use History: None Reported Additional Past Alcohol Use History / Comment(s): Patient is a smoker one pack per day for more than 10 years. Past Drug Use History: None Reported - Past Family History Father Additional Family Medical History / Comment(s): Father is alive at age 65 with history of coronary artery disease. Mother Family Medical History: Asthma, Coronary Artery Disease (CAD) Additional Family Medical History / Comment(s): Mother is alive at age 58 with history of coronary artery disease and asthma. Brother(s) Family Medical History: No Reported History Additional Family Medical History / Comment(s): Patient has 1 brother with no major medical problems. Sister(s) Family Medical History: No Reported History Additional Family Medical History / Comment(s): Patient has 1 sister with no major medical problems. Daughter(s) Family Medical History: Asthma, Sleep Apnea/CPAP/BIPAP Son(s) Family Medical History: Asthma, Sleep Apnea/CPAP/BIPAP Medications and Allergies Home Medications Medication Instructions Recorded Confirmed Type Sertraline [Zoloft] 200 mg PO HS 06/17/14 08/22/19 History ALPRAZolam [Xanax] 1 mg PO BID PRN 05/26/17 08/22/19 History ARIPiprazole [Abilify] 15 mg PO HS 05/26/17 08/22/19 History Levothyroxine Sodium [Synthroid] 224 mcg PO AC-BRKFST #0 04/10/19 08/22/19 Rx Acetaminophen-Codeine 300-30mg 1 tab PO Q8HR PRN 08/22/19 08/22/19 History [Tylenol w/codeine #3] Albuterol Inhaler [Ventolin Hfa 1 - 2 puff INHALATION RT-Q6H PRN 08/22/19 08/22/19 History Inhaler] Diltiazem HCl [Cardizem LA] 120 mg PO HS 08/22/19 08/22/19 History Allergies Allergy/AdvReac Type Severity Reaction Status Date / Time cephalexin monohydrate Allergy Swelling Verified 08/22/19 01:33 [From Keflex] clindamycin Allergy Swelling Verified 08/22/19 01:33 levofloxacin [From Levaquin] Allergy Swelling Verified 08/22/19 01:33 Penicillins AdvReac Itching Verified 08/22/19 01:33 prochlorperazine edisylate AdvReac IRRITABLE Verified 08/22/19 01:33 [From Compazine] prochlorperazine maleate AdvReac IRRITABLE Verified 08/22/19 01:33 [From Compazine] Physical Exam Vitals: Vital Signs Temp Pulse Pulse Resp BP BP Pulse Ox 08/22/19 04:46 97.9 F 92 18 143/73 98 08/22/19 01:15 97.2 F L 115 H 18 138/86 99 08/22/19 00:29 107 H 18 124/88 96 08/21/19 22:36 97.7 F 125 H 20 168/117 100 Intake and Output 08/21/19 08/22/19 08/22/19 22:59 06:59 14:59 Other: # Voids 1 Weight 157.85 kg 157.85 kg - Constitutional General appearance: no acute distress - Respiratory Respiratory: bilateral: CTA - Cardiovascular Rhythm: regular Heart sounds: normal: S1, S2 Results 08/21/19 23:00 08/21/19 23:00 Cardiac Enzymes 08/21/19 08/22/19 Range/Units 23:00 05:18 Troponin I <0.012 <0.012 (0.000-0.034) ng/mL Coagulation 08/21/19 Range/Units 23:00 PT 9.9 (9.0-12.0) sec APTT 23.2 (22.0-30.0) sec CBC 08/21/19 Range/Units 23:00 WBC 9.7 (3.8-10.6) k/uL RBC 4.64 (3.80-5.40) m/uL Hgb 14.9 (11.4-16.0) gm/dL Hct 45.0 (34.0-46.0) % Plt Count 339 (150-450) k/uL Comprehensive Metabolic Panel 08/21/19 Range/Units 23:00 Sodium 139 (137-145) mmol/L Potassium 4.5 (3.5-5.1) mmol/L Chloride 104 (98-107) mmol/L Carbon Dioxide 25 (22-30) mmol/L BUN 15 (7-17) mg/dL Creatinine 1.05 H (0.52-1.04) mg/dL Glucose 125 H (74-99) mg/dL Calcium 8.9 (8.4-10.2) mg/dL Current Medications Generic Name Dose Route Start Last Admin Trade Name Freq PRN Reason Stop Dose Admin Aspirin 325 mg 08/23/19 09:00 Aspirin PO DAILY GLENYS Levothyroxine Sodium 224 mcg 08/22/19 07:30 Synthroid PO AC-BRKFST GLNEYS Morphine Sulfate 2 mg 08/22/19 06:49 08/22/19 06:59 Morphine Sulfate (Inj) IVP 2 mg Q6H PRN Administration Pain/Discomfort Nicotine 1 patch 08/22/19 09:00 Habitrol 21mg/24hr Patch TRANSDERM DAILY GLENYS Nitroglycerin 0.4 mg 08/22/19 00:06 Nitrostat SUBLINGUAL Q5M PRN Chest Pain Intake and Output 08/21/19 08/22/19 08/22/19 22:59 06:59 14:59 Other: # Voids 1 Weight 157.85 kg 157.85 kg 08/21/19 23:00 08/21/19 23:00 Assessment and Plan Assessment: assessment #1 atypical chest discomfort #2 hypertension #3 sinus tachycardia #4 obesity Plan #1 acute coronary event was ruled out #2 rule out a PE. We'll obtain d-dimer #3 restart the patient back on Cardizem CD at a higher dose #4 follow-up with the patient Thank you for allowing us participate in her care
[2019-08-22] MEDS ORDERED: NICOTINE 21MG/24HR PATCH TRANSDERM SCH (09:00)
[2019-08-22] MEDS ORDERED: DILTIAZEM CD 180 MG CAP.ER.24H PO SCH (09:00)
[2019-08-22] MEDS ORDERED: ALPRAZolam 0.5 MG TAB PO PRN (10:55)
[2019-08-22] MEDS ORDERED: Acetaminophen-Codeine 300-30mg TAB PO PRN (10:55)
[2019-08-22] MEDS ORDERED: LOPERAMIDE 2 MG CAP PO PRN (10:55)
[2019-08-22 11:32] VITALS: BP 101/60; PULSE 93; TEMP 98.2
--- NOTE | 2019-08-22 13:50 | P.HPIM ---
History of Present Illness H&P Date: 08/22/19 (this document was of both his H&P and discharge summary) 79 year old female patient of Dr. Luevano with past medical history of GERD, asthma, sleep apnea, hypothyroidism comes in with the episodes of tachycardia and central chest pain. Patient was last seenon 04/09 for chest pain in a patient underwent a stress test that was negative for ACS. According to patient she was at Dr. Brasher's office yesterdaywhere she was evaluated for tachycardia. EKG was done which suggested sinus tachycardia but patient did have significant chest pain and decided to come to the ER. She denies any radiation to arm or neck or shoulder denies any symptoms of shortness of breath, setting nausea or syncope. EKG was unremarkable with no significant ST or T-wave changes. Troponin 3 came negative. D-dimer was obtained per cardiology that was negative. Patient was started on Cardizem by Dr. Brasher which will be increased to 180 mg daily by cardiology. Patient to follow with Dr. Brasher as outpatient Review of Systems Constitutional: Denies chills, Denies fever, Denies lethargy, Denies malaise, Denies poor appetite, Denies weakness, Denies weight loss Eyes: denies decreased vision, denies diplopia, denies discharge, denies pain Ears: deny: decreased hearing Ears, nose, mouth and throat: Denies dental pain, Denies headache, Denies nasal discharge, Denies nose pain Cardiovascular: endorses chest pain, Denies decreased exercise tolerance, Denies edema, Denies high blood pressure, endorses palpitations, Denies paroxysmal nocturnal dyspnea, Denies rapid heart beat, Denies shortness of breath Respiratory: Denies congestion, Denies cough, Denies cough with sputum, Denies dyspnea, Denies home oxygen, Denies wheezing Gastrointestinal: Denies abdominal pain, Denies change in bowel habits, Denies coffee ground emesis, Denies early satiety, Denies excessive gas, Denies heartburn, Denies hematemesis, Denies hematochezia, Denies loss of appetite, Denies nausea, Denies vomitingendorses reflux Genitourinary: Denies dysuria, Denies flank pain, Denies kidney stones, Denies menorrhagia, Denies urgency, Denies urinary frequency Musculoskeletal: Denies gait dysfunction, Denies limitation of motion, Denies morning stiffness, Denies muscle cramps Integumentary: Denies rash, Denies wounds, Denies brittle nails, Denies change in hair/nails, Denies darkening of skin Neurological: Denies balance difficulties, Denies change in speech, Denies double vision, Denies gait dysfunction, Denies loss of vision, Denies motor disturbance, Denies numbness, Denies paralysis, Denies paresthesias, Denies seizures Psychiatric: Denies anxiety, Denies depression Endocrine: Denies excessive sweating, Denies excessive thirst, Denies high blood sugars, Denies palpitations Hematologic/Lymphatic: Denies easy bruising, Denies lymphadenopathy Past Medical History Past Medical History: Asthma, GERD/Reflux, Hypertension, Musculoskeletal Disord er, Osteoarthritis (OA), Pneumonia, Sleep Apnea/CPAP/BIPAP, Thyroid Disorder Additional Past Medical History / Comment(s): Crohns, IBS, degenerative disc disease, episode of chest pain and rapid heart rate X1 2 months ago, CPAP use. History of Any Multi-Drug Resistant Organisms: MRSA Date of last positivie culture/infection: 2013 MDRO Source:: rt side of chest Past Surgical History: Appendectomy, Bowel Resection, Breast Surgery, Section, Cholecystectomy Additional Past Surgical History / Comment(s): LEFT BREAST BENIGN CYST REMOVED. Cyst removal/abscess small intestine, right oophorectomy and salpingectomy. Past Anesthesia/Blood Transfusion Reactions: No Reported Reaction Additional Past Anesthesia/Blood Transfusion Reaction / Comment(s): Daughter PONV. Past Psychological History: Anxiety, Bipolar, Depression Smoking Status: Current every day smoker Past Alcohol Use History: None Reported Additional Past Alcohol Use History / Comment(s): Patient is a smoker one pack per day for more than 10 years. Past Drug Use History: None Reported - Past Family History Father Additional Family Medical History / Comment(s): Father is alive at age 65 with history of coronary artery disease. Mother Family Medical History: Asthma, Coronary Artery Disease (CAD) Additional Family Medical History / Comment(s): Mother is alive at age 58 with history of coronary artery disease and asthma. Brother(s) Family Medical History: No Reported History Additional Family Medical History / Comment(s): Patient has 1 brother with no major medical problems. Sister(s) Family Medical History: No Reported History Additional Family Medical History / Comment(s): Patient has 1 sister with no major medical problems. Daughter(s) Family Medical History: Asthma, Sleep Apnea/CPAP/BIPAP Son(s) Family Medical History: Asthma, Sleep Apnea/CPAP/BIPAP Medications and Allergies Home Medications Medication Instructions Recorded Confirmed Type Sertraline [Zoloft] 200 mg PO HS 06/17/14 08/22/19 History ALPRAZolam [Xanax] 1 mg PO BID PRN 05/26/17 08/22/19 History ARIPiprazole [Abilify] 15 mg PO HS 05/26/17 08/22/19 History Levothyroxine Sodium [Synthroid] 224 mcg PO AC-BRKFST #0 04/10/19 08/22/19 Rx Acetaminophen-Codeine 300-30mg 1 tab PO Q8HR PRN 08/22/19 08/22/19 History [Tylenol w/codeine #3] Albuterol Inhaler [Ventolin Hfa 1 - 2 puff INHALATION RT-Q6H PRN 08/22/19 08/22/19 History Inhaler] Diltiazem Cd [Cardizem CD] 180 mg PO DAILY #30 cap.er.24h 08/22/19 Rx Loperamide [Imodium] 2 mg PO QID PRN 08/22/19 08/22/19 History Montelukast [Singulair] 10 mg PO DAILY 08/22/19 08/22/19 History Nicotine 21Mg/24Hr Patch [Habitrol] 1 patch TRANSDERM DAILY #30 patch 08/22/19 Rx Allergies Allergy/AdvReac Type Severity Reaction Status Date / Time cephalexin monohydrate Allergy Swelling Verified 08/22/19 08:16 [From Keflex] clindamycin Allergy Swelling Verified 08/22/19 08:16 levofloxacin [From Levaquin] Allergy Swelling Verified 08/22/19 08:16 Penicillins AdvReac Itching Verified 08/22/19 08:16 prochlorperazine edisylate AdvReac IRRITABLE Verified 08/22/19 08:16 [From Compazine] prochlorperazine maleate AdvReac IRRITABLE Verified 08/22/19 08:16 [From Compazine] Physical Exam Vitals: Vital Signs Temp Pulse Pulse Resp BP BP Pulse Ox 08/22/19 11:31 98.2 F 93 18 101/60 97 08/22/19 08:45 106 H 08/22/19 07:35 97.5 F L 96 18 123/76 97 08/22/19 04:46 97.9 F 92 18 143/73 98 08/22/19 01:15 97.2 F L 115 H 18 138/86 99 08/22/19 00:29 107 H 18 124/88 96 08/21/19 22:36 97.7 F 125 H 20 168/117 100 Intake and Output 08/21/19 08/22/19 08/22/19 22:59 06:59 14:59 Intake Total 720 Balance 720 Intake: Oral 720 Other: Voiding Method Toilet # Voids 1 Weight 157.85 kg 157.85 kg - Constitutional General appearance: cooperative, no acute distress, obesityobese - EENT Eyes: anicteric sclerae, PERRLA, normal appearance ENT: hearing grossly normal - Neck Neck: no lymphadenopathy, normal ROM, no other, no rigidity, no stridor, no thyromegaly - Respiratory Respiratory: bilateral: CTA, negative: diminished, dullness, rales, rhonchi - Cardiovascular Rhythm: regular Heart sounds: normal: S1, S2 Abnormal Heart Sounds: no systolic murmur, no diastolic murmur, no rub, no S3 Gallop, no S4 Gallop, no click, no other - Gastrointestinal General gastrointestinal: normal bowel sounds, soft - Integumentary Integumentary: no rash - Neurologic Neurologic: CNII-XII intact - Musculoskeletal Musculoskeletal: gait normal, strength equal bilaterally - Psychiatric Psychiatric: A&O x's 3, appropriate affect Results CBC & Chem 7: 08/21/19 23:00 08/21/19 23:00 Labs: Abnormal Lab Results - Last 24 Hours (Table) 08/21/19 Range/Units 23:00 Creatinine 1.05 H (0.52-1.04) mg/dL Glucose 125 H (74-99) mg/dL TSH 16.100 H (0.465-4.680) mIU/L Free T4 0.70 L (0.78-2.19) ng/dL Thrombosis Risk Factor Assmnt - DVT/VTE Prophylaxis DVT/VTE Prophylaxis: Mechanical Prophylaxis ordered - Choose All That Apply Any of the Below Risk Factors Present?: Yes Each Factor Represents 1 point: Obesity (BMI >25) Thrombosis Risk Factor Assessment Total Risk Factor Score: 1 Thrombosis Risk Factor Assessment Level: Low Risk Assessment and Plan Plan: #1 substernal chest pain with tachycardia. Cardizem increased to 180. Negative for ACS. EKG negative for any ST or T-wave changes. Troponin negative #2 hypothyroidism TSH elevated patient is currently on 224 mg Synthyroid. Need to follow with primary care as outpatient for change in medications with a rep eat TSH in 6 weeks #3bipolar disorder currently on Abilify 15 mg by mouth daily at bedtime and Xana x 0.5 twice a day and Zoloft 200 mg daily at bedtime #4 tobacco abusepatient advised on quitting smoking currently not ready to quit smoking #5 and intermittentasthma continue albuterol as needed for shortness of breath #6 Crohn disease stable #7 generalized anxiety disorder continue Xanax as needed #8Morbid obesity with BMI of 54 advised on heart healthy diet #9 CODE STATUS full code
[2019-08-22] MEDS ORDERED: DILTIAZEM HCL 120 MG PO SCH (21:00)
[2019-08-22] MEDS ORDERED: ARIPiprazole 15 MG TAB PO SCH (21:00)
[2019-08-22] MEDS ORDERED: SERTRALINE 100 MG TAB PO SCH (21:00)
[2019-08-23] MEDS ORDERED: ASPIRIN 325 MG TAB PO SCH (09:00)
[2019-08-23] MEDS ORDERED: MONTELUKAST 10 MG TAB PO SCH (09:00)
== END 2019-08-22 14:32 | disposition home or self-care (01) ==
LOC: EC 22:30 → 1SOBS 08-22 00:06
PROVIDERS: ADMIT Internal Medicine; ATTEND Internal Medicine
DX: R07.89 Other chest pain (principal); R00.0 Tachycardia, unspecified; E03.9 Hypothyroidism, unspecified; E66.9 Obesity, unspecified; F17.200 Nicotine dependence, unspecified, uncomplicated; F31.9 Bipolar disorder, unspecified; F41.1 Generalized anxiety disorder; I10 Essential (primary) hypertension; J45.909 Unspecified asthma, uncomplicated; K50.90 Crohn's disease, unspecified, without complications; Z68.43 Body mass index [BMI] 50.0-59.9, adult; Z79.890 Hormone replacement therapy; Z71.3 Dietary counseling and surveillance; Z79.899 Other long term (current) drug therapy; Z82.49 Family history of ischemic heart disease and other diseases of the circulatory system; Z82.5 Family history of asthma and other chronic lower respiratory diseases; Z86.711 Personal history of pulmonary embolism; Z90.721 Acquired absence of ovaries, unilateral; Z99.89 Dependence on other enabling machines and devices; Z90.49 Acquired absence of other specified parts of digestive tract; Z79.891 Long term (current) use of opiate analgesic; Z88.1 Allergy status to other antibiotic agents; Z88.0 Allergy status to penicillin; Z88.8 Allergy status to other drugs, medicaments and biological substances; Z16.24 Resistance to multiple antibiotics; Z71.6 Tobacco abuse counseling
CPT/HCPCS: 93005 ×2; 96376; 96361; 96374; 96375; 99285; 36415; 85379; 84439; 80048; 84443; 84484 ×2; 85025; 85610; 85730; 84702; 71046; G0378; S4990; J2270 ×2; J2405

== ENCOUNTER 2019-09-10 16:33 | Emergency (ER) | payer OTHER | END 2019-09-10 17:15 | disposition left against medical advice (07) | LOC: EC 16:33 | DX: Z53.21 Procedure and treatment not carried out due to patient leaving prior to being seen by health care provider (principal) | CPT/HCPCS: 99499 ==

== ENCOUNTER 2019-09-14 00:14 | Emergency (ER) | payer OTHER ==
[2019-09-14 00:30] VITALS: TEMP 97.5
[2019-09-14] MEDS ORDERED: Acetaminophen-Codeine 300-30mg TAB PO STA (02:05)
[2019-09-14] MEDS ORDERED: SULFAMETHOX-TMP 800-160MG 1 EACH TAB PO STA (02:05)
[2019-09-14] MEDS ORDERED: SULFAMETH-TMP DS STARTER PACK 2 TAB BTL PO STA (02:05)
--- NOTE | 2019-09-14 03:16 | ED ---
General Adult HPI - General Chief complaint: Skin/Abscess/Foreign Body Stated complaint: Abscess Time Seen by Provider: 09/14/19 00:34 Source: patient, RN notes reviewed, old records reviewed Mode of arrival: ambulatory Limitations: no limitations - History of Present Illness Initial comments: 39-year-old female patient with past history significant for recurrent abscesses presents to ED with chief complaint of left breast abscess. Reports that has been ongoing for approximately 2 days. Patient does also report that she had a abscess on her anterior abdomen draining approximately week ago. Denies any other complaints. Denies any symptoms of systemic infection. Systemic: Pt denies fatigue, fever/chills, rash. Pt denies weakness, night sweats, weight loss. Neuro: Pt denies headache, visual disturbances, syncope or pre-syncope. HEENT: Pt denies ocular discharge or irritation, otalgia, rhinorrhea, pharyngitis or notable lymphadenopathy. Cardiopulmonary: Pt denies chest pain, SOB, heart palpitations, dyspnea on exertion. Abdominal/GI: Pt denies abdominal pain, n/v/d. : Pt denies dysuria, burning w/ urination, frequency/urgency. Denies new onset urinary or bowel incontinence. MSK: Pt denies myalgia, loss of strength or function in extremities. Neuro: Pt denies new onset weakness, paresthesias. - Related Data Home Medications Medication Instructions Recorded Confirmed Sertraline [Zoloft] 200 mg PO HS 06/17/14 08/22/19 ALPRAZolam [Xanax] 1 mg PO BID PRN 05/26/17 08/22/19 ARIPiprazole [Abilify] 15 mg PO HS 05/26/17 08/22/19 Acetaminophen-Codeine 300-30mg 1 tab PO Q8HR PRN 08/22/19 08/22/19 [Tylenol w/codeine #3] Albuterol Inhaler [Ventolin Hfa 1 - 2 puff INHALATION RT-Q6H PRN 08/22/19 08/22/19 Inhaler] Loperamide [Imodium] 2 mg PO QID PRN 08/22/19 08/22/19 Montelukast [Singulair] 10 mg PO DAILY 08/22/19 08/22/19 Previous Rx's Medication Instructions Recorded Levothyroxine Sodium [Synthroid] 224 mcg PO AC-BRKFST #0 04/10/19 Diltiazem Cd [Cardizem CD] 180 mg PO DAILY #30 cap.er.24h 08/22/19 Nicotine 21Mg/24Hr Patch [Habitrol] 1 patch TRANSDERM DAILY #30 patch 08/22/19 Sulfamethox-Tmp 800-160Mg [Bactrim 1 tab PO Q12HR 10 Days #20 tab 09/14/19 DS 800-160 mg] Allergies Allergy/AdvReac Type Severity Reaction Status Date / Time cephalexin monohydrate Allergy Swelling Verified 09/14/19 00:30 [From Keflex] clindamycin Allergy Swelling Verified 09/14/19 00:30 levofloxacin [From Levaquin] Allergy Swelling Verified 09/14/19 00:30 Penicillins AdvReac Itching Verified 09/14/19 00:30 prochlorperazine edisylate AdvReac IRRITABLE Verified 09/14/19 00:30 [From Compazine] prochlorperazine maleate AdvReac IRRITABLE Verified 09/14/19 00:30 [From Compazine] Review of Systems ROS Statement: Those systems with pertinent positive or pertinent negative responses have been documented in the HPI. ROS Other: All systems not noted in ROS Statement are negative. Past Medical History Past Medical History: Asthma, GERD/Reflux, Hypertension, Musculoskeletal Disorder, Osteoarthritis (OA), Pneumonia, Sleep Apnea/CPAP/BIPAP, Thyroid Disorder Additional Past Medical History / Comment(s): Crohns, IBS, degenerative disc disease, episode of chest pain and rapid heart rate X1 2 months ago, CPAP use. History of Any Multi-Drug Resistant Organisms: MRSA Date of last positivie culture/infection: 2013 MDRO Source:: rt side of chest Past Surgical History: Appendectomy, Bowel Resection, Breast Surgery, Section, Cholecystectomy Additional Past Surgical History / Comment(s): LEFT BREAST BENIGN CYST REMOVED. Cyst removal/abscess small intestine, right oophorectomy and salpingectomy. Past Anesthesia/Blood Transfusion Reactions: No Reported Reaction Additional Past Anesthesia/Blood Transfusion Reaction / Comment(s): Daughter PONV. Past Psychological History: Anxiety, Bipolar, Depression Smoking Status: Current every day smoker Past Alcohol Use History: None Reported Past Drug Use History: None Reported - Past Family History Father Additional Family Medical History / Comment(s): Father is alive at age 65 with history of coronary artery disease. Mother Family Medical History: Asthma, Coronary Artery Disease (CAD) Additional Family Medical History / Comment(s): Mother is alive at age 58 with history of coronary artery disease and asthma. Brother(s) Family Medical History: No Reported History Additional Family Medical History / Comment(s): Patient has 1 brother with no major medical problems. Sister(s) Family Medical History: No Reported History Additional Family Medical History / Comment(s): Patient has 1 sister with no major medical problems. Daughter(s) Family Medical History: Asthma, Sleep Apnea/CPAP/BIPAP Son(s) Family Medical History: Asthma, Sleep Apnea/CPAP/BIPAP General Exam - General Exam Comments Initial Comments: Constitutional: NAD, AOX3, Pt has pleasant affect. HEENT: NC/AT, trachea midline, neck supple, no lymphadenopathy. Posterior pharynx non erythematous, without exudates. External ears appear normal, without discharge. Mucous membranes moist. Eyes PERRLA, EOM intact. There is no scleral icterus. No pallor noted. Cardiopulmonary: RRR, no murmurs, rubs or gallops, no JVD noted. Lungs CTAB in anterior and posterior newman. No peripheral edema. Abdominal exam: Abdomen soft and non-distended. Abdomen non-tender to palpation in all 4 quadrants. Bowel sounds active in LLQ. No hepatosplenomegaly. No ecchymosis Neuro: CN II-XII grossly intact. No nuchal rigidity. No raccon eyes, no rowley sign, no hemotympanum. No cervical spinal tenderness. MSK: No posterior calf tenderness bilaterally, homans sign negative bilaterally. Posterior tibialis and radial pulse +2 bilaterally. Sensation intact in upper and lower extremities. Full active ROM in upper and lower extremities, 5/5 stregnth. Derm: Left breast abscess 2 x 2 centimeters. Fluctuantt Incision and drainage performed displayed purulent drainage. Culture obtained. Previous site of abscess drainage on anterior abdomen region. He was 2 cm. Still does appear mildly fluctuant. Limitations: no limitations Course Vital Signs 09/14/19 09/14/19 00:28 02:30 Temperature 97.5 F L Pulse Rate 125 H 108 H Respiratory 24 19 Rate Blood Pressure 159/96 133/94 O2 Sat by Pulse 95 97 Oximetry Procedures - Incision & Drainage Consent Obtained: verbal consent Indication: left breast abscess Site: other (left breast) Size (cm): 2 Sterile Field Used?: Yes Scalpel Used: #11 I&D Drainage Obtained: Pus Culture Obtained?: Yes Patient Tolerated Procedure: well Medical Decision Making - Medical Decision Making 39-year-old female patient with past history significant for recurrent abscesses presents to ED with chief complaint of left breast abscess. Reports that has been ongoing for approximately 2 days. Patient does also report that she had a abscess on her anterior abdomen draining approximately week ago. Denies any other complaints. Denies any symptoms of systemic infection. Patient vital signs initial display mild tachycardia, stable discharge. Physical exam displayed: Left breast abscess 2 x 2 centimeters. Fluctuantt Incision and drainage performed displayed purulent drainage. Culture obtained. Previous site of abscess drainage on anterior abdomen region. He was 2 cm. Still does appear mildly fluctuant. Patient declined repeat incision and drainage on abdomen abscess reports that she rather follow-up with her primary care provider for it. States that is improving. Patient will be placed on Bactrim. Patient port that she is not taking Bactrim from her prior incision and drainage because she is not able to go to pharmacy. Disposition get his prescription filled tomorrow. Patient will follow-up with primary care provider Monday. Exam and procedure was chaperogned by BRANDON Hanson. Return precuations discussed. Case discussed with Dr. Portillo. At time of discharge patient heart rate was 96. Patient reports that she has an elevated heart rate baseline. Offered patient an EKG, patient declined. Request discharge. Disposition Clinical Impression: Abscess Disposition: HOME SELF-CARE Condition: Stable Instructions (If sedation given, give patient instructions): Abscess (ED) Additional Instructions: Take antibiotics as directed. Follow-up with primary care provider tomorrow. Return to ER if condition worsens in any way. Prescriptions: Sulfamethox-Tmp 800-160Mg [Bactrim DS 800-160 mg] 1 tab PO Q12HR 10 Days #20 tab Is patient prescribed a controlled substance at d/c from ED?: No Referrals: Reji Diaz MD [Primary Care Provider] - 1-2 days
[2019-09-14 03:17] VITALS: BP 133/94; PULSE 108; RESP 19
== END 2019-09-14 03:58 | disposition home or self-care (01) ==
LOC: EC 00:14
DX: N61.1 Abscess of the breast and nipple (principal); R00.0 Tachycardia, unspecified; J45.909 Unspecified asthma, uncomplicated; F41.9 Anxiety disorder, unspecified; F32.9 Major depressive disorder, single episode, unspecified; F17.200 Nicotine dependence, unspecified, uncomplicated; G47.30 Sleep apnea, unspecified; Z99.89 Dependence on other enabling machines and devices; Z86.14 Personal history of Methicillin resistant Staphylococcus aureus infection; Z98.890 Other specified postprocedural states; Z53.29 Procedure and treatment not carried out because of patient's decision for other reasons; Z79.899 Other long term (current) drug therapy; Z88.1 Allergy status to other antibiotic agents; Z88.0 Allergy status to penicillin; Z88.8 Allergy status to other drugs, medicaments and biological substances
CPT/HCPCS: 10060; 87070; 87205; 99283

== ENCOUNTER 2019-12-01 00:13 | Emergency (ER) | payer OTHER ==
[2019-12-01 00:20] VITALS: TEMP 99.5
[2019-12-01] MEDS ORDERED: DILTIAZEM ORAL 60 MG TAB PO STA ×2 (00:35)
[2019-12-01] MEDS ORDERED: ASPIRIN 81 MG PO STA (00:36)
[2019-12-01] MEDS ORDERED: SODIUM CHLORIDE 0.9% 500 ML 500 ML IV STA (00:36)
[2019-12-01] MEDS ORDERED: MORPHINE SULFATE 4 MG/ML SYRINGE IV STA (00:36)
[2019-12-01] MEDS ORDERED: DILTIAZEM CD 180 MG CAP.ER.24H PO STA (00:58)
[2019-12-01] MEDS ORDERED: ONDANSETRON 4 MG/2 ML VIAL IVP STA (01:13)
[2019-12-01 01:17] LABS: Basophils # (A) 0.1 k/uL (0-0.2); Basophils % (A) 1 %; Eosinophils # (A) 0.3 k/uL (0-0.7); Eosinophils % (A) 4 %; HCT 44.3 % (34.0-46.0); Lymphocytes # (A) 2.2 k/uL (1.0-4.8); Lymphocytes % (A) 27 %; MCH 32.2 pg (25.0-35.0); MCHC 33.8 g/dL (31.0-37.0); MCV 95.1 fL (80.0-100.0); Mean Platelet Volume 7.6; Monocytes # (A) 0.4 k/uL (0-1.0); Monocytes % (A) 5 %; Neutrophils # (A) 5.1 k/uL (1.3-7.7); Neutrophils % (A) 62 %; Platelet Count 332 k/uL (150-450); RBC 4.65 m/uL (3.80-5.40); RDW 13.2 % (11.5-15.5); WBC 8.2 k/uL (3.8-10.6)
[2019-12-01 01:27] LABS: Albumin 4.5 g/dL (3.5-5.0); Calcium 8.3 mg/dL (8.4-10.2); Total Bilirubin 0.7 mg/dL (0.2-1.3); Total Protein 8.3 g/dL (6.3-8.2)
[2019-12-01 01:31] LABS: INR 0.9 (<1.2); Partial Thromboplastin Time 25.8 sec (22.0-30.0); Potassium 4.3 mmol/L (3.5-5.1); Prothrombin Time 9.8 sec (9.0-12.0)
[2019-12-01 01:34] LABS: D-Dimer 0.66 mg/L FEU (<0.60)
--- NOTE | 2019-12-01 01:42 | XR ---
EXAMINATION TYPE: XR chest 1V DATE OF EXAM: 12/01/2019 COMPARISON: NONE HISTORY: 08/21/2019 TECHNIQUE: Single view FINDINGS: Heart and mediastinum are normal. Lungs are clear. Diaphragm is normal. Exam is limited by patient's size. There are chest leads. IMPRESSION: No active cardiopulmonary disease. Normal heart. No change.
[2019-12-01] MEDS ORDERED: HYDROmorphone 0.5 MG/0.5 ML SYRINGE IVP STA (02:19)
[2019-12-01] MEDS ORDERED: SODIUM CHLORIDE 0.9% 500 ML 500 ML IV ONE (02:19)
--- NOTE | 2019-12-01 02:24 | CT ---
EXAMINATION TYPE: CT chest angio for PE DATE OF EXAM: 12/01/2019 COMPARISON: 05/02/2019 HISTORY: r/o pe Chest pain CT DLP: 1164.2 mGycm Automated exposure control for dose reduction was used. There are 3-D post processed images. CONTRAST: Performed with IV Contrast, patient injected with 70 mL of Isovue 370. Images were obtained from the thoracic inlet to the diaphragm with IV contrast. The lungs are clear of infiltrate. There is no evidence of a pulmonary mass. There is no mediastinal adenopathy. There are no hilar masses. Heart size is normal. There is no pericardial effusion. Upper abdominal soft tissues are intact. There is no pleural effusion. There is normal contrast opacification of the pulmonary arteries. There are no filling defects. IMPRESSION: Negative exam. No evidence of pulmonary embolism. No adverse change compared to old exam.
--- NOTE | 2019-12-01 03:52 | ED ---
General Adult HPI - General Chief complaint: Chest Pain Stated complaint: Cough/SOB/Chest Pain Time Seen by Provider: 12/01/19 00:22 Source: patient, RN notes reviewed, old records reviewed Mode of arrival: ambulatory Limitations: no limitations - History of Present Illness Initial comments: 39-year-old female patient presents to ED with chief complaint of 3 days of cough shortness of breath. Patient reports that the chest pain began today 3 hours ago. Described in the left parasternal region. Describes it as a sharp pain. Patient didn't have recent travel to [place] in [place] returned 2 weeks ago. Patient reports nausea denies any fevers. Patient does report that she had a negative dobutamine stress test in June. She is a smoker. Denies any other complaints. Systemic: Pt denies fatigue, fever/chills, rash. Pt denies weakness, night s weats, weight loss. Neuro: Pt denies headache, visual disturbances, syncope or pre-syncope. HEENT: Pt denies ocular discharge or irritation, otalgia, rhinorrhea, pharyngitis or notable lymphadenopathy. Cardiopulmonary: Pt denies heart palpitations, dyspnea on exertion. Abdominal/GI: Pt denies abdominal pain, n/v/d. : Pt denies dysuria, burning w/ urination, frequency/urgency. Denies new onset urinary or bowel incontinence. MSK: Pt denies myalgia, loss of strength or function in extremities. Neuro: Pt denies new onset weakness, paresthesias. - Related Data Home Medications Medication Instructions Recorded Confirmed Sertraline [Zoloft] 200 mg PO HS 06/17/14 08/22/19 ALPRAZolam [Xanax] 1 mg PO BID PRN 05/26/17 08/22/19 ARIPiprazole [Abilify] 15 mg PO HS 05/26/17 08/22/19 Acetaminophen-Codeine 300-30mg 1 tab PO Q8HR PRN 08/22/19 08/22/19 [Tylenol w/codeine #3] Albuterol Inhaler [Ventolin Hfa 1 - 2 puff INHALATION RT-Q6H PRN 08/22/19 08/22/19 Inhaler] Loperamide [Imodium] 2 mg PO QID PRN 08/22/19 08/22/19 Montelukast [Singulair] 10 mg PO DAILY 08/22/19 08/22/19 Previous Rx's Medication Instructions Recorded Levothyroxine Sodium [Synthroid] 224 mcg PO AC-BRKFST #0 04/10/19 Diltiazem Cd [Cardizem CD] 180 mg PO DAILY #30 cap.er.24h 08/22/19 Nicotine 21Mg/24Hr Patch [Habitrol] 1 patch TRANSDERM DAILY #30 patch 08/22/19 Sulfamethox-Tmp 800-160Mg [Bactrim 1 tab PO Q12HR 10 Days #20 tab 09/14/19 DS 800-160 mg] Albuterol Nebulized [Ventolin 2.5 mg INHALATION Q4H PRN 10 Days 12/01/19 Nebulized] nebu Diltiazem Cd [Cardizem Cd] 180 mg PO DAILY 7 Days #7 12/01/19 cap.er.24h Allergies Allergy/AdvReac Type Severity Reaction Status Date / Time cephalexin monohydrate Allergy Swelling Verified 12/01/19 00:19 [From Keflex] clindamycin Allergy Swelling Verified 12/01/19 00:19 levofloxacin [From Levaquin] Allergy Swelling Verified 12/01/19 00:19 Penicillins AdvReac Itching Verified 12/01/19 00:19 prochlorperazine edisylate AdvReac IRRITABLE Verified 12/01/19 00:19 [From Compazine] prochlorperazine maleate AdvReac IRRITABLE Verified 12/01/19 00:19 [From Compazine] Review of Systems ROS Statement: Those systems with pertinent positive or pertinent negative responses have been documented in the HPI. ROS Other: All systems not noted in ROS Statement are negative. Past Medical History Past Medical History: Asthma, GERD/Reflux, Hypertension, Musculoskeletal Disorder, Osteoarthritis (OA), Pneumonia, Sleep Apnea/CPAP/BIPAP, Thyroid Disorder Additional Past Medical History / Comment(s): Crohns, IBS, degenerative disc disease, episode of chest pain and rapid heart rate X1 2 months ago, CPAP use. History of Any Multi-Drug Resistant Organisms: MRSA Date of last positivie culture/infection: 2013 MDRO Source:: rt side of chest Past Surgical History: Appendectomy, Bowel Resection, Breast Surgery, Section, Cholecystectomy Additional Past Surgical History / Comment(s): LEFT BREAST BENIGN CYST REMOVED. Cyst removal/abscess small intestine, right oophorectomy and salpingectomy. Past Anesthesia/Blood Transfusion Reactions: No Reported Reaction Additional Past Anesthesia/Blood Transfusion Reaction / Comment(s): Daughter PONV. Past Psychological History: Anxiety, Bipolar, Depression Smoking Status: Current every day smoker Past Alcohol Use History: None Reported Past Drug Use History: None Reported - Past Family History Father Additional Family Medical History / Comment(s): Father is alive at age 65 with history of coronary artery disease. Mother Family Medical History: Asthma, Coronary Artery Disease (CAD) Additional Family Medical History / Comment(s): Mother is alive at age 58 with history of coronary artery disease and asthma. Brother(s) Family Medical History: No Reported History Additional Family Medical History / Comment(s): Patient has 1 brother with no major medical problems. Sister(s) Family Medical History: No Reported History Additional Family Medical History / Comment(s): Patient has 1 sister with no major medical problems. Daughter(s) Family Medical History: Asthma, Sleep Apnea/CPAP/BIPAP Son(s) Family Medical History: Asthma, Sleep Apnea/CPAP/BIPAP General Exam - General Exam Comments Initial Comments: Constitutional: NAD, AOX3, Pt has pleasant affect. HEENT: NC/AT, trachea midline, neck supple, no lymphadenopathy. Posterior pharynx non erythematous, without exudates. External ears appear normal, without discharge. Mucous membranes moist. Eyes PERRLA, EOM intact. There is no scleral icterus. No pallor noted. Cardiopulmonary: RRR, no murmurs, rubs or gallops, no JVD noted. Lungs CTAB in anterior and posterior newman. No peripheral edema. Abdominal exam: Abdomen soft and non-distended. Abdomen non-tender to palpation in all 4 quadrants. Bowel sounds active in LLQ. No hepatosplenomegaly. No ecchymosis Neuro: CN II-XII grossly intact. No nuchal rigidity. No raccon eyes, no rowley sign, no hemotympanum. No cervical spinal tenderness. MSK: No posterior calf tenderness bilaterally, homans sign negative bilaterally. Posterior tibialis and radial pulse +2 bilaterally. Sensation intact in upper and lower extremities. Full active ROM in upper and lower extremities, 5/5 stregnth. Limitations: no limitations Course Vital Signs 12/01/19 12/01/19 12/01/19 00:15 01:24 02:34 Temperature 99.5 F Pulse Rate 114 H 99 Pulse Rate [ 107 H Cost Control Specialist ] Respiratory 20 22 Rate Blood Pressure 150/83 98/55 O2 Sat by Pulse 99 97 Oximetry 12/01/19 04:56 Temperature Pulse Rate 102 H Pulse Rate [ Cost Control Specialist ] Respiratory 18 Rate Blood Pressure 128/77 O2 Sat by Pulse 97 Oximetry Medical Decision Making - Medical Decision Making 39-year-old female patient presents to ED with chief complaint of 3 days of cough shortness of breath. Patient reports that the chest pain began today 3 hours ago. Described in the left parasternal region. Describes it as a sharp pain. Patient didn't have recent travel to [place] in [place] returned 2 weeks ago. Patient reports nausea denies any fevers. Patient does report that she had a negative dobutamine stress test in June. She is a smoker. Denies any other complaints. Patient will signs with tachycardia, patient had not taken her Cardizem at home. Was administered this. Physical exam didn't display acute pathology. Lungs are clear. Laboratory investigations are obtained, d- dimer mildly elevated. Troponin negative. Mild transaminitis. Patient states that she can not be due to tubal ligation. CTA is negative, EKG is nonischemic 2. On repeat examination Patient reports that she is feeling much better. Initial troponin was negative, patient was signed out to Dr. Ayala pending repeat troponin. Case discussed with Dr. Almanzar. - Lab Data Result diagrams: 12/01/19 01:03 12/01/19 01:03 Lab Results 12/01/19 12/01/19 12/01/19 Range/Units 01:03 01:03 01:03 WBC 8.2 (3.8-10.6) k/uL RBC 4.65 (3.80-5.40) m/uL Hgb 15.0 (11.4-16.0) gm/dL Hct 44.3 (34.0-46.0) % MCV 95.1 (80.0-100.0) fL MCH 32.2 (25.0-35.0) pg MCHC 33.8 (31.0-37.0) g/dL RDW 13.2 (11.5-15.5) % Plt Count 332 (150-450) k/uL Neutrophils % 62 % Lymphocytes % 27 % Monocytes % 5 % Eosinophils % 4 % Basophils % 1 % Neutrophils # 5.1 (1.3-7.7) k/uL Lymphocytes # 2.2 (1.0-4.8) k/uL Monocytes # 0.4 (0-1.0) k/uL Eosinophils # 0.3 (0-0.7) k/uL Basophils # 0.1 (0-0.2) k/uL PT 9.8 (9.0-12.0) sec INR 0.9 (<1.2) APTT 25.8 (22.0-30.0) sec D-Dimer 0.66 H (<0.60) mg/L FEU Sodium 138 (137-145) mmol/L Potassium 4.3 (3.5-5.1) mmol/L Chloride 106 (98-107) mmol/L Carbon Dioxide 20 L (22-30) mmol/L Anion Gap 12 mmol/L BUN 18 H (7-17) mg/dL Creatinine 0.97 (0.52-1.04) mg/dL Est GFR (CKD-EPI)AfAm 87 (>60 ml/min/1.73 sqM) Est GFR (CKD-EPI)NonAf 75 (>60 ml/min/1.73 sqM) Glucose 105 H (74-99) mg/dL Calcium 8.3 L (8.4-10.2) mg/dL Magnesium 2.0 (1.6-2.3) mg/dL Total Bilirubin 0.7 (0.2-1.3) mg/dL AST 62 H (14-36) U/L ALT 77 H (4-34) U/L Alkaline Phosphatase 75 (38-126) U/L Troponin I (0.000-0.034) ng/mL Total Protein 8.3 H (6.3-8.2) g/dL Albumin 4.5 (3.5-5.0) g/dL 12/01/19 12/01/19 Range/Units 01:03 04:05 WBC (3.8-10.6) k/uL RBC (3.80-5.40) m/uL Hgb (11.4-16.0) gm/dL Hct (34.0-46.0) % MCV (80.0-100.0) fL MCH (25.0-35.0) pg MCHC (31.0-37.0) g/dL RDW (11.5-15.5) % Plt Count (150-450) k/uL Neutrophils % % Lymphocytes % % Monocytes % % Eosinophils % % Basophils % % Neutrophils # (1.3-7.7) k/uL Lymphocytes # (1.0-4.8) k/uL Monocytes # (0-1.0) k/uL Eosinophils # (0-0.7) k/uL Basophils # (0-0.2) k/uL PT (9.0-12.0) sec INR (<1.2) APTT (22.0-30.0) sec D-Dimer (<0.60) mg/L FEU Sodium (137-145) mmol/L Potassium (3.5-5.1) mmol/L Chloride (98-107) mmol/L Carbon Dioxide (22-30) mmol/L Anion Gap mmol/L BUN (7-17) mg/dL Creatinine (0.52-1.04) mg/dL Est GFR (CKD-EPI)AfAm (>60 ml/min/1.73 sqM) Est GFR (CKD-EPI)NonAf (>60 ml/min/1.73 sqM) Glucose (74-99) mg/dL Calcium (8.4-10.2) mg/dL Magnesium (1.6-2.3) mg/dL Total Bilirubin (0.2-1.3) mg/dL AST (14-36) U/L ALT (4-34) U/L Alkaline Phosphatase (38-126) U/L Troponin I <0.012 <0.012 (0.000-0.034) ng/mL Total Protein (6.3-8.2) g/dL Albumin (3.5-5.0) g/dL - EKG Data -: EKG Interpreted by Me (and Dr. Almanzar) EKG Comments: 1) ventricular rate 105, para 4 and 42, QRS 80, QT/QTC 344/454, sinus Tachycardia, cannot rule out anterior infarct. Abnormal EKG. No ST elevations or depressions, no concern for acute ischemia. 2) QRS 89, CA interval 150, QRS 86, QT/QTc 42 cm 49. Normal sinus rhythm, prolonged QT, abnormal EKG, No concern for acute ischemia. Disposition Clinical Impression: Cough, Chest pain Disposition: HOME SELF-CARE Condition: Stable Instructions (If sedation given, give patient instructions): Chest Pain (ED), Acute Cough (ED) Additional Instructions: Follow-up with primary care provider tomorrow. Follow-up with resawyer tomorrow. May use breathing treatments at home as needed. Self-isolation for the next 14 days. Return to ER if condition worsens. One week of your cardizem will be refilled. Prescriptions: Diltiazem Cd [Cardizem Cd] 180 mg PO DAILY 7 Days #7 cap.er.24h Albuterol Nebulized [Ventolin Nebulized] 2.5 mg INHALATION Q4H PRN 10 Days nebu PRN Reason: Cough Is patient prescribed a controlled substance at d/c from ED?: No Referrals: Reji Diaz MD [Primary Care Provider] - 1-2 days Arnold Sanchez MD [STAFF PHYSICIAN] - 1-2 days
[2019-12-01 04:57] VITALS: BP 128/77; PULSE 102; RESP 18
== END 2019-12-01 04:57 | disposition home or self-care (01) ==
LOC: EC 00:13
DX: R07.9 Chest pain, unspecified (principal); R05 Cough; R06.02 Shortness of breath; R11.0 Nausea; R00.0 Tachycardia, unspecified; R74.0 Nonspecific elevation of levels of transaminase and lactic acid dehydrogenase [LDH]; F41.9 Anxiety disorder, unspecified; F31.9 Bipolar disorder, unspecified; I10 Essential (primary) hypertension; G47.30 Sleep apnea, unspecified; Z79.899 Other long term (current) drug therapy; Z88.1 Allergy status to other antibiotic agents; Z88.0 Allergy status to penicillin; Z88.8 Allergy status to other drugs, medicaments and biological substances; Z99.89 Dependence on other enabling machines and devices
CPT/HCPCS: 36415; 93005; 85379; 80053; 83735; 84484; 85025; 85610; 85730; 87040; 71045; 71275; 99285; 96374; 96375 ×2; 96361 ×2; J2270; J2405; J1170; Q9967

== ENCOUNTER 2020-02-24 20:32 | Emergency (ER) | payer OTHER ==
[2020-02-24 20:40] VITALS: TEMP 99.4
[2020-02-24] MEDS ORDERED: ONDANSETRON 4 MG/2 ML VIAL IVP STA (21:12)
[2020-02-24] MEDS ORDERED: LORazepam 2 MG/ML INJ IV STA (21:12)
--- NOTE | 2020-02-24 21:14 | ED ---
General Adult HPI - General Chief complaint: Chest Pain Stated complaint: Diff Breathing, Chest Pain Time Seen by Provider: 02/24/20 20:47 Source: patient Mode of arrival: wheelchair Limitations: no limitations - History of Present Illness Initial comments: Dictation was produced using [employer] dictation software. please excuse any grammatical, word or spelling errors. This patient was cared for during a federal and state declared state of emerge ncy secondary to Covid 19 Chief Complaint: 40-year-old morbidly obese female presents with dyspnea. History of Present Illness: Patient is a 32-year-old female she has multiple comorbidities. 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 She's been having dyspnea for the last week. She is not feeling better and came to the emergency department. She does it was her anxiety is acting up. She tried taking his Xanax however did not notice any changes in her symptoms. She compl ains of bilateral face numbness. Denies any fever, chills or night sweats. No coughing. The ROS documented in this emergency department record has been reviewed and confirmed by me. Those systems with pertinent positive or negative responses have been documented in the HPI. All other systems are other negative and/or noncontributory. PHYSICAL EXAM: General Impression: Alert and oriented x3, not in acute distress HEENT: Normocephalic atraumatic, extra-ocular movements intact, pupils equal and reactive to light bilaterally, mucous membranes moist. Cardiovascular: Heart regular rate and rhythm Chest: Able to complete full sentences, no retractions, no tachypnea, lungs clear to auscultation bilaterally Abdomen: abdomen soft, non-tender, non-distended, no organomegaly Musculoskeletal: Pulses present and equal in all extremities, no peripheral edema Motor: no focal deficits noted Neurological: CN II-XII grossly intact, no focal motor or sensory deficits noted Skin: Intact with no visualized rashes Psych: Anxious, tearful ED course: 40-year-old female multiple complaints. Her primary complaint is dyspnea. Vital signs upon arrival shows heart rate 115, rest of vital signs within acceptable limits. Patient is significantly obese. Her lungs are clear to auscultation bilaterally. EKG shows sinus tachycardia.Laboratory evaluation obtained. CBC unremarkable. Coag panel unremarkable. Venous blood gases negative. Metabolic panel is within acceptable limits per she does have mild hypocalcemia. Patient given by mouth calcium. Patient's d-dimer is elevated 1.17. Patient's chest x-ray was nonacute. CT angios the chest obtained showing no acute processes. No pulmonary embolism. Patient reevaluated at bedside. She is not tachypneic or showing any signs of respiratory distress. She states that she still feels slightly short of breath. At this point there is no e mergent processes to cause dyspnea. Disposition options were discussed with patient. She was offered observation admission however she preferred to be discharge. She is advised to follow-up with her ostrich farm worker. EKG interpretation: Ventricular rate while, sinus tachycardia, KS interval 134, QRS 84, QTC 482. No KS prolongation, no QTC prolongation, no ST or T-wave changes noted. . Overall, this EKG is unremarkable - Related Data Home Medications Medication Instructions Recorded Confirmed Sertraline [Zoloft] 200 mg PO HS 06/17/14 08/22/19 ALPRAZolam [Xanax] 1 mg PO BID PRN 05/26/17 08/22/19 ARIPiprazole [Abilify] 15 mg PO HS 05/26/17 08/22/19 Acetaminophen-Codeine 300-30mg 1 tab PO Q8HR PRN 08/22/19 08/22/19 [Tylenol w/codeine #3] Albuterol Inhaler (Mhu) [Ventolin 1 - 2 puff INHALATION RT-Q6H PRN 08/22/19 08/22/19 Hfa Inhaler (Mhu)] Loperamide [Imodium] 2 mg PO QID PRN 08/22/19 08/22/19 Montelukast [Singulair] 10 mg PO DAILY 08/22/19 08/22/19 Previous Rx's Medication Instructions Recorded Levothyroxine Sodium [Synthroid] 224 mcg PO AC-BRKFST #0 04/10/19 Diltiazem Cd [Cardizem CD] 180 mg PO DAILY #30 cap.er.24h 08/22/19 Nicotine 21Mg/24Hr Patch [Habitrol] 1 patch TRANSDERM DAILY #30 patch 08/22/19 Sulfamethox-Tmp 800-160Mg [Bactrim 1 tab PO Q12HR 10 Days #20 tab 09/14/19 DS 800-160 mg] Albuterol Nebulized [Ventolin 2.5 mg INHALATION Q4H PRN 10 Days 12/01/19 Nebulized] nebu Diltiazem Cd [Cardizem Cd] 180 mg PO DAILY 7 Days #7 12/01/19 cap.er.24h Allergies Allergy/AdvReac Type Severity Reaction Status Date / Time cephalexin monohydrate Allergy Swelling Verified 02/24/20 20:40 [From Keflex] clindamycin Allergy Swelling Verified 02/24/20 20:40 levofloxacin [From Levaquin] Allergy Swelling Verified 02/24/20 20:40 Penicillins AdvReac Itching Verified 02/24/20 20:40 prochlorperazine edisylate AdvReac IRRITABLE Verified 02/24/20 20:40 [From Compazine] prochlorperazine maleate AdvReac IRRITABLE Verified 02/24/20 20:40 [From Compazine] Review of Systems ROS Statement: Those systems with pertinent positive or pertinent negative responses have been documented in the HPI. ROS Other: All systems not noted in ROS Statement are negative. Past Medical History Past Medical History: Asthma, GERD/Reflux, Hypertension, Musculoskeletal Disorder, Osteoarthritis (OA), Pneumonia, Sleep Apnea/CPAP/BIPAP, Thyroid Disorder Additional Past Medical History / Comment(s): Crohns, IBS, degenerative disc disease, episode of chest pain and rapid heart rate X1 2 months ago, CPAP use. History of Any Multi-Drug Resistant Organisms: MRSA Date of last positivie culture/infection: 2013 MDRO Source:: rt side of chest Past Surgical History: Appendectomy, Bowel Resection, Breast Surgery, Section, Cholecystectomy Additional Past Surgical History / Comment(s): LEFT BREAST BENIGN CYST REMOVED. Cyst removal/abscess small intestine, right oophorectomy and salpingectomy. Past Anesthesia/Blood Transfusion Reactions: No Reported Reaction Additional Past Anesthesia/Blood Transfusion Reaction / Comment(s): Daughter PONV. Past Psychological History: Anxiety, Bipolar, Depression Smoking Status: Current every day smoker Past Alcohol Use History: None Reported Past Drug Use History: None Reported - Past Family History Father Additional Family Medical History / Comment(s): Father is alive at age 65 with history of coronary artery disease. Mother Family Medical History: Asthma, Coronary Artery Disease (CAD) Additional Family Medical History / Comment(s): Mother is alive at age 58 with history of coronary artery disease and asthma. Brother(s) Family Medical History: No Reported History Additional Family Medical History / Comment(s): Patient has 1 brother with no major medical problems. Sister(s) Family Medical History: No Reported History Additional Family Medical History / Comment(s): Patient has 1 sister with no major medical problems. Daughter(s) Family Medical History: Asthma, Sleep Apnea/CPAP/BIPAP Son(s) Family Medical History: Asthma, Sleep Apnea/CPAP/BIPAP General Exam Limitations: no limitations Course Vital Signs 02/24/20 02/24/20 20:34 22:58 Temperature 99.4 F Pulse Rate 115 H 96 Respiratory 24 22 Rate Blood Pressure 136/81 120/68 O2 Sat by Pulse 97 99 Oximetry Medical Decision Making - Lab Data Result diagrams: 02/24/20 22:12 02/24/20 22:06 Lab Results 02/24/20 02/24/20 02/24/20 Range/Units 22:06 22:06 22:12 WBC 6.4 (3.8-10.6) k/uL RBC 4.10 (3.80-5.40) m/uL Hgb 13.4 (11.4-16.0) gm/dL Hct 39.4 (34.0-46.0) % MCV 96.1 (80.0-100.0) fL MCH 32.6 (25.0-35.0) pg MCHC 34.0 (31.0-37.0) g/dL RDW 13.3 (11.5-15.5) % Plt Count 264 (150-450) k/uL Neutrophils % 65 % Lymphocytes % 23 % Monocytes % 6 % Eosinophils % 3 % Basophils % 1 % Neutrophils # 4.2 (1.3-7.7) k/uL Lymphocytes # 1.5 (1.0-4.8) k/uL Monocytes # 0.4 (0-1.0) k/uL Eosinophils # 0.2 (0-0.7) k/uL Basophils # 0.1 (0-0.2) k/uL PT 9.9 (9.0-12.0) sec INR 0.9 (<1.2) APTT 23.4 (22.0-30.0) sec D-Dimer 1.17 H (<0.60) mg/L FEU VBG pH (7.31-7.41) VBG pCO2 (37-51) mmHg VBG HCO3 (24-28) mmol/L Sodium 138 (137-145) mmol/L Potassium 3.4 L (3.5-5.1) mmol/L Chloride 109 H (98-107) mmol/L Carbon Dioxide 21 L (22-30) mmol/L Anion Gap 8 mmol/L BUN 12 (7-17) mg/dL Creatinine 0.87 (0.52-1.04) mg/dL Est GFR (CKD-EPI)AfAm >90 (>60 ml/min/1.73 sqM) Est GFR (CKD-EPI)NonAf 85 (>60 ml/min/1.73 sqM) Glucose 109 H (74-99) mg/dL Plasma Lactic Acid Kaden (0.7-2.0) mmol/L Calcium 7.7 L (8.4-10.2) mg/dL NT-Pro-B Natriuret Pep pg/mL 02/24/20 02/24/20 02/24/20 Range/Units 22:12 22:12 22:12 WBC (3.8-10.6) k/uL RBC (3.80-5.40) m/uL Hgb (11.4-16.0) gm/dL Hct (34.0-46.0) % MCV (80.0-100.0) fL MCH (25.0-35.0) pg MCHC (31.0-37.0) g/dL RDW (11.5-15.5) % Plt Count (150-450) k/uL Neutrophils % % Lymphocytes % % Monocytes % % Eosinophils % % Basophils % % Neutrophils # (1.3-7.7) k/uL Lymphocytes # (1.0-4.8) k/uL Monocytes # (0-1.0) k/uL Eosinophils # (0-0.7) k/uL Basophils # (0-0.2) k/uL PT (9.0-12.0) sec INR (<1.2) APTT (22.0-30.0) sec D-Dimer (<0.60) mg/L FEU VBG pH 7.37 (7.31-7.41) VBG pCO2 42 (37-51) mmHg VBG HCO3 24 (24-28) mmol/L Sodium (137-145) mmol/L Potassium (3.5-5.1) mmol/L Chloride (98-107) mmol/L Carbon Dioxide (22-30) mmol/L Anion Gap mmol/L BUN (7-17) mg/dL Creatinine (0.52-1.04) mg/dL Est GFR (CKD-EPI)AfAm (>60 ml/min/1.73 sqM) Est GFR (CKD-EPI)NonAf (>60 ml/min/1.73 sqM) Glucose (74-99) mg/dL Plasma Lactic Acid Kaden 1.2 (0.7-2.0) mmol/L Calcium (8.4-10.2) mg/dL NT-Pro-B Natriuret Pep 37 pg/mL Disposition Clinical Impression: Dyspnea Disposition: HOME SELF-CARE Condition: Good Instructions (If sedation given, give patient instructions): Dyspnea (ED) Is patient prescribed a controlled substance at d/c from ED?: No Referrals: Reji Diaz MD [Primary Care Provider] - 1-2 days Time of Disposition: 00:16
--- NOTE | 2020-02-24 21:56 | XR ---
EXAMINATION TYPE: XR chest 1V portable DATE OF EXAM: 02/24/2020 COMPARISON: 12/01/2019 HISTORY: Chest pain TECHNIQUE: Single view FINDINGS: Heart and mediastinum are normal. Lungs are clear. Diaphragm is normal. Bony thorax appears normal. IMPRESSION: Normal chest. No change.
[2020-02-24 22:24] LABS: Basophils # (A) 0.1 k/uL (0-0.2); Basophils % (A) 1 %; Eosinophils # (A) 0.2 k/uL (0-0.7); Eosinophils % (A) 3 %; HCT 39.4 % (34.0-46.0); HGB 13.4 gm/dL (11.4-16.0); Lymphocytes # (A) 1.5 k/uL (1.0-4.8); Lymphocytes % (A) 23 %; MCH 32.6 pg (25.0-35.0); MCV 96.1 fL (80.0-100.0); Mean Platelet Volume 7.5; Monocytes # (A) 0.4 k/uL (0-1.0); Monocytes % (A) 6 %; Neutrophils # (A) 4.2 k/uL (1.3-7.7); Neutrophils % (A) 65 %; Platelet Count 264 k/uL (150-450); RDW 13.3 % (11.5-15.5); VBG PH 7.37 (7.31-7.41); WBC 6.4 k/uL (3.8-10.6)
[2020-02-24 22:33] LABS: African American GFR (CKD) >90 (>60 ml/min/1.73 sqM); Anion Gap 8 mmol/L; Blood Urea Nitrogen 12 mg/dL (7-17); Calcium 7.7 mg/dL (8.4-10.2); Carbon Dioxide 21 mmol/L (22-30); Chloride 109 mmol/L (98-107); Glucose 109 mg/dL (74-99); Non-African American GFR(CKD) 85 (>60 ml/min/1.73 sqM); Potassium 3.4 mmol/L (3.5-5.1); Sodium 138 mmol/L (137-145)
[2020-02-24] MEDS ORDERED: MORPHINE SULFATE 4 MG/ML SYRINGE IVP STA (22:49)
[2020-02-24 22:53] LABS: INR 0.9 (<1.2); Partial Thromboplastin Time 23.4 sec (22.0-30.0); Prothrombin Time 9.9 sec (9.0-12.0)
[2020-02-24 22:59] LABS: D-Dimer 1.17 mg/L FEU (<0.60)
[2020-02-24] MEDS: CALCIUM CARBONATE 500 MG CHEWABLE PO STA ×2 (23:19→23:23)
--- NOTE | 2020-02-25 00:10 | CT ---
EXAMINATION TYPE: CT angio chest DATE OF EXAM: 02/24/2020 COMPARISON: 12/01/2019 HISTORY: SOB CT DLP: 1171.5 mGycm Automated exposure control for dose reduction was used. CONTRAST: Performed with IV Contrast, patient injected with 100 mL of Isovue 370. Our 3-D post processed images. The lungs are clear of infiltrate. There is no pleural effusion. There is no pericardial effusion. He art size is normal. There are no hilar masses. There is no mediastinal adenopathy. Thoracic aorta is intact. There is no aneurysm or dissection. There is normal contrast opacification of the pulmonary arteries. There are no filling defects. Upper abdominal soft tissues are intact. IMPRESSION: No evidence of pulmonary embolism. No adverse change compared to old exam.
[2020-02-25 00:40] VITALS: BP 99/78; PULSE 90; RESP 17
[2020-02-25] MEDS ORDERED: MORPHINE SULFATE 4 MG/ML SYRINGE IVP STA (00:51)
== END 2020-02-25 01:08 | disposition home or self-care (01) ==
LOC: EC 20:32
DX: R06.00 Dyspnea, unspecified (principal); R00.0 Tachycardia, unspecified; E83.51 Hypocalcemia; F31.9 Bipolar disorder, unspecified; J45.909 Unspecified asthma, uncomplicated; G47.30 Sleep apnea, unspecified; F41.9 Anxiety disorder, unspecified; F17.200 Nicotine dependence, unspecified, uncomplicated; Z88.0 Allergy status to penicillin; Z88.1 Allergy status to other antibiotic agents; Z88.8 Allergy status to other drugs, medicaments and biological substances; Z86.14 Personal history of Methicillin resistant Staphylococcus aureus infection; Z99.89 Dependence on other enabling machines and devices; Z79.899 Other long term (current) drug therapy
CPT/HCPCS: 36415; 93005; 85379; 83880; 80048; 82803; 83605; 85025; 85610; 85730; 71045; 71275; 99285; 96374; 96375 ×2; 96376; J2060; J2270; J2405; Q9967; 84484

== ENCOUNTER 2020-02-25 13:22 | Observation (INO) | payer OTHER ==
[2020-02-25] MEDS ORDERED: methylPREDNISolone SOD SUCCI 125 MG/2 ML VIAL IV STA (13:45)
[2020-02-25] MEDS ORDERED: ALBUTEROL NEBULIZED 2.5 MG/3 ML INHALATION STA (13:45)
[2020-02-25] MEDS ORDERED: IPRATROPIUM 0.5 MG/2.5 ML NEBU INHALATION STA (13:45)
[2020-02-25] MEDS ORDERED: ONDANSETRON 4 MG/2 ML VIAL IVP STA (13:49)
--- NOTE | 2020-02-25 13:55 | ED ---
General Adult HPI - General Chief complaint: Shortness of Breath Stated complaint: Revisit Diff Breathing Time Seen by Provider: 02/25/20 13:34 Source: patient, RN notes reviewed, old records reviewed Mode of arrival: ambulatory Limitations: no limitations - History of Present Illness Initial comments: 40-year-old female multiple medical problems including asthma presenting for low evaluation of 1 week of dyspnea, mild cough. She was seen in the emergency department yesterday and was encouraged to stay for observation, she declined and didn't follow-up with her primary care physician today who recommended that she return to the emergency department for admission with chief complaint of dyspnea and some intermittent chest pain. She denies fever. Cough is mild and nonproductive. She denies lower extremity pain or swelling. She had a complete workup including CT angiography yesterday in the emergency department. - Related Data Home Medications Medication Instructions Recorded Confirmed Sertraline [Zoloft] 200 mg PO HS 06/17/14 02/25/20 ALPRAZolam [Xanax] 1 mg PO BID PRN 05/26/17 02/25/20 ARIPiprazole [Abilify] 15 mg PO QAM 05/26/17 02/25/20 Acetaminophen-Codeine 300-30mg 1 tab PO Q8HR PRN 08/22/19 02/25/20 [Tylenol w/codeine #3] Omeprazole [PriLOSEC] 20 mg PO PC-BRKFST 02/25/20 02/25/20 Previous Rx's Medication Instructions Recorded Levothyroxine Sodium [Synthroid] 224 mcg PO AC-BRKFST #0 04/10/19 Allergies Allergy/AdvReac Type Severity Reaction Status Date / Time cephalexin monohydrate Allergy Swelling Verified 02/25/20 13:26 [From Keflex] clindamycin Allergy Swelling Verified 02/25/20 13:26 levofloxacin [From Levaquin] Allergy Swelling Verified 02/25/20 13:26 Penicillins AdvReac Itching Verified 02/25/20 13:26 prochlorperazine edisylate AdvReac IRRITABLE Verified 02/25/20 13:26 [From Compazine] prochlorperazine maleate AdvReac IRRITABLE Verified 02/25/20 13:26 [From Compazine] Review of Systems ROS Statement: Those systems with pertinent positive or pertinent negative responses have been documented in the HPI. ROS Other: All systems not noted in ROS Statement are negative. Past Medical History Past Medical History: Asthma, GERD/Reflux, Hypertension, Musculoskeletal Disorder, Osteoarthritis (OA), Pneumonia, Sleep Apnea/CPAP/BIPAP, Thyroid Disorder Additional Past Medical History / Comment(s): Crohns, IBS, degenerative disc disease, episode of chest pain and rapid heart rate X1 2 months ago, CPAP use. History of Any Multi-Drug Resistant Organisms: MRSA Date of last positivie culture/infection: 2013 MDRO Source:: rt side of chest Past Surgical History: Appendectomy, Bowel Resection, Breast Surgery, Section, Cholecystectomy Additional Past Surgical History / Comment(s): LEFT BREAST BENIGN CYST REMOVED. Cyst removal/abscess small intestine, right oophorectomy and salpingectomy. Past Anesthesia/Blood Transfusion Reactions: No Reported Reaction Additional Past Anesthesia/Blood Transfusion Reaction / Comment(s): Daughter PONV. Past Psychological History: Anxiety, Bipolar, Depression Smoking Status: Current every day smoker Past Alcohol Use History: None Reported Past Drug Use History: None Reported - Past Family History Father Additional Family Medical History / Comment(s): Father is alive at age 65 with history of coronary artery disease. Mother Family Medical History: Asthma, Coronary Artery Disease (CAD) Additional Family Medical History / Comment(s): Mother is alive at age 58 with history of coronary artery disease and asthma. Brother(s) Family Medical History: No Reported History Additional Family Medical History / Comment(s): Patient has 1 brother with no major medical problems. Sister(s) Family Medical History: No Reported History Additional Family Medical History / Comment(s): Patient has 1 sister with no major medical problems. Daughter(s) Family Medical History: Asthma, Sleep Apnea/CPAP/BIPAP Son(s) Family Medical History: Asthma, Sleep Apnea/CPAP/BIPAP General Exam Limitations: no limitations General appearance: alert, in no apparent distress, anxious Head exam: Present: atraumatic, normocephalic Eye exam: Present: normal appearance. Absent: PERRL, EOMI ENT exam: Present: normal exam Neck exam: Present: normal inspection. Absent: tenderness, meningismus Respiratory exam: Present: normal lung sounds bilaterally, wheezes (Mild bronchospasm). Absent: respiratory distress Cardiovascular Exam: Present: regular rate, normal rhythm GI/Abdominal exam: Present: soft. Absent: distended, tenderness, guarding Extremities exam: Present: normal capillary refill. Absent: calf tenderness Neurological exam: Present: alert, oriented X3, CN II-XII intact. Absent: motor sensory deficit Psychiatric exam: Present: normal affect, normal mood Skin exam: Present: warm, dry, intact. Absent: cyanosis, diaphoretic Course Vital Signs 02/25/20 02/25/20 02/25/20 13:24 14:05 14:25 Temperature 99 F Pulse Rate 106 H 108 H 112 H Respiratory 24 Rate Blood Pressure 124/83 O2 Sat by Pulse 98 Oximetry 02/25/20 02/25/20 14:27 14:45 Temperature Pulse Rate 98 Respiratory 20 16 Rate Blood Pressure 126/87 O2 Sat by Pulse 99 Oximetry - Reevaluation(s) Reevaluation #1: 02/25/20 14:[address] Byrd, will accept admission EKG Findings - EKG Comments: EKG Findings:: EKG: Normal sinus rhythm, low voltage QRS, ventricular rate of 92, CT interval 152, QRS duration 84, QTC 462, no ST segment elevation. Medical Decision Making - Medical Decision Making 40-year-old female presenting for reevaluation, dyspnea, cough. History of asthma. Sent in by her primary care physician. Chest x-ray was obtained yesterday, was negative for focal pneumonia. Patient had CT angiography that was performed yesterday negative for pulmonary embolism. She has normal electrolytes, negative troponin, negative BMP. She will be continued on IV steroids, albuterol, Atrovent. She's admitted to Dr. Byrd - Lab Data Result diagrams: 02/25/20 14:22 02/25/20 14:22 Lab Results 02/25/20 02/25/20 02/25/20 Range/Units 14:22 14:22 14:22 WBC 5.7 (3.8-10.6) k/uL RBC 4.05 (3.80-5.40) m/uL Hgb 12.8 (11.4-16.0) gm/dL Hct 39.6 (34.0-46.0) % MCV 97.8 (80.0-100.0) fL MCH 31.6 (25.0-35.0) pg MCHC 32.3 (31.0-37.0) g/dL RDW 13.4 (11.5-15.5) % Plt Count 275 (150-450) k/uL Neutrophils % 67 % Lymphocytes % 20 % Monocytes % 7 % Eosinophils % 4 % Basophils % 1 % Neutrophils # 3.8 (1.3-7.7) k/uL Lymphocytes # 1.1 (1.0-4.8) k/uL Monocytes # 0.4 (0-1.0) k/uL Eosinophils # 0.2 (0-0.7) k/uL Basophils # 0.0 (0-0.2) k/uL PT 9.8 (9.0-12.0) sec INR 0.9 (<1.2) APTT 23.9 (22.0-30.0) sec Sodium 137 (137-145) mmol/L Potassium 3.8 (3.5-5.1) mmol/L Chloride 108 H (98-107) mmol/L Carbon Dioxide 22 (22-30) mmol/L Anion Gap 7 mmol/L BUN 13 (7-17) mg/dL Creatinine 0.93 (0.52-1.04) mg/dL Est GFR (CKD-EPI)AfAm >90 (>60 ml/min/1.73 sqM) Est GFR (CKD-EPI)NonAf 79 (>60 ml/min/1.73 sqM) Glucose 162 H (74-99) mg/dL Plasma Lactic Acid Kaden (0.7-2.0) mmol/L Calcium 7.2 L (8.4-10.2) mg/dL Magnesium 1.7 (1.6-2.3) mg/dL Total Bilirubin 0.3 (0.2-1.3) mg/dL AST 43 H (14-36) U/L ALT 45 H (4-34) U/L Alkaline Phosphatase 76 (38-126) U/L Troponin I (0.000-0.034) ng/mL NT-Pro-B Natriuret Pep pg/mL Total Protein 6.5 (6.3-8.2) g/dL Albumin 3.4 L (3.5-5.0) g/dL 02/25/20 02/25/20 02/25/20 Range/Units 14:22 14:22 14:22 WBC (3.8-10.6) k/uL RBC (3.80-5.40) m/uL Hgb (11.4-16.0) gm/dL Hct (34.0-46.0) % MCV (80.0-100.0) fL MCH (25.0-35.0) pg MCHC (31.0-37.0) g/dL RDW (11.5-15.5) % Plt Count (150-450) k/uL Neutrophils % % Lymphocytes % % Monocytes % % Eosinophils % % Basophils % % Neutrophils # (1.3-7.7) k/uL Lymphocytes # (1.0-4.8) k/uL Monocytes # (0-1.0) k/uL Eosinophils # (0-0.7) k/uL Basophils # (0-0.2) k/uL PT (9.0-12.0) sec INR (<1.2) APTT (22.0-30.0) sec Sodium (137-145) mmol/L Potassium (3.5-5.1) mmol/L Chloride (98-107) mmol/L Carbon Dioxide (22-30) mmol/L Anion Gap mmol/L BUN (7-17) mg/dL Creatinine (0.52-1.04) mg/dL Est GFR (CKD-EPI)AfAm (>60 ml/min/1.73 sqM) Est GFR (CKD-EPI)NonAf (>60 ml/min/1.73 sqM) Glucose (74-99) mg/dL Plasma Lactic Acid Kaden 2.4 H* (0.7-2.0) mmol/L Calcium (8.4-10.2) mg/dL Magnesium (1.6-2.3) mg/dL Total Bilirubin (0.2-1.3) mg/dL AST (14-36) U/L ALT (4-34) U/L Alkaline Phosphatase (38-126) U/L Troponin I <0.012 (0.000-0.034) ng/mL NT-Pro-B Natriuret Pep 77 pg/mL Total Protein (6.3-8.2) g/dL Albumin (3.5-5.0) g/dL Disposition Clinical Impression: Dyspnea, Acute exacerbation of chronic obstructive pulmonary disease Disposition: ADMITTED IP TO THIS HOSP Condition: Stable Is patient prescribed a controlled substance at d/c from ED?: No Referrals: Reji Diaz MD [Primary Care Provider] - 1-2 days Decision to Admit Reason: Admit from EC Decision Date: 02/25/20 Decision Time: 15:14
[2020-02-25 14:36] LABS: Basophils % (A) 1 %; Eosinophils # (A) 0.2 k/uL (0-0.7); Eosinophils % (A) 4 %; HCT 39.6 % (34.0-46.0); HGB 12.8 gm/dL (11.4-16.0); Lymphocytes # (A) 1.1 k/uL (1.0-4.8); Lymphocytes % (A) 20 %; MCH 31.6 pg (25.0-35.0); MCHC 32.3 g/dL (31.0-37.0); MCV 97.8 fL (80.0-100.0); Mean Platelet Volume 7.5; Monocytes # (A) 0.4 k/uL (0-1.0); Monocytes % (A) 7 %; Neutrophils # (A) 3.8 k/uL (1.3-7.7); Neutrophils % (A) 67 %; Platelet Count 275 k/uL (150-450); RBC 4.05 m/uL (3.80-5.40); RDW 13.4 % (11.5-15.5); WBC 5.7 k/uL (3.8-10.6)
[2020-02-25 14:46] LABS: INR 0.9 (<1.2); Partial Thromboplastin Time 23.9 sec (22.0-30.0); Prothrombin Time 9.8 sec (9.0-12.0)
[2020-02-25] MEDS ORDERED: ACETAMINOPHEN TAB 500 MG TAB PO STA (14:46)
[2020-02-25 14:50] LABS: ALT 45 U/L (4-34); AST 43 U/L (14-36); African American GFR (CKD) >90 (>60 ml/min/1.73 sqM); Albumin 3.4 g/dL (3.5-5.0); Alkaline Phosphatase 76 U/L (38-126); Anion Gap 7 mmol/L; Blood Urea Nitrogen 13 mg/dL (7-17); Calcium 7.2 mg/dL (8.4-10.2); Carbon Dioxide 22 mmol/L (22-30); Chloride 108 mmol/L (98-107); Glucose 162 mg/dL (74-99); Magnesium 1.7 mg/dL (1.6-2.3); Non-African American GFR(CKD) 79 (>60 ml/min/1.73 sqM); Potassium 3.8 mmol/L (3.5-5.1); Sodium 137 mmol/L (137-145); Total Bilirubin 0.3 mg/dL (0.2-1.3); Total Protein 6.5 g/dL (6.3-8.2)
[2020-02-25] MEDS ORDERED: IPRATROPIUM-ALBUTEROL 3 ML NEB INHALATION PRN (15:12)
[2020-02-25] MEDS ORDERED: SODIUM CHLORIDE 0.9% 500 ML 500 ML IV ONE (15:12)
[2020-02-25] MEDS: IPRATROPIUM-ALBUTEROL 3 ML NEB INHALATION SCH ×3 (16:12→19:09)
[2020-02-25 17:13] LABS: Glucose,Whole Blood 145 mg/dL (75-99)
[2020-02-25] MEDS: methylPREDNISolone SOD SUCCI 125 MG/2 ML VIAL IV SCH (17:49)
[2020-02-25] MEDS ORDERED: Acetaminophen-Codeine 300-30mg TAB PO PRN (23:20)
--- NOTE | 2020-02-25 23:29 | P.HPIM ---
History of Present Illness H&P Date: 02/25/20 Chief Complaint: Severe dyspnea and shortness of breath, asthma exacerbation, severe hypoxia 60-year-old female one of Dr. jimenez patient with past medical history of morbid obesity, obstructive sleep apnea, asthma, hypothyroidism, borderline diabetes, an episode of tachycardia with recurrent chest pain who presented to the emergency department at [facility] today 02/25/2020 with complain of significant dyspnea and shortness of breath has been worsening for the last week with worsening cough productive slightly dark phlegm worsening inspiratory expiratory wheezes and severe hypoxia with significant decreased mobility. Had low-grade temperature no chills. Patient denies any exposure to code 19. CTA a demurs department came back negative patient pulse rate was fluctuating slightly bit patient was started on updraft treatment O2 Solu-Medrol will consult pulm onary and admit patient to the hospital for severe asthma excessive patient. Review of Systems CONSTITUTIONAL: Or be very obese mild respiratory distress. EYES: No icterus sclerae, no conjunctivitis. EARS, NOSE, MOUTH, THROAT, and FACE: No sore throat, lymphadenopathy, carotid bruits or deformity. RESPIRATORY: Positive significant dyspnea and shortness of breath. CARDIOVASCULAR: Positive PND orthopnea palpitations.. GASTROINTESTINAL: No Abd pain, Nausea or vomiting, no Diarrhea or constipation, No GI Bleed, no distention or masses. GENITOURINARY: Negative for Hematuria or UTI, no kidney stones. INTEGUMENT/BREAST: Negative for any muscular injury with mild osteoarthritis.. HEMATOLOGIC/LYMPHATIC: Negative for bleed or purpura. MUSCULOSKELTAL: Negative for Myalgia or arthralgia. NEURLOGICAL: No LOC, Sz or syncope, blurred vision dizziness or abnormality.. BEHAVIORAL/PSYCH: Negative. ENDOCRINE: Negative. Past Medical History Past Medical History: Asthma, GERD/Reflux, Hypertension, Musculoskeletal Disorder, Osteoarthritis (OA), Pneumonia, Sleep Apnea/CPAP/BIPAP, Thyroid Disorder Additional Past Medical History / Comment(s): Crohns, IBS, degenerative disc disease, episode of chest pain and rapid heart rate X1 2 months ago, CPAP use. History of Any Multi-Drug Resistant Organisms: MRSA Date of last positivie culture/infection: 2013 MDRO Source:: rt side of chest Past Surgical History: Appendectomy, Bowel Resection, Breast Surgery, Section, Cholecystectomy Additional Past Surgical History / Comment(s): LEFT BREAST BENIGN CYST REMOVED. Cyst removal/abscess small intestine, right oophorectomy and salpingectomy. Past Anesthesia/Blood Transfusion Reactions: No Reported Reaction Additional Past Anesthesia/Blood Transfusion Reaction / Comment(s): Daughter PONV. Past Psychological History: Anxiety, Bipolar, Depression Smoking Status: Current every day smoker Past Alcohol Use History: None Reported Additional Past Alcohol Use History / Comment(s): Patient is a smoker one pack per day for more than 10 years. Past Drug Use History: None Reported - Past Family History Father Additional Family Medical History / Comment(s): Father is alive at age 65 with history of coronary artery disease. Mother Family Medical History: Asthma, Coronary Artery Disease (CAD) Additional Family Medical History / Comment(s): Mother is alive at age 58 with history of coronary artery disease and asthma. Brother(s) Family Medical History: No Reported History Additional Family Medical History / Comment(s): Patient has 1 brother with no major medical problems. Sister(s) Family Medical History: No Reported History Additional Family Medical History / Comment(s): Patient has 1 sister with no major medical problems. Daughter(s) Family Medical History: Asthma, Sleep Apnea/CPAP/BIPAP Son(s) Family Medical History: Asthma, Sleep Apnea/CPAP/BIPAP Medications and Allergies Home Medications Medication Instructions Recorded Confirmed Type Sertraline [Zoloft] 200 mg PO HS 06/17/14 02/25/20 History ALPRAZolam [Xanax] 1 mg PO BID PRN 05/26/17 02/25/20 History ARIPiprazole [Abilify] 15 mg PO QAM 05/26/17 02/25/20 History Levothyroxine Sodium [Synthroid] 224 mcg PO AC-BRKFST #0 04/10/19 02/25/20 Rx Acetaminophen-Codeine 300-30mg 1 tab PO Q8HR PRN 08/22/19 02/25/20 History [Tylenol w/codeine #3] Omeprazole [PriLOSEC] 20 mg PO PC-BRKFST 02/25/20 02/25/20 History Allergies Allergy/AdvReac Type Severity Reaction Status Date / Time cephalexin monohydrate Allergy Swelling Verified 02/25/20 13:26 [From Keflex] clindamycin Allergy Swelling Verified 02/25/20 13:26 levofloxacin [From Levaquin] Allergy Swelling Verified 02/25/20 13:26 Penicillins AdvReac Itching Verified 02/25/20 13:26 prochlorperazine edisylate AdvReac IRRITABLE Verified 02/25/20 13:26 [From Compazine] prochlorperazine maleate AdvReac IRRITABLE Verified 02/25/20 13:26 [From Compazine] Physical Exam Vitals: Vital Signs Temp Pulse Pulse Resp BP BP Pulse Ox 02/25/20 16:16 98.4 F 91 16 109/64 99 02/25/20 15:22 105 H 20 119/89 98 02/25/20 14:45 98 16 126/87 99 02/25/20 14:27 20 02/25/20 14:25 112 H 02/25/20 14:05 108 H 02/25/20 13:24 99 F 106 H 24 124/83 98 Intake and Output 02/25/20 02/25/20 02/26/20 14:59 22:59 06:59 Other: Weight 154.221 kg 154.221 kg General Appearance: Alert, cooperative, no distress, appears stated age. Morbidly obese Neck HEENT: Supple, no lymphadenopathy, no thyroid enlargement, no carotid bruit s. Lungs: Decreased breath some bilaterally with fine rhonchi positive mild crackles in the bases positive inspiratory expect wheezes. Chest Wall: Decrease expansion with deep inspiration no tenderness and no deformity was found on exam, no costochondral pain or discomfort. Heart: Regular rate and rhythm, S1, S2 normal, no murmur, rub or gallop. Back: Symmetric, no curvature, ROM normal, no CVA tenderness. Abdomen: Soft, non-tender, bowel sounds active all four quadrants, no masses, no organomegaly. Extremities: Mild edema positive mild arthritis of both knees and hips. Pulses: 2+ and symmetric. Skin: Skin color, texture, tugor normal, no rashes or lesions. Neurologic: Alert oriented x3 cranial nerves II through XII intact, no motor deficit, no abnormal balance or gait. Patient is dozing off betime and falling sleep in the middle of conversation and have been having significant sleep apnea during her interview and exam. Results CBC & Chem 7: 02/25/20 14:22 02/25/20 14:22 Labs: Abnormal Lab Results - Last 24 Hours (Table) 02/25/20 02/25/20 02/25/20 Range/Units 14:22 14:22 17:10 Chloride 108 H (98-107) mmol/L Glucose 162 H (74-99) mg/dL POC Glucose (mg/dL) 145 H (75-99) mg/dL Plasma Lactic Acid Kaden 2.4 H* (0.7-2.0) mmol/L Calcium 7.2 L (8.4-10.2) mg/dL AST 43 H (14-36) U/L ALT 45 H (4-34) U/L Albumin 3.4 L (3.5-5.0) g/dL Thrombosis Risk Factor Assmnt - Choose All That Apply Any of the Below Risk Factors Present?: Yes Each Factor Represents 1 point: Obesity (BMI >25) Other Risk Factors: No Other congenital or acquired thrombophilia - If yes, enter type in comment: No Thrombosis Risk Factor Assessment Total Risk Factor Score: 1 Thrombosis Risk Factor Assessment Level: Low Risk Assessment and Plan Assessment: 1 acute respiratory failure: Combination of excessive patient of asthma along with severe bronchitis and obstructive sleep apnea with mild fluid overload. 2 asthma exacerbation: Patient be on Pulmicort DuoNeb and Solu-Medrol will consult pulmonary continue O2 for now. 3 mild fluid overload was start patient on Lasix 20 mg twice a day for the next 48 hours then orally once a day. 4 severe purulent tracheal bronchitis: With patient's current symptoms patient is ALLERGIC to Rocephin with do doxycycline and azithromycin for now. 5 hyperglycemia: Patient be on Accu-Chek with sliding scales coverage. 6 severe hypothyroidism: Has been on levothyroxine 225 g daily. 7 severe obstructive sleep apnea patient apparently is not using her CPAP highly recommended and should be tested. 8 severe depression: Continue patient on alprazolam Abilify and Zoloft. 9 severe GERD: Has been on [place] act 20 mg a day. DVT prophylaxis: Heparin subcutaneous will be use along with early mobilization and knee-high VERÓNICA hose. CODE STATUS: Full code. Admit patient to inpatient status for more than 2 nights.
[2020-02-26] MEDS ORDERED: AZITHROMYCIN 500 MG in SODIUM CHLORIDE 0.9% 250 ML IVPB SCH ×2
[2020-02-26] MEDS: methylPREDNISolone SOD SUCCI 125 MG/2 ML VIAL IV SCH ×4 (00:45→17:14)
[2020-02-26] MEDS: ALPRAZolam 0.5 MG TAB PO PRN ×2 (00:45→15:43)
[2020-02-26] MEDS: Acetaminophen-Codeine 300-30mg TAB PO PRN ×3 (03:43→20:06)
[2020-02-26] MEDS: NICOTINE 21MG/24HR PATCH TRANSDERM SCH (03:44)
[2020-02-26 06:42] LABS: Glucose,Whole Blood 281 mg/dL (75-99)
[2020-02-26] MEDS ORDERED: ONDANSETRON 4 MG/2 ML VIAL IVP STA (08:32)
[2020-02-26] MEDS ORDERED: ONDANSETRON 4 MG/2 ML VIAL ONE (08:35)
[2020-02-26] MEDS: LEVOTHYROXINE 112 MCG TAB PO SCH (08:44)
[2020-02-26] MEDS: ARIPiprazole 15 MG TAB PO SCH (08:45)
[2020-02-26] MEDS: PANTOPRAZOLE 40 MG TABLET PO SCH (08:45)
[2020-02-26] MEDS: DOXYCYCLINE 100 MG in SODIUM CHLORIDE 0.9% 100 ML IVPB SCH ×2 (08:45→22:13)
--- NOTE | 2020-02-26 09:30 | P.CNPUL ---
History of Present Illness Reason for consult: dyspnea, cough, asthma, obstructive sleep apnea Chief complaint: Shortness of breath cough and greenish sputum one week History of present illness: This is a 40-year-old morbidly obese female with prior history of obstructive sleep apnea and chronic severe persistent asthma, for last 1 week patient has been having problems associated increasing shortness of breath which is progressive along with wheezing cough and greenish sputum came into the emergency department on the third was evaluated. Chest x-ray and CAT scan chest x-ray negative for pneumonia CAT scan was also negative for pulmonary embolism she was recommended to be admitted into the hospital she she declined currently one day later came back into the hospital now being admitted into the hospital for broad-spectrum antibiotics, breathing treatments and IV steroids Review of Systems All systems: negative Past Medical History Past Medical History: Asthma, GERD/Reflux, Hypertension, Musculoskeletal Disorder, Osteoarthritis (OA), Pneumonia, Sleep Apnea/CPAP/BIPAP, Thyroid Disorder Additional Past Medical History / Comment(s): Crohns, IBS, degenerative disc disease, episode of chest pain and rapid heart rate X1 2 months ago, CPAP use. History of Any Multi-Drug Resistant Organisms: MRSA Date of last positivie culture/infection: 2013 MDRO Source:: rt side of chest Past Surgical History: Appendectomy, Bowel Resection, Breast Surgery, Section, Cholecystectomy Additional Past Surgical History / Comment(s): LEFT BREAST BENIGN CYST REMOVED. Cyst removal/abscess small intestine, right oophorectomy and salpingectomy. Past Anesthesia/Blood Transfusion Reactions: No Reported Reaction Additional Past Anesthesia/Blood Transfusion Reaction / Comment(s): Daughter PONV. Past Psychological History: Anxiety, Bipolar, Depression Smoking Status: Current every day smoker Past Alcohol Use History: None Reported Additional Past Alcohol Use History / Comment(s): Patient is a smoker one pack per day for more than 10 years. Past Drug Use History: None Reported - Past Family History Father Additional Family Medical History / Comment(s): Father is alive at age 65 with history of coronary artery disease. Mother Family Medical History: Asthma, Coronary Artery Disease (CAD) Additional Family Medical History / Comment(s): Mother is alive at age 58 with history of coronary artery disease and asthma. Brother(s) Family Medical History: No Reported History Additional Family Medical History / Comment(s): Patient has 1 brother with no major medical problems. Sister(s) Family Medical History: No Reported History Additional Family Medical History / Comment(s): Patient has 1 sister with no major medical problems. Daughter(s) Family Medical History: Asthma, Sleep Apnea/CPAP/BIPAP Son(s) Family Medical History: Asthma, Sleep Apnea/CPAP/BIPAP Medications and Allergies Home Medications Medication Instructions Recorded Confirmed Type Sertraline [Zoloft] 200 mg PO HS 06/17/14 02/25/20 History ALPRAZolam [Xanax] 1 mg PO BID PRN 05/26/17 02/25/20 History ARIPiprazole [Abilify] 15 mg PO QAM 05/26/17 02/25/20 History Levothyroxine Sodium [Synthroid] 224 mcg PO AC-BRKFST #0 04/10/19 02/25/20 Rx Acetaminophen-Codeine 300-30mg 1 tab PO Q8HR PRN 08/22/19 02/25/20 History [Tylenol w/codeine #3] Omeprazole [PriLOSEC] 20 mg PO PC-BRKFST 02/25/20 02/25/20 History Allergies Allergy/AdvReac Type Severity Reaction Status Date / Time cephalexin monohydrate Allergy Swelling Verified 02/25/20 13:26 [From Keflex] clindamycin Allergy Swelling Verified 02/25/20 13:26 levofloxacin [From Levaquin] Allergy Swelling Verified 02/25/20 13:26 Penicillins AdvReac Itching Verified 02/25/20 13:26 prochlorperazine edisylate AdvReac IRRITABLE Verified 02/25/20 13:26 [From Compazine] prochlorperazine maleate AdvReac IRRITABLE Verified 02/25/20 13:26 [From Compazine] Physical Exam Vitals: Vital Signs Temp Pulse Pulse Resp BP BP Pulse Ox 02/26/20 04:00 92 02/26/20 03:49 98.2 F 92 18 133/75 98 02/26/20 00:40 98.2 F 99 17 138/77 96 02/25/20 19:50 98.4 F 100 17 132/80 98 02/25/20 16:16 98.4 F 91 16 109/64 99 02/25/20 15:22 105 H 20 119/89 98 02/25/20 14:45 98 16 126/87 99 02/25/20 14:27 20 02/25/20 14:25 112 H 02/25/20 14:05 108 H 02/25/20 13:24 99 F 106 H 24 124/83 98 Intake and Output 02/25/20 02/26/20 02/26/20 22:59 06:59 14:59 Other: # Voids 1 Weight 154.221 kg - Constitutional General appearance: average body habitus, cooperative, disheveled - EENT Eyes: EOMI, PERRLA ENT: hard of hearing Ears: bilateral: normal - Neck Neck: normal ROM Carotids: bilateral: upstroke normal Thyroid: bilateral: normal size - Respiratory Respiratory: bilateral: wheezing - Cardiovascular Rhythm: regular Heart sounds: normal: S1, S2 - Gastrointestinal General gastrointestinal: normal bowel sounds, soft - Neurologic Neurologic: CNII-XII intact - Musculoskeletal Musculoskeletal: gait normal, generalized weakness, strength equal bilaterally - Psychiatric Psychiatric: A&O x's 3, appropriate affect, intact judgment & insight Results - Laboratory Findings CBC and BMP: 02/25/20 14:22 02/25/20 14:22 PT/INR, D-dimer PT 9.8 sec (9.0-12.0) 02/25/20 14:22 INR 0.9 (<1.2) 02/25/20 14:22 Abnormal lab findings: Abnormal Labs 02/25/20 02/25/20 02/25/20 14:22 14:22 17:10 Chloride 108 H Glucose 162 H POC Glucose (mg/dL) 145 H Plasma Lactic Acid Kaden 2.4 H* Calcium 7.2 L AST 43 H ALT 45 H Albumin 3.4 L 02/26/20 06:40 Chloride Glucose POC Glucose (mg/dL) 281 H Plasma Lactic Acid Kaden Calcium AST ALT Albumin - Diagnostic Findings Chest x-ray: report reviewed, image reviewed CT scan - chest: report reviewed, image reviewed (Finding as noted above) Assessment and Plan Assessment: Acute asthma exacerbation with baseline chronic persistent severe asthma Tracheobronchitis Sleep disorder breathing and sleep apnea Hypothyroidism GERD Mood disorder depression Plan: Agree with IV steroids antibiotics and breathing treatments Patient will definitely need a study as outpatient as she has not been using her CPAP machine Further plan of care and recommendation as per clinical response of the patient Time with Patient: Greater than 30
[2020-02-26] MEDS: IPRATROPIUM-ALBUTEROL 3 ML NEB INHALATION SCH ×4 (10:53→20:12)
[2020-02-26 11:36] LABS: Glucose,Whole Blood 285 mg/dL (75-99)
--- NOTE | 2020-02-26 11:48 | P.PN ---
Subjective Progress Note Date: 02/26/20 60-year-old female one of Dr. jimenez patient with past medical history of morbid obesity, obstructive sleep apnea, asthma, hypothyroidism, borderline diabetes, an episode of tachycardia with recurrent chest pain who presented to the emergency department at [facility] today 02/25/2020 with complain of significant dyspnea and shortness of breath has been worsening for the last week with worsening cough productive slightly dark phlegm worsening inspiratory expiratory wheezes and severe hypoxia with significant decreased mobility. Had low-grade temperature no chills. Patient denies any exposure to code 19. CTA a demurs department came back negative patient pulse rate was fluctuating slightly bit patient was started on updraft treatment O2 Solu-Medrol will consult pulmonary and admit patient to the hospital for severe asthma excessive patient. 02/25: Patient remains in the observation unit. IV azithromycin was discontinued last night as patient was complaining of stomach pain which she thought was due to the antibiotic. She was recently on a Z-Ravi and tolerated. She is currently on doxycycline which will be continued. She has seen Dr. Hargrove in the past for obstructive sleep apnea but states that she does not have the equipment as she is supposed to complete a sleep study. Consult will be changed to Dr. Hargrove. Discussed dosing of Xanax which was 1 mg twice daily at home. Instructed patient that due to her sleep apnea and respiratory condition, she should not be on high dose of Xanax and this assessment is decreased to 0.5 mg twice daily. Recommended the patient weaned herself off Xanax in the outpatient setting. Patient has had significant amount of food and pop intake since she has been admitted. She is eating all her meals and brought in [employer]. Patient is unable to lie flat. She has shortness of breath with minimal exertion as well as at rest. No fever. She denies having a cough. night monitor has been a sinus tachycardia. Patient is afebrile, heart rate 104, blood pressure 139/77, pulse ox 98% on room air. Blood sugar this morning 281. Repeat lactic acid 1.5 Review of Systems CONSTITUTIONAL: Very obese mild respiratory distress. No fever, no chills. EYES: No icterus sclerae, no conjunctivitis. EARS, NOSE, MOUTH, THROAT, and FACE: No sore throat, lymphadenopathy, carotid bruits or deformity. RESPIRATORY: Positive significant dyspnea and shortness of breath. CARDIOVASCULAR: Positive PND orthopnea palpitations.. GASTROINTESTINAL: No Abd pain, Nausea or vomiting, no Diarrhea or constipation, No GI Bleed, no distention or masses. GENITOURINARY: Negative for Hematuria or UTI, no kidney stones. INTEGUMENT/BREAST: Negative for any muscular injury with mild osteoarthritis.. HEMATOLOGIC/LYMPHATIC: Negative for bleed or purpura. MUSCULOSKELTAL: Negative for Myalgia or arthralgia. NEURLOGICAL: No LOC, Sz or syncope, blurred vision dizziness or abnormality.. BEHAVIORAL/PSYCH: Negative. ENDOCRINE: Negative. Physical examination General Appearance: Alert, cooperative, no distress, appears stated age. Morbidly obese Neck HEENT: Supple, no lymphadenopathy, no thyroid enlargement, no carotid bruits. Lungs: Decreased breath some bilaterally with fine rhonchi positive mild crackles in the bases positive inspiratory and expiratory wheezes. Chest Wall: Decrease expansion with deep inspiration no tenderness and no deformity was found on exam, no costochondral pain or discomfort. Heart: Regular rate and rhythm, S1, S2 normal, no murmur, rub or gallop. Back: Symmetric, no curvature, ROM normal, no CVA tenderness. Abdomen: Soft, non-tender, bowel sounds active all four quadrants, no masses, no organomegaly. Extremities: Mild edema positive mild arthritis of both knees and hips. Pulses: 2+ and symmetric. Skin: Skin color, texture, tugor normal, no rashes or lesions. Neurologic: Alert oriented x3 cranial nerves II through XII intact, no motor deficit, no abnormal balance or gait. Patient is dozing off and falling sleep in the middle of conversation and have been having significant sleep apnea during her interview and exam. Assessment and plan 1 acute respiratory failure: Combination of excessive patient of asthma along with severe bronchitis and obstructive sleep apnea with mild fluid overload. Consult Dr. Hargrove. Continue Solu-Medrol 60 mg IV every 6 hours. 2 asthma exacerbation: Patient be on Pulmicort DuoNeb and Solu-Medrol will consult pulmonary continue O2 for now. 3 mild fluid overload without history of heart failure was start patient on Lasix 20 mg twice a day for the next 48 hours then orally once a day. 4 severe purulent tracheal bronchitis: With patient's current symptoms patient is ALLERGIC to Rocephin with do doxycycline and azithromycin for now. 5 hyperglycemia: Patient be on Accu-Chek with sliding scales coverage. 6 severe hypothyroidism: Has been on levothyroxine 225 g daily. 7 severe obstructive sleep apnea patient apparently is not using her CPAP highly recommended and should be tested. 8 severe depression: Continue patient on alprazolam Abilify and Zoloft. 9 severe GERD: Has been on [place] act 20 mg a day. 10 tobacco use and dependence. Nicotine patch. 11 COVID-19 testing in process. 12 DVT prophylaxis: Heparin subcutaneous will be use along with early mobilization and knee-high VERÓNICA hose. CODE STATUS: Full code. Discharge plan: Home Impression and plan of care have been directed as dictated by the signing physician. Roma Ramon nurse practitioner acting as scribe for signing physician. Objective - Vital Signs Vital signs: Vital Signs Temp 98.2 F 02/26/20 03:49 Pulse 92 02/26/20 04:00 Resp 18 02/26/20 03:49 BP 133/75 02/26/20 03:49 Pulse Ox 98 02/26/20 03:49 Intake & Output 02/25/20 02/26/20 02/26/20 18:59 06:59 18:59 Weight 154.221 kg Other: # Voids 1 - Labs CBC & Chem 7: 02/25/20 14:22 02/25/20 14:22 Labs: Abnormal Lab Results - Last 24 Hours (Table) 02/25/20 02/25/20 02/25/20 Range/Units 14:22 14:22 17:10 Chloride 108 H (98-107) mmol/L Glucose 162 H (74-99) mg/dL POC Glucose (mg/dL) 145 H (75-99) mg/dL Plasma Lactic Acid Kaden 2.4 H* (0.7-2.0) mmol/L Calcium 7.2 L (8.4-10.2) mg/dL AST 43 H (14-36) U/L ALT 45 H (4-34) U/L Albumin 3.4 L (3.5-5.0) g/dL 02/26/20 Range/Units 06:40 Chloride (98-107) mmol/L Glucose (74-99) mg/dL POC Glucose (mg/dL) 281 H (75-99) mg/dL Plasma Lactic Acid Kaden (0.7-2.0) mmol/L Calcium (8.4-10.2) mg/dL AST (14-36) U/L ALT (4-34) U/L Albumin (3.5-5.0) g/dL
[2020-02-26] MEDS: POTASSIUM CHLORIDE ER 20 MEQ TAB.ER PO SCH (14:42)
[2020-02-26] MEDS: FUROSEMIDE 40 MG TAB PO SCH (14:42)
[2020-02-26 16:42] LABS: Glucose,Whole Blood 288 mg/dL (75-99)
[2020-02-26] MEDS: INSULIN ASPART (NovoLOG) 100 UNIT/ML VIAL SQ SCH ×2 (17:07→22:43)
[2020-02-26] MEDS ORDERED: LORazepam 0.5 MG TAB PO STA (18:52)
[2020-02-26] MEDS ORDERED: SERTRALINE 100 MG TAB PO SCH (21:00)
[2020-02-26 22:20] LABS: Glucose,Whole Blood 419 mg/dL (75-99)
[2020-02-27] MEDS: methylPREDNISolone SOD SUCCI 125 MG/2 ML VIAL IV SCH ×2 (01:21→06:52)
[2020-02-27] MEDS: Acetaminophen-Codeine 300-30mg TAB PO PRN (03:18)
[2020-02-27 06:52] LABS: Glucose,Whole Blood 304 mg/dL (75-99)
[2020-02-27 07:35] VITALS: BP 141/71; RESP 16; TEMP 97.8
[2020-02-27] MEDS: NICOTINE 21MG/24HR PATCH TRANSDERM SCH ×2 (07:40→07:41)
[2020-02-27] MEDS: POTASSIUM CHLORIDE ER 20 MEQ TAB.ER PO SCH (07:41)
[2020-02-27] MEDS: FUROSEMIDE 40 MG TAB PO SCH (07:41)
[2020-02-27] MEDS: PANTOPRAZOLE 40 MG TABLET PO SCH (07:41)
[2020-02-27] MEDS: INSULIN ASPART (NovoLOG) 100 UNIT/ML VIAL SQ SCH (07:41)
[2020-02-27] MEDS: LEVOTHYROXINE 112 MCG TAB PO SCH (07:42)
[2020-02-27] MEDS: ARIPiprazole 15 MG TAB PO SCH (07:42)
[2020-02-27] MEDS: DOXYCYCLINE 100 MG in SODIUM CHLORIDE 0.9% 100 ML IVPB SCH (07:44)
[2020-02-27] MEDS: IPRATROPIUM-ALBUTEROL 3 ML NEB INHALATION SCH (08:15)
[2020-02-27 08:31] VITALS: PULSE 96
--- NOTE | 2020-02-27 10:51 | P.DS ---
Providers Date of admission: 02/25/20 15:12 Expected date of discharge: 02/27/20 Attending physician: Srinath Byrd Consults: 02/25/20 23:23 Consult Physician Routine Consulting Provider: Morris Noriega Consult Reason/Comments: Asthma Do you want consulting provider notified?: Yes 02/26/20 09:04 Consult Physician Routine Consulting Provider: Bobo Hargrove Consult Reason/Comments: asthma, LISBET Do you want consulting provider notified?: Yes Primary care physician: Reji Kang [facility] Hospital Course: 60-year-old female one of Dr. jimenez patient with past medical history of morbid obesity, obstructive sleep apnea, asthma, hypothyroidism, borderline diabetes, an episode of tachycardia with recurrent chest pain who presented to the emergency department at [facility] today 02/25/2020 with complain of significant dyspnea and shortness of breath has been worsening for the last week with worsening cough productive slightly dark phlegm worsening inspiratory expiratory wheezes and severe hypoxia with significant decreased mobility. Had low-grade temperature no chills. Patient denies any exposure to code 19. CTA a demurs department came back negative patient pulse rate was fluctuating slightly bit patient was started on updraft treatment O2 Solu-Medrol will consult pulmonary and admit patient to the hospital for severe asthma excessive patient. 02/25: Patient remains in the observation unit. IV azithromycin was discontinued last night as patient was complaining of stomach pain which she thought was due to the antibiotic. She was recently on a Z-Ravi and tolerated. She is currently on doxycycline which will be continued. She has seen Dr. Hargrove in the past for obstructive sleep apnea but states that she does not have the equipment as she is supposed to complete a sleep study. Consult will be changed to Dr. Hargrove. Discussed dosing of Xanax which was 1 mg twice daily at home. Instructed patient that due to her sleep apnea and respiratory condition, she should not be on high dose of Xanax and this assessment is decreased to 0.5 mg twice daily. Recommended the patient weaned herself off Xanax in the outpatient setting. Patient has had significant amount of food and pop intake since she has been admitted. She is eating all her meals and brought in [employer]. Patient is unable to lie flat. She has shortness of breath with minimal exertion as well as at rest. No fever. She denies having a cough. night monitor has been a sinus tachycardia. Patient is afebrile, heart rate 104, blood pressure 139/77, pulse ox 98% on room air. Blood sugar this morning 281. Repeat lactic acid 1.5 02/26: Patient was planning to sign out AMA last evening due to reduced dosing of Xanax. Patient did end up staying in the hospital. She again has had large amounts of food intake as well as large gulps and pops. Her brought in [employer] again. Her blood sugars today are running 300 400. Patient's breathing status is stable and will be discharged home today. She discussed in detail her need to control her eating habits and weight as well as smoking cessation. Patient does not have history of diabetes but borderline on previous A1c. Recommend follow-up with her primary care physician and she may need to be started on metformin. The patient will be discharged home today with plan to follow-up with Dr. Hargrove for outpatient sleep study. Assessment and plan 1 acute respiratory failure: Combination of exacerbation of asthma, bronchitis and obstructive sleep apnea with mild fluid overload. 2 asthma exacerbation 3 mild fluid overload without history of heart failure 4 severe purulent tracheal bronchitis 5 hyperglycemia 6 severe hypothyroidism 7 severe obstructive sleep apnea 8 severe depression 9 severe GERD 10 tobacco use and dependence. 11 COVID-19 infection not present. 12 morbid obesity Discharge plan: Home Impression and plan of care have been directed as dictated by the signing physician. Roma Ramon nurse practitioner acting as scribe for signing physician. Patient Condition at Discharge: Good Plan - Discharge Summary New Discharge Prescriptions: New predniSONE [Deltasone] 20 mg PO DAILY #30 tab Doxycycline Hyclate 100 mg PO BID 5 Days #10 tab Nicotine 21Mg/24Hr Patch [Habitrol] 1 patch TRANSDERM DAILY #30 patch Potassium Chloride ER [K-Dur 20] 20 meq PO DAILY #30 tab.er.prt Furosemide [Lasix] 40 mg PO DAILY #30 tab Continue Sertraline [Zoloft] 200 mg PO HS ARIPiprazole [Abilify] 15 mg PO QAM Levothyroxine Sodium [Synthroid] 224 mcg PO AC-BRKFST #0 Acetaminophen-Codeine 300-30mg [Tylenol w/codeine #3] 1 tab PO Q8HR PRN PRN Reason: Pain Omeprazole [PriLOSEC] 20 mg PO PC-BRKFST Changed ALPRAZolam [Xanax] 0.5 mg PO BID PRN #0 PRN Reason: Anxiety Discharge Medication List Sertraline [Zoloft] 200 mg PO HS 06/17/14 [History] ARIPiprazole [Abilify] 15 mg PO QAM 05/26/17 [History] Levothyroxine Sodium [Synthroid] 224 mcg PO AC-BRKFST #0 04/10/19 [Rx] Acetaminophen-Codeine 300-30mg [Tylenol w/codeine #3] 1 tab PO Q8HR PRN 08/22/19 [History] Omeprazole [PriLOSEC] 20 mg PO PC-BRKFST 02/25/20 [History] ALPRAZolam [Xanax] 0.5 mg PO BID PRN #0 02/27/20 [Rx] Doxycycline Hyclate 100 mg PO BID 5 Days #10 tab 02/27/20 [Rx] Furosemide [Lasix] 40 mg PO DAILY #30 tab 02/27/20 [Rx] Nicotine 21Mg/24Hr Patch [Habitrol] 1 patch TRANSDERM DAILY #30 patch 02/27/20 [Rx] Potassium Chloride ER [K-Dur 20] 20 meq PO DAILY #30 tab.er.prt 02/27/20 [Rx] predniSONE [Deltasone] 20 mg PO DAILY #30 tab 02/27/20 [Rx] Follow up Appointment(s)/Referral(s): Reji Diaz MD [Primary Care Provider] - 03/05/20 11:30 am (video follow up. call office to get set up for the video call) Bobo Hargrove MD [STAFF PHYSICIAN] - 1 Week (spoke with pt she knows to call supplier for cpap supplies. ) Patient Instructions/Handouts: Asthma (DC) Discharge Disposition: HOME SELF-CARE
== END 2020-02-27 09:25 | disposition home or self-care (01) ==
LOC: EC 13:22 → 1SOBS 15:12
PROVIDERS: ADMIT Internal Medicine Geriatric Medicine; ATTEND Internal Medicine Geriatric Medicine
DX: J96.01 Acute respiratory failure with hypoxia (principal); J45.51 Severe persistent asthma with (acute) exacerbation; F17.210 Nicotine dependence, cigarettes, uncomplicated; J41.1 Mucopurulent chronic bronchitis; R73.9 Hyperglycemia, unspecified; E87.70 Fluid overload, unspecified; K21.9 Gastro-esophageal reflux disease without esophagitis; I10 Essential (primary) hypertension; M19.90 Unspecified osteoarthritis, unspecified site; E03.9 Hypothyroidism, unspecified; G47.33 Obstructive sleep apnea (adult) (pediatric); Z99.89 Dependence on other enabling machines and devices; E66.01 Morbid (severe) obesity due to excess calories; Z68.43 Body mass index [BMI] 50.0-59.9, adult; K50.90 Crohn's disease, unspecified, without complications; Z86.14 Personal history of Methicillin resistant Staphylococcus aureus infection; Z87.01 Personal history of pneumonia (recurrent); Z98.890 Other specified postprocedural states; Z90.49 Acquired absence of other specified parts of digestive tract; Z90.721 Acquired absence of ovaries, unilateral; F41.9 Anxiety disorder, unspecified; F31.9 Bipolar disorder, unspecified; Z82.49 Family history of ischemic heart disease and other diseases of the circulatory system; Z82.5 Family history of asthma and other chronic lower respiratory diseases; Z79.891 Long term (current) use of opiate analgesic; Z79.899 Other long term (current) drug therapy; Z79.890 Hormone replacement therapy; Z88.1 Allergy status to other antibiotic agents; Z88.0 Allergy status to penicillin; Z88.8 Allergy status to other drugs, medicaments and biological substances; R73.03 Prediabetes; Z03.818 Encounter for observation for suspected exposure to other biological agents ruled out
CPT/HCPCS: 96361 ×3; 96365; 96366 ×2; 96367; 96376 ×3; 96375; 99285; 36415; 94640 ×3; 93005; 36410; 76937; 83880; 80053; 83605; 83735; 84484; 85025; 85610; 85730; G0378 ×3; U0003; S4990 ×2; J2930 ×3; J2405 ×2; J0456

== ENCOUNTER 2020-03-08 14:26 | Emergency (ER) | payer OTHER ==
[2020-03-08 14:31] VITALS: RESP 20; TEMP 100.4
--- NOTE | 2020-03-08 14:34 | ED ---
SOB HPI - General Chief Complaint: Shortness of Breath Stated Complaint: SOB Time Seen by Provider: 03/08/20 14:33 Source: patient Mode of arrival: wheelchair Limitations: no limitations - History of Present Illness Initial Comments: Patient is a 40-year-old female with multiple comorbidities presenting to the emergency department with chief complaint of fever, cough and shortness of breath. Patient reports symptoms began several days ago with a mild nonproductive cough she also reports some dyspnea on exertion over the last few days which has not returned to dyspnea at rest. Patient denies any chest pain. She does report generalized weakness ever since she developed a fever yesterday. Patient reports taking Tylenol every 4 which has been able to keep the fever inotrope. Patient states her roommate was tested yesterday for cold with but h as still yet to receive her results. Patient reports she is a daily smoker but has not been diagnosed with COPD. She does have history of asthma which she uses an albuterol inhaler. Denies unilateral leg swelling, history of DVT or PE. Denies changes to smell or taste. - Related Data Home Medications Medication Instructions Recorded Confirmed Sertraline [Zoloft] 200 mg PO HS 06/17/14 03/08/20 ARIPiprazole [Abilify] 15 mg PO QAM 05/26/17 03/08/20 Acetaminophen-Codeine 300-30mg 1 tab PO Q8HR PRN 08/22/19 03/08/20 [Tylenol w/codeine #3] Omeprazole [PriLOSEC] 20 mg PO PC-BRKFST 02/25/20 03/08/20 ALPRAZolam [Xanax] 1 mg PO BID PRN 03/08/20 03/08/20 Acetaminophen Tab [Tylenol Tab] 1,000 mg PO Q6HR PRN 03/08/20 03/08/20 Albuterol Inhaler [Ventolin Hfa 2 puff INHALATION RT-QID PRN 03/08/20 03/08/20 Inhaler] Previous Rx's Medication Instructions Recorded Levothyroxine Sodium [Synthroid] 224 mcg PO AC-BRKFST #0 04/10/19 Furosemide [Lasix] 40 mg PO DAILY #30 tab 02/27/20 Potassium Chloride ER [K-Dur 20] 20 meq PO DAILY #30 tab.er.prt 02/27/20 Allergies Allergy/AdvReac Type Severity Reaction Status Date / Time cephalexin monohydrate Allergy Swelling Verified 03/08/20 17:22 [From Keflex] clindamycin Allergy Swelling Verified 03/08/20 17:22 levofloxacin [From Levaquin] Allergy Swelling Verified 03/08/20 17:22 Penicillins AdvReac Itching Verified 03/08/20 17:22 prochlorperazine edisylate AdvReac IRRITABLE Verified 03/08/20 17:22 [From Compazine] prochlorperazine maleate AdvReac IRRITABLE Verified 03/08/20 17:22 [From Compazine] Review of Systems ROS Statement: Those systems with pertinent positive or pertinent negative responses have been documented in the HPI. ROS Other: All systems not noted in ROS Statement are negative. Past Medical History Past Medical History: Asthma, GERD/Reflux, Hypertension, Musculoskeletal Disorder, Osteoarthritis (OA), Pneumonia, Sleep Apnea/CPAP/BIPAP, Thyroid Disorder Additional Past Medical History / Comment(s): Crohns, IBS, degenerative disc disease, episode of chest pain and rapid heart rate X1 2 months ago, CPAP use. History of Any Multi-Drug Resistant Organisms: MRSA Date of last positivie culture/infection: 2013 MDRO Source:: rt side of chest Past Surgical History: Appendectomy, Bowel Resection, Breast Surgery, Section, Cholecystectomy Additional Past Surgical History / Comment(s): LEFT BREAST BENIGN CYST REMOVED. Cyst removal/abscess small intestine, right oophorectomy and salpingectomy. Past Anesthesia/Blood Transfusion Reactions: No Reported Reaction Additional Past Anesthesia/Blood Transfusion Reaction / Comment(s): Daughter PONV. Past Psychological History: Anxiety, Bipolar, Depression Smoking Status: Current every day smoker Past Alcohol Use History: None Reported Past Drug Use History: None Reported - Past Family History Father Additional Family Medical History / Comment(s): Father is alive at age 65 with history of coronary artery disease. Mother Family Medical History: Asthma, Coronary Artery Disease (CAD) Additional Family Medical History / Comment(s): Mother is alive at age 58 with history of coronary artery disease and asthma. Brother(s) Family Medical History: No Reported History Additional Family Medical History / Comment(s): Patient has 1 brother with no major medical problems. Sister(s) Family Medical History: No Reported History Additional Family Medical History / Comment(s): Patient has 1 sister with no major medical problems. Daughter(s) Family Medical History: Asthma, Sleep Apnea/CPAP/BIPAP Son(s) Family Medical History: Asthma, Sleep Apnea/CPAP/BIPAP General Exam Limitations: no limitations General appearance: alert, in no apparent distress, obese (Morbidly obese) Head exam: Present: atraumatic, normocephalic, normal inspection Eye exam: Present: normal appearance, PERRL, EOMI Pupils: Present: normal accommodation ENT exam: Present: normal exam, normal oropharynx, mucous membranes moist Neck exam: Present: normal inspection, full ROM. Absent: lymphadenopathy Respiratory exam: Present: wheezes (Mild bilateral wheezing, diffuse to.). Absent: respiratory distress, rales Cardiovascular Exam: Present: normal rhythm, tachycardia, normal heart sounds GI/Abdominal exam: Present: soft. Absent: distended, tenderness, guarding Extremities exam: Present: normal inspection, full ROM. Absent: tenderness Back exam: Present: normal inspection, full ROM. Absent: tenderness Neurological exam: Present: alert, oriented X3, normal gait Psychiatric exam: Present: normal affect, normal mood Skin exam: Present: warm, dry, intact, normal color Course Vital Signs 03/08/20 03/08/20 03/08/20 14:28 14:30 15:30 Temperature 100.4 F H Pulse Rate 124 H Respiratory 20 20 20 Rate Blood Pressure 126/75 O2 Sat by Pulse 97 Oximetry 03/08/20 03/08/20 03/08/20 15:42 15:51 16:03 Temperature Pulse Rate 96 96 Respiratory 20 Rate Blood Pressure O2 Sat by Pulse Oximetry 03/08/20 03/08/20 16:30 17:00 Temperature Pulse Rate 115 H 115 H Respiratory 20 20 Rate Blood Pressure 128/89 128/89 O2 Sat by Pulse 99 99 Oximetry Medical Decision Making - Medical Decision Making Patient is a 40-year-old female with multiple comorbidities presenting to the emergency department with chief complaint of fever, cough and shortness of breath. On exam patient appears to be dyspneic at rest with bilateral, diffuse wheezing. Patient treated for asthma exacerbation with 60 mg of prednisone and DuoNeb. On reevaluation patient reports the shortness of breath as slightly improved but she continues to wheeze. X-ray reveals extensive, diffuse bilateral pneumonia. CBC unremarkable. CMP reveals mild hypocalcemia. Initial troponin negative. Patient had a chest CT about a week ago and it was negative. Current Covid test pending. I have high suspicion for Covid. Patient was given Tylenol 3 for pain. She took Tylenol one hour prior to arrival to the ED. Patient will be admitted for further medical management. Case discussed with Admitting is Dr. Gray Patient was initially agreeable to admission. Admission was accepted by . Patient later changes her mind and decided that she would like to go home. Admission recommended. She states her anxiety was increasing because she was in hospital. Patient was offered anxiolytics but she declined. Patient will sign out AMA. Patient was advised to continue taking Tylenol to control the fever. She was advised to self quarantined until the Covid results are finalized. She was advised to return to emergency department if symptoms worsen. I spoke with and informed her the patient changed her mind and will sign out AMA. Dr. Bui also examined the patient and is in agreement with the treatment plan. - Lab Data Result diagrams: 03/08/20 15:26 03/08/20 15:26 Lab Results 03/08/20 03/08/20 03/08/20 Range/Units 15:26 15:26 15:26 WBC 7.7 (3.8-10.6) k/uL RBC 4.55 (3.80-5.40) m/uL Hgb 14.2 (11.4-16.0) gm/dL Hct 43.6 (34.0-46.0) % MCV 95.9 (80.0-100.0) fL MCH 31.3 (25.0-35.0) pg MCHC 32.6 (31.0-37.0) g/dL RDW 13.9 (11.5-15.5) % Plt Count 223 (150-450) k/uL Neutrophils % 81 % Lymphocytes % 14 % Monocytes % 3 % Eosinophils % 1 % Basophils % 1 % Neutrophils # 6.3 (1.3-7.7) k/uL Lymphocytes # 1.1 (1.0-4.8) k/uL Monocytes # 0.2 (0-1.0) k/uL Eosinophils # 0.1 (0-0.7) k/uL Basophils # 0.0 (0-0.2) k/uL PT 9.6 (9.0-12.0) sec INR 0.9 (<1.2) APTT 27.7 (22.0-30.0) sec Sodium 134 L (137-145) mmol/L Potassium 4.2 (3.5-5.1) mmol/L Chloride 102 (98-107) mmol/L Carbon Dioxide 24 (22-30) mmol/L Anion Gap 8 mmol/L BUN 6 L (7-17) mg/dL Creatinine 0.77 (0.52-1.04) mg/dL Est GFR (CKD-EPI)AfAm >90 (>60 ml/min/1.73 sqM) Est GFR (CKD-EPI)NonAf >90 (>60 ml/min/1.73 sqM) Glucose 148 H (74-99) mg/dL Plasma Lactic Acid Kaden (0.7-2.0) mmol/L Calcium 7.9 L (8.4-10.2) mg/dL Total Bilirubin 0.3 (0.2-1.3) mg/dL AST 42 H (14-36) U/L ALT 54 H (4-34) U/L Alkaline Phosphatase 69 (38-126) U/L Troponin I (0.000-0.034) ng/mL Total Protein 6.6 (6.3-8.2) g/dL Albumin 3.6 (3.5-5.0) g/dL 03/08/20 03/08/20 Range/Units 15:26 15:26 WBC (3.8-10.6) k/uL RBC (3.80-5.40) m/uL Hgb (11.4-16.0) gm/dL Hct (34.0-46.0) % MCV (80.0-100.0) fL MCH (25.0-35.0) pg MCHC (31.0-37.0) g/dL RDW (11.5-15.5) % Plt Count (150-450) k/uL Neutrophils % % Lymphocytes % % Monocytes % % Eosinophils % % Basophils % % Neutrophils # (1.3-7.7) k/uL Lymphocytes # (1.0-4.8) k/uL Monocytes # (0-1.0) k/uL Eosinophils # (0-0.7) k/uL Basophils # (0-0.2) k/uL PT (9.0-12.0) sec INR (<1.2) APTT (22.0-30.0) sec Sodium (137-145) mmol/L Potassium (3.5-5.1) mmol/L Chloride (98-107) mmol/L Carbon Dioxide (22-30) mmol/L Anion Gap mmol/L BUN (7-17) mg/dL Creatinine (0.52-1.04) mg/dL Est GFR (CKD-EPI)AfAm (>60 ml/min/1.73 sqM) Est GFR (CKD-EPI)NonAf (>60 ml/min/1.73 sqM) Glucose (74-99) mg/dL Plasma Lactic Acid Kaden 1.2 (0.7-2.0) mmol/L Calcium (8.4-10.2) mg/dL Total Bilirubin (0.2-1.3) mg/dL AST (14-36) U/L ALT (4-34) U/L Alkaline Phosphatase (38-126) U/L Troponin I <0.012 (0.000-0.034) ng/mL Total Protein (6.3-8.2) g/dL Albumin (3.5-5.0) g/dL Disposition Clinical Impression: Bilateral pneumonia, Shortness of breath, Cough, Fever Disposition: Left Against Medical Advice Condition: Fair Is patient prescribed a controlled substance at d/c from ED?: No Time of Disposition: 16:43
[2020-03-08] MEDS ORDERED: SODIUM CHLORIDE 0.9% 1,000 ML IV STA (14:46)
[2020-03-08] MEDS ORDERED: IPRATROPIUM-ALBUTEROL 3 ML NEB INHALATION STA (14:46)
[2020-03-08] MEDS ORDERED: predniSONE 20 MG TAB PO STA (14:46)
[2020-03-08 15:35] LABS: Basophils % (A) 1 %; Eosinophils # (A) 0.1 k/uL (0-0.7); Eosinophils % (A) 1 %; HCT 43.6 % (34.0-46.0); HGB 14.2 gm/dL (11.4-16.0); Lymphocytes # (A) 1.1 k/uL (1.0-4.8); Lymphocytes % (A) 14 %; MCH 31.3 pg (25.0-35.0); MCHC 32.6 g/dL (31.0-37.0); MCV 95.9 fL (80.0-100.0); Mean Platelet Volume 7.6; Monocytes # (A) 0.2 k/uL (0-1.0); Monocytes % (A) 3 %; Neutrophils # (A) 6.3 k/uL (1.3-7.7); Neutrophils % (A) 81 %; Platelet Count 223 k/uL (150-450); RBC 4.55 m/uL (3.80-5.40); RDW 13.9 % (11.5-15.5); WBC 7.7 k/uL (3.8-10.6)
[2020-03-08 15:45] LABS: ALT 54 U/L (4-34); AST 42 U/L (14-36); African American GFR (CKD) >90 (>60 ml/min/1.73 sqM); Albumin 3.6 g/dL (3.5-5.0); Alkaline Phosphatase 69 U/L (38-126); Anion Gap 8 mmol/L; Blood Urea Nitrogen 6 mg/dL (7-17); Calcium 7.9 mg/dL (8.4-10.2); Carbon Dioxide 24 mmol/L (22-30); Chloride 102 mmol/L (98-107); Glucose 148 mg/dL (74-99); INR 0.9 (<1.2); Non-African American GFR(CKD) >90 (>60 ml/min/1.73 sqM); Partial Thromboplastin Time 27.7 sec (22.0-30.0); Potassium 4.2 mmol/L (3.5-5.1); Prothrombin Time 9.6 sec (9.0-12.0); Sodium 134 mmol/L (137-145); Total Bilirubin 0.3 mg/dL (0.2-1.3); Total Protein 6.6 g/dL (6.3-8.2)
[2020-03-08] MEDS ORDERED: Acetaminophen-Codeine 300-30mg TAB PO STA (16:05)
--- NOTE | 2020-03-08 16:15 | XR ---
EXAMINATION TYPE: XR chest 2V DATE OF EXAM: 03/08/2020 COMPARISON: 02/24/2020 HISTORY: Short of breath TECHNIQUE: FINDINGS: There is diffuse bilateral pulmonary interstitial and alveolar infiltrate. Heart size is no rmal. There are no hilar masses. Bony thorax is intact. IMPRESSION: Extensive diffuse pneumonia is a significant change compared to old exam. Normal heart.
[2020-03-08] MEDS ORDERED: ACETAMINOPHEN TAB 325 MG TAB PO STA (16:41)
[2020-03-08] MEDS ORDERED: ACETAMINOPHEN TAB 325 MG TAB PO PRN (16:43)
[2020-03-08] MEDS ORDERED: NALOXONE 0.4 MG/ML 1 ML VIAL IV PRN (16:43)
[2020-03-08] MEDS ORDERED: ONDANSETRON 4 MG/2 ML VIAL IVP PRN (16:43)
[2020-03-08] MEDS ORDERED: Acetaminophen-Codeine 300-30mg TAB PO PRN (16:43)
[2020-03-08] MEDS ORDERED: SODIUM CHLORIDE 0.9% 1,000 ML IV SCH (16:45)
[2020-03-08 17:18] VITALS: BP 128/89; PULSE 115
== END 2020-03-08 19:48 | disposition left against medical advice (07) ==
LOC: EC 14:26 → UNDOADMIN 16:43 → 4SSUR 16:43 → EC 18:45 → UNDODISIN 19:48
DX: U07.1 COVID-19 (principal); J12.89 Other viral pneumonia; Z53.29 Procedure and treatment not carried out because of patient's decision for other reasons; K21.9 Gastro-esophageal reflux disease without esophagitis; I10 Essential (primary) hypertension; F41.9 Anxiety disorder, unspecified; J96.00 Acute respiratory failure, unspecified whether with hypoxia or hypercapnia; J45.901 Unspecified asthma with (acute) exacerbation; E87.70 Fluid overload, unspecified; E03.9 Hypothyroidism, unspecified; R73.9 Hyperglycemia, unspecified; G47.33 Obstructive sleep apnea (adult) (pediatric); J41.1 Mucopurulent chronic bronchitis; F32.9 Major depressive disorder, single episode, unspecified; F17.200 Nicotine dependence, unspecified, uncomplicated; Z79.899 Other long term (current) drug therapy; Z88.0 Allergy status to penicillin; Z88.1 Allergy status to other antibiotic agents; Z88.8 Allergy status to other drugs, medicaments and biological substances
CPT/HCPCS: 96360; 96361; 99285; 36415; 94640; 93005; 80053; 83605; 84484; 85025; 85610; 85730; 71046; U0003; J7512